=== PATIENT | female | born 1945 | race Caucasian/White ===

== ENCOUNTER → 2023-08-02 10:59 | Outpatient (REF) | payer OTHER, SELFPAY | LOC: RAD 10:59 | PROVIDERS: ATTENDING PHYSICIAN Physician Assistant Medical; FAMILY PHYSICIAN Family Medicine | DX: M47.812 Spondylosis without myelopathy or radiculopathy, cervical region (principal); M47.814 Spondylosis without myelopathy or radiculopathy, thoracic region | CPT/HCPCS: 72050; 72072; 72100 ==

== ENCOUNTER 2024-03-08 21:51 | Inpatient (IN) | payer OTHER, SELFPAY ==
[2024-03-08] VITALS (8 sets, daily range): BP systolic 103–138; BP diastolic 69–91; BMI 25.4; BMI 24.7
[2024-03-08 17:15] LABS: % Basophils 0.2 % (0-2); % Eosinophils 0.1 % (0-6); % Immature Granulocytes 0.8 % (0-0.5); % Lymphocytes 7.6 % (20.5-51.1); % Monocytes 7.3 % (1.7-9.3); Absolute Immature Granulocytes 0.1 10^3/uL (0-0.05); Absolute Lymphocytes 1.4 10^3/uL (1.2-3.4); Absolute Monocytes 1.3 10^3/uL (0.1-0.6); Absolute Neutrophils 15.3 10^3/uL (1.4-6.5); Hematocrit 45.5 % (37.0-47.0); Hemoglobin 15.4 g/dL (12.0-16.0); Mean Corp Hgb Conc. 33.8 g/dL (33.0-37.0); Mean Corpuscular Hgb 29.1 pg (27.0-31.0); Mean Platelet Volume 10.7 fL (7.4-10.4); Nucleated Red Blood Cells % 0 %; Platelet Count 332 10^3/uL (130-400); Red Blood Cell Count 5.29 10^6/uL (4.20-5.40); White Blood Cell Count 18.2 10^3/uL (4.8-10.8)
--- NOTE | 2024-03-08 17:15 | ED.GENMED ---
History of Present Illness
General
Chief Complaint: Failure to Thrive
Source: patient, family and ambulance crew
Time Seen by Provider: 03/08/24 16:48
History of Present Illness
History of Present Illness:
78yoF with a history of COPD on 3L NC, coronary artery disease, diastolic CHF, hypertension, hyperlipidemia, atrial fibrillation, sick sinus syndrome s/p pacemaker, aortic stenosis s/p TAVR, ulcerative colitis, and hypothyroidism presenting via EMS
for evaluation of altered mental status. Patient reports feeling confused but is not sure when this started. I called and spoke with daughter via phone who provides majority of the history. Daughter states that patient started to feel unwell
about 8-9 days ago. She was having cold symptoms and a cough which patient attributed to allergies. Daughter noticed that she seemed confused yesterday and 'seemed lost.' She typically is A&O and lives independently. Patient refused to come to the
hospital yesterday. Daughter checked on her today and she seemed worse prompting EMS call. Patient is unkempt on arrival and covered in feces.
Past History
Past History
ED Past Medical History: CAD, CHF, COPD, HTN, Hypercholesterolemia, Hypothyroidism and Psychiatric
ED Past Surgical History: Cholecystectomy, Gynecological (DIANA/BSO) and Orthopedic (total right knee replacement)
Social History
Tobacco: Non-smoker
Personal:
Living: with family (lives with who is able to help her)
Phy Exam
General Physical Exam
General Presentation: no apparent distress
General age: appears stated age
General Skin: warm and dry
General Habitus: elderly and poor hygiene
General Mental: alert
Cardiovascular Exam
Cardiovascular Exam: regular rate/rhythm
Pulmonary Exam
Pulmonary Exam: lungs clear, no respiratory distress, no crackles and other (Frequent cough)
Gastrointestinal Exam
Gastrointestinal Exam: non tender, soft and non distended
Neurological Exam
Neurological Exam: alert and other (Patient oriented to person and place. Not oriented to time. Somewhat slow to answer questions. )
Skin Exam
Skin Exam: normal color and warm/dry
Psychiatric Exam
Psychiatric Exam: normal mood/affect
Course
Orders/Labs/Results
Orders:
Orders
03/08/24 16:59
Cardiac Monitoring- Treatment ONCE
03/08/24 17:00
Electrocardiogram (*1) Urgent
Reason for Study: Other
Other Reason for Exam: sepsis
EKG- Treatment ONCE
CR Chest - 2 Views Urgent
Comment:
Reason For Exam: Fever
03/08/24 17:03
COVID-19 Antigen Urgent
Source: Nasal Swab
Complete Blood Count/With Diff Urgent
Comprehensive Metabolic Panel Urgent
Lactate Level [Lactic Acid] Urgent
Magnesium Urgent
Comment: ADD ON
PTT Urgent
Procalcitonin Urgent
PCT Algorithmm Indication: Sepsis
Prothrombin Time Urgent
Total CK [Creatine Phosphokinase] Urgent
Blood Culture Urgent
[facility] Source: Blood/Venous
Specimen Description:
Influenza A+B Rapid Molecular Urgent
[facility]AL Source: Nasal Swab
Specimen Description:
03/08/24 17:04
CT Head W/o Iv Contrast Urgent
Comment:
Reason For Exam: AMS
03/08/24 17:07
Blood Culture Routine
DHAVAL Source: Blood/Venous
Specimen Description:
03/08/24 17:10
Acetaminophen [Tylenol] 650 mg PO NOW STA
03/08/24 17:13
0.9% Sodium Chloride 500 ml [Nss] 500 ml IV BOLUS
03/08/24 17:18
Troponin I Urgent
Urinalysis Reflex To Culture Urgent
Date Specimen was Collected: 03/08/24
Time Specimen was Collected: 17:17
Urine Microscopic Reflex Cult Urgent
Urine Culture Urgent
DHAVAL Source: U
Specimen Description:
Date Specimen was Collected: 03/08/24
Time Specimen was Collected: 17:17
03/08/24 17:29
Straight cath- Treatment ONCE
03/08/24 17:38
Interrogate Pacemaker- Treatment ONCE
03/08/24 17:39
Add On- LAB Urgent
Tests Added?: magnesium
Potassium Chloride [KCl] 40 meq PO NOW STA
03/08/24 18:23
Magnesium Sulfate 1 G/D5w [Magnesium Sulfate] 1 gm in 100 ml IV NOW
03/08/24 18:30
CefTRIAXone [Rocephin] 2,000 mg IV NOW STA
03/08/24 18:33
Sterile Water [Sterile Water For Injection] 20 ml .ROUTE .STK-MED
03/08/24 22:00
Flush (0.9% Sodium Chloride) [Flush (Nss)] See Dose Instructions IV PER PROTOCOL
Abnormal Lab Results
03/08/24 03/08/24
17:03 17:18
WBC 18.2 H 10^3/uL
(4.8-10.8)
MPV 10.7 H fL
(7.4-10.4)
Abs Immat Gran (auto) 0.1 H 10^3/uL
(0-0.05)
Absolute Neuts (auto) 15.3 H 10^3/uL
(1.4-6.5)
Absolute Monos (auto) 1.3 H 10^3/uL
(0.1-0.6)
Immature Gran % 0.8 H %
(0-0.5)
Neutrophils % 84.0 H %
(42.2-75.2)
Lymphocytes % 7.6 L %
(20.5-51.1)
APTT 37.1 H Sec
(23.4-35.0)
Potassium 3.2 L mmol/L
(3.5-5.1)
Glucose 126 H mg/dl
(70-99)
Urine Ketones 3+ A
(Negative)
Urine Bilirubin 1+ A
(Negative)
Urine Bacteria (Reflex) Many A
(Negative)
Urine Albumin (Reflex) 1+ A
(Neg - Trace)
03/08/24 17:03
03/08/24 17:03
Vital Signs
Initial and Last Documented VS:
Initial Vital Signs
Temp Pulse Resp BP Pulse Ox
101.3 F H 60 17 133/70 93
03/08/24 16:47 03/08/24 16:47 03/08/24 16:47 03/08/24 16:47 03/08/24 16:47
Last Documented Vital Signs
Temp Pulse Resp BP Pulse Ox
98.0 F 81 28 125/83 92
03/08/24 18:32 03/08/24 20:30 03/08/24 20:30 03/08/24 20:00 03/08/24 20:30
MDM/Problems Addressed
Differential Diagnosis Includes:
78yoF here with malaise x 8-9 days with confusion since yesterday and generalized weakness. Patient is covered in feces on arrival. She is febrile to 101.3. Remainder of vitals are normal and BP stable. She is non-toxic appearing. She is oriented to
person and place but not time. Differential diagnosis includes but is not limited to: Viral illness, bronchitis, pneumonia, UTI, dehydration
Initial ED plan: Check septic workup including blood cultures, lactate, COVID/flu swab, UA, chest x-ray, and CT abdomen. Tylenol and fluid bolus.
*EKG
Interpreted by ED Provider?: Yes
EKG Intrepretation Date: 03/08/24
Heart Rate: 60
Rate: normal
Rhythm: ventricular paced
Ischemia: no ischemia
*Critical Care Note
Total Time (30-74mins, 75-104mins- exclusive of procedures): Not Applicable
Update Note
Update Note:
Labs reveal a leukocytosis with a white count of 18.2. Lactate normal. COVID/flu negative. Chest x-ray without infiltrates. CT head is negative for acute intracranial abnormalities but does show evidence of sinusitis. During ED stay, I was
notified by nursing staff about a possible episode of nonsustained VT. Pacemaker interrogation performed and I discussed results with [employer] rep. Patient has had 2 episodes of nonsustained VT since her last interrogation. The last episode of
this was today at 1549 lasting 5 beats. Discussed this with Dr. Quiroga, rn coronary care unit, who recommends optimizing electrolytes and monitoring on telemetry. Potassium and magnesium replacement ordered. Patient given IV Rocephin and was admitted
for further management.
ED Attending Note
-
Portions of this chart may have been created with voice recognition software.� Occasional wrong word or��sound alike� substitutions may have occurred due to the inherent limitations of voice recognition software.
Discharge Plan
Departure
Patient Disposition: Admit
Date of Disposition: 03/08/24
Time of Disposition: 19:46
Presentation/result/management discussed w/ accepting MD/DO: Hospitalist
Discharge Problem:
SIRS (systemic inflammatory response syndrome), Altered mental status, Non-sustained ventricular tachycardia
Prescriptions:
No Action
tizanidine 4 MG tablet
4 mg PO TIDPRN PRN (Reason: spasms)
sumatriptan succinate 50 MG tablet
50 mg PO DAILYPRN PRN (Reason: migraine)
citalopram 20 MG tablet
20 mg PO DAILY
allopurinol 300 MG tablet
300 mg PO DAILY
pregabalin [Lyrica] 100 MG capsule
75 mg PO TID
omeprazole 20 MG tablet,delayed release (DR/EC)
20 mg PO DAILY
torsemide 20 MG tablet
40 mg PO DAILY
rosuvastatin 10 MG tablet
20 mg PO DAILY
Incruse Ellipta 62.5 MCG blister with device
62.5 mcg IH R DAILYPRN PRN (Reason: sob)
potassium chloride [Klor-Con M20] 20 MEQ tablet,ER particles/crystals
40 meq PO DAILY
tizanidine 4 MG tablet
8 mg PO HS
cyclosporine [Restasis] 10 DROPS dropperette
1 drp LEFT EYE DAILY
Theragen Tablet
1 tab PO DAILY
acetaminophen [Tylenol Extra Strength] 500 mg Tablet
1,000 mg PO Q8HPRN PRN (Reason: mild pain)
levothyroxine [Synthroid] 100 mcg Tablet
100 mcg PO MOTUWETHFRSA
calcium carbonate [Calcium 500] 500 mg calcium (1,250 mg) Tablet
2,000 mg PO DAILY
diltiazem HCl 240 mg Capsule,Extended Release 24 Hr
240 mg PO DAILY
Referrals:
UNKNOWN - PT DOES,NOT KNOW [Family Provider] -
Interventions
Interventions:
*Risk Screen - Suicide Last Done: 03/08/24 16:47
*General Assessment Last Done: 03/08/24 16:47
*Neglect/Abuse Screening Last Done: 03/08/24 16:47
ED- Fall Risk Assessment Last Done: 03/08/24 19:06
*ED COVID-19 Vaccine History Last Done: 03/08/24 17:27
Discharge Date and Time
Print Language: SLOVAK
[2024-03-08] MEDS: TYLENOL 650 MG PO (17:16)
[2024-03-08] MEDS: NSS 500 IV (17:16)
[2024-03-08 17:25] LABS: INR 1.09; PT 13.9 Sec (11.4-14.6)
[2024-03-08 17:26] LABS: APTT 37.1 Sec (23.4-35.0); Lactic Acid 1.3 mmol/L (0.7-2.0)
[2024-03-08 17:28] LABS: COVID-19 Antigen Negative (Negative)
[2024-03-08 17:29] LABS: ALT (SGPT) 27 U/L (0-35); AST (SGOT) 34 U/L (14-36); Albumin 4.5 g/dl (3.5-5.0); Alkaline Phosphatase 114 U/L (38-126); Blood Urea Nitrogen 17 mg/dl (7-17); Calcium 10.2 mg/dl (8.4-10.2); Carbon Dioxide 24 mmol/L (22-30); Chloride 98 mmol/L (98-107); Creatine Phosphokinase 45 U/L (30-135); Estimated Creatinine Clearance 59 ml/min; Glucose 126 mg/dl (70-99); Potassium 3.2 mmol/L (3.5-5.1); Sodium 142 mmol/L (135-145); Total Bilirubin 1.2 mg/dl (0.2-1.3); eGFR > 60.00
[2024-03-08 17:30] LABS: Urine Albumin 1+ (Neg - Trace); Urine Bilirubin 1+ (Negative); Urine Character Clear (Clear); Urine Color Yellow; Urine Glucose Negative (Negative); Urine Ketone 3+ (Negative); Urine Leukocyte Negative (Negative); Urine Nitrite Negative (Negative); Urine Occult Blood Negative (Negative); Urine Specific Gravity 1.025 (<1.030); Urine Urobilinogen 1+ (Neg - 1+)
[2024-03-08 17:43] LABS: Urine Mucus Many
[2024-03-08 17:44] LABS: Urine Hyaline Cast 0-2 /LPF (0-2)
[2024-03-08 17:45] LABS: Urine Bacteria Many (Negative); Urine Red Blood Cell 0-2 /HPF (0-2)
--- NOTE | 2024-03-08 17:54 | PHANOTE ---
med rec note- patient coming from home, not sure if she living with. used ecw but patient appointment are not current, and most pharmacy were just filled. most ecw medication weren't filled recently, unable to find potassium, Restasis, Incruse.
patient come with med list from 2022. left message for family.
[2024-03-08 17:57] LABS: Troponin I 0.021 ng/ml
[2024-03-08 18:06] LABS: Magnesium 1.8 mg/dl (1.6-2.3)
[2024-03-08] MEDS: KCL 40 MEQ PO (18:06)
[2024-03-08 18:19] LABS: Procalcitonin < 0.05 ng/ml (0.0-0.25)
[2024-03-08] MEDS: MAGNESIUM SULFATE 100 IV (18:27)
[2024-03-08] MEDS: ROCEPHIN 2000 MG IV (18:34)
--- NOTE | 2024-03-08 20:16 | EDRN ---
updated patients family re:admission-- Erika Hernandez [phone] daughter in law-- would like an update in the am --patient was independent and doing well on her own till approx 9 days ago when she started with cold/cough--patient lives by herself
with family on the same property and they check on her frequently
--- NOTE | 2024-03-08 21:12 | HPS.HSE ---
Family Physician
-
Family Physician: NOT KNOW UNKNOWN - PT DOES
Chief Complaint
-
Fever, confusion
History of Present Illness
78 yo woman with a history of:
COPD on 3L NC,
coronary artery disease,
diastolic CHF,
hypertension,
hyperlipidemia,
atrial fibrillation,
sick sinus syndrome s/p pacemaker,
aortic stenosis s/p TAVR,
ulcerative colitis,
hypothyroidism
comes to the hospital via EMS for evaluation of altered mental status. Patient is not sure when this started. ER doc spoke with daughter via phone who provided majority of the history. Daughter stated that patient started to feel unwell 8-9 days
ago. She reports cold symptoms and a cough. Daughter noticed that her mom seemed confused yesterday and 'lost.' She typically is A&O and lives independently. Daughter checked on her today and she was unkempt, and on arrival she was covered in
feces. At the time of my interview, she was not in distress, and was able to answer simple questions.
Medical History
Past Medical History
Past Medical History: Reports Other
Additional Past Medical History:
Chronic obstructive pulmonary disease, unspecified COPD type
Hypothyroidism, unspecified
Mixed hyperlipidemia
Hyperparathyroidism, secondary renal
Rheumatoid arthritis involving multiple sites,
Ulcerative colitis without complications, unspecified location
Hypertensive heart
chronic kidney disease with heart failure
Paroxysmal atrial fibrillation
Major depressive disorder, recurrent, mild
Pacemaker
Chronic kidney disease, stage 3a
Chronic respiratory failure with hypoxia
Peripheral vascular disease, unspecified
Hypercholesterolemia
Hypertensive heart disease with heart failure
Chronic systolic (congestive) heart failure
Atherosclerosis of [place] coronary artery of [place] heart with angina pectoris
Impaired fasting glucose
chronic pain
Exudative age-related macular degeneration, bilateral, with active choroidal neovascularization
Past Surgical History: Reports Other
Additional Past Surgical History:
see above
Social History
Unable to obtain full social history at this time due to: Dementia
Tobacco: Non-smoker
Alcohol: None
Drug: None
Personal: Single
Living: Alone
Employment: Not Employed
Family History
Family History: Not pertinent
Allergies / Home Medications
Allergies reflects when Allergies were last updated in [facility].
Home Medications with original date entered in [facility]
Allergy/Medication List:
Allergies
Allergy/AdvReac Type Severity Reaction Status Date / Time
codeine Allergy migraine Verified 03/08/24 17:01
duloxetine HCl Allergy confusion Verified 03/08/24 17:01
[From Cymbalta]
metoclopramide Allergy DYSTONIA Verified 03/08/24 17:01
PER MD
tramadol Allergy Hives Verified 03/08/24 17:01
tramadol HCl [From Ultram] Allergy Hives Verified 03/08/24 17:01
Home Medications
allopurinol 300 mg tablet 300 mg PO DAILY gout 09/29/14
citalopram 20 mg tablet 20 mg PO DAILY Mental Health/Anxiety 09/29/14
omeprazole 20 mg tablet,delayed release 20 mg PO DAILY Gastrointestinal issue 09/29/14
pregabalin 100 mg capsule (Lyrica) 75 mg PO TID nerve pain 09/29/14
sumatriptan succinate 50 mg tablet 50 mg PO DAILYPRN PRN migraine 09/29/14
tizanidine 4 mg tablet 4 mg PO TIDPRN PRN spasms 09/29/14
torsemide 20 mg tablet 40 mg PO DAILY water pill 11/04/16
rosuvastatin 10 mg tablet 20 mg PO DAILY High cholesterol 01/22/17
potassium chloride 20 mEq tablet,extended release(part/cryst) (Klor-Con M) 40 meq PO DAILY Supplement 10/18/21
umeclidinium 62.5 mcg/actuation blister powder for inhalation (Incruse Ellipta) 62.5 mcg IH R DAILYPRN PRN sob 10/18/21
cyclosporine 0.05 % eye drops in a dropperette (Restasis) 1 drp LEFT EYE DAILY Eye condition 11/28/21
tizanidine 4 mg tablet 8 mg PO HS Muscle spasms 11/28/21
acetaminophen 500 mg tablet (Tylenol Extra Strength) 1,000 mg PO Q8HPRN PRN mild pain 03/08/24
calcium carbonate 2,000 mg PO DAILY 03/08/24
diltiazem HCl 240 mg capsule,24 hr,extended release 240 mg PO DAILY 03/08/24
levothyroxine 100 mcg tablet (Synthroid) 100 mcg PO MOTUWETHFRSA 03/08/24
therapeutic multivitamin 1 tab PO DAILY 03/08/24
Review of Systems
-
Unable to obtain full review of systems at this time due to: Dementia
History Source: Patient
A 12 point ROS was completed and negative except as noted: Yes
Physical Exam
Vital Signs
Vital Signs
Temp Pulse Resp BP Pulse Ox
98.0 F 81 28 125/83 92
03/08/24 18:32 03/08/24 20:30 03/08/24 20:30 03/08/24 20:00 03/08/24 20:30
Physical Exam
General: Well Developed, Well Nourished, No Apparent Distress and Comfortable
HEENT: Moist mucous membranes, Nose Appears Normal and Ears Appear Normal
Respiratory: Rhonchi (upper resp zone)
Cardiac: S1/S2 and Regular Rhythm
GI: Soft, Non Tender and Non Distended
Musculoskeletal: No Clubbing, No Cyanosis and No Edema
Skin: Warm and Dry
Neuro: Awake and Alert
Psych: Calm
Laboratory Results
-
03/08/24 17:03
03/08/24 17:03
Laboratory Results
PT 13.9 Sec (11.4-14.6) 03/08/24 17:03
INR 1.09 03/08/24 17:03
APTT 37.1 Sec (23.4-35.0) H 03/08/24 17:03
Lactic Acid 1.3 mmol/L (0.7-2.0) 03/08/24 17:03
Total Bilirubin 1.2 mg/dl (0.2-1.3) 03/08/24 17:03
AST 34 U/L (14-36) 03/08/24 17:03
ALT 27 U/L (0-35) 03/08/24 17:03
Alkaline Phosphatase 114 U/L (38-126) 03/08/24 17:03
Troponin I 0.021 ng/ml 03/08/24 17:18
Data Reviewed
-
Lab Data: Labs Reviewed by me
Impression/Plan
-
IMPRESSION:
78 woman with confusion, found to have sinusitis and likely bronchitis. Significant findings:
WBC 18.2
K 3.2
UA ketones and bacteria
Head CT shows sinusitis
5 beat episode of non-sustained v-tach in ER
PLAN:
1. Infection, likely sinusitis and bronchitis
ER gave rocephin
Switch to oral augmentin when appropriate to switch to po
2. Low K, likely decreased PO
Oral repletion
Recheck in am
Check magnesium level
3. Non-sustained v-tach, pacer working
Monitor on telemetry
replete electrolytes
Code: full
VCD for DVTp
[2024-03-08] MEDS: ZANAFLEX 8 MG PO (23:34)
[2024-03-08] MEDS: LYRICA 75 MG PO (23:35)
[2024-03-09] VITALS (7 sets, daily range): BP systolic 107–148; BP diastolic 58–81; PULSE 98; O2SAT 94
[2024-03-09 00:35] LABS: Troponin I 0.022 ng/ml
[2024-03-09 07:17] LABS: Hematocrit 36.4 % (37.0-47.0); Hemoglobin 12.3 g/dL (12.0-16.0); Mean Corp Hgb Conc. 33.8 g/dL (33.0-37.0); Mean Corpuscular Hgb 29.4 pg (27.0-31.0); Mean Corpuscular Volume 87.1 fL (81.0-99.0); Mean Platelet Volume 11.7 fL (7.4-10.4); Platelet Count 241 10^3/uL (130-400); Red Blood Cell Count 4.18 10^6/uL (4.20-5.40); White Blood Cell Count 11.9 10^3/uL (4.8-10.8)
[2024-03-09 07:34] LABS: Blood Urea Nitrogen 13 mg/dl (7-17); Estimated Creatinine Clearance 51 ml/min; Glucose 105 mg/dl (70-99)
[2024-03-09 07:35] LABS: Calcium 8.9 mg/dl (8.4-10.2); Carbon Dioxide 30 mmol/L (22-30); Chloride 99 mmol/L (98-107); Magnesium 1.9 mg/dl (1.6-2.3); Potassium 3.1 mmol/L (3.5-5.1); Sodium 140 mmol/L (135-145); eGFR > 60.00
[2024-03-09 07:40] LABS: Troponin I 0.019 ng/ml
[2024-03-09] MEDS: LYRICA PO (08:45)
[2024-03-09] MEDS: RESTASIS 0.05% OPHTHALMIC EMULSION 1 DROPS LEFT EYE (08:48)
[2024-03-09] MEDS: ZYLOPRIM 300 MG PO (08:49)
[2024-03-09] MEDS: DEMADEX 40 MG PO (08:49)
[2024-03-09] MEDS: CRESTOR 20 MG PO (08:49)
[2024-03-09] MEDS: CARDIZEM CD 240 MG PO (08:49)
[2024-03-09] MEDS: KCL 20 MEQ PO (08:49)
[2024-03-09] MEDS: PROTONIX 40 MG PO (08:49)
[2024-03-09] MEDS: THERAGRAN 1 TABLET PO (08:49)
[2024-03-09] MEDS: CELEXA 20 MG PO (08:50)
[2024-03-09] MEDS: OSCAL CAL 500 2000 MG PO (08:51)
[2024-03-09 09:41] LABS: TSH 4.25 uIU/ml (0.47-4.68)
--- NOTE | 2024-03-09 11:07 | W.PN.HOSP.TC ---
Today's Communication/Plan
-
Replete potassium
Standing potassium with Demadex
Hold tizanidine and Lyrica
Monitor mentation
Continue antibiotics
Assessment / Plan
Assessment / Plan
#Toxic metabolic encephalopathy likely multifactorial polypharmacy vs. infection (suspected bacterial sinusitis) vs. dehydration
CT head Mild diffuse cerebral and cerebellar volume loss. Mild white matter leukoaraiosis.
Hold tizanidine and lyrica
Blood culture and ucx in lab
Cont rocephin for now
Monitor po intake
avoid narcs
Improvement in leukocytosis.
#Hypokalemia
replete/monitor
#Leg pain
Check xray
#Non-sustained v-tach, pacer working
#Paroxysmal atrial fibrillation
Monitor on telemetry
Cont cardizem
CKD3a
trend cr for now
Cont torsemide
PAD
HLD-Cont statin
Hypothyroidism-cont synthroid
Gout�continue allopurinol
Code: full
DVT Prophylaxis Lovenox
d/w with daughter over the phone in details
Anticipated Discharge: > 48 hours
Subjective/Interval History
-
Date of Service: March 09, 2024
states feeling better after eating breakfast
remain confused
Objective Data
-
Labs:
Laboratory Results
03/09/24
05:17
WBC 11.9 H
Hgb 12.3 D
Hct 36.4 L
Plt Count 241 D
Sodium 140
Potassium 3.1 L
Chloride 99
Carbon Dioxide 30
BUN 13
Creatinine 0.7
Glucose 105 H
Calcium 8.9
Vital Signs:
Vital Signs
Temp Pulse Resp BP Pulse Ox
98.3 F 80 16 120/58 97
03/09/24 07:00 03/09/24 07:20 03/09/24 07:20 03/09/24 07:00 03/09/24 08:00
I&O
03/08/24 03/09/24 03/10/24
06:59 06:59 06:59
Intake Total 480 / 480
Output Total 0 / 0
Balance 480 / 480
Physical Exam
-
General: Well Developed and No Apparent Distress
HEENT: Normocephalic, Atraumatic and Moist Mucous Membranes
Respiratory: Clear to Auscultation
Cardiac: Regular Rhythm and S1/S2; Negative Murmur, Rub or Gallop
GI: Soft, Nontender, Nondistended and Normal Bowel Sounds; Negative Organomegaly
Rectal: Deferred by Provider
Musculoskeletal: No Clubbing, No Cyanosis, No Edema and Other (TTP R ankle )
Skin: Negative Rash
Neuro: Awake and Nonfocal/Grossly Intact
Psych: Calm
Data Reviewed
-
Total Time Spent with Patient (in minutes): 62
[2024-03-09 12:42] LABS: Troponin I 0.019 ng/ml
--- NOTE | 2024-03-09 13:39 | CM ---
shift manager reviewed patient's chart and met with patient and patient states she lives in a one story home with 4 steps to enter, patient's son and daughter in law live next door to patient, patient is independent with adl's and uses a walker with
ambulation, patient is currently requiring 3 liters of oxygen at home, she thinks her equipment company is [employer].
Pharmacy: [facility]
PCP: Dr. Oliveira.
[2024-03-09] MEDS: TYLENOL 1000 MG PO ×2 (15:14→23:51)
[2024-03-09] MEDS: STERILE WATER FOR INJECTION 10 ML IV (17:01)
[2024-03-09] MEDS: ROCEPHIN 1000 MG IV (17:01)
[2024-03-09] MEDS: LOVENOX 40 MG SC (17:01)
[2024-03-09] MEDS: DESENEX/MITRAZOL/ZEASORB 1 APPLIC TOPICAL (19:46)
[2024-03-10] VITALS (8 sets, daily range): BP systolic 89–144; BP diastolic 61–83; PULSE 60–111; O2SAT 98
[2024-03-10] MEDS: SYNTHROID 100 MCG PO (05:31)
[2024-03-10 07:38] LABS: % Basophils 0.5 % (0-2); % Eosinophils 1.5 % (0-6); % Immature Granulocytes 1.5 % (0-0.5); % Lymphocytes 21.9 % (20.5-51.1); % Monocytes 10.1 % (1.7-9.3); % Neutrophils 64.5 % (42.2-75.2); Absolute Basophils 0.1 10^3/uL (0-0.2); Absolute Eosinophils 0.2 10^3/uL (0-0.7); Absolute Immature Granulocytes 0.2 10^3/uL (0-0.05); Absolute Lymphocytes 2.5 10^3/uL (1.2-3.4); Absolute Monocytes 1.2 10^3/uL (0.1-0.6); Absolute Neutrophils 7.4 10^3/uL (1.4-6.5); Hematocrit 42.2 % (37.0-47.0); Hemoglobin 13.7 g/dL (12.0-16.0); Mean Corp Hgb Conc. 32.5 g/dL (33.0-37.0); Mean Corpuscular Hgb 28.8 pg (27.0-31.0); Mean Corpuscular Volume 88.7 fL (81.0-99.0); Mean Platelet Volume 12.2 fL (7.4-10.4); Nucleated Red Blood Cells % 0 %; Platelet Count 198 10^3/uL (130-400); Red Blood Cell Count 4.76 10^6/uL (4.20-5.40); Red Cell Dist. Width 13.9 % (11.5-14.5); White Blood Cell Count 11.5 10^3/uL (4.8-10.8)
[2024-03-10 08:05] LABS: Blood Urea Nitrogen 16 mg/dl (7-17); Calcium 9.6 mg/dl (8.4-10.2); Carbon Dioxide 33 mmol/L (22-30); Chloride 97 mmol/L (98-107); Estimated Creatinine Clearance 44 ml/min; Glucose 101 mg/dl (70-99); Potassium 3.2 mmol/L (3.5-5.1); Sodium 140 mmol/L (135-145); eGFR > 60.00
--- NOTE | 2024-03-10 08:31 | WOUNDNOTE ---
ABDOMINAL FOLD (L OUTER).
--- NOTE | 2024-03-10 08:33 | WOUNDNOTE ---
[facility] RN note: Patient admitted with sinusitis, low potassium. Patient lives alone. Family lives next door.
See H&P for complete history.
PMH: from H+P
'COPD on 3L NC,
coronary artery disease,
diastolic CHF,
hypertension,
hyperlipidemia,
atrial fibrillation,
sick sinus syndrome s/p pacemaker,
aortic stenosis s/p TAVR,
ulcerative colitis,
hypothyroidism'
Wound Location and type/assessment: Patient admitted with: small linear dark purple ecchymotic area L sacral/buttocks stage 2 vs DTI, stage 1 sacral pressure injury, dry abrasion R sacral/buttocks. Linear dermal opening L outer abdominal fold r/t
moisture. Yeast redness abdominal/groin folds, breast folds. Miconazole powder on order.
Appetite: good.
Pressure redistribution devices in place: [employer] Accumax. Patient turns with assist of 1. t/c bedtech Evin and requested air bed. Discussed with PCT Halle.
Plan: Silicone border foam changed on sacral/buttocks. Protective foam applied to heels. Patient turned to R semi side lying position. Instructed patient pressure injury prevention measures, uses of air chair cushion and to take air chair cushion
when discharged.
Will confirm orders with hospitalist and update nurse.
Care plan to be updated and will follow as needed.
Note to case management requested for discharge: Patient interested in VN if discharged to home.
Recommend follow up at wound care center upon discharge if needed.
[2024-03-10] MEDS: DEMADEX 40 MG PO (10:07)
[2024-03-10] MEDS: CRESTOR 20 MG PO (10:08)
[2024-03-10] MEDS: KCL 40 MEQ PO (10:08)
[2024-03-10] MEDS: CELEXA 20 MG PO (10:09)
[2024-03-10] MEDS: CARDIZEM CD 240 MG PO (10:09)
[2024-03-10] MEDS: THERAGRAN 1 TABLET PO (10:09)
[2024-03-10] MEDS: OSCAL CAL 500 2000 MG PO (10:10)
[2024-03-10] MEDS: PROTONIX 40 MG PO (10:10)
[2024-03-10] MEDS: ZYLOPRIM 300 MG PO (10:14)
[2024-03-10] MEDS: DESENEX/MITRAZOL/ZEASORB 1 APPLIC TOPICAL ×2 (10:15→19:22)
[2024-03-10] MEDS: RESTASIS 0.05% OPHTHALMIC EMULSION 1 DROPS LEFT EYE (10:15)
--- NOTE | 2024-03-10 15:18 | VNURNOTE ---
Home Health Liaison met with patient at bedside to discuss [facility] nurse/therapy, visits, schedule and homebound status. Patient is agreeable and understands that visits at home will be 2-3 x per week to assess and teach medical management. [facility]
brochure provided with contact information. Patient is aware that [facility] will contact them for start of care in 1-2 days after discharge from .
[facility] referral completed in [facility].
--- NOTE | 2024-03-10 15:55 | CM ---
Chart reviewed and renal case manager spoke with patient, physical therapy are recommending skilled placement however patient wants to return to home with [facility], son and daughter in law live next door.
Plan; Home with [facility], patient has home oxygen in home.
--- NOTE | 2024-03-10 17:00 | W.PN.HOSP.TC ---
Today's Communication/Plan
-
recheck labs
will need outpt follow up with ENT
Assessment / Plan
Assessment / Plan
#Toxic metabolic encephalopathy likely infection (suspected bacterial sinusitis), markedly improved, pt currently fully alert and answering questions appropriately
CT head: ACUTE RIGHT MAXILLARY and LEFT SPHENOID SINUSITIS. Mild diffuse cerebral and cerebellar volume loss. Mild white matter leukoaraiosis.
Hold tizanidine and lyrica
Blood culture: NGTD and ucx neg
Cont rocephin for now
Monitor po intake
avoid narcs
Improvement in leukocytosis.
WBC 18.2-->11.9-->11.5
#Hypokalemia
replete/monitor, on 40 Meq KCl daily
3.2-->3.1-->3.2
consider adjustment of diuretics as per input of cardio
#Leg pain
Check xray
Hx of Aortic Stenosis
s/p TAVR 12/08/[address] Florez, will consult cardio
#Non-sustained v-tach, pacer working
#Paroxysmal atrial fibrillation
Monitor on telemetry
Cont cardizem
EKG 03/08: Ventricular-paced rhythm
ABNORMAL ECG
WHEN COMPARED WITH ECG OF 09-DEC-2021 05:37,
VENT. RATE HAS DECREASED BY 12 BPM
underlying rhythm is now atrial fibrillation
CKD3a
trend cr for now
Cont torsemide
PAD
HLD-Cont statin
Hypothyroidism-cont synthroid
Gout�continue allopurinol
Code: full
DVT Prophylaxis Lovenox
Dr. Barth d/w with [id number], over the phone in details, discussed with teagan 03/10. Son goes to [facility], will need outpt follow up post dc
Anticipated Discharge: 24 - 48 hours
Subjective/Interval History
-
Date of Service: March 10, 2024
Pt believes sinuses feel less congested
Objective Data
-
Labs:
Laboratory Results
03/10/24
06:07
WBC 11.5 H
Hgb 13.7
Hct 42.2
Plt Count 198
Sodium 140
Potassium 3.2 L
Chloride 97 L
Carbon Dioxide 33 H
BUN 16
Creatinine 0.8
Glucose 101 H
Calcium 9.6
Vital Signs:
Vital Signs
Temp Pulse Resp BP Pulse Ox
98.4 F 101 20 112/62 96
03/10/24 16:00 03/10/24 16:00 03/10/24 16:00 03/10/24 16:00 03/10/24 16:00
I&O
03/09/24 03/10/24 03/11/24
06:59 06:59 06:59
Intake Total 480 / 480 1200 / 1200
Output Total 0 / 0
Balance 480 / 480 1200 / 1200
Review of Systems
-
History Source: Patient and Coordinated Provider
Constitutional: Denies Fever (last fever was 101.3 on 03/08 at 16:47)
EENT: Reports Other (sinus congestion)
Cardiac: Reports No Symptoms; Denies Chest Pain
Abdomen/GI: Reports No Symptoms
Genitourinary: Reports No Symptoms
Musculoskeletal: Reports Joint Pain (chronic)
Neuro: Denies Dizzy
Physical Exam
-
General: Well Developed and No Apparent Distress
HEENT: Normocephalic, Atraumatic, Moist Mucous Membranes and Other (percussion over sinuses do not cause pain)
Respiratory: Clear to Auscultation
Cardiac: Regular Rhythm and S1/S2; Negative Murmur, Rub or Gallop
GI: Soft, Nontender, Nondistended and Normal Bowel Sounds; Negative Organomegaly
Rectal: Deferred by Provider
Musculoskeletal: No Clubbing, No Cyanosis, No Edema and Other (TTP R ankle )
Skin: Negative Rash
Neuro: Awake and Nonfocal/Grossly Intact
Psych: Calm
[2024-03-10] MEDS: LOVENOX 40 MG SC (18:08)
[2024-03-10] MEDS: ROCEPHIN 1000 MG IV (18:11)
[2024-03-10] MEDS: STERILE WATER FOR INJECTION 10 ML IV (18:11)
[2024-03-10] MEDS: FLUSH (NSS) 1 FLUSH IV (18:13)
[2024-03-10] MEDS: TYLENOL 1000 MG PO (18:42)
[2024-03-11] VITALS (8 sets, daily range): BP systolic 120–165; BP diastolic 67–85; PULSE 99; O2SAT 95
[2024-03-11] MEDS: SYNTHROID 100 MCG PO (06:23)
--- NOTE | 2024-03-11 07:57 | CON.CAR ---
Addendum entered and electronically signed by Elmer Velazco MD 03/11/24 14:06:
Patient seen and examined in collaboration with LIGHTOUT EXAMINER; agree with below.
-78-year-old female with medical/cardiac history as outlined below; Cardiology consulted for CHF and hypokalemia.
-Patient also has elevated white blood cell count; being treated by ID for acute bacterial sinusitis (amoxicillin has been recommended for 5 days).
-Transthoracic echocardiogram today revealed an LVEF of 55-60%, but no regional wall motion abnormalities in the mid inferoseptal, apical septal, and mid to distal inferior regions highly suggestive of a myocardial infarct.
-The patient has no active chest pain.
-Will arrange stress test tomorrow for ischemic evaluation.
-Primary Hospitalist notified of the results and plan of care; also spoke with the patient's [id number] on the telephone.
Original Note:
Consultation
Consultation Request
Date/Time Consultation Requested: 03/10/2024 17:45
Date/Time Consultation Performed: 03/11/2024 07:50
Requesting Provider: Dr. Johnston
Performing Provider: ASHUTOSH Farias for Dr. Velazco
Medical History
-
Chief Complaint: Change in mental status
History of Present Illness:
Gia Hernandez is an 78 year old female (known to Dr. Ramirez, her primary organizational development specialist), with oxygen dependent COPD, coronary artery disease (nonobstructive), HFpEF, hypertension, dyslipidemia, atrial fibrillation (type unknown, not on oral
anticoagulation), SSS s/p dual-chamber Medtronic PPM, aortic stenosis s/p TAVR, ulcerative colitis, hypothyroidism, and RA who presented to the emergency department change in mental status. She was feeling unwell for nearly 1 week prior to arrival.
She was found to have acute sinusitis. She was also found to have hypokalemia. Cardiology was consulted for prior TAVR in the setting of infection along with hypokalemia on home diuretic. The patient is not having any chest pain or shortness of
breath.
Past Medical History
Past Medical History: Arrhythmias (Paroxysmal atrial fibrillation, NSVT), CAD (Non-obstructive), COPD, HTN, Hypercholesterolemia, Hypothyroidism, Renal Failure (CKD3a) and Other (PPM, MARY, UC, RA)
Past Surgical History: Gynecological and Orthopedic
Social History
Tobacco: Former Smoker
Alcohol: None
Drug: None
Living: Alone (Children next-door)
Employment: Retired
Family History
Family History: Reviewed & Not Pertinent
Allergies / Home Medications
Allergy/AdvReac Type Severity Reaction Status Date / Time
codeine Allergy migraine Verified 03/08/24 17:01
duloxetine HCl Allergy confusion Verified 03/08/24 17:01
[From Cymbalta]
metoclopramide Allergy DYSTONIA Verified 03/08/24 17:01
PER MD
tramadol Allergy Hives Verified 03/08/24 17:01
tramadol HCl [From Ultram] Allergy Hives Verified 03/08/24 17:01
�Medication �Instructions �Recorded �Confirmed �Type
allopurinol 300 mg tablet 300 mg PO DAILY gout 09/29/14 03/08/24 History
citalopram 20 mg tablet 20 mg PO DAILY Mental 09/29/14 03/08/24 History
Health/Anxiety
omeprazole 20 mg tablet,delayed 20 mg PO DAILY Gastrointestinal 09/29/14 03/08/24 History
release issue
pregabalin 100 mg capsule (Lyrica) 75 mg PO TID nerve pain 09/29/14 03/08/24 History
sumatriptan succinate 50 mg tablet 50 mg PO DAILYPRN PRN migraine 09/29/14 03/08/24 History
tizanidine 4 mg tablet 4 mg PO TIDPRN PRN spasms 09/29/14 03/08/24 History
torsemide 20 mg tablet 40 mg PO DAILY water pill 11/04/16 03/08/24 History
rosuvastatin 10 mg tablet 20 mg PO DAILY High cholesterol 01/22/17 03/08/24 History
potassium chloride 20 mEq 40 meq PO DAILY Supplement 10/18/21 03/08/24 History
tablet,extended
release(part/cryst) (Klor-Con M)
umeclidinium 62.5 mcg/actuation 62.5 mcg IH R DAILYPRN PRN sob 10/18/21 03/08/24 History
blister powder for inhalation
(Incruse Ellipta)
cyclosporine 0.05 % eye drops in a 1 drp LEFT EYE DAILY Eye condition 11/28/21 03/08/24 History
dropperette (Restasis)
tizanidine 4 mg tablet 8 mg PO HS Muscle spasms 11/28/21 03/08/24 History
acetaminophen 500 mg tablet 1,000 mg PO Q8HPRN PRN mild pain 03/08/24 03/08/24 History
(Tylenol Extra Strength)
calcium carbonate 2,000 mg PO DAILY Supplement 03/08/24 03/08/24 History
diltiazem HCl 240 mg capsule,24 240 mg PO DAILY Blood Pressure 03/08/24 03/08/24 History
hr,extended release
levothyroxine 100 mcg tablet 100 mcg PO MOTUWETHFRSA Thyroid 03/08/24 03/08/24 History
(Synthroid)
therapeutic multivitamin 1 tab PO DAILY Supplement 03/08/24 03/08/24 History
Review of Systems
-
History Source: Patient
All other systems: Negative unless noted
Constitutional: Fatigue
EENT: No Symptoms
Respiratory: No Symptoms
Cardiac: No Symptoms
Abdomen/GI: Nausea
: No Symptoms
Musculoskeletal: No Symptoms
Skin: No Symptoms
Neurological: No Symptoms
Endocrine: No Symptoms
Hematologic/Lymphatic: No Symptoms
Physical Exam
Vital Signs
Temp Pulse Resp BP Pulse Ox
97.4 F 84 16 143/85 96
03/11/24 03:37 03/11/24 03:37 03/11/24 03:37 03/11/24 03:37 03/11/24 03:37
Lab Results
Troponin I 0.019 ng/ml 03/09/24 12:12
Physical Exam
General: Well Developed, Well Nourished, No Apparent Distress and Comfortable
HEENT: Normocephalic, Anicteric and Moist Mucous Membranes
Respiratory: Clear and Non Labored Respirations
Cardiac: S1/S2 and Irregular Rhythm
Breast: Deferred by me
GI: Soft, Non Tender, Non Distended and Normal Bowel Sounds
Rectal: Deferred by Provider
Genito-urinary: No Costovertebral Tender
Musculoskeletal: No Clubbing, No Cyanosis and No Edema
Skin: Warm and Dry
Neuro: AO x 3
Hematologic/Lymphatic: No Lymphadenopathy
Psych: Calm
Impression / Plan
-
HFpEF, chronic
-She is not in acute/decompensated heart failure
-She is being given potassium supplementation for hypokalemia
-Continue home diuretic of torsemide 40 mg daily
-Stop potassium supplementation and start spironolactone 25 mg daily
-She will need a BMP in 1 in 3 weeks time to be reviewed by her primary organizational development specialist
Atrial fibrillation, type unknown
-Rate controlled
-Oral Anticoagulation: None (prior hemorrhage in her eye), declined Watchman in the past
-[id number]: score 4 ( HTN, vascular disease, age 75 or more, female gender)
Severe aortic stenosis S/P TAVR (23 mm Morenita S3, 11/2021)
-Update echocardiogram, peak/mean gradients 41/26 on TTE in 2021
Paroxysmal atrial tachycardia, continue CCB
SSS S/P Medtronic dual chamber PPM
CAD, non-obstructive, stable without CP
Data Reviewed
-
EKG: Report Reviewed by me (V paced with underlying atrial fibrillation )
Labs: Labs Reviewed by me
Old Records: Reviewed
[2024-03-11 08:08] LABS: % Basophils 0.5 % (0-2); % Immature Granulocytes 1.3 % (0-0.5); % Monocytes 8.2 % (1.7-9.3); Absolute Basophils 0.1 10^3/uL (0-0.2); Absolute Eosinophils 0.1 10^3/uL (0-0.7); Absolute Immature Granulocytes 0.2 10^3/uL (0-0.05); Absolute Neutrophils 8.4 10^3/uL (1.4-6.5); Hematocrit 42.5 % (37.0-47.0); Hemoglobin 13.9 g/dL (12.0-16.0); Mean Corp Hgb Conc. 32.7 g/dL (33.0-37.0); Mean Corpuscular Hgb 28.9 pg (27.0-31.0); Mean Corpuscular Volume 88.4 fL (81.0-99.0); Nucleated Red Blood Cells % 0 %; Platelet Count 242 10^3/uL (130-400); Red Blood Cell Count 4.81 10^6/uL (4.20-5.40); Red Cell Dist. Width 13.9 % (11.5-14.5); White Blood Cell Count 11.6 10^3/uL (4.8-10.8)
[2024-03-11 08:29] LABS: Blood Urea Nitrogen 17 mg/dl (7-17); Calcium 9.4 mg/dl (8.4-10.2); Carbon Dioxide 33 mmol/L (22-30); Chloride 96 mmol/L (98-107); Estimated Creatinine Clearance 51 ml/min; Glucose 120 mg/dl (70-99); Magnesium 1.3 mg/dl (1.6-2.3); Potassium 3.8 mmol/L (3.5-5.1); Sodium 143 mmol/L (135-145); eGFR > 60.00
[2024-03-11] MEDS: DEMADEX 40 MG PO (08:41)
[2024-03-11] MEDS: CARDIZEM CD 240 MG PO (08:41)
[2024-03-11] MEDS: PROTONIX 40 MG PO (08:41)
[2024-03-11] MEDS: CELEXA 20 MG PO (11:58)
[2024-03-11] MEDS: THERAGRAN 1 TABLET PO (11:59)
[2024-03-11] MEDS: OSCAL CAL 500 2000 MG PO (11:59)
[2024-03-11] MEDS: CRESTOR 20 MG PO (12:01)
[2024-03-11] MEDS: ALDACTONE 25 MG PO (12:03)
[2024-03-11] MEDS: KCL PO (12:05)
[2024-03-11] MEDS: ZYLOPRIM 300 MG PO (12:07)
[2024-03-11] MEDS: RESTASIS 0.05% OPHTHALMIC EMULSION 1 DROPS LEFT EYE (12:07)
[2024-03-11] MEDS: DESENEX/MITRAZOL/ZEASORB 1 APPLIC TOPICAL ×2 (12:09→22:07)
--- NOTE | 2024-03-11 12:23 | CON.ID ---
Consultation
-
Date/Time Consultation Requested: 03/11/24 11:49
Date/Time Consultation Performed: 03/11/24 12:24
Requesting Provider: Dr Johnston
Performing Provider: Dr Villa
Reason for Consultation: Dr Johnston
Chief Complaint / Past History
Chief Complaint
fever, confusion
History of Present Illness
Ms Hernandez is an 78 year old female with history of COPD on 3L NC, UC/RA, chronic pain who presented here 03/08 for confusion for 8-9 days per daughter who provided history. At the time on onset also with 'cold and cough.' Daughter went to visit her
and found her unkept - covered in feces
Since arrival here tmax is 101.3 (rectally in the ER) and no further fevers, BP stable, wbc on arrival 18.2 now 11.6, hgb 15 now 13.9, plt 242, L shift was present on arrival and has resolved, cr 0.6 which is her baseline, lactic acid 1.3, t bili
1.2, ast 34, alt 27, alk phos 114, ua many wbcs no pyuria, covid ag neg, bilateral knees xray'd replacement and djd noted, ct head: sinusitis, CXR: no infiltrates, urine culture finalized negative, 03/08 blood cultures no growth, 03/08 influenza pcr
negative. Tizanidine and lyrics were held. She was started on ceftriaxone. Course has been complicated by NSVT
Past History
Additional Past Medical History:
Chronic obstructive pulmonary disease, unspecified COPD type
Hypothyroidism, unspecified
Mixed hyperlipidemia
Hyperparathyroidism, secondary renal
Rheumatoid arthritis involving multiple sites,
Ulcerative colitis without complications, unspecified location
Hypertensive heart
chronic kidney disease with heart failure
Paroxysmal atrial fibrillation
Major depressive disorder, recurrent, mild
Pacemaker
Chronic kidney disease, stage 3a
Chronic respiratory failure with hypoxia
Peripheral vascular disease, unspecified
Hypercholesterolemia
Hypertensive heart disease with heart failure
Chronic systolic (congestive) heart failure
Atherosclerosis of [place] coronary artery of [place] heart with angina pectoris
Impaired fasting glucose
chronic pain
Additional Past Surgical History:
pacemaker
tavr
TKR
gynecologic
Allergy History:
codeine Allergy (Verified 03/08/24 17:01)
migraine
duloxetine HCl [From Cymbalta] Allergy (Verified 03/08/24 17:01)
confusion
metoclopramide Allergy (Verified 03/08/24 17:01)
DYSTONIA PER MD
tramadol Allergy (Verified 03/08/24 17:01)
Hives
tramadol HCl [From Ultram] Allergy (Verified 03/08/24 17:01)
Hives
Medications Reviewed: Yes
Social History
Tobacco: Non-Smoker
Alcohol: None
Drug: None
Family History
Family History: Not Pertinent
Review of Systems
Review of Systems
General: Fever
All systems: All other systems were reviewed and were negative
Vital Signs
Temp Pulse Resp BP Pulse Ox
98.1 F 101 16 138/69 96
03/11/24 11:00 03/11/24 11:00 03/11/24 11:00 03/11/24 11:00 03/11/24 11:00
Physical Exam
Physical Exam
Constitutional: No Acute Distress
Cardiovascular: Regular Rate and S1/S2; Negative Murmur or Rub
Pulmonary: Clear and Symmetric; Negative Wheezes, Rales or Rhonchi
Gastrointestinal: Soft, Non Tender, Non Distended and Normal Bowel Sounds
Skin: Warm and Dry; Negative Rash or Jaundice
Lab / Diagnostic Study Results
03/11/24 07:19
03/11/24 07:19
Abs Immat Gran (auto) 0.2 10^3/uL (0-0.05) H 03/11/24 07:19
Absolute Neuts (auto) 8.4 10^3/uL (1.4-6.5) H 03/11/24 07:19
Absolute Lymphs (auto) 2.0 10^3/uL (1.2-3.4) 03/11/24 07:19
Absolute Monos (auto) 1.0 10^3/uL (0.1-0.6) H 03/11/24 07:19
Absolute Basos (auto) 0.1 10^3/uL (0-0.2) 03/11/24 07:19
Immature Gran % 1.3 % (0-0.5) H 03/11/24 07:19
Neutrophils % 72.0 % (42.2-75.2) 03/11/24 07:19
Lymphocytes % 17.0 % (20.5-51.1) L 03/11/24 07:19
Monocytes % 8.2 % (1.7-9.3) 03/11/24 07:19
Eosinophils % 1.0 % (0-6) 03/11/24 07:19
Basophils % 0.5 % (0-2) 03/11/24 07:19
PT 13.9 Sec (11.4-14.6) 03/08/24 17:03
INR 1.09 03/08/24 17:03
Lactic Acid 1.3 mmol/L (0.7-2.0) 03/08/24 17:03
Procalcitonin < 0.05 ng/ml (0.0-0.25) 03/08/24 17:03
Microbiology Results
Micro:
03/08/24 17:07 Blood Culture - Preliminary
Blood/Venous No Growth in 48 hours- Final report to follow
03/08/24 17:03 Blood Culture - Preliminary
Blood/Venous No Growth in 48 hours- Final report to follow
03/08/24 17:18 Urine Culture - Final
Urine NO GROWTH
03/08/24 17:03 Influenza Types A & B (ALAN) - Final
Nasal Swab Negative for Influenza A & B, NAAT
Negative results must be combined with clinical observations
and patient history.
Nucleic Acid Amplification test (NAAT)performed on the
[employer] platform.
Assessment / Plan
Sinusitis - possibly bacterial
TME
- given duration of symptoms, TME plan a finite course of oral antibiotics
- switch to amoxicillin 500 mg PO TID to complete 5 day total course 03/08-03/13
- avoid antihistamines and guaifenesin; nasal saline irrigation an option if congestion bothersome
- follow up with PCP
Care Review
Plan reviewed with: Physician (Dr Lee - leukocytosis)
--- NOTE | 2024-03-11 14:02 | PN.CDI ---
CDI
- -
CDI:
Physician Documentation Request
Admit Date: 03/08/24 21:51
Dear Doctor Rosa,
Please review the following and provide your response in the progress notes.
Clinical Indicators:
Pt admitted with toxic metabolic encephalopathy and sinusitis.
03/10 [facility] RN: 'Patient admitted with: small linear dark purple ecchymotic area L sacral/buttocks stage 2 vs DTI, stage 1 sacral pressure injury...'
Physician documentation of the type and location of wounds is required for compliant documentation. Based on the above clinical findings and your assessment, please provide the following in your progress note:
1. Location of the ulcer/wound, including laterality.
2. Type (etiology) of ulcer/wound:
Pressure injury POA
non-pressure injury
Other
Use of terms such as suspected, likely, concern for, or probable (associated with a specific diagnosis that is being evaluated, monitored, or treated as if it exists) are acceptable and can be coded in the inpatient setting, when documented at the
time of discharge.
Thank you,
Lani Irwin RN, BSN
CDI Specialist
Available via [facility] Text
Please use your independent medical judgment in providing your response.
*Source: National Pressure Ulcer Advisory Panel (NPUAP)
--- NOTE | 2024-03-11 14:37 | PN.CDI ---
CDI
- -
CDI:
Physician Documentation Request
Admit Date: 03/08/24 21:51
Dear Doctor Rosa,
Please review the following and provide your response in the progress notes.
Clinical Indicators:
Pt admitted with toxic metabolic encephalopathy, suspected bacterial sinusitis vs. dehydration
03/08 ER:' SIRS (systemic inflammatory response syndrome)'
03/11 ID: ' L shift was present on arrival and has resolved...She was started on ceftriaxone...Sinusitis - possibly bacterial
TME...- switch to amoxicillin 500 mg PO TID to complete 5 day total course 03/08-03/13..'
Selected Entries
03/08/24
16:47 03/08/24
21:15 03/08/24
22:30
Temp 101.3 F H
Pulse 99 101
03/09/24
11:00
Temp
Pulse 110
Laboratory Tests
03/08/24 03/09/24 03/10/24
17:03 05:17 06:07
WBC 18.2 H 11.9 H 11.5 H
Please clarify which most accurately describes the patient:
Sepsis
Systemic manifestations of infection, with 2 or more SIRS criteria which include:
Fever > 100.4 degrees F or hypothermia < 96.8 degrees F
Leukocytosis - WBC > 12,000 or leukopenia, WBC < 4,000 or > 10% bands
Tachycardia - > 90 beats per minute
Tachypnea - RR > 20 breaths per minute or PaCO2 < 32 mmHg
Source: Merck Manual 2012
Indicate the known or suspected organism
Indicate the known or suspected underlying infection, such as UTI, pneumonia or cellulitis
Indicate if a suspected bacterial infection of unknown source
SIRS due to a non-infectious source
Indicate the known or suspected etiology
Localized Infection Only, Without Systemic Illness
- indicate the site/source, such as UTI, pneumonia etc.
Other
Unable to determine
Use of terms such as suspected, likely, concern for, or probable (associated with a specific diagnosis that is being evaluated, monitored, or treated as if it exists) are acceptable and can be coded in the inpatient setting, when documented at the
time of discharge.
Thank you,
Lani Irwin RN, BSN
CDI Specialist
Available via [place] Text
Please use your independent medical judgment in providing your response.
--- NOTE | 2024-03-11 14:47 | W.PN.HOSP.TC ---
Today's Communication/Plan
-
EST to be done on 03/12
changed to oral abx
KCL stopped and Aldactone started
ASA changed to 81 mg daily from 324 mg
Assessment / Plan
Assessment / Plan
#Toxic metabolic encephalopathy likely infection (suspected bacterial sinusitis), markedly improved, pt currently fully alert and answering questions appropriately
CT head: ACUTE RIGHT MAXILLARY and LEFT SPHENOID SINUSITIS. Mild diffuse cerebral and cerebellar volume loss. Mild white matter leukoaraiosis.
Hold tizanidine and lyrica
Blood culture: NGTD and ucx neg
Cont rocephin for now
Monitor po intake
avoid narcs
Improvement in leukocytosis.
WBC 18.2-->11.9-->11.5-->11.6
due to persistent leukocytosis ID consult placed, agreed with transition to oral abx
#Hypokalemia
replete/monitor, on 40 Meq KCl daily
3.2-->3.1-->3.2-->3.8
discussed change of diuretic to Lasix + Spironolactone and stopping KCl
#Leg pain:Severe medial and lateral compartment osteoarthritis of the knee. Significantly progressed.
Chest xray: 1. No radiographic evidence for pneumonia.
2. Mild chronic elevation of the posterior left hemidiaphragm.
3. Previous TAVR.
4. Left-sided cardiac pacemaker in place
Hx of Aortic Stenosis
s/p TAVR 12/08/21
Echo: LV ejection fraction is 55-60%. Mid anteroseptal, apical septal, and mid to
distal inferior akinesis/dyskinesis. Wall motion is also consistent with
conduction abnormality/paced rhythm.
Normal right ventricular size and function. Pacer wire seen in right ventricle.
23 mm Morenita 3 TAVR with peak/mean gradients of 23/12 mmHg. Trace aortic
regurgitation.
Compared to previous echo on 12/09/2021, new regional wall motion abnormalities
are present unspecified.
#Non-sustained v-tach, pacer working
#Paroxysmal atrial fibrillation
Monitor on telemetry
Cont cardizem
EKG 03/08: Ventricular-paced rhythm
ABNORMAL ECG
WHEN COMPARED WITH ECG OF 09-DEC-2021 05:37,
VENT. RATE HAS DECREASED BY 12 BPM
underlying rhythm is now atrial fibrillation
Consult placed to cardio, discussed with Dr. Velazco, concern for wall motion abnormality noted on Echo, will plan EST tomorrow. Requested he review with son as well, appreciate input
03/10 [facility] RN: 'Patient admitted with: small linear dark purple ecchymotic area L sacral/buttocks stage 2 vs DTI, stage 1 sacral pressure injury...'
CKD3a
trend cr for now
Cont torsemide
PAD
HLD-Cont statin
Hypothyroidism-cont synthroid
Gout�continue allopurinol
Code: full
DVT Prophylaxis Lovenox
Dr. Barth d/w with [id number], over the phone in details, I discussed with teagan 03/10. Son goes to [facility], will need outpt follow up post dc
Anticipated Discharge: > 48 hours
Subjective/Interval History
-
Date of Service: March 11, 2024
Generally feeling better
Objective Data
-
Labs:
Laboratory Results
03/11/24
07:19
WBC 11.6 H
Hgb 13.9
Hct 42.5
Plt Count 242 D
Sodium 143
Potassium 3.8
Chloride 96 L
Carbon Dioxide 33 H
BUN 17
Creatinine 0.7
Glucose 120 H
Calcium 9.4
Vital Signs:
Vital Signs
Temp Pulse Resp BP Pulse Ox
98.1 F 101 16 138/69 96
03/11/24 11:00 03/11/24 11:00 03/11/24 11:00 03/11/24 11:00 03/11/24 11:00
I&O
03/10/24 03/11/24 03/12/24
06:59 06:59 06:59
Intake Total 1200 / 1200 1020 / 1020
Balance 1200 / 1200 1020 / 1020
Review of Systems
-
History Source: Patient and Coordinated Provider
Constitutional: Denies Fever (last fever was 101.3 on 03/08 at 16:47)
EENT: Reports Other (sinus congestion)
Cardiac: Reports No Symptoms; Denies Chest Pain
Abdomen/GI: Reports No Symptoms
Genitourinary: Reports No Symptoms
Musculoskeletal: Reports Joint Pain (chronic)
Neuro: Denies Dizzy
Physical Exam
-
General: Well Developed and No Apparent Distress
HEENT: Normocephalic, Atraumatic, Moist Mucous Membranes and Other (percussion over sinuses do not cause pain)
Respiratory: Clear to Auscultation
Cardiac: Regular Rhythm and S1/S2; Negative Murmur, Rub or Gallop
GI: Soft, Nontender, Nondistended and Normal Bowel Sounds; Negative Organomegaly
Rectal: Deferred by Provider
Musculoskeletal: No Clubbing, No Cyanosis, No Edema and Other (TTP R ankle )
Skin: Negative Rash
Neuro: Awake and Nonfocal/Grossly Intact
Psych: Calm
[2024-03-11] MEDS: LOW STRENGTH ASPIRIN 324 MG PO (14:49)
[2024-03-11] MEDS: STERILE WATER FOR INJECTION IV (17:32)
[2024-03-11] MEDS: AMOXIL 500 MG PO (17:34)
[2024-03-11] MEDS: MAGNESIUM OXIDE 500 MG PO ×2 (17:34→20:08)
[2024-03-11] MEDS: LOVENOX 40 MG SC (17:35)
[2024-03-11] MEDS: TYLENOL 1000 MG PO (18:53)
[2024-03-12] VITALS (7 sets, daily range): BP systolic 110–157; BP diastolic 63–93; PULSE 89–92; O2SAT 94–96
[2024-03-12] MEDS: AMOXIL 500 MG PO ×3 (03:00→18:44)
--- NOTE | 2024-03-12 03:17 | DOWNTIME ---
There was a [employer] Client [employer] Software [employer] Downtime on 03/12/2024 from 0100 to 03/12/2024 at 0300. Downtime documentation of patient's care, including medication administrations, has been reconciled in the electronic record per guidelines. Refer to the
patient's paper chart under the miscellaneous tab to see printed paper medication records and downtime forms.
[2024-03-12] MEDS: SYNTHROID 100 MCG PO (06:36)
--- NOTE | 2024-03-12 08:51 | W.PN.CD ---
Today's Communication / Plan
-
-Continue home diuretic regimen of torsemide 40 mg daily.
-Started on spironolactone 25 mg daily yesterday.
-She will need a BMP in 1-3 weeks time to be reviewed by her primary Primary Grade Teacher (Dr. Ramirez).
-Echocardiogram yesterday revealed normal LVEF of 55-60% and normal TAVR function, but regional wall motion abnormalities which are new compared to previous echocardiogram 2 years ago.
-Patient will undergo a Lexiscan stress test today for ischemic evaluation; if no ischemia, can follow-up with primary Primary Grade Teacher as an outpatient.
Impression / Plan
-
HFpEF, chronic
-Stable/compensated.
-Continue home diuretic regimen of torsemide 40 mg daily.
-Started on spironolactone 25 mg daily yesterday.
-She will need a BMP in 1-3 weeks time to be reviewed by her primary Primary Grade Teacher (Dr. Ramirez).
Atrial fibrillation, type unknown
-Remanins rate controlled.
-Oral Anticoagulation: None (prior hemorrhage in her eye), declined Watchman in the past.
-[id number]: score 4 ( HTN, vascular disease, age 75 or more, female gender).
Severe aortic stenosis S/P TAVR (23 mm Morenita S3, 11/2021)
-Echocardiogram yesterday revealed normal LVEF of 55-60% and normal TAVR function, but regional wall motion abnormalities which are new compared to previous echocardiogram 2 years ago.
-Patient will undergo a Lexiscan stress test today for ischemic evaluation; if no ischemia, can follow-up with primary Primary Grade Teacher as an outpatient.
CAD:
-Previously non-obstructive, denies chest pain.
-New regional wall motion abnormalities noted on echocardiogram; will undergo stress testing as above.
Paroxysmal atrial tachycardia:
-Continue CCB.
SSS S/P Medtronic dual chamber PPM:
-Stable.
Transthoracic Echocardiogram (03/11/2024):
CONCLUSIONS
LV ejection fraction is 55-60%. Mid anteroseptal, apical septal, and mid to
distal inferior akinesis/dyskinesis. Wall motion is also consistent with
conduction abnormality/paced rhythm.
Normal right ventricular size and function. Pacer wire seen in right ventricle.
23 mm Morenita 3 TAVR with peak/mean gradients of 23/12 mmHg. Trace aortic
regurgitation.
Compared to previous echo on 12/09/2021, new regional wall motion abnormalities
are present as specified.
Physical Exam
Vital Signs/Labs
Vital Signs
Temp Pulse Resp BP Pulse Ox
98.1 F 86 16 157/78 98
03/12/24 03:06 03/12/24 03:06 03/12/24 03:06 03/12/24 03:06 03/12/24 03:06
PT 13.9 Sec (11.4-14.6) 03/08/24 17:03
INR 1.09 03/08/24 17:03
APTT 37.1 Sec (23.4-35.0) H 03/08/24 17:03
Magnesium 1.3 mg/dl (1.6-2.3) L 03/11/24 07:19
TSH 4.25 uIU/ml (0.47-4.68) 03/09/24 05:18
LAB Results
03/09/24
12:12
Troponin I 0.019
Physical Exam
Constitutional: No acute distress and Comfortable
EENT: Anicteric
Cardiovascular: Rhythm & rate is regular, Pedal edema is absent, Systolic murmur absent and S1S2 is normal (Soft 2/6 systolic murmur)
Respiratory: Respiratory effort normal and Lungs clear to auscul.
GI: Soft
Neuro/Psych: AO x 3
Other: Skin (Warm, dry, intact)
Data Reviewed
-
Date of Service: March 12, 2024
EKG: Tracing Personally Visualized and interpreted (Telemetry: Sinus rhythm with sequential V pacing)
Echo: Tracing Personally Visualized and interpreted (LVEF 55-60%, mid anteroseptal, apical septal, and mid to distal inferior akinesis/dyskinesis.)
Labs: Labs Reviewed by me
[2024-03-12] MEDS: LEXISCAN 0.4 MG IV (09:18)
[2024-03-12] MEDS: FLUSH (NSS) 1 FLUSH IV (09:19)
--- NOTE | 2024-03-12 10:35 | W.PN.ID1 ---
Date of Service
Date of Service: March 12, 2024
Today's Communication
- c/w amoxicillin 500 mg PO TID to complete 5 day total course 03/08-03/13
Assessment / Plan
Sinusitis - possibly bacterial
TME
- c/w amoxicillin 500 mg PO TID to complete 5 day total course 03/08-03/13
- avoid antihistamines and guaifenesin; nasal saline irrigation an option if congestion bothersome
- follow up with PCP
Chief Complaint
-: Leukocytosis and Other (sinusitis)
Subjective / Review of Systems
afebrile
no events overnight
tolerating amoxicillin
Vital Signs / Physical Exam
Vital Signs
Vital Signs
Temp Pulse Resp BP Pulse Ox
98.1 F 86 16 157/78 98
03/12/24 03:06 03/12/24 03:06 03/12/24 03:06 03/12/24 03:06 03/12/24 03:06
Physical Exam
Constitutional: No Acute Distress
Head: Other (sinus tenderness - mild)
Cardiovascular: Regular Rate and S1/S2; Negative Murmur or Rub
Pulmonary: Clear and Symmetric; Negative Wheezes or Rales
Gastrointestinal: Soft, Non Tender, Non Distended and Normal Bowel Sounds
Skin: Warm and Dry; Negative Rash or Jaundice
Objective Data
Lab Data
PT 13.9 Sec (11.4-14.6) 03/08/24 17:03
INR 1.09 03/08/24 17:03
APTT 37.1 Sec (23.4-35.0) H 03/08/24 17:03
Estimated Creat Clear 51 ml/min 03/11/24 07:19
Lactic Acid 1.3 mmol/L (0.7-2.0) 03/08/24 17:03
Total Bilirubin 1.2 mg/dl (0.2-1.3) 03/08/24 17:03
AST 34 U/L (14-36) 03/08/24 17:03
ALT 27 U/L (0-35) 03/08/24 17:03
Alkaline Phosphatase 114 U/L (38-126) 03/08/24 17:03
AM labs cbc and bmp pending but not needed from my perspective
Micro Results:
03/08/24 17:07 Blood Culture - Preliminary
Blood/Venous No Growth in 72 hours- Final report to follow
03/08/24 17:03 Blood Culture - Preliminary
Blood/Venous No Growth in 72 hours- Final report to follow
03/08/24 17:18 Urine Culture - Final
Urine NO GROWTH
03/08/24 17:03 Influenza Types A & B (ALAN) - Final
Nasal Swab Negative for Influenza A & B, NAAT
Negative results must be combined with clinical observations
and patient history.
Nucleic Acid Amplification test (NAAT)performed on the
[employer] platform.
--- NOTE | 2024-03-12 11:05 | PTCARENOTE ---
Received patient post Lexiscan. Patient AA)x3, no c/o pain or SOB. Call king in reach. IVT in to draw AM labs
[2024-03-12 11:45] LABS: % Basophils 0.7 % (0-2); % Eosinophils 0.8 % (0-6); % Immature Granulocytes 1.2 % (0-0.5); % Monocytes 8.5 % (1.7-9.3); % Neutrophils 72.8 % (42.2-75.2); Absolute Basophils 0.1 10^3/uL (0-0.2); Absolute Eosinophils 0.1 10^3/uL (0-0.7); Absolute Immature Granulocytes 0.1 10^3/uL (0-0.05); Absolute Lymphocytes 1.7 10^3/uL (1.2-3.4); Absolute Monocytes 0.9 10^3/uL (0.1-0.6); Absolute Neutrophils 7.6 10^3/uL (1.4-6.5); Hematocrit 44.4 % (37.0-47.0); Hemoglobin 14.6 g/dL (12.0-16.0); Mean Corp Hgb Conc. 32.9 g/dL (33.0-37.0); Mean Corpuscular Hgb 29.9 pg (27.0-31.0); Nucleated Red Blood Cells % 0 %; Platelet Count 261 10^3/uL (130-400); Red Blood Cell Count 4.88 10^6/uL (4.20-5.40); Red Cell Dist. Width 13.7 % (11.5-14.5); White Blood Cell Count 10.4 10^3/uL (4.8-10.8)
[2024-03-12 12:52] LABS: Blood Urea Nitrogen 16 mg/dl (7-17); Carbon Dioxide 36 mmol/L (22-30); Chloride 91 mmol/L (98-107); Estimated Creatinine Clearance 44 ml/min; Glucose 131 mg/dl (70-99); Magnesium 1.5 mg/dl (1.6-2.3); Potassium 3.8 mmol/L (3.5-5.1); Sodium 140 mmol/L (135-145); eGFR > 60.00
--- NOTE | 2024-03-12 13:36 | W.PN.UPDATE ---
Update Note
Progress Note Update
Nuclear stress test shows no evidence of ischemia or infarction. Full report to follow.
[2024-03-12] MEDS: CRESTOR 20 MG PO (13:43)
[2024-03-12] MEDS: OSCAL CAL 500 2000 MG PO (13:43)
[2024-03-12] MEDS: CELEXA 20 MG PO (13:44)
[2024-03-12] MEDS: RESTASIS 0.05% OPHTHALMIC EMULSION 1 DROPS LEFT EYE (13:44)
[2024-03-12] MEDS: ALDACTONE 25 MG PO (13:44)
[2024-03-12] MEDS: ZYLOPRIM 300 MG PO (13:44)
[2024-03-12] MEDS: CARDIZEM CD 240 MG PO (13:44)
[2024-03-12] MEDS: DEMADEX 40 MG PO (13:44)
[2024-03-12] MEDS: THERAGRAN 1 TABLET PO (13:44)
[2024-03-12] MEDS: MAGNESIUM OXIDE 500 MG PO ×2 (13:44→20:46)
[2024-03-12] MEDS: ASPIR LOW (ENTERIC COATED) 81 MG PO (13:44)
[2024-03-12] MEDS: PROTONIX 40 MG PO (13:45)
[2024-03-12] MEDS: DESENEX/MITRAZOL/ZEASORB 1 APPLIC TOPICAL ×2 (13:45→20:46)
[2024-03-12] MEDS: TYLENOL 1000 MG PO ×2 (13:47→21:37)
--- NOTE | 2024-03-12 14:05 | PN.CDI ---
CDI
- -
CDI:
Physician Documentation Request
Admit Date: 03/08/24 21:51
Dear Doctor Rosa,
Please review the following and provide your response in the progress notes.
Clinical Indicators:
Pt admitted with toxic metabolic encephalopathy likely infection- suspected bacterial sinusitis
Clarify which of the following accurately represents the acuity of the sinusitis. Possible options might include:
Acute sinusitis
Chronic sinusitis
Other
Use of terms such as suspected, likely, concern for, or probable (associated with a specific diagnosis that is being evaluated, monitored, or treated as if it exists) are acceptable and can be coded in the inpatient setting, when documented at the
time of discharge.
Thank you,
Lani Irwin RN, BSN
CDI Specialist
Available via [employer]
Please use your independent medical judgment in providing your response.
--- NOTE | 2024-03-12 16:01 | CM ---
Patient is still declined skilled placement wants home with [facility].
Plan; Home with [facility].
--- NOTE | 2024-03-12 17:19 | W.PN.HOSP.TC ---
Today's Communication/Plan
-
recheck labs in AM
Assessment / Plan
Assessment / Plan
#Toxic metabolic encephalopathy likely infection (suspected bacterial sinusitis), markedly improved, pt currently fully alert and answering questions appropriately
due to Acute sinusitis
CT head: ACUTE RIGHT MAXILLARY and LEFT SPHENOID SINUSITIS. Mild diffuse cerebral and cerebellar volume loss. Mild white matter leukoaraiosis.
Hold tizanidine and lyrica
Blood culture: NGTD and ucx neg
Cont rocephin for now
Monitor po intake
avoid narcs
Improvement in leukocytosis.
WBC 18.2-->11.9-->11.5-->11.6-->10.4
due to persistent leukocytosis ID consult placed, agreed with transition to oral abx. WBC finally normalized
#Hypokalemia
replete/monitor, pt was on 40 Meq KCl daily, this has been stopped and Aldactone has been added
3.2-->3.1-->3.2-->3.8-->3.8
discussed change of diuretic to Lasix + Spironolactone and stopping KCl
#Leg pain:Severe medial and lateral compartment osteoarthritis of the knee. Significantly progressed.
Chest xray: 1. No radiographic evidence for pneumonia.
2. Mild chronic elevation of the posterior left hemidiaphragm.
3. Previous TAVR.
4. Left-sided cardiac pacemaker in place
Hx of Aortic Stenosis
s/p TAVR 12/08/21
Echo: LV ejection fraction is 55-60%. Mid anteroseptal, apical septal, and mid to
distal inferior akinesis/dyskinesis. Wall motion is also consistent with
conduction abnormality/paced rhythm.
Normal right ventricular size and function. Pacer wire seen in right ventricle.
23 mm Morenita 3 TAVR with peak/mean gradients of 23/12 mmHg. Trace aortic
regurgitation.
Compared to previous echo on 12/09/2021, new regional wall motion abnormalities
are present unspecified.
#Non-sustained v-tach, pacer working
#Paroxysmal atrial fibrillation
Monitor on telemetry
Cont cardizem
EKG 03/08: Ventricular-paced rhythm
ABNORMAL ECG
WHEN COMPARED WITH ECG OF 09-DEC-2021 05:37,
VENT. RATE HAS DECREASED BY 12 BPM
underlying rhythm is now atrial fibrillation
Consult placed to cardio, discussed with Dr. Velaczo, concern for wall motion abnormality noted on Echo, will plan EST tomorrow. Requested he review with son as well, appreciate input
03/10 [facility] RN: 'Patient admitted with: small linear dark purple ecchymotic area L sacral/buttocks stage 2 vs DTI, stage 1 sacral pressure injury...'
CKD3a
trend cr for now
Cont torsemide
Hypomagnesemia better
1.3-->1.5 on oral Mag, will plan to dc on supplement
PAD
HLD-Cont statin
Hypothyroidism-cont synthroid
Gout�continue allopurinol
Code: full
DVT Prophylaxis Lovenox
discussed with teagan 03/10. [facility] goes to [facility], will need outpt follow up post dc
Also updated her today, 03/12 as to cardio evaluation
recheck labs in AM and if acceptable probable dc
Anticipated Discharge: Within 24 hours
Subjective/Interval History
-
Date of Service: March 12, 2024
Objective Data
-
Labs:
Laboratory Results
03/12/24
11:11
WBC 10.4
Hgb 14.6
Hct 44.4
Plt Count 261
Sodium 140
Potassium 3.8
Chloride 91 L
Carbon Dioxide 36 H
BUN 16
Creatinine 0.8
Glucose 131 H
Calcium 9.0
Vital Signs:
Vital Signs
Temp Pulse Resp BP Pulse Ox
98.4 F 93 16 114/63 96
03/12/24 15:00 03/12/24 15:00 03/12/24 15:00 03/12/24 15:00 03/12/24 15:00
I&O
03/11/24 03/12/24 03/13/24
06:59 06:59 06:59
Intake Total 1020 / 1020 1380 / 1380
Balance 1020 / 1020 1380 / 1380
[2024-03-12] MEDS: LOVENOX 40 MG SC (18:43)
[2024-03-13] MEDS: AMOXIL 500 MG PO ×2 (02:54→09:42)
[2024-03-13 03:14] VITALS: BP 142/78
[2024-03-13] MEDS: SYNTHROID 100 MCG PO (05:58)
[2024-03-13] MEDS: TYLENOL 1000 MG PO (05:58)
[2024-03-13] MEDS: SENOKOT-S 1 TABLET PO (06:00)
[2024-03-13] MEDS: PROTONIX 40 MG PO (06:00)
[2024-03-13] MEDS: TUMS CHEWABLE TABLET 200 MG PO (06:00)
[2024-03-13 07:00] VITALS: BP 137/77
[2024-03-13 08:51] LABS: Blood Urea Nitrogen 20 mg/dl (7-17); Calcium 8.9 mg/dl (8.4-10.2); Carbon Dioxide 38 mmol/L (22-30); Chloride 88 mmol/L (98-107); Estimated Creatinine Clearance 51 ml/min; Glucose 138 mg/dl (70-99); Magnesium 1.6 mg/dl (1.6-2.3); Potassium 3.7 mmol/L (3.5-5.1); Sodium 138 mmol/L (135-145); eGFR > 60.00
[2024-03-13 09:39] LABS: % Basophils 0.5 % (0-2); % Eosinophils 0.8 % (0-6); % Immature Granulocytes 0.6 % (0-0.5); % Monocytes 8.5 % (1.7-9.3); % Neutrophils 73.6 % (42.2-75.2); Absolute Basophils 0.1 10^3/uL (0-0.2); Absolute Eosinophils 0.1 10^3/uL (0-0.7); Absolute Immature Granulocytes 0.1 10^3/uL (0-0.05); Absolute Lymphocytes 1.7 10^3/uL (1.2-3.4); Absolute Monocytes 0.9 10^3/uL (0.1-0.6); Absolute Neutrophils 7.6 10^3/uL (1.4-6.5); Hematocrit 41.6 % (37.0-47.0); Hemoglobin 14.3 g/dL (12.0-16.0); Mean Corp Hgb Conc. 34.4 g/dL (33.0-37.0); Mean Corpuscular Hgb 30.9 pg (27.0-31.0); Mean Corpuscular Volume 89.8 fL (81.0-99.0); Mean Platelet Volume 12.2 fL (7.4-10.4); Nucleated Red Blood Cells % 0 %; Platelet Count 182 10^3/uL (130-400); Red Blood Cell Count 4.63 10^6/uL (4.20-5.40); Red Cell Dist. Width 13.4 % (11.5-14.5); White Blood Cell Count 10.4 10^3/uL (4.8-10.8)
[2024-03-13] MEDS: CRESTOR 20 MG PO (09:42)
[2024-03-13] MEDS: OSCAL CAL 500 2000 MG PO (09:42)
[2024-03-13] MEDS: RESTASIS 0.05% OPHTHALMIC EMULSION 1 DROPS LEFT EYE (09:42)
[2024-03-13] MEDS: ALDACTONE 25 MG PO (09:43)
[2024-03-13] MEDS: CARDIZEM CD 240 MG PO (09:43)
[2024-03-13] MEDS: DEMADEX 40 MG PO (09:43)
[2024-03-13] MEDS: THERAGRAN 1 TABLET PO (09:43)
[2024-03-13] MEDS: ASPIR LOW (ENTERIC COATED) 81 MG PO (09:43)
[2024-03-13] MEDS: ZYLOPRIM 300 MG PO (09:44)
[2024-03-13] MEDS: CELEXA 20 MG PO (09:45)
[2024-03-13] MEDS: DESENEX/MITRAZOL/ZEASORB 1 APPLIC TOPICAL ×2 (09:51→20:22)
[2024-03-13] MEDS: MAGNESIUM OXIDE 500 MG PO ×2 (10:08→20:23)
[2024-03-13 11:00] VITALS: BP 123/70
--- NOTE | 2024-03-13 13:06 | W.PN.HOSP.TC ---
Today's Communication/Plan
-
stop Amox
Assessment / Plan
Assessment / Plan
#Toxic metabolic encephalopathy likely infection (suspected bacterial sinusitis), markedly improved, pt currently fully alert and answering questions appropriately
due to Acute sinusitis
CT head: ACUTE RIGHT MAXILLARY and LEFT SPHENOID SINUSITIS. Mild diffuse cerebral and cerebellar volume loss. Mild white matter leukoaraiosis.
Hold tizanidine and lyrica
Blood culture: NGTD and ucx neg
Was placed on Amoxicillin, but today with nausea and stomach not feeling right, symptoms started after started on Amox. Pt does not feel she is ready to go home. Will stop the Amox, resume Rocephin and if stomach issues resolve will plan dc
tomorrow
Monitor po intake
avoid narcs
Improvement in leukocytosis.
WBC 18.2-->11.9-->11.5-->11.6-->10.4-->10.4
due to persistent leukocytosis ID consult placed, agreed with transition to oral abx. WBC finally normalized
#Hypokalemia
replete/monitor, pt was on 40 Meq KCl daily, this has been stopped and Aldactone has been added
3.2-->3.1-->3.2-->3.8-->3.8-->3.7
discussed change of diuretic to Lasix + Spironolactone and stopping KCl
#Leg pain:Severe medial and lateral compartment osteoarthritis of the knee. Significantly progressed.
Chest xray: 1. No radiographic evidence for pneumonia.
2. Mild chronic elevation of the posterior left hemidiaphragm.
3. Previous TAVR.
4. Left-sided cardiac pacemaker in place
03/13 CXR: [facility]
Hx of Aortic Stenosis
s/p TAVR 12/08/21
Echo: LV ejection fraction is 55-60%. Mid anteroseptal, apical septal, and mid to
distal inferior akinesis/dyskinesis. Wall motion is also consistent with
conduction abnormality/paced rhythm.
Normal right ventricular size and function. Pacer wire seen in right ventricle.
23 mm Morenita 3 TAVR with peak/mean gradients of 23/12 mmHg. Trace aortic
regurgitation.
Compared to previous echo on 12/09/2021, new regional wall motion abnormalities
are present unspecified.
#Non-sustained v-tach, pacer working
#Paroxysmal atrial fibrillation
Monitor on telemetry
Cont cardizem
EKG 03/08: Ventricular-paced rhythm
ABNORMAL ECG
WHEN COMPARED WITH ECG OF 09-DEC-2021 05:37,
VENT. RATE HAS DECREASED BY 12 BPM
underlying rhythm is now atrial fibrillation
Consult placed to cardio, discussed with Dr. Velazco, concern for wall motion abnormality noted on Echo, underwent EST which was nl, cleared by cardio to be dc
03/10 [facility] RN: 'Patient admitted with: small linear dark purple ecchymotic area L sacral/buttocks stage 2 vs DTI, stage 1 sacral pressure injury...'
CKD3a
trend cr for now
Cont torsemide
Hypomagnesemia better
1.3-->1.5-->1.6 on oral Mag, will plan to dc on supplement
PAD
HLD-Cont statin
Hypothyroidism-cont synthroid
Gout�continue allopurinol
Code: full
DVT Prophylaxis Lovenox
discussed with teagan 03/10. [facility] goes to [facility], will need outpt follow up post dc
Also updated her 03/12 as to cardio evaluation
generally doing well, but with stomach issue and pt concerned about dc, will hold off on dc, stop Amox, resume Rocephin and if stomach issue resolves will plan on dc tomorrow
Anticipated Discharge: Within 24 hours
Subjective/Interval History
-
Date of Service: March 13, 2024
Stomach feels very unsettled/nausea. Possibly related to starting on Amoxicillin
Objective Data
-
Labs:
Laboratory Results
03/13/24
07:12
WBC 10.4
Hgb 14.3
Hct 41.6
Plt Count 182 D
Sodium 138
Potassium 3.7
Chloride 88 L
Carbon Dioxide 38 H
BUN 20 H
Creatinine 0.7
Glucose 138 H
Calcium 8.9
Vital Signs:
Vital Signs
Temp Pulse Resp BP Pulse Ox
98 F 88 20 123/70 94
03/13/24 11:00 03/13/24 11:00 03/13/24 11:00 03/13/24 11:00 03/13/24 11:00
I&O
03/12/24 03/13/24 03/14/24
06:59 06:59 06:59
Intake Total 1380 / 1380 1320 / 1320
Balance 1380 / 1380 1320 / 1320
Review of Systems
-
History Source: Patient and Coordinated Provider
Constitutional: Denies Fever (last fever was 101.3 on 03/08 at 16:47)
EENT: Reports Other (sinus congestion)
Cardiac: Reports No Symptoms; Denies Chest Pain
Abdomen/GI: Reports No Symptoms
Genitourinary: Reports No Symptoms
Musculoskeletal: Reports Joint Pain (chronic)
Neuro: Denies Dizzy
Physical Exam
-
General: Well Developed and No Apparent Distress
HEENT: Normocephalic, Atraumatic, Moist Mucous Membranes and Other (percussion over sinuses do not cause pain)
Respiratory: Clear to Auscultation
Cardiac: Regular Rhythm and S1/S2; Negative Murmur, Rub or Gallop
GI: Soft, Nontender, Nondistended and Normal Bowel Sounds; Negative Organomegaly
Rectal: Deferred by Provider
Musculoskeletal: No Clubbing, No Cyanosis, No Edema and Other (TTP R ankle )
Skin: Negative Rash
Neuro: Awake and Nonfocal/Grossly Intact
Psych: Calm
[2024-03-13] MEDS: STERILE WATER FOR INJECTION 10 ML IV (14:30)
[2024-03-13] MEDS: ROCEPHIN 1000 MG IV (14:31)
[2024-03-13 15:00] VITALS: BP 117/69
--- NOTE | 2024-03-13 16:48 | W.PN.ID1 ---
Date of Service
Date of Service: March 13, 2024
Today's Communication
- final day of amoxicillin
- follow up with PCP
ID service will no longer actively follow this patient please recall for further questions
Assessment / Plan
Sinusitis - possibly bacterial
TME
- final day of amoxicillin
- follow up with PCP
ID service will no longer actively follow this patient please recall for further questions
Chief Complaint
-: Leukocytosis and Other (sinusitis)
Subjective / Review of Systems
afebrile
no further sinus tenderness
Vital Signs / Physical Exam
Vital Signs
Vital Signs
Temp Pulse Resp BP Pulse Ox
98.2 F 82 24 117/69 96
03/13/24 15:00 03/13/24 15:00 03/13/24 15:00 03/13/24 15:00 03/13/24 15:00
Physical Exam
Constitutional: No Acute Distress
Head: Other (no sinus tenderness)
Cardiovascular: Regular Rate and S1/S2; Negative Murmur or Rub
Pulmonary: Clear and Symmetric; Negative Wheezes or Rales
Gastrointestinal: Soft, Non Tender, Non Distended and Normal Bowel Sounds
Skin: Warm and Dry; Negative Rash or Jaundice
Objective Data
Lab Data
Lab Results
03/13/24 07:12
03/13/24 07:12
PT 13.9 Sec (11.4-14.6) 03/08/24 17:03
INR 1.09 03/08/24 17:03
APTT 37.1 Sec (23.4-35.0) H 03/08/24 17:03
Estimated Creat Clear 51 ml/min 03/13/24 07:12
Lactic Acid 1.3 mmol/L (0.7-2.0) 03/08/24 17:03
Total Bilirubin 1.2 mg/dl (0.2-1.3) 03/08/24 17:03
AST 34 U/L (14-36) 03/08/24 17:03
ALT 27 U/L (0-35) 03/08/24 17:03
Alkaline Phosphatase 114 U/L (38-126) 03/08/24 17:03
Most recent labs reviewed.
Micro Results:
03/08/24 17:07 Blood Culture - Preliminary
Blood/Venous No Growth in 4 days- Final report to follow
03/08/24 17:03 Blood Culture - Preliminary
Blood/Venous No Growth in 4 days- Final report to follow
03/08/24 17:18 Urine Culture - Final
Urine NO GROWTH
03/08/24 17:03 Influenza Types A & B (ALAN) - Final
Nasal Swab Negative for Influenza A & B, NAAT
Negative results must be combined with clinical observations
and patient history.
Nucleic Acid Amplification test (NAAT)performed on the
[employer] platform.
[2024-03-13] MEDS: LOVENOX 40 MG SC (18:11)
[2024-03-13 19:31] VITALS: BP 125/76
[2024-03-13 23:18] VITALS: BP 135/70
[2024-03-14 04:16] VITALS: BP 153/76
[2024-03-14] MEDS: SYNTHROID 100 MCG PO (06:29)
[2024-03-14] MEDS: TYLENOL 1000 MG PO (06:32)
[2024-03-14 07:45] VITALS: BP 149/64
[2024-03-14] MEDS: RESTASIS 0.05% OPHTHALMIC EMULSION 1 DROPS LEFT EYE (10:06)
[2024-03-14] MEDS: CRESTOR 20 MG PO (10:07)
[2024-03-14] MEDS: MAGNESIUM OXIDE 500 MG PO ×2 (10:07→19:36)
[2024-03-14] MEDS: PROTONIX 40 MG PO (10:07)
[2024-03-14] MEDS: OSCAL CAL 500 2000 MG PO (10:07)
[2024-03-14] MEDS: CARDIZEM CD 240 MG PO (10:07)
[2024-03-14] MEDS: ASPIR LOW (ENTERIC COATED) 81 MG PO (10:07)
[2024-03-14] MEDS: DEMADEX 40 MG PO (10:08)
[2024-03-14] MEDS: ALDACTONE 25 MG PO (10:08)
[2024-03-14] MEDS: CELEXA 20 MG PO (10:08)
[2024-03-14] MEDS: THERAGRAN 1 TABLET PO (10:09)
[2024-03-14] MEDS: ZYLOPRIM 300 MG PO (10:09)
[2024-03-14] MEDS: DESENEX/MITRAZOL/ZEASORB 1 APPLIC TOPICAL ×2 (10:33→19:36)
[2024-03-14 12:37] VITALS: PULSE 75; O2SAT 96
--- NOTE | 2024-03-14 14:15 | CM ---
Plan home with [facility].
Plan; Home with [facility] when stable, patient has home oxygen in home.
[2024-03-14 14:48] VITALS: BP 137/79
[2024-03-14] MEDS: ROCEPHIN 1000 MG IV (15:48)
[2024-03-14] MEDS: STERILE WATER FOR INJECTION 10 ML IV (15:49)
[2024-03-14] MEDS: LOVENOX 40 MG SC (16:00)
--- NOTE | 2024-03-14 18:32 | W.PN.HOSP.TC ---
Today's Communication/Plan
-
recheck labs
Assessment / Plan
Assessment / Plan
#Toxic metabolic encephalopathy likely infection (suspected bacterial sinusitis), markedly improved, pt currently fully alert and answering questions appropriately
due to Acute sinusitis
CT head: ACUTE RIGHT MAXILLARY and LEFT SPHENOID SINUSITIS. Mild diffuse cerebral and cerebellar volume loss. Mild white matter leukoaraiosis.
Hold tizanidine and lyrica
Blood culture: NGTD and ucx neg
Was placed on Amoxicillin, but then developed nausea and stomach not feeling right, symptoms started after started on Amox. stopped the Amox, resumed Rocephin, better today
Monitor po intake
avoid narcs
Improvement in leukocytosis.
WBC 18.2-->11.9-->11.5-->11.6-->10.4-->10.4
03/13 CXR - [facility]
remains weak, possible aspirating into trachea. Pt not sure ready to go home. Discussed going to SNF as recommended by PT. She does not want to go. Call placed and discussed with demetriusichani. Request she come in tomorrow and will eval if pt
ready to go home
#Hypokalemia
replete/monitor, pt was on 40 Meq KCl daily, this has been stopped and Aldactone has been added
3.2-->3.1-->3.2-->3.8-->3.8-->3.7
discussed change of diuretic to Lasix + Spironolactone and stopping KCl
#Leg pain:Severe medial and lateral compartment osteoarthritis of the knee. Significantly progressed.
Chest xray: 1. No radiographic evidence for pneumonia.
2. Mild chronic elevation of the posterior left hemidiaphragm.
3. Previous TAVR.
4. Left-sided cardiac pacemaker in place
03/13 CXR: [facility]
Hx of Aortic Stenosis
s/p TAVR 12/08/21
Echo: LV ejection fraction is 55-60%. Mid anteroseptal, apical septal, and mid to
distal inferior akinesis/dyskinesis. Wall motion is also consistent with
conduction abnormality/paced rhythm.
Normal right ventricular size and function. Pacer wire seen in right ventricle.
23 mm Morenita 3 TAVR with peak/mean gradients of 23/12 mmHg. Trace aortic
regurgitation.
Compared to previous echo on 12/09/2021, new regional wall motion abnormalities
are present unspecified.
#Non-sustained v-tach, pacer working
#Paroxysmal atrial fibrillation
Monitor on telemetry
Cont cardizem
EKG 03/08: Ventricular-paced rhythm
ABNORMAL ECG
WHEN COMPARED WITH ECG OF 09-DEC-2021 05:37,
VENT. RATE HAS DECREASED BY 12 BPM
underlying rhythm is now atrial fibrillation
Consult placed to cardio, discussed with Dr. Velazco, concern for wall motion abnormality noted on Echo, underwent EST which was nl, cleared by cardio to be dc
03/10 [facility] RN: 'Patient admitted with: small linear dark purple ecchymotic area L sacral/buttocks stage 2 vs DTI, stage 1 sacral pressure injury...'
CKD3a
trend cr for now
Cont torsemide
Hypomagnesemia better
1.3-->1.5-->1.6 on oral Mag, will plan to dc on supplement
PAD
HLD-Cont statin
Hypothyroidism-cont synthroid
Gout�continue allopurinol
Code: full
DVT Prophylaxis Lovenox
discussed with teagan 03/14. Son goes to [facility], will need outpt follow up post dc
Also updated her 03/12 as to cardio evaluation
Pt remains weak, would benefit from SNF, but she is resistant
Anticipated Discharge: 24 - 48 hours
Subjective/Interval History
-
Date of Service: March 14, 2024
Had chest pain earlier today, now resolved. Abdominal cramping yesterday, now resolved
Objective Data
-
Vital Signs:
Vital Signs
Temp Pulse Resp BP Pulse Ox
98.7 F 81 17 137/79 93
03/14/24 14:48 03/14/24 14:48 03/14/24 14:48 03/14/24 14:48 03/14/24 14:48
I&O
03/13/24 03/14/24 03/15/24
06:59 06:59 06:59
Intake Total 1320 / 1320 240 / 240 360 / 360
Balance 1320 / 1320 240 / 240 360 / 360
Review of Systems
-
History Source: Patient and Coordinated Provider
Constitutional: Denies Fever (last fever was 101.3 on 03/08 at 16:47)
EENT: Reports Other (sinus congestion)
Cardiac: Reports No Symptoms; Denies Chest Pain
Abdomen/GI: Reports No Symptoms
Genitourinary: Reports No Symptoms
Musculoskeletal: Reports Joint Pain (chronic)
Neuro: Denies Dizzy
Physical Exam
-
General: Well Developed and No Apparent Distress
HEENT: Normocephalic, Atraumatic, Moist Mucous Membranes and Other (percussion over sinuses do not cause pain)
Respiratory: Rhonchi (scattered upper airway rhonchi)
Cardiac: Regular Rhythm and S1/S2; Negative Murmur, Rub or Gallop
GI: Soft, Nontender, Nondistended and Normal Bowel Sounds; Negative Organomegaly
Rectal: Deferred by Provider
Musculoskeletal: No Clubbing, No Cyanosis, No Edema and Other (TTP R ankle )
Skin: Negative Rash
Neuro: Awake and Nonfocal/Grossly Intact
Psych: Calm
[2024-03-14 19:50] VITALS: BP 115/66
[2024-03-14 23:25] VITALS: BP 135/75
[2024-03-15 03:45] VITALS: BP 155/72
[2024-03-15 05:05] LABS: % Basophils 0.8 % (0-2); % Eosinophils 0.7 % (0-6); % Immature Granulocytes 0.5 % (0-0.5); % Lymphocytes 18.4 % (20.5-51.1); % Monocytes 11.2 % (1.7-9.3); % Neutrophils 68.4 % (42.2-75.2); Absolute Basophils 0.1 10^3/uL (0-0.2); Absolute Eosinophils 0.1 10^3/uL (0-0.7); Absolute Immature Granulocytes 0.1 10^3/uL (0-0.05); Absolute Lymphocytes 1.8 10^3/uL (1.2-3.4); Absolute Monocytes 1.1 10^3/uL (0.1-0.6); Absolute Neutrophils 6.7 10^3/uL (1.4-6.5); Hematocrit 43.7 % (37.0-47.0); Hemoglobin 14.4 g/dL (12.0-16.0); Mean Corpuscular Hgb 29.8 pg (27.0-31.0); Mean Corpuscular Volume 90.5 fL (81.0-99.0); Mean Platelet Volume 12.3 fL (7.4-10.4); Nucleated Red Blood Cells % 0 %; Platelet Count 265 10^3/uL (130-400); Red Blood Cell Count 4.83 10^6/uL (4.20-5.40); Red Cell Dist. Width 13.2 % (11.5-14.5); White Blood Cell Count 9.8 10^3/uL (4.8-10.8)
[2024-03-15] MEDS: SYNTHROID 100 MCG PO (05:18)
[2024-03-15 05:20] LABS: Blood Urea Nitrogen 16 mg/dl (7-17); Calcium 9.4 mg/dl (8.4-10.2); Chloride 85 mmol/L (98-107); Estimated Creatinine Clearance 44 ml/min; Glucose 126 mg/dl (70-99); Potassium 3.8 mmol/L (3.5-5.1); Sodium 139 mmol/L (135-145); eGFR > 60.00
[2024-03-15 05:40] LABS: Carbon Dioxide 40 mmol/L (22-30)
[2024-03-15 07:08] VITALS: BP 132/80
[2024-03-15] MEDS: OSCAL CAL 500 2000 MG PO (08:38)
[2024-03-15] MEDS: CRESTOR 20 MG PO (08:38)
[2024-03-15] MEDS: CARDIZEM CD 240 MG PO (08:38)
[2024-03-15] MEDS: RESTASIS 0.05% OPHTHALMIC EMULSION 1 DROPS LEFT EYE (08:38)
[2024-03-15] MEDS: ALDACTONE 25 MG PO (08:38)
[2024-03-15] MEDS: ASPIR LOW (ENTERIC COATED) 81 MG PO (08:39)
[2024-03-15] MEDS: PROTONIX 40 MG PO (08:39)
[2024-03-15] MEDS: MAGNESIUM OXIDE 500 MG PO (08:39)
[2024-03-15] MEDS: THERAGRAN 1 TABLET PO (08:39)
[2024-03-15] MEDS: CELEXA 20 MG PO (08:39)
[2024-03-15] MEDS: DEMADEX 40 MG PO (08:39)
[2024-03-15] MEDS: ZYLOPRIM 300 MG PO (08:39)
[2024-03-15] MEDS: DESENEX/MITRAZOL/ZEASORB 1 APPLIC TOPICAL (08:48)
--- NOTE | 2024-03-15 10:50 | CM ---
CM reviewed with Hospitalist, plan for discharge today. Patient seen with daughter, discussed discharge, home with [facility]. CM reviewed IMM signed, placed in chart. Patient has home O2. CM will continue to follow for all discharge planning needs.
Plan; home with [facility], daughter to transport.
[2024-03-15 11:20] VITALS: BP 116/75
--- NOTE | 2024-03-15 12:58 | W.PN.HOSP.TC ---
Today's Communication/Plan
-
dc to home
Assessment / Plan
Assessment / Plan
#Toxic metabolic encephalopathy likely infection (suspected bacterial sinusitis), markedly improved, pt currently fully alert and answering questions appropriately
due to Acute sinusitis
CT head: ACUTE RIGHT MAXILLARY and LEFT SPHENOID SINUSITIS. Mild diffuse cerebral and cerebellar volume loss. Mild white matter leukoaraiosis.
Hold tizanidine and lyrica
Blood culture: NGTD and ucx neg
Was placed on Amoxicillin, but then developed nausea and stomach not feeling right, symptoms started after started on Amox. stopped the Amox, resumed Rocephin, better today
Monitor po intake
avoid narcs
Improvement in leukocytosis.
WBC 18.2-->11.9-->11.5-->11.6-->10.4-->10.4
03/13 CXR - [facility]
remains weak, possible aspirating into trachea. Pt not sure ready to go home. Discussed going to SNF as recommended by PT. She does not want to go. Call placed and discussed with demetriusichani. Request she come in tomorrow and will eval if pt
ready to go home
#Hypokalemia
replete/monitor, pt was on 40 Meq KCl daily, this has been stopped and Aldactone has been added
3.2-->3.1-->3.2-->3.8-->3.8-->3.7
discussed change of diuretic to Lasix + Spironolactone and stopping KCl
#Leg pain:Severe medial and lateral compartment osteoarthritis of the knee. Significantly progressed.
Chest xray: 1. No radiographic evidence for pneumonia.
2. Mild chronic elevation of the posterior left hemidiaphragm.
3. Previous TAVR.
4. Left-sided cardiac pacemaker in place
03/13 CXR: [facility]
Hx of Aortic Stenosis
s/p TAVR 12/08/21
Echo: LV ejection fraction is 55-60%. Mid anteroseptal, apical septal, and mid to
distal inferior akinesis/dyskinesis. Wall motion is also consistent with
conduction abnormality/paced rhythm.
Normal right ventricular size and function. Pacer wire seen in right ventricle.
23 mm Morenita 3 TAVR with peak/mean gradients of 23/12 mmHg. Trace aortic
regurgitation.
Compared to previous echo on 12/09/2021, new regional wall motion abnormalities
are present unspecified.
#Non-sustained v-tach, pacer working
#Paroxysmal atrial fibrillation
Monitor on telemetry
Cont cardizem
EKG 03/08: Ventricular-paced rhythm
ABNORMAL ECG
WHEN COMPARED WITH ECG OF 09-DEC-2021 05:37,
VENT. RATE HAS DECREASED BY 12 BPM
underlying rhythm is now atrial fibrillation
Consult placed to cardio, discussed with Dr. Velazco, concern for wall motion abnormality noted on Echo, underwent EST which was nl, cleared by cardio to be dc
03/10 [facility] RN: 'Patient admitted with: small linear dark purple ecchymotic area L sacral/buttocks stage 2 vs DTI, stage 1 sacral pressure injury...'
CKD3a
trend cr for now
Cont torsemide
Hypomagnesemia better
1.3-->1.5-->1.6 on oral Mag, will plan to dc on supplement
PAD
HLD-Cont statin
Hypothyroidism-cont synthroid
Gout�continue allopurinol
Code: full
DVT Prophylaxis Lovenox
discussed with teagan 03/14. [facility] goes [facility], will need outpt follow up post dc
Also updated her 03/12 as to cardio evaluation
Pt remains weak, would benefit from SNF, but she is resistant. Looking progressively better
will dc to home, discussed with Erika candelaria
will dc now
More than 30 minutes spent in discharge including
Final examination of the patient
Summarizing hospital stay
Instructions for continuing care to all relevant caregivers
Preparation of discharge records, prescriptions, and referral forms
Total time spent (in minutes): 45
Anticipated Discharge: Today
Subjective/Interval History
-
Date of Service: March 15, 2024
Awake, alert, conversant
Objective Data
-
Labs:
Laboratory Results
03/15/24
04:21
WBC 9.8
Hgb 14.4
Hct 43.7
Plt Count 265 D
Sodium 139
Potassium 3.8
Chloride 85 L
Carbon Dioxide 40 H
BUN 16
Creatinine 0.8
Glucose 126 H
Calcium 9.4
Vital Signs:
Vital Signs
Temp Pulse Resp BP Pulse Ox
98.0 F 91 18 116/75 94
03/15/24 11:20 03/15/24 11:20 03/15/24 11:20 03/15/24 11:20 03/15/24 11:20
I&O
03/14/24 03/15/24 03/16/24
06:59 06:59 06:59
Intake Total 240 / 240 480 / 480
Balance 240 / 240 480 / 480
Review of Systems
-
History Source: Patient and Coordinated Provider
Constitutional: Denies Fever (last fever was 101.3 on 03/08 at 16:47)
EENT: Reports Other (sinus congestion, better)
Cardiac: Reports No Symptoms; Denies Chest Pain
Abdomen/GI: Reports No Symptoms
Genitourinary: Reports No Symptoms
Musculoskeletal: Reports Joint Pain (chronic)
Neuro: Denies Dizzy
Physical Exam
-
General: Well Developed and No Apparent Distress
HEENT: Normocephalic, Atraumatic, Moist Mucous Membranes and Other (percussion over sinuses do not cause pain)
Respiratory: Clear to Auscultation and Rhonchi (scattered upper airway rhonchi resolved)
Cardiac: Regular Rhythm and S1/S2; Negative Murmur, Rub or Gallop
GI: Soft, Nontender, Nondistended and Normal Bowel Sounds; Negative Organomegaly
Rectal: Deferred by Provider
Musculoskeletal: No Clubbing, No Cyanosis, No Edema and Other (TTP R ankle )
Skin: Negative Rash
Neuro: Awake and Nonfocal/Grossly Intact
Psych: Calm
--- NOTE | 2024-03-15 16:32 | W.DS.TRANS ---
DC Summary - General Maintenance Technician
-
Discharge Instructions:
Discharge Diagnosis/Procedures Sepsis, Sinusitis
Diet Regular
Activity With assistance,With Walker
Driving Restrictions No driving
Bathing Restrictions None
Blood Work CBC, BMP in 1-2 weeks
Other Services VN
Instructions:
Stand-Alone Forms:
Changes to Home Medications: Yes
Discharge Medications:
DC Medications w/original date entered in [employer]
allopurinol 300 mg tablet 300 mg PO DAILY gout 09/29/14
citalopram 20 mg tablet 20 mg PO DAILY Mental Health/Anxiety 09/29/14
omeprazole 20 mg tablet,delayed release 20 mg PO DAILY Gastrointestinal issue 09/29/14
pregabalin 100 mg capsule (Lyrica) 75 mg PO TID nerve pain 09/29/14
sumatriptan succinate 50 mg tablet 50 mg PO DAILYPRN PRN migraine 09/29/14
tizanidine 4 mg tablet 4 mg PO TIDPRN PRN spasms 09/29/14
torsemide 20 mg tablet 40 mg PO DAILY water pill 11/04/16
rosuvastatin 10 mg tablet 20 mg PO DAILY High cholesterol 01/22/17
umeclidinium 62.5 mcg/actuation blister powder for inhalation (Incruse Ellipta) 62.5 mcg IH R DAILYPRN PRN sob 10/18/21
cyclosporine 0.05 % eye drops in a dropperette (Restasis) 1 drp LEFT EYE DAILY Eye condition 11/28/21
tizanidine 4 mg tablet 8 mg PO HS Muscle spasms 11/28/21
acetaminophen 500 mg tablet (Tylenol Extra Strength) 1,000 mg PO Q8HPRN PRN mild pain 03/08/24
calcium carbonate 2,000 mg PO DAILY Supplement 03/08/24
diltiazem HCl 240 mg capsule,24 hr,extended release 240 mg PO DAILY Blood Pressure 03/08/24
levothyroxine 100 mcg tablet (Synthroid) 100 mcg PO MOTUWETHFRSA Thyroid 03/08/24
therapeutic multivitamin 1 tab PO DAILY Supplement 03/08/24
aspirin 81 mg tablet,delayed release 81 mg PO DAILY #0 tabs 03/15/24
magnesium oxide 500 mg PO DAILY #30 tabs 03/15/24
spironolactone 25 mg tablet 25 mg PO DAILY #30 tabs 03/15/24
Home Medication Changes
Aldactone added
KCL stopped
Magnesium supplement added
Pending Results: No
== END 2024-03-15 14:13 | disposition home health service (06) | DRG 871 ==
LOC: 4 WEST ACU 21:51
PROVIDERS: Hospitalist; Physician Assistant; ADMITTING PHYSICIAN Internal Medicine; ATTENDING PHYSICIAN Internal Medicine; EMERGENCY PHYSICIAN Emergency Medicine; OTHER PHYSICIAN Internal Medicine; OTHER PHYSICIAN Student in an Organized Health Care Education/Training Program
DX: A41.9 Sepsis, unspecified organism (principal); G92.8 Other toxic encephalopathy; I13.0 Hypertensive heart and chronic kidney disease with heart failure and stage 1 through stage 4 chronic kidney disease, or unspecified chronic kidney disease; F33.0 Major depressive disorder, recurrent, mild; J01.90 Acute sinusitis, unspecified; R62.7 Adult failure to thrive; Z87.891 Personal history of nicotine dependence; E87.6 Hypokalemia; I48.0 Paroxysmal atrial fibrillation; N18.31 Chronic kidney disease, stage 3a; E83.42 Hypomagnesemia; E78.2 Mixed hyperlipidemia; E03.9 Hypothyroidism, unspecified; I73.9 Peripheral vascular disease, unspecified; J32.0 Chronic maxillary sinusitis; J32.3 Chronic sphenoidal sinusitis
CPT/HCPCS: 51701; 70450; 71046; 73590; 78452; 80048; 80053; 81003; 81015; 82550; 83605; 83735; 84145; 84443; 84484; 85025; 85027; 85610; 85730; 87040; 87086; 87502; 87811; 93005; 93017; 93288; 93306; 96365; 96375; 97116; 97162; 97166; 97530; 97535; 99285; A9500; J2785

== ENCOUNTER 2024-03-17 20:35 | Inpatient (IN) | payer OTHER, SELFPAY ==
[2024-03-17] VITALS (7 sets, daily range): BP systolic 110–130; BP diastolic 57–74; BMI 25.0; BMI 23.4
[2024-03-17 18:38] LABS: % Basophils 0.5 % (0-2); % Eosinophils 0.5 % (0-6); % Immature Granulocytes 0.6 % (0-0.5); % Lymphocytes 20.7 % (20.5-51.1); % Neutrophils 66.7 % (42.2-75.2); Absolute Basophils 0.1 10^3/uL (0-0.2); Absolute Eosinophils 0.1 10^3/uL (0-0.7); Absolute Immature Granulocytes 0.1 10^3/uL (0-0.05); Absolute Lymphocytes 2.6 10^3/uL (1.2-3.4); Absolute Monocytes 1.4 10^3/uL (0.1-0.6); Absolute Neutrophils 8.3 10^3/uL (1.4-6.5); Hematocrit 40.3 % (37.0-47.0); Hemoglobin 13.3 g/dL (12.0-16.0); Mean Platelet Volume 12.2 fL (7.4-10.4); Nucleated Red Blood Cells % 0 %; Platelet Count 308 10^3/uL (130-400); Red Blood Cell Count 4.58 10^6/uL (4.20-5.40); Red Cell Dist. Width 13.4 % (11.5-14.5); White Blood Cell Count 12.4 10^3/uL (4.8-10.8)
[2024-03-17 18:52] LABS: ALT (SGPT) 27 U/L (0-35); AST (SGOT) 34 U/L (14-36); Albumin 4.3 g/dl (3.5-5.0); Alkaline Phosphatase 103 U/L (38-126); Blood Urea Nitrogen 44 mg/dl (7-17); Calcium 9.7 mg/dl (8.4-10.2); Chloride 83 mmol/L (98-107); Estimated Creatinine Clearance 18 ml/min; Glucose 110 mg/dl (70-99); Potassium 3.8 mmol/L (3.5-5.1); Sodium 134 mmol/L (135-145); Total Bilirubin 0.8 mg/dl (0.2-1.3); Total Protein 6.9 g/dl (6.3-8.2); eGFR 24.79
[2024-03-17 19:02] LABS: Carbon Dioxide 39 mmol/L (22-30)
[2024-03-17 19:04] LABS: Troponin I 0.016 ng/ml
--- NOTE | 2024-03-17 19:28 | ED.GENMED ---
History of Present Illness
General
Chief Complaint: Weakness
Source: patient and records
Time Seen by Provider: 03/17/24 18:35
History of Present Illness
History of Present Illness:
78-year-old female with past medical history of COPD, aortic valve replacement, interstitial nephritis presenting to the emergency department for evaluation after she was recently discharged from the hospital yesterday due to sepsis secondary to
sinusitis, recommended to go to rehab but patient refused stating she just wanted to go home, now stating feels generally weak, unable to walk and shaky. Patient states that she knows that she should have gone to rehab but was attempting to go home
and family was present to try and help take care of her. Patient states she has no new symptoms since discharge but still notes that while she was here she had developed a little cough which is still present. Unaware of any fevers at home.
Otherwise no other concerns. Patient does note that she ate and drank today noting her [id number]-gte made her some oatmeal and a sandwich earlier today.
Past History
Past History
ED Past Medical History: CAD, CHF, COPD, HTN, Hypercholesterolemia, Hypothyroidism and Psychiatric
ED Past Surgical History: Cholecystectomy, Gynecological (DIANA/BSO) and Orthopedic (total right knee replacement)
Social History
Tobacco: Non-smoker
Alcohol: None
Drug: None
Personal:
Living: with family (lives with who is able to help her)
Review of Systems
Review of Systems
All Other Systems: ROS reviewed and negative except as documented in HPI and ROS
Phy Exam
Physical Exam
Physical Exam:
GENERAL: Alert , in no apparent distress, appears older than stated age
HEAD: NCAT
EYE: conjunctiva clear
NECK: Supple
ENT: o/p clr, mmm.
CARDIAC: Regular rate and rhythm
LUNGS: Scattered rhonchi but in no acute respiratory distress, no tachypnea or tachycardia, speaking full sentences
NEUROLOGICAL: Alert and oriented
SKIN: Warm and dry, skin intact.
MUSCULOSKELETAL: well perfused.
PSYCH: Normal and appropriate interaction.
Scores
Heart Failure Risk
Heart Failure Risk Score: Not Applicable
Heart Score for Chest Pain Patients
STEMI patient?: Not applicable
Withdrawal Assessment of Alcohol
Withdrawal Assessment Completed?: Not applicable
Course
Orders/Labs/Results
Orders:
Orders
03/17/24 18:19
Electrocardiogram (*1) Urgent
Reason for Study: Fatigue / Weakness
EKG- Treatment ONCE
03/17/24 18:30
CMP [Comprehensive Metabolic Panel] Urgent
Complete Blood Count/With Diff Urgent
Troponin I Urgent
03/17/24 18:35
Urinalysis Reflex To Culture Urgent
Date Specimen was Collected: 03/17/24
Time Specimen was Collected: 19:29
03/17/24 18:48
COVID-19 Antigen Urgent
Source: Nasal Swab
03/17/24 18:49
CR Chest - 2 Views Urgent
Comment:
Reason For Exam: weak, low grade fever, recent admit
03/17/24 18:53
0.9% Sodium Chloride 1000 ml [Nss] 1,000 ml IV BOLUS
Abnormal Lab Results
03/17/24
18:30
WBC 12.4 H 10^3/uL
(4.8-10.8)
MPV 12.2 H fL
(7.4-10.4)
Abs Immat Gran (auto) 0.1 H 10^3/uL
(0-0.05)
Absolute Neuts (auto) 8.3 H 10^3/uL
(1.4-6.5)
Absolute Monos (auto) 1.4 H 10^3/uL
(0.1-0.6)
Immature Gran % 0.6 H %
(0-0.5)
Monocytes % 11.0 H %
(1.7-9.3)
Sodium 134 L mmol/L
(135-145)
Chloride 83 L mmol/L
(98-107)
Carbon Dioxide 39 H mmol/L
(22-30)
BUN 44 H mg/dl
(7-17)
Creatinine 2.0 H mg/dL
(0.6-1.0)
Glucose 110 H mg/dl
(70-99)
03/17/24 18:30
03/17/24 18:30
Vital Signs
Initial and Last Documented VS:
Initial Vital Signs
Temp Pulse Resp BP Pulse Ox
99.5 F 76 16 110/69 98
03/17/24 18:12 03/17/24 18:12 03/17/24 18:12 03/17/24 18:12 03/17/24 18:12
Last Documented Vital Signs
Temp Pulse Resp BP Pulse Ox
99.5 F 76 16 110/69 98
03/17/24 18:12 03/17/24 18:12 03/17/24 18:12 03/17/24 18:12 03/17/24 18:12
MDM/Problems Addressed
Differential Diagnosis Includes:
Deconditioning secondary to prolonged hospitalization, dehydration, electrolyte derangement, COVID, pneumonia, urinary tract infection
MDM/Problems Addressed:
78-year-old female presenting back to the emergency department after she was discharged just yesterday after prolonged hospitalization due to sepsis secondary to sinusitis. Patient refused rehab, now noting that she probably should have gone to
rehab. Labs initiated on arrival. I added on chest x-ray, urinalysis and COVID swab. Labs did reveal acute kidney injury. Patient had previously normal renal function prior to her discharge, now creatinine of 2.0. IV fluids ordered. Anticipate
need for readmission and ultimately placement at rehab once medically cleared
Chronic conditions affecting care: COPD and Kidney disease
*Radiology
Radiology exam reviewed: preliminary read by ED provider (no consolidations)
*Pulse Oximetry
Patient hypoxic: no
*EKG
Heart Rate: 67
Rhythm: av sequential
*Electric Deicer Assembler Interpretation
Rate: normal
Rhythm: av sequential
*Critical Care Note
Total Time (30-74mins, 75-104mins- exclusive of procedures): Not Applicable
Data Reviewed
Review of Other/Old Records Reveals: Labs, Records and Discharge Summary
Source: patient and records
Patient Management
Discussion with other providers: Hospitalist
Escalation/DeEscalation of care consider admission/obs:
Hospitalist team is aware and accepts for continued evaluation and treatment
ED Attending Note
-
Portions of this chart may have been created with voice recognition software.� Occasional wrong word or��sound alike� substitutions may have occurred due to the inherent limitations of voice recognition software.
Discharge Plan
Departure
Patient Disposition: Admit
Date of Disposition: 03/17/24
Time of Disposition: 19:28
Presentation/result/management discussed w/ accepting MD/DO: Hospitalist
Discharge Problem:
Acute kidney injury, Generalized weakness
Prescriptions:
No Action
tizanidine 4 MG tablet
4 mg PO TIDPRN PRN (Reason: spasms)
sumatriptan succinate 50 MG tablet
50 mg PO DAILYPRN PRN (Reason: migraine)
citalopram 20 MG tablet
20 mg PO DAILY
allopurinol 300 MG tablet
300 mg PO DAILY
pregabalin [Lyrica] 100 MG capsule
75 mg PO TID
omeprazole 20 MG tablet,delayed release (DR/EC)
20 mg PO DAILY
torsemide 20 MG tablet
40 mg PO DAILY
rosuvastatin 10 MG tablet
20 mg PO DAILY
Incruse Ellipta 62.5 MCG blister with device
62.5 mcg IH R DAILYPRN PRN (Reason: sob)
tizanidine 4 MG tablet
8 mg PO HS
cyclosporine [Restasis] 10 DROPS dropperette
1 drp LEFT EYE DAILY
therapeutic multivitamin Tablet
1 tab PO DAILY
acetaminophen [Tylenol Extra Strength] 500 mg Tablet
1,000 mg PO Q8HPRN PRN (Reason: mild pain)
levothyroxine [Synthroid] 100 mcg Tablet
100 mcg PO MOTUWETHFRSA
calcium carbonate 500 mg calcium (1,250 mg) Tablet
2,000 mg PO DAILY
diltiazem HCl 240 mg Capsule,Extended Release 24 Hr
240 mg PO DAILY
aspirin 81 mg Tablet,Delayed Release (Dr/Ec)
81 mg PO DAILY Qty: 0 0RF
spironolactone 25 mg Tablet
25 mg PO DAILY Qty: 30 0RF
magnesium oxide 500 mg magnesium Tablet
500 mg PO DAILY Qty: 30 0RF
Interventions
Interventions:
*Risk Screen - Suicide Last Done: 03/17/24 18:12
*General Assessment Last Done: 03/17/24 18:15
*Neglect/Abuse Screening Last Done: 03/17/24 18:12
*ED COVID-19 Vaccine History Last Done: 03/17/24 18:15
ED- Cardiac Assessment Last Done: 03/17/24 18:15
ED- Neurological Assessment Last Done: 03/17/24 18:15
ED- Pulmonary Assessment Last Done: 03/17/24 18:15
Discharge Date and Time
Print Language: POLISH
[2024-03-17] MEDS: NSS 1000 IV ×2 (19:30→22:11)
--- NOTE | 2024-03-17 19:46 | EDRN ---
Report received, patient went to x-ray once back, hooked up and fluids hung, purwick in place, patient states does not do well on feet and doesn't want a bed lee, call king in reach, put on tv for her and she is aware waiting on admission
--- NOTE | 2024-03-17 19:58 | HPS.HSE ---
Family Physician
-
Family Physician:
Chief Complaint
-
weakness, chills
History of Present Illness
78-year-old female past medical history of sepsis secondary to acute sinusitis, CAD, HFpEF, aortic stenosis status post TAVR, nonsustained ventricular tachycardia, chronic atrial fibrillation, hypertension, CKD 3A, peripheral arterial disease,
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
radiculopathy, peripheral neuropathy, anxiety/depression, macular degeneration, rheumatoid arthritis, amatory dysfunction uses walker, right bundle branch block, sick sinus syndrome status post pacemaker presenting for weakness and body shaking.
She states that she felt jumpy but denies any chills.. She was discharged from the hospital yesterday after being admitted for sepsis secondary sinusitis. She was recommend to go to rehab but she refused and wanted to go home. After going home
she feels generally weak and unable to walk and shaky.
She denies any symptoms since discharge however while she was here she developed a slight cough which she still has. She denies any sinus symptoms at this time. She denies any fever. She did eat and drink today. Denies any urinary symptoms or
nausea vomiting or diarrhea.
Denies smoking or alcohol use.
Medical History
Past Medical History
Past Medical History: Reports Other (sepsis secondary to acute sinusitis, CAD, HFpEF, aortic stenosis status post TAVR, nonsustained ventricular tachycardia, chronic atrial fibrillation, hypertension, CKD 3A, peripheral arterial disease,
hypothyroidism, gout, hyperlipidemia, COPD on 3 L at baseline, obstructive sleep apnea, history of )
Past Surgical History: Reports Other ( Cholecystectomy, Gynecological (DIANA/BSO) and Orthopedic (total right knee replacement))
Social History
Tobacco: Non-smoker
Alcohol: None
Drug: None
Family History
Family History: Not pertinent
Allergies / Home Medications
Allergies reflects when Allergies were last updated in [employer].
Home Medications with original date entered in [employer]
Allergy/Medication List:
Allergies
Allergy/AdvReac Type Severity Reaction Status Date / Time
codeine Allergy migraine Verified 03/17/24 18:14
duloxetine HCl Allergy confusion Verified 03/17/24 18:14
[From Cymbalta]
metoclopramide Allergy DYSTONIA Verified 03/17/24 18:14
PER MD
tramadol Allergy Hives Verified 03/17/24 18:14
tramadol HCl [From Ultram] Allergy Hives Verified 03/17/24 18:14
Home Medications
allopurinol 300 mg tablet 300 mg PO DAILY gout 09/29/14
citalopram 20 mg tablet 20 mg PO DAILY Mental Health/Anxiety 09/29/14
omeprazole 20 mg tablet,delayed release 20 mg PO DAILY Gastrointestinal issue 09/29/14
pregabalin 100 mg capsule (Lyrica) 75 mg PO TID nerve pain 09/29/14
sumatriptan succinate 50 mg tablet 50 mg PO DAILYPRN PRN migraine 09/29/14
tizanidine 4 mg tablet 4 mg PO TIDPRN PRN spasms 09/29/14
torsemide 20 mg tablet 40 mg PO DAILY water pill 11/04/16
rosuvastatin 10 mg tablet 20 mg PO DAILY High cholesterol 01/22/17
umeclidinium 62.5 mcg/actuation blister powder for inhalation (Incruse Ellipta) 62.5 mcg IH R DAILYPRN PRN sob 10/18/21
cyclosporine 0.05 % eye drops in a dropperette (Restasis) 1 drp LEFT EYE DAILY Eye condition 11/28/21
tizanidine 4 mg tablet 8 mg PO HS Muscle spasms 11/28/21
acetaminophen 500 mg tablet (Tylenol Extra Strength) 1,000 mg PO Q8HPRN PRN mild pain 03/08/24
calcium carbonate 2,000 mg PO DAILY Supplement 03/08/24
diltiazem HCl 240 mg capsule,24 hr,extended release 240 mg PO DAILY Blood Pressure 03/08/24
levothyroxine 100 mcg tablet (Synthroid) 100 mcg PO MOTUWETHFRSA Thyroid 03/08/24
therapeutic multivitamin 1 tab PO DAILY Supplement 03/08/24
aspirin 81 mg tablet,delayed release 81 mg PO DAILY #0 tabs 03/15/24
magnesium oxide 500 mg PO DAILY #30 tabs 03/15/24
spironolactone 25 mg tablet 25 mg PO DAILY #30 tabs 03/15/24
Review of Systems
-
History Source: Patient
A 12 point ROS was completed and negative except as noted: Yes
Constitutional: Reports No Symptoms
EENT: Reports No Symptoms
Respiratory: Reports No Symptoms
Cardiac: Reports No Symptoms
Abdomen/GI: Reports No Symptoms
: Reports No Symptoms
Musculoskeletal: Reports No Symptoms
Skin: Reports No Symptoms
Neurological: Reports No Symptoms
Endocrine: Reports No Symptoms
Hematologic/Lymphatic: Reports No Symptoms
Psych: Reports No Symptoms
Physical Exam
Vital Signs
Vital Signs
Temp Pulse Resp BP Pulse Ox
99.5 F 64 21 125/73 100
03/17/24 18:12 03/17/24 19:45 03/17/24 19:45 03/17/24 19:00 03/17/24 19:17
Physical Exam
General: Well Developed, Well Nourished and No Apparent Distress
HEENT: NormoCephalic, Moist mucous membranes and Atraumatic
Respiratory: Clear
Cardiac: S1/S2 and Regular Rhythm; No Murmur or Rub
GI: Soft, Non Tender, Non Distended and Normal Bowel Sounds; No Organomegaly
Rectal: Deferred by Provider
Musculoskeletal: No Clubbing, No Cyanosis and No Edema
Skin: No Rash
Neuro: Nonfocal/grossly intact
Laboratory Results
-
03/17/24 18:30
03/17/24 18:30
Laboratory Results
Total Bilirubin 0.8 mg/dl (0.2-1.3) 03/17/24 18:30
AST 34 U/L (14-36) 03/17/24 18:30
ALT 27 U/L (0-35) 03/17/24 18:30
Alkaline Phosphatase 103 U/L (38-126) 03/17/24 18:30
Troponin I 0.016 ng/ml 03/17/24 18:30
Data Reviewed
-
Lab Data: Labs Reviewed by me
Old Records: Reviewed
Impression/Plan
-
IMPRESSION:
PLAN:
# LUPILLO on CKD 3A likely prerenal
-Creatinine of 2 from 0.8 yesterday
-IV fluids
-Hold spironolactone, torsemide
# Leukocytosis unclear etiology
-no fever
-Cough could be viral or related to postnasal drip
-Chest x-ray shows no evidence of pneumonia
-COVID pending
-Urinalysis pending
Recent sepsis secondary to acute sinusitis
CAD
-Continue aspirin
Chronic HFpEF
-Hold spironolactone
-Hold torsemide
Right bundle branch block
Sick sinus syndrome status post pacemaker
Aortic stenosis status post TAVR
Nonsustained ventricular tachycardia
Chronic atrial fibrillation
-Continue diltiazem
Essential hypertension
PAD
Hypothyroidism
-Continue levothyroxine
Gout
-Continue allopurinol
Hyperlipidemia
-Continue statin
COPD on 3 L of oxygen baseline
-Continue Incruse Ellipta
Obstructive sleep apnea
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
Ulcerative colitis
Osteoporosis
History of DVT/PE after knee surgery in 2006
Cervical radiculopathy
-Continue tizanidine as needed
Peripheral neuropathy
-Continue pregabalin
Anxiety/depression
-Continue citalopram
Macular degeneration
Rheumatoid arthritis
Chronic ambulatory dysfunction uses walker
GERD
-Continue omeprazole
Migraine history
Full code
DVT prophylaxis�heparin
Regular diet
[2024-03-17 20:03] LABS: COVID-19 Antigen Negative (Negative)
[2024-03-17] MEDS: HEPARIN 5000 UNITS SC (22:11)
--- NOTE | 2024-03-18 04:40 | PTCARENOTE ---
Pt admitted from ED, AAOx3. + pain to B/L lower extremities. Pt afebrile, VSS. R AC PIV C/D/I, infusing without issues. Lungs clear, diminished. Pt on 3L O2 via NC. No N/V or stools. Pure wick in place. Dressing changed on buttocks, on q2
turns at this time. Awaiting further plan.
[2024-03-18 05:14] LABS: Urine Albumin Trace (Neg - Trace); Urine Bilirubin Negative (Negative); Urine Color Yellow; Urine Glucose Negative (Negative); Urine Ketone Negative (Negative); Urine Leukocyte 2+ (Negative); Urine Nitrite Negative (Negative); Urine Occult Blood Negative (Negative); Urine Urobilinogen Negative (Neg - 1+)
[2024-03-18 05:18] LABS: Urine Character Slightly Cloudy (Clear)
[2024-03-18 06:14] LABS: Urine Squamous Cell >30 /LPF (Few); Urine Urothelial Cell >30 /LPF (FEW)
[2024-03-18 06:16] LABS: Urine Bacteria Moderate (Negative); Urine White Cell >100 /HPF (0-5); Urine Yeast Few (Negative)
[2024-03-18 06:17] LABS: Urine Amorphous Seen; Urine Red Blood Cell 0-2 /HPF (0-2)
[2024-03-18] MEDS: SYNTHROID 100 MCG PO (07:07)
[2024-03-18] MEDS: HEPARIN 5000 UNITS SC ×2 (07:25→20:47)
[2024-03-18] MEDS: PROTONIX 40 MG PO (07:26)
[2024-03-18] MEDS: LYRICA 75 MG PO ×3 (07:26→20:48)
[2024-03-18] MEDS: CELEXA 20 MG PO (07:26)
[2024-03-18] MEDS: ZYLOPRIM 300 MG PO (07:26)
[2024-03-18] MEDS: CRESTOR 20 MG PO (07:26)
[2024-03-18] MEDS: ASPIR LOW (ENTERIC COATED) 81 MG PO (07:26)
[2024-03-18] MEDS: CARDIZEM CD 240 MG PO (07:26)
[2024-03-18] MEDS: DESENEX/MITRAZOL/ZEASORB 1 APPLIC TOPICAL ×2 (07:27→20:49)
[2024-03-18 07:30] VITALS: BP 134/59
[2024-03-18 07:48] LABS: % Basophils 0.5 % (0-2); % Eosinophils 0.8 % (0-6); % Immature Granulocytes 0.6 % (0-0.5); % Lymphocytes 17.4 % (20.5-51.1); % Monocytes 10.6 % (1.7-9.3); % Neutrophils 70.1 % (42.2-75.2); Absolute Basophils 0.1 10^3/uL (0-0.2); Absolute Eosinophils 0.1 10^3/uL (0-0.7); Absolute Immature Granulocytes 0.1 10^3/uL (0-0.05); Absolute Lymphocytes 1.8 10^3/uL (1.2-3.4); Absolute Monocytes 1.1 10^3/uL (0.1-0.6); Absolute Neutrophils 7.3 10^3/uL (1.4-6.5); Hematocrit 39.1 % (37.0-47.0); Mean Corp Hgb Conc. 33.2 g/dL (33.0-37.0); Mean Corpuscular Hgb 29.9 pg (27.0-31.0); Mean Corpuscular Volume 89.9 fL (81.0-99.0); Nucleated Red Blood Cells % 0 %; Platelet Count 229 10^3/uL (130-400); Red Blood Cell Count 4.35 10^6/uL (4.20-5.40); Red Cell Dist. Width 13.2 % (11.5-14.5); White Blood Cell Count 10.3 10^3/uL (4.8-10.8)
--- NOTE | 2024-03-18 08:05 | VNURNOTE ---
Chart reviewed. Patient is current with [facility] nursing. Will continue to follow hospital course and DC plans.
[2024-03-18 08:12] LABS: ALT (SGPT) 24 U/L (0-35); AST (SGOT) 36 U/L (14-36); Albumin 3.9 g/dl (3.5-5.0); Alkaline Phosphatase 89 U/L (38-126); Blood Urea Nitrogen 26 mg/dl (7-17); Carbon Dioxide 35 mmol/L (22-30); Chloride 93 mmol/L (98-107); Estimated Creatinine Clearance 36 ml/min; Glucose 99 mg/dl (70-99); Potassium 3.9 mmol/L (3.5-5.1); Sodium 137 mmol/L (135-145); Total Protein 6.3 g/dl (6.3-8.2); eGFR 56.95
[2024-03-18 10:00] LABS: Procalcitonin < 0.05 ng/ml (0.0-0.25)
[2024-03-18 10:53] LABS: Urine Albumin Negative (Neg - Trace); Urine Bilirubin Negative (Negative); Urine Character Clear (Clear); Urine Color Yellow; Urine Glucose Negative (Negative); Urine Ketone Negative (Negative); Urine Leukocyte Negative (Negative); Urine Nitrite Negative (Negative); Urine Occult Blood Negative (Negative); Urine Urobilinogen Negative (Neg - 1+)
[2024-03-18] MEDS: NSS 1000 IV (11:21)
[2024-03-18] MEDS: ZANAFLEX 4 MG PO ×2 (13:25→20:52)
--- NOTE | 2024-03-18 14:00 | W.PN.HOSP.TC ---
Today's Communication/Plan
-
pt/ot
ivf
dc planning
Assessment / Plan
Assessment / Plan
Physical Exam
General: Well Developed, Well Nourished and No Apparent Distress
HEENT: NormoCephalic, Moist mucous membranes and Atraumatic
Respiratory: Clear
Cardiac: S1/S2 and Regular Rhythm; No Murmur or Rub
GI: Soft, Non Tender, Non Distended and Normal Bowel Sounds; No Organomegaly
Rectal: Deferred by Provider
Musculoskeletal: No Clubbing, No Cyanosis and No Edema
Skin: No Rash
Neuro: Nonfocal/grossly intact
PLAN:
# LUPILLO on CKD 3A likely prerenal, resolved
-Creatinine of 2 from 0.8 yesterday
-IV fluids
-Hold spironolactone, torsemide
# Leukocytosis unclear etiology
-most likely reactive
-afebrile
-monitor wbc, fever curve
-ua neg
#Hyponatremia
-resolved
Recent sepsis secondary to acute sinusitis
CAD
-Continue aspirin
Chronic HFpEF
-Hold spironolactone
-Hold torsemide
Right bundle branch block
Sick sinus syndrome status post pacemaker
Aortic stenosis status post TAVR
Nonsustained ventricular tachycardia
Chronic atrial fibrillation
-Continue diltiazem
Essential hypertension
PAD
Hypothyroidism
-Continue levothyroxine
Gout
-Continue allopurinol
Hyperlipidemia
-Continue statin
COPD on 3 L of oxygen baseline
-Continue Incruse Ellipta
Obstructive sleep apnea
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
Ulcerative colitis
Osteoporosis
History of DVT/PE after knee surgery in 2006
Cervical radiculopathy
-Continue tizanidine as needed
Peripheral neuropathy
-Continue pregabalin
Anxiety/depression
-Continue citalopram
Macular degeneration
Rheumatoid arthritis
Chronic ambulatory dysfunction uses walker
GERD
-Continue omeprazole
Migraine history
Full code
DVT prophylaxis�heparin
Regular diet
Anticipated Discharge: Within 24 hours
Subjective/Interval History
-
Date of Service: March 18, 2024
no acute events
Objective Data
-
Labs:
Laboratory Results
03/18/24
07:32
WBC 10.3
Hgb 13.0
Hct 39.1
Plt Count 229 D
Sodium 137
Potassium 3.9
Chloride 93 L
Carbon Dioxide 35 H
BUN 26 H
Creatinine 1.0
Glucose 99
Calcium 9.0
Total Bilirubin 1.0
AST 36
ALT 24
Alkaline Phosphatase 89
Vital Signs:
Vital Signs
Temp Pulse Resp BP Pulse Ox
98.3 F 64 17 134/59 99
03/18/24 07:30 03/18/24 07:30 03/18/24 07:30 03/18/24 07:30 03/18/24 09:52
I&O
03/17/24 03/18/24 03/19/24
06:59 06:59 06:59
Output Total 200 / 200
Balance -200 / -200
Review of Systems
-
History Source: Patient
All other systems: Not reviewed unless documented
Data Reviewed
-
Diagnostic Radiology: Image personally visualized and interpreted and Report Reviewed by me
Labs: Labs Reviewed by me
[2024-03-18 15:21] VITALS: BP 94/52
--- NOTE | 2024-03-18 16:25 | CM ---
Alert awake oriented patient who lives with her son Sameer and Erika dgruby in law next door. They live in 1 story mobile home with 4 steps to enter. She is independent in all activates of daily living.She is blind in one eye.She has oxygen [employer]
with [facility].
[facility] in past . [facility] hx
Pharmacy [facility]
PCP Dr Riley Oliveira
PLAN Will need PT OT for dc plan
[2024-03-18 16:43] VITALS: BP 97/57; PULSE 61; O2SAT 96
[2024-03-18 23:25] VITALS: BP 90/54
[2024-03-18] MEDS: TYLENOL 650 MG PO (23:30)
[2024-03-19] MEDS: NSS 1000 IV ×2 (01:12→14:09)
[2024-03-19] MEDS: ZANAFLEX 4 MG PO ×2 (04:38→09:52)
[2024-03-19] MEDS: SYNTHROID 100 MCG PO (04:40)
[2024-03-19 06:00] VITALS: BMI 24.0
[2024-03-19 07:00] VITALS: BP 102/63
[2024-03-19 07:10] LABS: Hematocrit 34.5 % (37.0-47.0); Mean Corp Hgb Conc. 31.9 g/dL (33.0-37.0); Mean Corpuscular Hgb 28.9 pg (27.0-31.0); Mean Corpuscular Volume 90.8 fL (81.0-99.0); Platelet Count 202 10^3/uL (130-400); Red Cell Dist. Width 13.5 % (11.5-14.5); White Blood Cell Count 6.8 10^3/uL (4.8-10.8)
[2024-03-19 07:35] LABS: Blood Urea Nitrogen 13 mg/dl (7-17); Calcium 8.3 mg/dl (8.4-10.2); Carbon Dioxide 36 mmol/L (22-30); Chloride 97 mmol/L (98-107); Estimated Creatinine Clearance 52 ml/min; Glucose 98 mg/dl (70-99); Sodium 140 mmol/L (135-145); eGFR > 60.00
[2024-03-19] MEDS: PROTONIX 40 MG PO (09:29)
[2024-03-19] MEDS: CARDIZEM CD 240 MG PO (09:30)
[2024-03-19] MEDS: ASPIR LOW (ENTERIC COATED) 81 MG PO (09:30)
[2024-03-19] MEDS: CELEXA 20 MG PO (09:30)
[2024-03-19] MEDS: CRESTOR 20 MG PO (09:30)
[2024-03-19] MEDS: ZYLOPRIM 300 MG PO (09:30)
[2024-03-19] MEDS: HEPARIN 5000 UNITS SC ×2 (09:30→21:59)
[2024-03-19] MEDS: LYRICA 75 MG PO ×3 (09:31→21:59)
[2024-03-19] MEDS: DESENEX/MITRAZOL/ZEASORB 1 APPLIC TOPICAL (09:32)
--- NOTE | 2024-03-19 10:48 | PN.CDI ---
CDI
- -
CDI:
Physician Documentation Request
Admit Date: 03/17/24 20:35
Dear Doctor Brandi ,
Please review the following and provide your response in the progress notes.
Clinical Indicators:
Pt admitted with LUPILLO on CKD 3a/ HX of COPD
Documented in H&P and progress note 03/18, ' COPD on 3 L at baseline...-Continue Incruse Ellipta...'
Nursing History, ' COPD Home oxygen 3 L O2...'
Please provide a diagnosis for the above use of oxygen use :
Chronic Hypoxic Respiratory Failure
Hypoxia
Other
Use of terms such as suspected, likely, concern for, or probable (associated with a specific diagnosis that is being evaluated, monitored, or treated as if it exists) are acceptable and can be coded in the inpatient setting, when documented at the
time of discharge.
Thank you,
Kristie Sands RN
CDI Specialist
[employer]
Please use your independent medical judgment in providing your response.
[2024-03-19] MEDS: TYLENOL 650 MG PO (14:09)
--- NOTE | 2024-03-19 14:38 | W.PN.HOSP.TC ---
Today's Communication/Plan
-
dc ready - cm aware
Assessment / Plan
Assessment / Plan
Physical Exam
General: Well Developed, Well Nourished and No Apparent Distress
HEENT: NormoCephalic, Moist mucous membranes and Atraumatic
Respiratory: Clear
Cardiac: S1/S2 and Regular Rhythm; No Murmur or Rub
GI: Soft, Non Tender, Non Distended and Normal Bowel Sounds; No Organomegaly
Rectal: Deferred by Provider
Musculoskeletal: No Clubbing, No Cyanosis and No Edema
Skin: No Rash
Neuro: Nonfocal/grossly intact
PLAN:
# LUPILLO on CKD 3A likely prerenal, resolved
-Creatinine of 2 from 0.8 yesterday
-IV fluids - can dc now
-Hold spironolactone, torsemide
# Leukocytosis unclear etiology
-most likely reactive
-afebrile
-monitor wbc, fever curve
-ua neg
#Hyponatremia
-resolved
Recent sepsis secondary to acute sinusitis
CAD
-Continue aspirin
Chronic HFpEF
-Hold spironolactone
-Hold torsemide
Right bundle branch block
Sick sinus syndrome status post pacemaker
Aortic stenosis status post TAVR
Nonsustained ventricular tachycardia
Chronic atrial fibrillation
-Continue diltiazem
Essential hypertension
PAD
Hypothyroidism
-Continue levothyroxine
Gout
-Continue allopurinol
Hyperlipidemia
-Continue statin
COPD on 3 L of oxygen baseline
-Continue Incruse Ellipta
Obstructive sleep apnea
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
Ulcerative colitis
Osteoporosis
History of DVT/PE after knee surgery in 2006
Cervical radiculopathy
-Continue tizanidine as needed
Peripheral neuropathy
-Continue pregabalin
Anxiety/depression
-Continue citalopram
Macular degeneration
Rheumatoid arthritis
Chronic ambulatory dysfunction uses walker
GERD
-Continue omeprazole
Migraine history
Full code
DVT prophylaxis�heparin
Regular diet
Anticipated Discharge: Within 24 hours
Subjective/Interval History
-
Date of Service: March 19, 2024
No acute events
Objective Data
-
Labs:
Laboratory Results
03/19/24
06:50
WBC 6.8
Hgb 11.0 L
Hct 34.5 L
Plt Count 202
Sodium 140
Potassium 4.0
Chloride 97 L
Carbon Dioxide 36 H
BUN 13
Creatinine 0.7
Glucose 98
Calcium 8.3 L
Vital Signs:
Vital Signs
Temp Pulse Resp BP Pulse Ox
97.4 F 66 17 102/63 99
03/19/24 07:00 03/19/24 07:00 03/19/24 07:00 03/19/24 07:00 03/19/24 07:00
I&O
03/18/24 03/19/24 03/20/24
06:59 06:59 06:59
Intake Total 660 / 660
Output Total 200 / 200 1400 / 1400
Balance -200 / -200 -740 / -740
Review of Systems
-
History Source: Patient
All other systems: Not reviewed unless documented
Physical Exam
-
General: Well Developed and No Apparent Distress
HEENT: Normocephalic, Atraumatic, Moist Mucous Membranes and Other
Respiratory: Clear to Auscultation
Cardiac: Regular Rhythm and S1/S2; Negative Murmur, Rub or Gallop
GI: Soft, Nontender, Nondistended and Normal Bowel Sounds; Negative Organomegaly
Rectal: Deferred by Provider
Musculoskeletal: No Clubbing, No Cyanosis, No Edema and Other (TTP R ankle )
Skin: Negative Rash
Neuro: Awake and Nonfocal/Grossly Intact
Psych: Calm
Data Reviewed
-
Diagnostic Radiology: Image personally visualized and interpreted and Report Reviewed by me
Labs: Labs Reviewed by me
[2024-03-19 16:00] VITALS: BP 84/52
[2024-03-19 16:13] VITALS: BP 92/60
--- NOTE | 2024-03-19 16:23 | CM ---
PT OT eval indicated SNF needs.
Spoke with pt in room.
Pt has home oxygen.
Pt requested [facility] . Referral placed n care port.
PLAn To Snf after accepted and auth obtained
[2024-03-19 23:10] VITALS: BP 124/53
[2024-03-19] MEDS: DESENEX/MITRAZOL/ZEASORB TOPICAL (23:10)
[2024-03-20 05:49] LABS: Hematocrit 36.4 % (37.0-47.0); Hemoglobin 11.7 g/dL (12.0-16.0); Mean Corp Hgb Conc. 32.1 g/dL (33.0-37.0); Mean Corpuscular Hgb 29.1 pg (27.0-31.0); Mean Corpuscular Volume 90.5 fL (81.0-99.0); Mean Platelet Volume 11.6 fL (7.4-10.4); Platelet Count 218 10^3/uL (130-400); Red Blood Cell Count 4.02 10^6/uL (4.20-5.40); Red Cell Dist. Width 13.3 % (11.5-14.5)
[2024-03-20] MEDS: SYNTHROID 100 MCG PO (05:55)
[2024-03-20 06:00] VITALS: BMI 23.2
[2024-03-20 06:14] LABS: ALT (SGPT) 33 U/L (0-35); AST (SGOT) 38 U/L (14-36); Albumin 3.5 g/dl (3.5-5.0); Alkaline Phosphatase 83 U/L (38-126); Blood Urea Nitrogen 8 mg/dl (7-17); Calcium 8.4 mg/dl (8.4-10.2); Carbon Dioxide 32 mmol/L (22-30); Chloride 102 mmol/L (98-107); Estimated Creatinine Clearance 61 ml/min; Glucose 102 mg/dl (70-99); Potassium 4.2 mmol/L (3.5-5.1); Sodium 142 mmol/L (135-145); Total Bilirubin 0.6 mg/dl (0.2-1.3); eGFR > 60.00
[2024-03-20 07:00] VITALS: BP 140/66
[2024-03-20] MEDS: DESENEX/MITRAZOL/ZEASORB 1 APPLIC TOPICAL ×2 (08:19→20:36)
[2024-03-20] MEDS: LYRICA 75 MG PO ×3 (08:19→21:51)
[2024-03-20] MEDS: ASPIR LOW (ENTERIC COATED) 81 MG PO (08:20)
[2024-03-20] MEDS: CRESTOR 20 MG PO (08:20)
[2024-03-20] MEDS: ZYLOPRIM 300 MG PO (08:20)
[2024-03-20] MEDS: HEPARIN 5000 UNITS SC ×2 (08:20→20:24)
[2024-03-20] MEDS: PROTONIX 40 MG PO (08:20)
[2024-03-20] MEDS: CELEXA 20 MG PO (08:20)
[2024-03-20] MEDS: CARDIZEM CD 240 MG PO (08:20)
[2024-03-20 10:30] VITALS: BP 132/65; PULSE 69; O2SAT 99
--- NOTE | 2024-03-20 14:17 | W.PN.HOSP.TC ---
Addendum entered and electronically signed by Yuan Paz MD 03/20/24 18:16:
Chronic Hypoxic Respiratory Failure
Original Note:
Today's Communication/Plan
-
DC ready, CM aware
Assessment / Plan
Assessment / Plan
Physical Exam
General: Well Developed, Well Nourished and No Apparent Distress
HEENT: NormoCephalic, Moist mucous membranes and Atraumatic
Respiratory: Clear
Cardiac: S1/S2 and Regular Rhythm; No Murmur or Rub
GI: Soft, Non Tender, Non Distended and Normal Bowel Sounds; No Organomegaly
Rectal: Deferred by Provider
Musculoskeletal: No Clubbing, No Cyanosis and No Edema
Skin: No Rash
Neuro: Nonfocal/grossly intact
PLAN:
# LUPILLO on CKD 3A likely prerenal, resolved
-Creatinine of 2 from 0.8 yesterday
-IV fluids - can dc now
-Hold spironolactone, torsemide
# Leukocytosis unclear etiology
-most likely reactive
-afebrile
-monitor wbc, fever curve
-ua neg
#Hyponatremia
-resolved
Recent sepsis secondary to acute sinusitis
CAD
-Continue aspirin
Chronic HFpEF
-Hold spironolactone
-Hold torsemide
Right bundle branch block
Sick sinus syndrome status post pacemaker
Aortic stenosis status post TAVR
Nonsustained ventricular tachycardia
Chronic atrial fibrillation
-Continue diltiazem
Essential hypertension
PAD
Hypothyroidism
-Continue levothyroxine
Gout
-Continue allopurinol
Hyperlipidemia
-Continue statin
COPD on 3 L of oxygen baseline
-Continue Incruse Ellipta
Obstructive sleep apnea
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
Ulcerative colitis
Osteoporosis
History of DVT/PE after knee surgery in 2006
Cervical radiculopathy
-Continue tizanidine as needed
Peripheral neuropathy
-Continue pregabalin
Anxiety/depression
-Continue citalopram
Macular degeneration
Rheumatoid arthritis
Chronic ambulatory dysfunction uses walker
GERD
-Continue omeprazole
Migraine history
Full code
DVT prophylaxis�heparin
Regular diet
Anticipated Discharge: Within 24 hours
Subjective/Interval History
-
Date of Service: March 20, 2024
No acute events overnight
Objective Data
-
Labs:
Laboratory Results
03/20/24
05:33
WBC 8.0
Hgb 11.7 L
Hct 36.4 L
Plt Count 218
Sodium 142
Potassium 4.2
Chloride 102
Carbon Dioxide 32 H
BUN 8
Creatinine 0.6
Glucose 102 H
Calcium 8.4
Total Bilirubin 0.6
AST 38 H
ALT 33
Alkaline Phosphatase 83
Vital Signs:
Vital Signs
Temp Pulse Resp BP Pulse Ox
98.5 F 70 17 140/66 99
03/20/24 07:00 03/20/24 07:00 03/20/24 07:00 03/20/24 07:00 03/20/24 07:00
I&O
03/19/24 03/20/24 03/21/24
06:59 06:59 06:59
Intake Total 660 / 660 1720 / 1720
Output Total 1400 / 1400
Balance -740 / -740 1720 / 1720
Review of Systems
-
History Source: Patient
All other systems: Not reviewed unless documented
Physical Exam
-
General: Well Developed and No Apparent Distress
HEENT: Normocephalic, Atraumatic, Moist Mucous Membranes and Other
Respiratory: Clear to Auscultation
Cardiac: Regular Rhythm and S1/S2; Negative Murmur, Rub or Gallop
GI: Soft, Nontender, Nondistended and Normal Bowel Sounds; Negative Organomegaly
Rectal: Deferred by Provider
Musculoskeletal: No Clubbing, No Cyanosis, No Edema and Other (TTP R ankle )
Skin: Negative Rash
Neuro: Awake and Nonfocal/Grossly Intact
Psych: Calm
Data Reviewed
-
Diagnostic Radiology: Image personally visualized and interpreted and Report Reviewed by me
Labs: Labs Reviewed by me
[2024-03-20 15:00] VITALS: BP 112/66
--- NOTE | 2024-03-20 16:59 | CM ---
PT OT gasper indicated SNF needs.
Pt has home oxygen.
Cierra from [facility] said she had a bed tomorrow.
Pt will need auth .
Kelly Cole from [facility] to assist with auth for [facility] tomorrow.
Family to transport with pts [facility]
PLAn To [facility] after auth
[2024-03-20] MEDS: ZANAFLEX 4 MG PO ×2 (17:52→21:52)
[2024-03-20] MEDS: TYLENOL 650 MG PO ×2 (17:52→21:52)
[2024-03-20 23:10] VITALS: BP 105/42
[2024-03-21 06:00] VITALS: BMI 23.0
[2024-03-21] MEDS: SYNTHROID 100 MCG PO (06:14)
[2024-03-21 08:07] VITALS: BP 146/77
[2024-03-21] MEDS: CRESTOR 20 MG PO (08:31)
[2024-03-21] MEDS: PROTONIX 40 MG PO (08:31)
[2024-03-21] MEDS: CELEXA 20 MG PO (08:32)
[2024-03-21] MEDS: CARDIZEM CD 240 MG PO (08:32)
[2024-03-21] MEDS: ASPIR LOW (ENTERIC COATED) 81 MG PO (08:32)
[2024-03-21] MEDS: DESENEX/MITRAZOL/ZEASORB 1 APPLIC TOPICAL (08:32)
[2024-03-21] MEDS: ZYLOPRIM 300 MG PO (08:32)
[2024-03-21] MEDS: HEPARIN 5000 UNITS SC (08:32)
[2024-03-21] MEDS: LYRICA 75 MG PO (08:37)
[2024-03-21] MEDS: TYLENOL 650 MG PO (08:47)
[2024-03-21] MEDS: ZANAFLEX 4 MG PO (08:47)
--- NOTE | 2024-03-21 12:25 | CM ---
Addendum entered by Mari Crawley 03/21/24 15:01:
Ambulance vegetable picker scheduled for 1630
Addendum entered by Mari Crawley 03/21/24 13:02:
Authorization for Ambulance transport approved
Auth # [id number]
Original Note:
Insurance Authorization approved for 5 days Skilled Level I; 03/21 - 03/25
Authorization # [id number]
Next review on 03/25; phone #
Plan: Discharge to [facility] today after 1530 ; transport to be determined; waiting to hear from family member
--- NOTE | 2024-03-21 12:32 | W.PN.HOSP.TC ---
Addendum entered and electronically signed by Yuan Paz MD 03/22/24 15:43:
[id number]
Original Note:
Today's Communication/Plan
-
resume spironolactone at half dose 12.5mg daily
resume torsemide
bmp in 5 days
F/u PCP, Cards outpatient
Assessment / Plan
Assessment / Plan
Physical Exam
General: Well Developed, Well Nourished and No Apparent Distress
HEENT: NormoCephalic, Moist mucous membranes and Atraumatic
Respiratory: Clear
Cardiac: S1/S2 and Regular Rhythm; No Murmur or Rub
GI: Soft, Non Tender, Non Distended and Normal Bowel Sounds; No Organomegaly
Rectal: Deferred by Provider
Musculoskeletal: No Clubbing, No Cyanosis and No Edema
Skin: No Rash
Neuro: Nonfocal/grossly intact
PLAN:
# LUPILLO on CKD 3A likely prerenal, resolved
-Creatinine of 2 from 0.8 yesterday
-IV fluids - can dc now
-can resume torsemide
-resume spironolactone half dose�12.5 mg daily
� BMP in 5 days
# Leukocytosis unclear etiology
-most likely reactive
-afebrile
-monitor wbc, fever curve
-ua neg
#Hyponatremia
-resolved
Recent sepsis secondary to acute sinusitis
CAD
-Continue aspirin
Chronic HFpEF
-Resume half dose spironolactone and 2.5 mg daily
-Resume torsemide
Right bundle branch block
Sick sinus syndrome status post pacemaker
Aortic stenosis status post TAVR
Nonsustained ventricular tachycardia
Chronic atrial fibrillation
-Continue diltiazem
Essential hypertension
PAD
Hypothyroidism
-Continue levothyroxine
Gout
-Continue allopurinol
Hyperlipidemia
-Continue statin
COPD on 3 L of oxygen baseline
-Continue Incruse Ellipta
Obstructive sleep apnea
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
Ulcerative colitis
Osteoporosis
History of DVT/PE after knee surgery in 2006
Cervical radiculopathy
-Continue tizanidine as needed
Peripheral neuropathy
-Continue pregabalin
Anxiety/depression
-Continue citalopram
Macular degeneration
Rheumatoid arthritis
Chronic ambulatory dysfunction uses walker
GERD
-Continue omeprazole
Migraine history
Full code
DVT prophylaxis�heparin
Regular diet
More than 30 minutes spent in discharge including
Final examination of the patient
Summarizing hospital stay
Instructions for continuing care to all relevant caregivers
Preparation of discharge records, prescriptions, and referral forms
Total time spent (35 in minutes):
Anticipated Discharge: Today
Subjective/Interval History
-
Date of Service: March 21, 2024
no acute events
Objective Data
-
Vital Signs:
Vital Signs
Temp Pulse Resp BP Pulse Ox
98.4 F 69 16 146/77 100
03/21/24 08:07 03/21/24 08:07 03/21/24 08:07 03/21/24 08:07 03/21/24 08:07
I&O
03/20/24 03/21/24 03/22/24
06:59 06:59 06:59
Intake Total 1719 / 0 2079
Balance 172 / [id number]
Review of Systems
-
History Source: Patient
All other systems: Not reviewed unless documented
Physical Exam
-
General: Well Developed and No Apparent Distress
HEENT: Normocephalic, Atraumatic, Moist Mucous Membranes and Other
Respiratory: Clear to Auscultation
Cardiac: Regular Rhythm and S1/S2; Negative Murmur, Rub or Gallop
GI: Soft, Nontender, Nondistended and Normal Bowel Sounds; Negative Organomegaly
Rectal: Deferred by Provider
Musculoskeletal: No Clubbing, No Cyanosis, No Edema and Other (TTP R ankle )
Skin: Negative Rash
Neuro: Awake and Nonfocal/Grossly Intact
Psych: Calm
Data Reviewed
-
Diagnostic Radiology: Image personally visualized and interpreted and Report Reviewed by me
Labs: Labs Reviewed by me
--- NOTE | 2024-03-21 12:50 | W.DS.TRANS ---
DC Summary - [facility]
-
Discharge Instructions:
Discharge Diagnosis/Procedures # LUPILLO on CKD 3A likely prerenal, resolved
# Leukocytosis unclear etiology
#Hyponatremia
#Inability to ambulate
Diet Low Cholesterol,Low Fat,2 Gram Sodium,Restrict
fluids to 48 oz
Activity As tolerated
Blood Work cbc, bmp in 5 days
Instructions:
Stand-Alone Forms:
Changes to Home Medications: Yes
Discharge Medications:
DC Medications w/original date entered in [facility]
allopurinol 300 mg tablet 300 mg PO DAILY gout 09/29/14
citalopram 20 mg tablet 20 mg PO DAILY Mental Health/Anxiety 09/29/14
omeprazole 20 mg tablet,delayed release 20 mg PO DAILY Gastrointestinal issue 09/29/14
pregabalin 100 mg capsule (Lyrica) 75 mg PO TID nerve pain 09/29/14
tizanidine 4 mg tablet 4 mg PO TID PRN Muscle Spasms 09/29/14
torsemide 20 mg tablet 40 mg PO DAILY water pill 11/04/16
rosuvastatin 10 mg tablet 20 mg PO DAILY High cholesterol 01/22/17
umeclidinium 62.5 mcg/actuation blister powder for inhalation (Incruse Ellipta) 62.5 mcg IH R DAILYPRN PRN sob 10/18/21
cyclosporine 0.05 % eye drops in a dropperette (Restasis) 1 drp LEFT EYE DAILY Eye condition 11/28/21
tizanidine 4 mg tablet 8 mg PO HS Muscle spasms 11/28/21
acetaminophen 500 mg tablet (Tylenol Extra Strength) 1,000 mg PO Q8HPRN PRN mild pain 03/08/24
calcium carbonate 2,000 mg PO DAILY Supplement 03/08/24
diltiazem HCl 240 mg capsule,24 hr,extended release 240 mg PO DAILY Blood Pressure 03/08/24
levothyroxine 100 mcg tablet (Synthroid) 100 mcg PO MOTUWETHFRSA Thyroid 03/08/24
therapeutic multivitamin 1 tab PO DAILY Supplement 03/08/24
aspirin 81 mg tablet,delayed release 81 mg PO DAILY #0 tabs 03/15/24
magnesium oxide 400 mg PO DAILY Supplement 03/17/24
vit C 250 mg-vit E 200 unit-zinc ox 12.5 jd-baicjw-mjdlly-zeax capsule 1 cap PO BID Supplement 03/17/24
albuterol sulfate 90 mcg/actuation aerosol inhaler 2 puff inhalation Q4HPRN PRN SOB 03/18/24
spironolactone 25 mg tablet 12.5 mg (1/2 x 25 mg) PO DAILY Fluid Retention/Swelling #0 tabs 03/21/24
Home Medication Changes
spironolactone 25 mg tablet 12.5 mg (1/2 x 25 mg) PO DAILY Fluid Retention/Swelling #0 tabs 03/21/24
Pending Results: No
[2024-03-21 15:14] VITALS: BP 129/61
== END 2024-03-21 16:36 | DRG 683 ==
LOC: 3 WEST ACU 20:35
PROVIDERS: Physician Assistant Medical; Registered Nurse; ADMITTING PHYSICIAN Hospitalist; ATTENDING PHYSICIAN Internal Medicine; EMERGENCY PHYSICIAN Emergency Medicine; FAMILY PHYSICIAN Family Medicine
DX: N17.9 Acute kidney failure, unspecified (principal); E87.1 Hypo-osmolality and hyponatremia; I13.0 Hypertensive heart and chronic kidney disease with heart failure and stage 1 through stage 4 chronic kidney disease, or unspecified chronic kidney disease; I50.32 Chronic diastolic (congestive) heart failure; I48.20 Chronic atrial fibrillation, unspecified; K51.90 Ulcerative colitis, unspecified, without complications; J96.11 Chronic respiratory failure with hypoxia; N18.31 Chronic kidney disease, stage 3a; I25.10 Atherosclerotic heart disease of native coronary artery without angina pectoris; E03.9 Hypothyroidism, unspecified; E78.00 Pure hypercholesterolemia, unspecified; Z11.52 Encounter for screening for COVID-19
CPT/HCPCS: 71046; 80048; 80053; 81003; 81015; 84145; 84484; 85025; 85027; 87086; 87811; 93005; 96360; 97163; 97166; 97530; 97535; 99285

== ENCOUNTER → 2024-03-26 10:50 | Outpatient (REF) | payer BC, OTHER, SELFPAY ==
[2024-03-26 12:22] LABS: % Basophils 0.6 % (0-2); % Immature Granulocytes 0.6 % (0-0.5); % Monocytes 9.7 % (1.7-9.3); % Neutrophils 52.1 % (42.2-75.2); Absolute Eosinophils 0.1 10^3/uL (0-0.7); Absolute Lymphocytes 2.5 10^3/uL (1.2-3.4); Absolute Monocytes 0.7 10^3/uL (0.1-0.6); Absolute Neutrophils 3.7 10^3/uL (1.4-6.5); Hematocrit 33.5 % (37.0-47.0); Mean Corp Hgb Conc. 32.8 g/dL (33.0-37.0); Mean Corpuscular Hgb 29.4 pg (27.0-31.0); Mean Corpuscular Volume 89.6 fL (81.0-99.0); Mean Platelet Volume 12.4 fL (7.4-10.4); Nucleated Red Blood Cells % 0 %; Platelet Count 143 10^3/uL (130-400); Red Blood Cell Count 3.74 10^6/uL (4.20-5.40); Red Cell Dist. Width 14.6 % (11.5-14.5)
[2024-03-26 12:37] LABS: Blood Urea Nitrogen 24 mg/dl (7-17); Calcium 8.8 mg/dl (8.4-10.2); Carbon Dioxide 35 mmol/L (22-30); Chloride 95 mmol/L (98-107); Glucose 91 mg/dl (70-99); Sodium 142 mmol/L (135-145); eGFR > 60.00
== END ==
LOC: OLABP 10:50
PROVIDERS: ATTENDING PHYSICIAN Family Medicine
DX: A41.9 Sepsis, unspecified organism (principal); N17.9 Acute kidney failure, unspecified; Z86.73 Personal history of transient ischemic attack (TIA), and cerebral infarction without residual deficits; E87.1 Hypo-osmolality and hyponatremia; I25.10 Atherosclerotic heart disease of native coronary artery without angina pectoris; I50.9 Heart failure, unspecified; I45.10 Unspecified right bundle-branch block; Z95.0 Presence of cardiac pacemaker; I47.20 Ventricular tachycardia, unspecified; I48.91 Unspecified atrial fibrillation; J44.9 Chronic obstructive pulmonary disease, unspecified; I73.9 Peripheral vascular disease, unspecified
CPT/HCPCS: 36415; 80048; 85025

== ENCOUNTER 2024-04-07 20:25 | Inpatient (IN) | payer OTHER, SELFPAY ==
[2024-04-07] VITALS (9 sets, daily range): BP systolic 59–113; BP diastolic 34–66; BMI 26.3
[2024-04-07] MEDS: TYLENOL 1000 MG PO (17:09)
[2024-04-07 17:41] LABS: Hematocrit 35.8 % (37.0-47.0); Hemoglobin 12.1 g/dL (12.0-16.0); Mean Corp Hgb Conc. 33.8 g/dL (33.0-37.0); Mean Corpuscular Volume 88.6 fL (81.0-99.0); Mean Platelet Volume 11.4 fL (7.4-10.4); Platelet Count 255 10^3/uL (130-400); Red Blood Cell Count 4.04 10^6/uL (4.20-5.40); Red Cell Dist. Width 15.6 % (11.5-14.5); White Blood Cell Count 18.8 10^3/uL (4.8-10.8)
[2024-04-07 17:42] LABS: ALT (SGPT) 18 U/L (0-35); AST (SGOT) 28 U/L (14-36); Albumin 4.4 g/dl (3.5-5.0); Alkaline Phosphatase 86 U/L (38-126); Blood Urea Nitrogen 23 mg/dl (7-17); Calcium 9.9 mg/dl (8.4-10.2); Carbon Dioxide 34 mmol/L (22-30); Chloride 92 mmol/L (98-107); Estimated Creatinine Clearance 57 ml/min; Glucose 147 mg/dl (70-99); Potassium 3.5 mmol/L (3.5-5.1); Sodium 138 mmol/L (135-145); Total Bilirubin 1.6 mg/dl (0.2-1.3); Total Protein 7.1 g/dl (6.3-8.2); eGFR > 60.00
[2024-04-07 17:59] LABS: COVID-19 Antigen Negative (Negative)
[2024-04-07 18:01] LABS: % Basophils 0.2 % (0-2); % Eosinophils 0.5 % (0-6); % Immature Granulocytes 0.4 % (0-0.5); % Lymphocytes 6.1 % (20.5-51.1); % Monocytes 6.6 % (1.7-9.3); % Neutrophils 86.2 % (42.2-75.2); Absolute Eosinophils 0.1 10^3/uL (0-0.7); Absolute Immature Granulocytes 0.1 10^3/uL (0-0.05); Absolute Lymphocytes 1.1 10^3/uL (1.2-3.4); Absolute Monocytes 1.2 10^3/uL (0.1-0.6); Nucleated Red Blood Cells % 0 %
[2024-04-07 18:08] LABS: Lactic Acid 1.1 mmol/L (0.7-2.0)
[2024-04-07] MEDS: NSS 500 IV (18:22)
--- NOTE | 2024-04-07 18:49 | ED.GENMED ---
History of Present Illness
General
Chief Complaint: Weakness
Time Seen by Provider: 04/07/24 17:14
History of Present Illness
History of Present Illness:
78-year-old female with history of COPD, CAD, hypertension, hyperlipidemia, CKD presenting from home for weakness and and lethargy, with flulike symptoms. Patient arrives with [id number] who reports that today patient generally was feeling
unwell, had difficulty getting out of bed. Patient is also been coughing, nonproductive. She was recently discharged from [facility] 3 days ago after hospitalization from 03/17 den for LUPILLO. No known sick contacts. Patient reports a generally
feeling unwell. Denies chest pain. Notes some mild shortness of breath. Reports subjective fevers. Denies abdominal pain or GI symptoms. [id number] reports that she has not been eating or drinking today. Denies additional acute medical
complaints
Past History
Past History
ED Past Medical History: CAD, CHF, COPD, HTN, Hypercholesterolemia, Hypothyroidism and Psychiatric
ED Past Surgical History: Cholecystectomy, Gynecological (DIANA/BSO) and Orthopedic (total right knee replacement)
Social History
Tobacco: Non-smoker
Alcohol: None
Drug: None
Personal:
Living: with family (lives with who is able to help her)
Phy Exam
Physical Exam
Physical Exam:
General: no clinical signs of dehydration, nontoxic and in no acute distress
HEENT: protecting airway
Neck: appears supple
CV: Normal heart rate, regular rhythm
Resp: No accessory muscle use, no increased work of breathing, rhonchorous breath sounds bilaterally
Abd: Soft and non-distended, no tenderness to palpation
Extremities: No deformities, no swelling
Neuro: alert, no focal neurologic deficit
: deferred
Rectal: deferred
Psych: Normal affect
Skin: Intact
Course
Orders/Labs/Results
Orders:
Orders
04/07/24 17:01
Electrocardiogram (*1) Urgent
Reason for Study: Fatigue / Weakness
04/07/24 17:02
EKG- Treatment ONCE
04/07/24 17:05
COVID-19 Antigen Urgent
Source: Nasal Swab
Influenza A+B Rapid Molecular Urgent
DHAVAL Source: Nasal Swab
Specimen Description:
04/07/24 17:07
Acetaminophen [Tylenol] 1,000 mg .ROUTE .STK-MED ONE
04/07/24 17:08
Acetaminophen [Tylenol] 1,000 mg PO NOW STA
04/07/24 17:17
Complete Blood Count/With Diff Urgent
Comprehensive Metabolic Panel Urgent
04/07/24 17:37
0.9% Sodium Chloride 500 ml [Nss] 500 ml IV BOLUS
CR Chest - 2 Views Urgent
Comment:
Reason For Exam: cough, fever
04/07/24 17:51
Lactic Acid Q4H
Comment: CANCEL 2nd LACTIC ACID IF 1st LACTIC ACID IS LESS THAN 2
Abnormal Lab Results
04/07/24
17:17
WBC 18.8 H 10^3/uL
(4.8-10.8)
RBC 4.04 L 10^6/uL
(4.20-5.40)
Hct 35.8 L %
(37.0-47.0)
RDW 15.6 H %
(11.5-14.5)
MPV 11.4 H fL
(7.4-10.4)
Abs Immat Gran (auto) 0.1 H 10^3/uL
(0-0.05)
Absolute Neuts (auto) 16.0 H 10^3/uL
(1.4-6.5)
Absolute Lymphs (auto) 1.1 L 10^3/uL
(1.2-3.4)
Absolute Monos (auto) 1.2 H 10^3/uL
(0.1-0.6)
Neutrophils % 86.2 H %
(42.2-75.2)
Lymphocytes % 6.1 L %
(20.5-51.1)
Chloride 92 L mmol/L
(98-107)
Carbon Dioxide 34 H mmol/L
(22-30)
BUN 23 H mg/dl
(7-17)
Glucose 147 H mg/dl
(70-99)
Total Bilirubin 1.6 H mg/dl
(0.2-1.3)
04/07/24 17:17
04/07/24 17:17
Vital Signs
Initial and Last Documented VS:
Initial Vital Signs
Temp Pulse Resp BP Pulse Ox
102.8 F H 93 18 103/66 95
04/07/24 16:55 04/07/24 16:55 04/07/24 16:55 04/07/24 16:55 04/07/24 16:55
Last Documented Vital Signs
Temp Pulse Resp BP Pulse Ox
102.8 F H 93 18 103/66 95
04/07/24 16:55 04/07/24 16:55 04/07/24 16:55 04/07/24 16:55 04/07/24 16:55
MDM/Problems Addressed
MDM/Problems Addressed:
78-year-old female with history of COPD, CAD, hypertension, hyperlipidemia, CKD presenting from home for weakness and and lethargy, with flulike symptoms. Vital signs significant for fever.
On exam patient is in no acute distress, however does appear lethargic/fatigued. She however is awake and responsive to questioning. Rhonchorous breath sounds bilaterally with active wet cough. In the setting of fever, recent hospitalization and
rehabilitation stay with fever and cough, concern for hospital-acquired pneumonia. COVID versus influenza is also consideration. Plan for laboratory analysis, chest x-ray imaging, COVID and flu swab. Will start patient on gentle fluids given
known history of CHF.
18:30 - Patient with leukocytosis. Lactic acid added, meeting SIRS. Lactic acid within normal limits. Blood pressure remained stable. No indication for full 30 cc/kg fluid bolus.
Chest x-ray concerning for pneumonia. Will start broad-spectrum antibiotics. Plan for admission given patient's weakness and infectious findings.
*EKG
Interpreted by ED Provider?: Yes
EKG Intrepretation Date: 04/07/24
EKG Intrepretation Time: 18:53
Interpretation: normal
Heart Rate: 89
Rate: normal
Rhythm: sinus and ventricular paced
[place]: normal axis
Ischemia: no ischemia
*Critical Care Note
Total Time (30-74mins, 75-104mins- exclusive of procedures): Not Applicable
ED Attending Note
-
Portions of this chart may have been created with voice recognition software.� Occasional wrong word or��sound alike� substitutions may have occurred due to the inherent limitations of voice recognition software.
Discharge Plan
Departure
Prescriptions:
No Action
tizanidine 4 MG tablet
4 mg PO TID PRN (Reason: Muscle Spasms)
citalopram 20 MG tablet
20 mg PO DAILY
allopurinol 300 MG tablet
300 mg PO DAILY
pregabalin [Lyrica] 100 MG capsule
75 mg PO TID
omeprazole 20 MG tablet,delayed release (DR/EC)
20 mg PO DAILY
torsemide 20 MG tablet
40 mg PO DAILY
rosuvastatin 10 MG tablet
20 mg PO DAILY
Incruse Ellipta 62.5 MCG blister with device
62.5 mcg IH R DAILYPRN PRN (Reason: sob)
tizanidine 4 MG tablet
8 mg PO HS
cyclosporine [Restasis] 10 DROPS dropperette
1 drp LEFT EYE DAILY
therapeutic multivitamin Tablet
1 tab PO DAILY
acetaminophen [Tylenol Extra Strength] 500 mg Tablet
1,000 mg PO Q8HPRN PRN (Reason: mild pain)
levothyroxine [Synthroid] 100 mcg Tablet
100 mcg PO MOTUWETHFRSA
calcium carbonate 500 mg calcium (1,250 mg) Tablet
2,000 mg PO DAILY
diltiazem HCl 240 mg Capsule,Extended Release 24 Hr
240 mg PO DAILY
aspirin 81 mg Tablet,Delayed Release (Dr/Ec)
81 mg PO DAILY Qty: 0 0RF
vit C-E-zinc cr-yqif-biy-zeax 250 mg-200 unit -12.5 mg-1 mg Capsule
1 cap PO BID
magnesium oxide 500 mg magnesium tablet
400 mg PO DAILY
albuterol sulfate 90 mcg/actuation HFA aerosol inhaler
2 puff INHALATION Q4HPRN PRN (Reason: SOB)
spironolactone 25 mg tablet
12.5 mg PO DAILY Qty: 0 0RF
Referrals:
Riley Oliveira MD [Family Provider] -
Interventions
Interventions:
*Risk Screen - Suicide Last Done: 04/07/24 17:00
*General Assessment Last Done: 04/07/24 17:00
*Neglect/Abuse Screening Last Done: 04/07/24 17:00
*ED COVID-19 Vaccine History Last Done: 04/07/24 17:00
Discharge Date and Time
Print Language: IRAQI
[2024-04-07] MEDS: MAXIPIME 2000 MG IV (19:22)
--- NOTE | 2024-04-07 19:26 | HPS.HSE ---
Family Physician
-
Family Physician: Riley Oliveira
Chief Complaint
-
sob
History of Present Illness
78-year-old female with history of COPD, CAD, hypertension, hyperlipidemia, CKD presenting from home for weakness. family noticed patient with chills, shaking this morning. patient was recently here and was admitted to rehab. patient was back home
on Sunday. this morning she woke up very weak, unable to walk. patient has chronic cough. she had a fever of 99.4 at home. she is complaining of headache. stated sob, denied chest pain,.denied abdominal pain,n,v,d. denied dysuria or hematuria.
patient used 3l baseline, at present requiring 4l. gave vanco and cefepime in ER for hospital acquired pneumonia. admitting for further management.
Medical History
Past Medical History
Past Medical History: Reports Other
Additional Past Medical History:
COPD
Hyperlipidemia
Hyperparathyroidism
Ulcerative colitis
Rheumatoid arthritis
Hypertension
Paroxysmal A-fib
Coronary artery disease
Hypothyroidism
Systolic heart failure
CKD
Hyperlipidemia
Depression
Past Surgical History: Reports Other
Additional Past Surgical History:
Left wrist fusion
Hysterectomy
Right rotator cuffs repair
Pacemaker
Left foot surgery
Tubal ligation
cholecystectomy
Social History
Tobacco: Former Smoker
Alcohol: None
Drug: None
Personal: Single
Living: Alone
Family History
Family History: Not pertinent
Allergies / Home Medications
Allergies reflects when Allergies were last updated in [facility].
Home Medications with original date entered in [facility]
Allergy/Medication List:
Allergies
Allergy/AdvReac Type Severity Reaction Status Date / Time
codeine Allergy migraine Verified 03/17/24 18:14
duloxetine HCl Allergy confusion Verified 03/17/24 18:14
[From Cymbalta]
egg Allergy Unknown Verified 03/17/24 20:27
metoclopramide Allergy DYSTONIA Verified 03/17/24 18:14
PER MD
tramadol Allergy Hives Verified 03/17/24 18:14
tramadol HCl [From Ultram] Allergy Hives Verified 03/17/24 18:14
Home Medications
allopurinol 300 mg tablet 300 mg PO DAILY gout 09/29/14
citalopram 20 mg tablet 20 mg PO DAILY Mental Health/Anxiety 09/29/14
omeprazole 20 mg tablet,delayed release 20 mg PO DAILY Gastrointestinal issue 09/29/14
tizanidine 4 mg tablet 4 mg PO TID PRN Muscle Spasms 09/29/14
torsemide 20 mg tablet 40 mg PO DAILY water pill 11/04/16
rosuvastatin 10 mg tablet 20 mg PO DAILY High cholesterol 01/22/17
umeclidinium 62.5 mcg/actuation blister powder for inhalation (Incruse Ellipta) 62.5 mcg inhalation R DAILYPRN PRN sob 10/18/21
cyclosporine 0.05 % eye drops in a dropperette (Restasis) 1 drp LEFT EYE DAILY Eye condition 11/28/21
tizanidine 4 mg tablet 8 mg PO HS Muscle spasms 11/28/21
acetaminophen 500 mg tablet (Tylenol Extra Strength) 1,000 mg PO Q8HPRN PRN mild pain 03/08/24
calcium carbonate 2,000 mg PO DAILY Supplement 03/08/24
diltiazem HCl 240 mg capsule,24 hr,extended release 240 mg PO DAILY Blood Pressure 03/08/24
levothyroxine 100 mcg tablet (Synthroid) 100 mcg PO MOTUWETHFRSA Thyroid 03/08/24
therapeutic multivitamin 1 tab PO DAILY Supplement 03/08/24
aspirin 81 mg tablet,delayed release 81 mg PO DAILY #0 tabs 03/15/24
albuterol sulfate 90 mcg/actuation aerosol inhaler 2 puff inhalation R Q4HPRN PRN SOB 03/18/24
spironolactone 25 mg tablet 12.5 mg (1/2 x 25 mg) PO DAILY Fluid Retention/Swelling #0 tabs 03/21/24
loperamide 2 mg tablet 2 mg PO Q4HPRN PRN diarrhea 04/07/24
magnesium oxide 400 mg PO BID 04/07/24
pregabalin 75 mg capsule 75 mg PO TID 04/07/24
Review of Systems
-
Constitutional: Reports Fever and Fatigue
EENT: Reports No Symptoms
Respiratory: Reports Trouble Breathing
Cardiac: Reports No Symptoms
Abdomen/GI: Reports No Symptoms
: Reports No Symptoms
Musculoskeletal: Reports No Symptoms
Skin: Reports No Symptoms
Neurological: Reports Headache and Weakness
Endocrine: Reports No Symptoms
Hematologic/Lymphatic: Reports No Symptoms
Psych: Reports No Symptoms
Physical Exam
Vital Signs
Vital Signs
Temp Pulse Resp BP Pulse Ox
102.8 F H 93 18 103/66 95
04/07/24 16:55 04/07/24 16:55 04/07/24 16:55 04/07/24 16:55 04/07/24 16:55
Physical Exam
General: Well Developed, Well Nourished and No Apparent Distress
HEENT: NormoCephalic, Moist mucous membranes and Atraumatic
Respiratory: Rhonchi
Cardiac: S1/S2 and Regular Rhythm; No Murmur or Rub
GI: Soft, Non Tender, Non Distended and Normal Bowel Sounds; No Organomegaly
Rectal: Deferred by Provider
Musculoskeletal: No Clubbing, No Cyanosis and No Edema
Skin: No Rash
Neuro: AO x 3 and Nonfocal/grossly intact
Psych: Calm
Laboratory Results
-
04/07/24 17:17
04/07/24 17:17
Laboratory Results
Lactic Acid Cancelled 04/07/24 22:00
Total Bilirubin 1.6 mg/dl (0.2-1.3) H 04/07/24 17:17
AST 28 U/L (14-36) 04/07/24 17:17
ALT 18 U/L (0-35) 04/07/24 17:17
Alkaline Phosphatase 86 U/L (38-126) 04/07/24 17:17
Data Reviewed
-
Lab Data: Labs Reviewed by me
Impression/Plan
-
#Cough/short of breath/weakness/lethargy likely from hospital-acquired pneumonia
#acute on chronic hypoxic respiratory failure
# SIRS
-Negative for COVID and flu
-patient uses 3l baseline, now requiring 4l
-WBCs 18.8, febrile 102.8
-Continue cefepime and Vanco
-blood cultures sent from ER
-Tylenol as needed for fever
-continue to monitor WBCs
#CAD
-Continue aspirin
#Chronic HFpEF
-Resume half dose spironolactone and 2.5 mg daily
-Resume torsemide
-spironolactone continued
#Right bundle branch block
#Sick sinus syndrome status post pacemaker
#Aortic stenosis status post TAVR
#Chronic atrial fibrillation
-Continue diltiazem
-EKG with paced rhythm
#Hypothyroidism
-Continue levothyroxine
#Gout
-Continue allopurinol
#Hyperlipidemia
-Continue statin
#COPD on 3 L of oxygen baseline
-Continue Incruse Ellipta
#Obstructive sleep apnea
-cpap
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
#Ulcerative colitis
#Osteoporosis
#History of DVT/PE after knee surgery in 2006
#Cervical radiculopathy
-Continue tizanidine as needed
#Peripheral neuropathy
-Continue pregabalin
#Anxiety/depression
-Continue citalopram
#Macular degeneration
#Rheumatoid arthritis
#Chronic ambulatory dysfunction uses walker
#GERD
-Continue omeprazole
Migraine history
Full code
DVT prophylaxis�heparin
Regular diet
[2024-04-07] MEDS: VANCOCIN 300 ML IV (19:51)
[2024-04-07] MEDS: VANCOCIN 300 MG IV (19:51)
[2024-04-07] MEDS: MOTRIN 400 MG PO (20:12)
[2024-04-07 21:10] LABS: Troponin I < 0.012 ng/ml
--- NOTE | 2024-04-07 21:37 | PHA.VAN.IN ---
Assessment
- Assessment
Renal Function: Appears similar to baseline
Concomitant Antimicrobials: CEFEPIME
- Previous Dosing Experience
Previous Regimen: 1GM IV Q18H
Date of Regimen: 05/06/08
Provided Trough of: UNKNOWN
Provided AUC of: UNKNOWN
Patient's SCR is: Decreased compared to previous dosing experience (05/06/08 SCR = 1.0)
Patient's weight is: Decreased compared to previous dosing experience (05/06/08 WT = 91.8 KG)
AUC Dosing Plan
- Empiric Dosing
Initial / Loading Dose: 1500MG
Maintenance Regimen: 1250MG IV Q24H
Estimated AUC (mcg*h/mL): 550
Estimated Peak (mcg*h/mL): 38.5
Estimated Trough (mcg/ml): 12
Estimated Half Life (H): 13.4
Pharmacokinetics Vancomycin I
- -
Patient Age: 78
Patient Sex: Female
Vancomycin Day #: 1
Indication: Pulmonary/Respiratory
Requesting Provider: AMBERLY
Height / Weight:
Height 5 ft 2 in
Actual Weight 65.2 kg
- Vital Signs / Lab Results
Temp Pulse Resp BP Pulse Ox
101.1 F H 71 24 109/57 95
04/07/24 19:47 04/07/24 21:30 04/07/24 21:30 04/07/24 20:05 04/07/24 21:30
Lab Results - Hematology
04/07/24
17:17
WBC 18.8 H
Lab Results - Chemistry
04/07/24
17:17
BUN 23 H
Creatinine 0.7
Estimated Creat Clear 57
Albumin 4.4
04/07/24 04/07/24
17:51 22:00
Lactic Acid 1.1 Cancelled
Microbiology Results
04/07/24 17:05 Influenza Types A & B (ALAN) - Final
Nasal Swab Negative for Influenza A & B, NAAT
Negative results must be combined with clinical observations
and patient history.
Nucleic Acid Amplification test (NAAT)performed on the
[employer] platform.
[2024-04-07] MEDS: HEPARIN 5000 UNITS SC (21:48)
[2024-04-07] MEDS: MAG-TAB SR 84 MG PO (22:14)
[2024-04-07] MEDS: LYRICA 75 MG PO (22:23)
[2024-04-07] MEDS: ZANAFLEX 8 MG PO (22:23)
[2024-04-07] MEDS: NSS 1000 IV (23:26)
[2024-04-07] MEDS: NSS 250 IV (23:48)
[2024-04-08] VITALS (63 sets, daily range): BP systolic 75–142; BP diastolic 40–106; PULSE 71; O2SAT 97; BMI 26.6
--- NOTE | 2024-04-08 00:10 | W.PN.UPDATE ---
Update Note
Progress Note Update
Patient seen in conjunction with BURRING WHEEL OPERATOR. I agree with the findings on history and physical as well as the assessment and plan unless otherwise
Briefly this is an 78-year-old female with past medical history of congestive heart failure, COPD, hyperlipidemia, CKD who presents to the emergency department with cough shortness of breath weakness and lethargy. Patient was seen in the hospital
for LUPILLO in February and admitted to rehab. She was discharged from rehab just 3 days ago. Then she started having symptoms of cough and shortness of breath. She had a high fever and was brought to the emergency department.
In the emergency department the patient was febrile to 101, blood pressure was initially 113/50 with a pulse of 79 and oxygen saturation was 90% on 2 L. Chest x-ray shows a small left lower lobe pneumonia. COVID and flu were negative. She had
leukocytosis to 18,000 with a normal hemoglobin and platelet count. Chemistries including BUN/creatinine were normal. Potassium was 3.5. Bicarb was elevated at 34 which is at her baseline. She was given broad-spectrum antibiotics and given 500
cc of normal saline for service. Initial lactic acid was negative.
Approximately 3 hours after initial evaluation and treatment in the ED the patient became hypotensive to 50s systolic. She was still awake. She now meets the criteria for sepsis with shock.
Assessment and plan:
Pneumonia with sepsis
- admit to imu
- given 30ml/kg resuscitation for now
- holding diltiazem and spironolactone
- blood cultures, urine cultures
- continue vanc/cefepime for now
- started on levophed peripherally to keep SBP > 90
- ID consultation
VTACH -patient had a greater than 20 beat run of V. tach. History of pacemaker placement. Appeared to have been paced at a breathing on telemetry.
-Check troponin, troponin negative trend troponin
-Echo
-cardiology consult
- give 20 meq K and 1 gm mag
CHF - no evidence of exacerbation
- holding diuretics and antihypertensives for now given hypotension
- echo in am
Rest of plan as per BURRING WHEEL OPERATOR note
DVT PPX - hep sq
Code status - full code
[2024-04-08 00:11] LABS: Urine Albumin Trace (Neg - Trace); Urine Bilirubin Negative (Negative); Urine Character Clear (Clear); Urine Color Yellow; Urine Glucose Negative (Negative); Urine Ketone Negative (Negative); Urine Leukocyte Trace (Negative); Urine Nitrite Negative (Negative); Urine Occult Blood Negative (Negative); Urine Urobilinogen Negative (Neg - 1+)
[2024-04-08] MEDS: LEVOPHED 250 IV ×2 (00:52→14:21)
[2024-04-08 00:58] LABS: Urine Amorphous Seen
[2024-04-08 00:59] LABS: Urine Bacteria Moderate (Negative)
[2024-04-08 01:00] LABS: Urine Red Blood Cell 0-2 /HPF (0-2)
[2024-04-08] MEDS: MAGNESIUM SULFATE 102 GRAMS IV (01:08)
[2024-04-08] MEDS: KCL 160 MEQ IV (02:00)
--- NOTE | 2024-04-08 02:08 | PTCARENOTE ---
pt admitted from the ED- pt is AAOx3- able to make needs known. on 4L NC 98%, 3L is patients baseline. pt brought up from the ED with BP 78/48 P-60, pt a-v paced on the monitor. pt denies dizziness just states she is very tired. notified covering
TESTING AND REGULATING CHIEF immediately about low BP- orders entered and IV levo started, titrated for MAP >65. pt with chronic cough, not producing any sputum. inc with attends on- dk applied and set up. new IV placed for STAT IV orders for K and Mag. pt oriented to
new rooom, call king within reach, care ongoing.
[2024-04-08] MEDS: SYNTHROID 100 MCG PO (05:44)
[2024-04-08] MEDS: VANCOCIN 275 MG IV (05:44)
[2024-04-08 06:00] LABS: Hematocrit 31.4 % (37.0-47.0); Hemoglobin 10.5 g/dL (12.0-16.0); Mean Corp Hgb Conc. 33.4 g/dL (33.0-37.0); Mean Corpuscular Hgb 29.7 pg (27.0-31.0); Mean Platelet Volume 11.6 fL (7.4-10.4); Platelet Count 213 10^3/uL (130-400); Red Blood Cell Count 3.53 10^6/uL (4.20-5.40); Red Cell Dist. Width 15.7 % (11.5-14.5); White Blood Cell Count 15.8 10^3/uL (4.8-10.8)
[2024-04-08 06:25] LABS: Blood Urea Nitrogen 21 mg/dl (7-17); Calcium 8.7 mg/dl (8.4-10.2); Carbon Dioxide 31 mmol/L (22-30); Chloride 99 mmol/L (98-107); Estimated Creatinine Clearance 57 ml/min; Glucose 141 mg/dl (70-99); Magnesium 2.4 mg/dl (1.6-2.3); Potassium 4.1 mmol/L (3.5-5.1); Sodium 141 mmol/L (135-145); eGFR > 60.00
--- NOTE | 2024-04-08 08:17 | CON.CAR ---
Addendum entered and electronically signed by Srinivas Bull MD 04/08/24 13:46:
I saw and examined the patient.
The TECHNICIAN AUTOMATED EQUIPMENT's note was reviewed and I agree with the note.
Comment: 78-year-old female (known to Dr. Ramirez, her primary sap bw bi developer), with hypertension, dyslipidemia, paroxysmal atrial fibrillation (not on oral anticoagulation due to eye hemorrhage), nonobstructive coronary artery disease, severe aortic
stenosis s/p TAVR (12/08/2021), SSS s/p Medtronic pacemaker, MARY (not on BiPAP due to recall), and COPD with chronic hypoxemia requiring 3 L nasal cannula who presented to the emergency department with a chief complaint of chills.
She has PNA and septic shock requiring levophed. Device interrogation did not show any significant ectopy including VT.
- supportive care per primary
- monitor volume status given hx of CHF
We will sign off please call with questions/concerns.
Original Note:
Consultation
Consultation Request
Date/Time Consultation Requested: 04/07/2024 22:30
Date/Time Consultation Performed: 04/08/2024 08:15
Requesting Provider: ASHUTOSH Escalona
Performing Provider: ASHUTOSH Farias for Dr. Bull
Reason for Consultation: v -tachs/hxt of atrial fib
Medical History
-
Chief Complaint: Chills
History of Present Illness:
Gia Hernandez is an 78-year-old female (known to Dr. Ramirez, her primary sap bw bi developer), with hypertension, dyslipidemia, paroxysmal atrial fibrillation (not on oral anticoagulation due to eye hemorrhage), nonobstructive coronary artery disease, severe
aortic stenosis s/p TAVR (12/08/2021), SSS s/p Medtronic pacemaker, MARY (not on BiPAP due to recall), and COPD with chronic hypoxemia requiring 3 L nasal cannula who presented to the emergency department with a chief complaint of chills. She was
febrile in the emergency department. She is requiring 4 L which is slightly above her baseline. She had a recent admission and was discharged to [facility] for rehabilitation. She had been home less than 48-hour before she returned back to the
emergency room. She was diagnosed with sepsis in the setting of pneumonia.
Past Medical History
Past Medical History: Arrhythmias (Paroxysmal atrial fibrillation, SSS s/p PPM), CAD (Nonobstructive), CHF (HFpEF), COPD, HTN, Hypercholesterolemia, Valvular Disease (Severe aortic stenosis s/p TAVR) and Other (MARY)
Social History
Tobacco: Former Smoker
Alcohol: None
Drug: None
Personal:
Living: With Family
Employment: Retired
Family History
Family History: Reviewed & Not Pertinent
Allergies / Home Medications
Allergy/AdvReac Type Severity Reaction Status Date / Time
codeine Allergy migraine Verified 03/17/24 18:14
duloxetine HCl Allergy confusion Verified 03/17/24 18:14
[From Cymbalta]
egg Allergy Unknown Verified 03/17/24 20:27
metoclopramide Allergy DYSTONIA Verified 03/17/24 18:14
PER MD
tramadol Allergy Hives Verified 03/17/24 18:14
tramadol HCl [From Ultram] Allergy Hives Verified 03/17/24 18:14
�Medication �Instructions �Recorded �Confirmed �Type
allopurinol 300 mg tablet 300 mg PO DAILY gout 09/29/14 04/07/24 History
citalopram 20 mg tablet 20 mg PO DAILY Mental 09/29/14 04/07/24 History
Health/Anxiety
omeprazole 20 mg tablet,delayed 20 mg PO DAILY Gastrointestinal 09/29/14 04/07/24 History
release issue
tizanidine 4 mg tablet 4 mg PO TID PRN Muscle Spasms 09/29/14 04/07/24 History
torsemide 20 mg tablet 40 mg PO DAILY water pill 11/04/16 04/07/24 History
rosuvastatin 10 mg tablet 20 mg PO DAILY High cholesterol 01/22/17 04/07/24 History
umeclidinium 62.5 mcg/actuation 62.5 mcg inhalation R DAILYPRN PRN 10/18/21 04/07/24 History
blister powder for inhalation sob
(Incruse Ellipta)
cyclosporine 0.05 % eye drops in a 1 drp LEFT EYE DAILY Eye condition 11/28/21 04/07/24 History
dropperette (Restasis)
tizanidine 4 mg tablet 8 mg PO HS Muscle spasms 11/28/21 04/07/24 History
acetaminophen 500 mg tablet 1,000 mg PO Q8HPRN PRN mild pain 03/08/24 04/07/24 History
(Tylenol Extra Strength)
calcium carbonate 2,000 mg PO DAILY Supplement 03/08/24 04/07/24 History
diltiazem HCl 240 mg capsule,24 240 mg PO DAILY Blood Pressure 03/08/24 04/07/24 History
hr,extended release
levothyroxine 100 mcg tablet 100 mcg PO MOTUWETHFRSA Thyroid 03/08/24 04/07/24 History
(Synthroid)
therapeutic multivitamin 1 tab PO DAILY Supplement 03/08/24 04/07/24 History
aspirin 81 mg tablet,delayed 81 mg PO DAILY #0 tabs 03/15/24 04/07/24 Rx
release
albuterol sulfate 90 mcg/actuation 2 puff inhalation R Q4HPRN PRN SOB 03/18/24 04/07/24 History
aerosol inhaler
spironolactone 25 mg tablet 12.5 mg (1/2 x 25 mg) PO DAILY 03/21/24 04/07/24 Rx
Fluid Retention/Swelling #0 tabs
loperamide 2 mg tablet 2 mg PO Q4HPRN PRN diarrhea 04/07/24 04/07/24 History
magnesium oxide 400 mg PO BID 04/07/24 04/07/24 History
pregabalin 75 mg capsule 75 mg PO TID 04/07/24 04/07/24 History
Review of Systems
-
History Source: Patient
All other systems: Negative unless noted
Constitutional: Fatigue and Chills
EENT: No Symptoms
Respiratory: Cough and Trouble Breathing
Cardiac: No Symptoms
Abdomen/GI: No Symptoms
: No Symptoms
Musculoskeletal: No Symptoms
Skin: No Symptoms
Neurological: Weakness
Endocrine: No Symptoms
Hematologic/Lymphatic: No Symptoms
Physical Exam
Vital Signs
Temp Pulse Resp BP Pulse Ox
98.2 F 60 19 123/48 98
04/08/24 07:57 04/08/24 07:00 04/08/24 07:00 04/08/24 07:00 04/08/24 07:00
Lab Results
04/08/24 05:49
04/08/24 05:49
Troponin I < 0.012 ng/ml 04/07/24 20:35
Physical Exam
General: Well Developed, Well Nourished, No Apparent Distress and Comfortable
HEENT: Normocephalic, Anicteric and Moist Mucous Membranes
Respiratory: Clear and Non Labored Respirations
Cardiac: S1/S2 and Murmur (II/)
Breast: Deferred by me
GI: Soft, Non Tender, Non Distended and Normal Bowel Sounds
Rectal: Deferred by Provider
Genito-urinary: No Costovertebral Tender
Musculoskeletal: No Cyanosis and No Edema
Skin: Warm and Dry
Neuro: AO x 3
Hematologic/Lymphatic: No Lymphadenopathy
Psych: Calm
Impression / Plan
-
Sepsis, in the setting of pneumonia
-Given fluid resuscitation
-On Levophed
Ectopy on telemetry
-Primary service concern for VT, appears to be artifact, this was confirmed with device check, no AF/VT/VF/NSVT
HFpEF, chronic
-She does not appear to be in acute decompensated heart failure
-Closely watch respiratory status, I/O, and weight as she is status post fluid resuscitation
Paroxysmal atrial fibrillation
-In sinus
-Oral Anticoagulation: None due to prior eye hemorrhage, she declined watchman by her primary sap bw bi developer
-[id number]: score at least 5 (Heart failure, HTN, age 75 or more, female gender)
Severe s/p TAVR 12/08/2021, peak/mean gradients 23/12 mmHg
SSS s/p PPM, device interrogation as above
COPD, on 3 L nasal cannula at baseline, follows with Dr. Steel
Data Reviewed
-
EKG: Report Reviewed by me (Atrial sensed ventricular paced rhythm, rate 89)
Radiology: Report Reviewed by me (CXR: Left lower lobe pneumonia)
--- NOTE | 2024-04-08 08:20 | VNURNOTE ---
Chart reviewed. Patient is current with [facility] nursing, PT. Will continue to follow hospital course and DC plans.
[2024-04-08] MEDS: RESTASIS 0.05% OPHTHALMIC EMULSION 1 DROPS LEFT EYE (08:39)
[2024-04-08] MEDS: CRESTOR 20 MG PO (08:39)
[2024-04-08] MEDS: MAG-TAB SR PO (08:40)
[2024-04-08] MEDS: CELEXA 20 MG PO (08:40)
[2024-04-08] MEDS: ZYLOPRIM 300 MG PO (08:41)
[2024-04-08] MEDS: HEPARIN 5000 UNITS SC ×2 (08:41→19:18)
[2024-04-08] MEDS: PROTONIX 40 MG PO (08:41)
[2024-04-08] MEDS: LYRICA 75 MG PO ×3 (08:41→20:47)
[2024-04-08] MEDS: ASPIR LOW (ENTERIC COATED) 81 MG PO (08:41)
[2024-04-08] MEDS: MAXIPIME 2000 MG IV (08:42)
[2024-04-08] MEDS: STERILE WATER FOR INJECTION 10 ML IV (08:42)
[2024-04-08] MEDS: DEMADEX PO (08:42)
[2024-04-08] MEDS: TYLENOL 650 MG PO ×2 (08:43→19:19)
[2024-04-08] MEDS: DUONEB 3 ML INH (09:35)
--- NOTE | 2024-04-08 09:51 | W.PN.HOSP.TC ---
Today's Communication/Plan
-
Continue antibiotics
Wean down vasopressors
Cardiology consult
Assessment / Plan
Assessment / Plan
Gen-AAOx3, NAD
HEENT-NC, AT, anicteric, clear oral mm
Neck-supple
CV-reg, no M, +S1/S2
Lungs-bilateral rhonchi, rales at the left base
Abd-soft, NT, ND
Ext-no edema
Musculoskeletal-no cyanosis, clubbing
Skin-warm and dry
Neuro-grossly non-focal
Psych-calm, cooperative
Acute on chronic hypoxic respiratory failure -due to pneumonia with underlying COPD. Baseline uses 3 L nasal cannula oxygen, required 4 L on admission.
Septic shock due to pneumonia -left lower lobe infiltrate noted on x-ray. Currently on Levophed IV, wean down as able. Hemodynamically improved.
Presumed healthcare associated pneumonia. Blood cultures pending. Legionella antigen negative. COVID, influenza negative. Continue broad-spectrum antibiotics.
Nonsustained V. tach -potassium low end of normal on admission, normal today. Magnesium normal. Cardiology consulted.
CAD -stable. Had nuclear stress test February 2024 that was negative for ischemia.
chronic heart failure preserved EF
Sick sinus syndrome -s/p PPM.
Aortic stenosis -status post TAVR.
Atrial fibrillation, unknown type -not on chronic anticoagulation due to history of hemorrhage. Declined watchman in the past.
Hypothyroidism -on levothyroxine.
Gout
MARY
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
Ulcerative colitis
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
Rheumatoid arthritis
Chronic ambulatory dysfunction
Full code
Anticipated Discharge: > 48 hours
Subjective/Interval History
-
Date of Service: April 08, 2024
Patient seen and examined. No complaints.
Objective Data
-
Labs:
Laboratory Results
04/08/24
05:49
WBC 15.8 H
Hgb 10.5 L
Hct 31.4 L
Plt Count 213
Sodium 141
Potassium 4.1
Chloride 99
Carbon Dioxide 31 H
BUN 21 H
Creatinine 0.7
Glucose 141 H
Calcium 8.7
Vital Signs:
Vital Signs
Temp Pulse Resp BP Pulse Ox
98.2 F 84 20 104/45 96
04/08/24 07:57 04/08/24 09:39 04/08/24 09:39 04/08/24 09:30 04/08/24 09:39
I&O
04/07/24 04/08/24 04/09/24
06:59 06:59 06:59
Intake Total 262 / 262
Balance 262 / 262
Review of Systems
-
History Source: Patient
All other systems: Reviewed and negative
--- NOTE | 2024-04-08 10:36 | CON.ID ---
Addendum entered and electronically signed by Senait Villa MD 04/08/24 16:17:
Also discussed at length with patient she reports no recent steroids (I try to avoid them if I can) and no immunosuppressive medications such as injections not listed on her home medication list.
AW
Addendum entered and electronically signed by Senait Villa MD 04/08/24 16:13:
I personally performed a history and physical exam of the patient and discussed management with the resident. I reviewed the resident's note and agree with the documented findings and plan of care HPI/CC with the following additions/corrections:
Ms Hernandez is an 78 year old female with COPD on 3L NC at baseline, heart failure, CKD, UC and RA presenting from home for fevers, rigors, headache, shortness of breath and weakness. At baseline she is ambulatory but on the day of admission she was
unable to get out of bed. No chest pain, abdominal pain, nausea, vomiting, diarrhea or dysuria. Patient reports confusion on arrival, majority of history was obtained from daughter.
In the ER she was febrile to 102.8, initially markedly hypotensive remains on pressors, HR 60s, wbc initially 18 now 15.8, hgb 10.5, plt 213, L shift noted on arrival, cr 0.7, lactic acid 1.1, t bili 1.6, ast 28, alt 18, alk phos 86, UA 6-10
wbc/hpf, urine culture and blood cultures x2 in progress. 'Im thinking much more clearly today.'
Histories, ROS as written by resident
Vital Signs
Vital Signs
Temp Pulse Resp BP Pulse Ox
102.8 F H 93 18 103/66 95
04/07/24 16:55 04/07/24 16:55 04/07/24 16:55 04/07/24 16:55 04/07/24 16:55
Physical Exam
General: No Apparent Distress
Respiratory: Rhonchi, no increased work of breathing
Cardiac: S1/S2 and Regular Rhythm; No Murmur or Rub
GI: Soft, Non Tender, Non Distended and Normal Bowel Sounds
Musculoskeletal: No Edema
Skin: No Rash
Psych: Calm
Labs: reviewed most notably:
WBC 18.8 - with L shift and lymphocytopenia
Cr 0.7
lactic acid 1.1
LFTs wnl
COVID and influenza: negative
03/28/24 CXR LLL pneumonia and small pleural effusion
resp culture ordered but not yet obtained
A&P
Community Acquired Pneumonia
Shock
- health care associated pneumonia (within 3 month of contact with a health care facility) now a defunct term, hospital acquired pneumonia refers to pneumonia that develops after 48 hours of inpatient admission; patient was in outpatient setting
when pneumonia developed. The different diagnoses have different epidemiologic patterns and different antibiotic recommendations
- start doxycycline and ceftriaxone; stop vancomycin/cefepime
- obtain sputum culture if able
- covid and influenza negative
- follow clinically
AW
Original Note:
Consultation
-
Date/Time Consultation Requested: 04/08/2024, 00:17 a.m.
Date/Time Consultation Performed: , 10:44 AM
Requesting Provider: hiren Harrington MD
Performing Provider: Mariajose Sapp MD for Senait Villa MD
Reason for Consultation: Septic shock secondary to community-acquired pneumonia
Chief Complaint / Past History
Chief Complaint
Weakness and lethargy, subjective fevers, chills, shortness of breath x 1 day.
History of Present Illness
78 Yo F with recent hospitalization for LUPILLO from 03/17 through 03/21, and was in SNF till 04/05 and was discharged home from [facility] to the hospital with symptoms of shortness of breath, weakness and lethargy. Per family patient has
subjective fevers 1 day after the discharge from SNF, had visible chills weakness and lethargy for 1 day. However patient could not recall anything except for walking in the hallway when her daughter asked if she is doing okay in the next minute
she found herself in the hospital.
Upon arrival to the emergency room, patient was found to be febrile at 102.8, hypoxic satting at 90% on 2 L low flow nasal cannula, with rest of the vital signs being stable. 3 hours into the hospital admission patient developed hypotension and
tachypnea, and is diagnosed with septic shock. Her flu and COVID were negative, WBC [id number] with left shift, hb- 12.1, platelet count at 255. Her lactic acid levels were at 1.1, elevated carbon dioxide levels at 34, elevated total
bilirubin at 1.6, no transaminitis, troponin levels within normal limits, urine analysis with few WBCs, leukocyte esterase, moderate bacteriuria noted. Blood cultures x 2 (drawn at the same time), are pending, flu and COVID are negative, urine
cultures are pending, negative Legionella antigen, chest x-ray showed evidence for Left lower lobe pneumonia and mild cardiomegaly.
Patient is started on cefepime and vancomycin empirically. Today is day 2.
Of note patient has rheumatoid arthritis and ulcerative colitis for which she is not on any immunosuppressant medications.
Past History
Past Medical History: Other (COPD Hyperparathyroidism Ulcerative colitis Rheumatoid arthritis Hypertension Paroxysmal A-fib Coronary artery disease Hypothyroidism Systolic heart failure CKD Hyperlipidemia Depression)
Past Surgical History: Other (Left wrist fusion Hysterectomy Right rotator cuffs repair Pacemaker Left foot surgery Tubal ligation cholecystectomy)
Allergy History:
codeine Allergy (Verified 03/17/24 18:14)
migraine
duloxetine HCl [From Cymbalta] Allergy (Verified 03/17/24 18:14)
confusion
metoclopramide Allergy (Verified 03/17/24 18:14)
DYSTONIA PER MD
tramadol Allergy (Verified 03/17/24 18:14)
Hives
tramadol HCl [From Ultram] Allergy (Verified 03/17/24 18:14)
Hives
Medications Reviewed: Yes
Social History
Tobacco: Former Smoker
Alcohol: None
Drug: None
Personal: Single
Living: Alone
Employment: Retired
Family History
Family History: Not Pertinent
Review of Systems
Review of Systems
General: Negative Fever, Chills or Change in Appetite
HEENT: Negative Headache or Pharyngitis
Cardiovascular: Chest Pain (Pressure-like sensation that worsens with inspiration.) and Dyspnea
Respiratory: Cough and Sputum Production (Minimal-mucoid); Negative Hemoptysis
Gasteroenterology: Negative Nausea or Vomiting
Genital / Urological: Other (Stress incontinence no change from baseline.); Negative Dysuria, Hematuria or Flank Pain
Endocrine: Fatigue; Negative Weakness
Musculoskeletal: Arthralgias (Left ankle.); Negative Myalgias
Skin / Hair / Nails: Negative Rash
Neurological: Negative Headache
Vital Signs
Temp Pulse Resp BP Pulse Ox
98.2 F 84 20 104/45 96
04/08/24 07:57 04/08/24 09:39 04/08/24 09:39 04/08/24 09:30 04/08/24 09:39
Physical Exam
Physical Exam
Constitutional: Comfortable (On 4 L low flow nasal cannula)
Cardiovascular: Regular Rate, S1/S2 and Murmur; Negative Rub, Peripheral Edema or Gallop
Pulmonary: Clear (Right upper lung lobe.) and Coarse (Crackles in right middle lobe, lower lobe, across all lobes of the left lung.); Negative Wheezes, Rales or Rhonchi
Gastrointestinal: Soft, Non Tender, Non Distended and Normal Bowel Sounds
Genito-Urinary: Negative Patel
Musculoskeletal: Other (Ankle inspection-no rash or erythema, palpation tenderness on the posterior ankle mortise, no local rise of temperature or edema, range of motion - painful but not limited (passive))
Skin: Warm
Neurological: Awake and Alert
Psychological: Calm
Lab / Diagnostic Study Results
04/08/24 05:49
04/08/24 05:49
Abs Immat Gran (auto) 0.1 10^3/uL (0-0.05) H 04/07/24 17:17
Absolute Neuts (auto) 16.0 10^3/uL (1.4-6.5) H 04/07/24 17:17
Absolute Lymphs (auto) 1.1 10^3/uL (1.2-3.4) L 04/07/24 17:17
Absolute Monos (auto) 1.2 10^3/uL (0.1-0.6) H 04/07/24 17:17
Absolute Basos (auto) 0.0 10^3/uL (0-0.2) 04/07/24 17:17
Immature Gran % 0.4 % (0-0.5) 04/07/24 17:17
Neutrophils % 86.2 % (42.2-75.2) H 04/07/24 17:17
Lymphocytes % 6.1 % (20.5-51.1) L 04/07/24 17:17
Monocytes % 6.6 % (1.7-9.3) 04/07/24 17:17
Eosinophils % 0.5 % (0-6) 04/07/24 17:17
Basophils % 0.2 % (0-2) 04/07/24 17:17
Lactic Acid Cancelled 04/07/24 22:00
Urine WBC 6-10 /HPF (0-5) A 04/07/24 23:59
Ur Squamous Epith Cells 3-5 /LPF (Few) 04/07/24 23:59
Microbiology Results
Micro:
04/07/24 23:50 Legionella Urinary Antigen - Final
Urine Negative for Legionella pneumophila Serogroup 1 antigen.
A negative result does not rule out the possiblity of
Legionella infection due to other serogroups or species of
Legionella. Clinical correlation is recommended.
04/07/24 23:59 Urine Culture - Pending
Urine
04/07/24 19:21 Blood Culture - Pending
Blood/Venous
04/07/24 19:21 Blood Culture - Pending
Blood/Venous
04/07/24 17:05 Influenza Types A & B (ALAN) - Final
Nasal Swab Negative for Influenza A & B, NAAT
Negative results must be combined with clinical observations
and patient history.
Nucleic Acid Amplification test (NAAT)performed on the
[employer] platform.
Assessment / Plan
Assessment-
78-year-old female with past medical history of rheumatoid arthritis, LUPILLO on CKD, ulcerative colitis, HFrEF on pacemaker (permanent) presented to the hospital for subjective fevers, chills, lethargy, cough and shortness of breath as per family.
Diagnosed with septic shock secondary to community-acquired pneumonia.
Subjective-still reports having shortness of breath, cough, pleuritic chest pain.
Objective-leukocytosis improving-18K to 15.8 K. Hypermagnesemia,
Afebrile, tachypneic, occasional hypotension.
Urine analysis-10 WBCs, moderate bacteria, positive leukocyte esterase.
Chest [id number] for lower lobe pneumonia.
QT intervals-greater than 500, a sensed V paced on EKG.
Plan-
Septic shock secondary to community-acquired pneumonia-
Resolving leukocytosis, lactic acid-1.1, not elevated, vital signs improving.
Stop cefepime.
MRSA PCR pending, sputum cultures pending.
Will discontinue vancomycin if MRSA PCR is negative.
Start patient on ceftriaxone and doxycycline.
Blood cultures x 2 pending
Urine cultures pending
History of Deborah albicans UTI in the past.
--- NOTE | 2024-04-08 16:10 | PHA.VAN.FU ---
Vancomycin Assessment / Plan
- Assessment
Renal Function: Stable
WBC's are: Trending Down
Concomitant Antimicrobials: ceftriaxone, doxycycline
- Dosing Plan
Continue: Vanc 1250mg Q24H
- Monitoring Plan
No level(s) ordered at this time: consider levels in next few days
- Follow Up
Pharmacy will continue to follow.
Vancomycin Follow UP
- -
Patient Age: 78
Patient Sex: Female
Vancomycin Day #: 2
Indication: Pulmonary/Respiratory
Requesting Provider: Polina Salvador / Dr. Villa
Pertinent Antimicrobial Allergies:
no pertinent antibiotic allergies
Height / Weight:
Height 5 ft 2 in
Actual Weight 65.952 kg
- Vital Signs / Lab Results
Temp Pulse Resp BP Pulse Ox
99.2 F 75 13 120/61 98
04/08/24 15:31 04/08/24 11:30 04/08/24 11:30 04/08/24 11:30 04/08/24 11:46
Lab Results - Hematology
04/07/24 04/08/24
17:17 05:49
WBC 18.8 H 15.8 H
Lab Results - Chemistry
04/07/24 04/08/24
17:17 05:49
BUN 23 H 21 H
Creatinine 0.7 0.7
Estimated Creat Clear 57 57
Albumin 4.4
04/07/24 04/07/24
17:51 22:00
Lactic Acid 1.1 Cancelled
Lab Results - Urine
04/07/24 04/07/24
23:58 23:59
Urine Nitrite Negative
Urine Nitrite (Reflex) Cancelled
Ur Leukocyte Esterase Trace A
Leukocyte Esterase Rfl Cancelled
Urine WBC 6-10 A
Ur Squamous Epith Cells 3-5
Urine Bacteria Moderate A
Microbiology Results
04/07/24 23:50 Legionella Urinary Antigen - Final
Urine Negative for Legionella pneumophila Serogroup 1 antigen.
A negative result does not rule out the possiblity of
Legionella infection due to other serogroups or species of
Legionella. Clinical correlation is recommended.
04/07/24 17:05 Influenza Types A & B (ALAN) - Final
Nasal Swab Negative for Influenza A & B, NAAT
Negative results must be combined with clinical observations
and patient history.
Nucleic Acid Amplification test (NAAT)performed on the
[employer] platform.
[2024-04-08] MEDS: MAG-TAB SR 84 MG PO (19:18)
[2024-04-08] MEDS: VIBRAMYCIN 100 MG PO (19:18)
[2024-04-08] MEDS: STERILE WATER FOR INJECTION 20 ML IV (19:19)
[2024-04-08] MEDS: ROCEPHIN 2000 MG IV (19:19)
[2024-04-08] MEDS: STERILE WATER FOR INJECTION IV (19:45)
[2024-04-08] MEDS: ZANAFLEX 8 MG PO (20:47)
[2024-04-08] MEDS: ZYRTEC 5 MG PO (21:00)
--- NOTE | 2024-04-08 22:29 | PTCARENOTE ---
assumed care of patient, pt is AAOx3- able to make needs known. pt had a fever right at shift change, PO tylenol given and fever broke to 99.1. pt on 4L NC 99%. attempted to wean levo gtt off- pt's BP then dropped to 70s. levo drip titrated back up
to 2mcg/min to maintain MAP >65. notified IV team about pressure being up for greater than 24 hours. new IV placed and IV team aware about need for central line placement. pt had a large BM on bedpan tonight, foam on sacrum intact. pt states she is
feeling better, just has some sinus pressure, asking for Zyrtec for allergies. notified covering [employer]- orders enter and med given. care ongoing.
[2024-04-09] VITALS (32 sets, daily range): BP systolic 70–136; BP diastolic 38–78; O2SAT 96; BMI 26.9
--- NOTE | 2024-04-09 03:58 | DOWNTIME ---
There was a [employer] Client Residential Caregiver Downtime on 04/09/2024 from 0100 to 04/09/2024 at 0355. Downtime documentation of patient's care, including medication administrations, has been reconciled in the electronic record per guidelines. Refer to the
patient's paper chart under the miscellaneous tab to see printed paper medication records and downtime forms.
[2024-04-09] MEDS: SYNTHROID 100 MCG PO (04:37)
[2024-04-09 05:00] LABS: Hematocrit 29.7 % (37.0-47.0); Hemoglobin 9.7 g/dL (12.0-16.0); Mean Corp Hgb Conc. 32.7 g/dL (33.0-37.0); Mean Corpuscular Hgb 30.5 pg (27.0-31.0); Mean Corpuscular Volume 93.4 fL (81.0-99.0); Mean Platelet Volume 11.5 fL (7.4-10.4); Platelet Count 183 10^3/uL (130-400); Red Blood Cell Count 3.18 10^6/uL (4.20-5.40); Red Cell Dist. Width 15.6 % (11.5-14.5); White Blood Cell Count 9.1 10^3/uL (4.8-10.8)
[2024-04-09] MEDS: VANCOCIN 275 MG IV (05:44)
--- NOTE | 2024-04-09 08:00 | PTCARENOTE ---
Pt AAOx3, Levo off BP wnl. Pt ordering breakfast . Pleasant no complaints at this time. Now fro med surg awaiting bed assignment
--- NOTE | 2024-04-09 08:34 | W.PN.HOSP.TC ---
Addendum entered and electronically signed by John Harrell DO 04/09/24 12:47:
Stage 2 coccyx pressure injury POA
Original Note:
Today's Communication/Plan
-
Orthostatics
Transfer out of IMU
Assessment / Plan
Assessment / Plan
Gen-AAOx3, NAD
HEENT-NC, AT, anicteric, clear oral mm
Neck-supple
CV-reg, no M, +S1/S2
Lungs-bilateral rhonchi, rales at the left base
Abd-soft, NT, ND
Ext-no edema
Musculoskeletal-no cyanosis, clubbing
Skin-warm and dry
Neuro-grossly non-focal
Psych-calm, cooperative
Acute on chronic hypoxic respiratory failure -due to pneumonia with underlying COPD. Baseline uses 3 L nasal cannula oxygen, required 4 L on admission.
Septic shock due to community-acquired pneumonia -sepsis resolved. Shock resolved. Off vasopressors. Leukocytosis resolved. Continue antibiotics. Blood cultures negative. ID input noted.
Nonsustained V. tach -potassium low end of normal on admission, normal today. Magnesium normal. Cardiology consulted.
CAD -stable. Had nuclear stress test February 2024 that was negative for ischemia.
Chronic heart failure preserved EF
Sick sinus syndrome -s/p PPM.
Aortic stenosis -status post TAVR.
Atrial fibrillation, unknown type -not on chronic anticoagulation due to history of hemorrhage. Declined watchman in the past.
Hypothyroidism -on levothyroxine.
Gout
MARY
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
Ulcerative colitis
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
Rheumatoid arthritis
Chronic ambulatory dysfunction
Full code
Dispo -SNF when medically stable, possibly in 24 hours. Case management aware.
Anticipated Discharge: Within 24 hours
Subjective/Interval History
-
Date of Service: April 09, 2024
Patient seen and examined. No new complaints.
Objective Data
-
Labs:
Laboratory Results
04/09/24
04:35
WBC 9.1
Hgb 9.7 L
Hct 29.7 L
Plt Count 183
Vital Signs:
Vital Signs
Temp Pulse Resp BP Pulse Ox
98.8 F 60 20 103/52 99
04/09/24 07:28 04/09/24 06:00 04/09/24 06:00 04/09/24 06:00 04/09/24 06:00
I&O
04/08/24 04/09/24 04/10/24
06:59 06:59 06:59
Intake Total 262 / 262
Output Total 1100 / 1100
Balance 262 / 262 -1100 / -1100
Review of Systems
-
History Source: Patient
All other systems: Reviewed and negative
--- NOTE | 2024-04-09 09:15 | W.PN.UPDATE ---
Update Note
Progress Note Update
I saw and evaluated the patient. I reviewed the resident�s seperately documented note and agree with findings and plan as documented in the resident�s note with the following additions/corrections:
SOAP
S:
Tmax 101.0 overnight, fever curve improved
norepi titrated off
'I feel better'
O:
febrile overnight, bp stable 123/65 hr 75, rr 21
Physical Exam
General: No Apparent Distress, up in chair
Respiratory: increased wheezing (my last exam was immediately after a nebulizer)
Cardiac: S1/S2 and Regular Rhythm; No Murmur or Rub
GI: Soft, Non Tender, Non Distended and Normal Bowel Sounds
Musculoskeletal: No Edema
Skin: No Rash
Psych: Calm
Labs:
WBC: now 9.1
hgb 9.7
plt 183
Cr 0.7
unable to produce a sputum thus far
blood cultures x2 from 04/07 no growth to date
MRSA screen negative
A&P
Community Acquired Pneumonia
Shock
- health care associated pneumonia (within 3 month of contact with a health care facility) now a defunct term, hospital acquired pneumonia refers to pneumonia that develops after 48 hours of inpatient admission; patient was in outpatient setting
when pneumonia developed. The different diagnoses have different epidemiologic patterns and different antibiotic recommendations
- c/w doxycycline and switched ceftriaxone to cefdinir to complete 10 day course 04/07-04/16
- obtain sputum culture if able - hasnt produced one thus far
- follow up with PCP
AW
[2024-04-09] MEDS: RESTASIS 0.05% OPHTHALMIC EMULSION 1 DROPS LEFT EYE (09:51)
[2024-04-09] MEDS: MAG-TAB SR 84 MG PO ×2 (09:51→19:40)
[2024-04-09] MEDS: PROTONIX 40 MG PO (09:52)
[2024-04-09] MEDS: DEMADEX 40 MG PO (09:52)
[2024-04-09] MEDS: VIBRAMYCIN 100 MG PO ×2 (09:52→19:40)
[2024-04-09] MEDS: CRESTOR 20 MG PO (09:52)
[2024-04-09] MEDS: LYRICA 75 MG PO ×3 (09:52→21:29)
[2024-04-09] MEDS: CELEXA 20 MG PO (09:53)
[2024-04-09] MEDS: ASPIR LOW (ENTERIC COATED) 81 MG PO (09:53)
[2024-04-09] MEDS: ZYLOPRIM 300 MG PO (09:53)
[2024-04-09] MEDS: STERILE WATER FOR INJECTION IV ×2 (09:54→19:35)
[2024-04-09] MEDS: HEPARIN SC (09:55)
--- NOTE | 2024-04-09 11:20 | PN.CDI ---
CDI
- -
CDI:
Physician Documentation Request
Admit Date: 04/07/24 20:25
Dear Doctor Sharri,
Please review the following and provide your response in the progress notes.
Clinical Indicators:
Pt admitted with septic shock and pneumonia.
04/07 RN's skin assessment noted stage 2 coccyx pressure injury POA.
Physician documentation of the type and location of wounds is required for compliant documentation. Based on the above clinical findings and your assessment, please provide the following in your progress note:
Stage 2 coccyx pressure injury POA
Non-pressure injury coccyx area POA
Other
Use of terms such as suspected, likely, concern for, or probable (associated with a specific diagnosis that is being evaluated, monitored, or treated as if it exists) are acceptable and can be coded in the inpatient setting, when documented at the
time of discharge.
Thank you,
Lani Irwin RN, BSN
CDI Specialist
Available via [place] Text
Please use your independent medical judgment in providing your response.
*Source: National Pressure Ulcer Advisory Panel (NPUAP)
--- NOTE | 2024-04-09 13:35 | W.PN.ID1 ---
Addendum entered and electronically signed by Senait Villa MD 04/10/24 16:40:
I saw and evaluated the patient. I reviewed the resident�s note and agree with findings and plan as documented in the resident�s note. Please see my separtely documented note for additions/corrections
Original Note:
Date of Service
Date of Service: April 09, 2024
Today's Communication
continue cefdinir and doxycycline.
Assessment / Plan
Assessment-
78-year-old female with past medical history of rheumatoid arthritis, LUPILLO on CKD, ulcerative colitis, HFrEF on pacemaker (permanent) presented to the hospital for subjective fevers, chills, lethargy, cough and shortness of breath as per family.
Diagnosed with septic shock secondary to community-acquired pneumonia.
Subjective-still reports having shortness of breath, cough, pleuritic chest pain.
Objective-leukocytosis improving-18K to 15.8 K. Hypermagnesemia,
Afebrile, tachypneic, occasional hypotension.
Urine analysis-10 WBCs, moderate bacteria, positive leukocyte esterase.
Chest [id number] for lower lobe pneumonia.
QT intervals-greater than 500, a sensed V paced on EKG.
Plan-
Septic shock secondary to community-acquired pneumonia-
Resolving leukocytosis, lactic acid-1.1, not elevated, vital signs improving.
Stop cefepime.
MRSA PCR negative, discontinued vancomycin.
Will discontinue vancomycin if MRSA PCR is negative.
continue doxycycline and ceftriaxone.
Blood cultures x 2 - no growth for 24 hrs
Urine cultures - no growth for 24 hours.
History of Deborah albicans UTI in the past.
Chief Complaint
-: Fever and Other (cough and chills)
Subjective / Review of Systems
Patient is doing better today. Reports that her cough is significantly improved, shortness of breath is improving.
Review of Systems: No Fever, No Chills, No Headache, No Pharyngitis, No Stiff Neck, No Cough, No Sputum Production, No Chest Pain, No Palpitations, No Abdominal Pain, No Nausea, No Diarrhea, No Dysuria and No Joint Pain
Vital Signs / Physical Exam
Vital Signs
Vital Signs
Temp Pulse Resp BP Pulse Ox
98.9 F 70 21 117/48 96
04/09/24 13:33 04/09/24 13:00 04/09/24 13:00 04/09/24 13:00 04/09/24 13:00
Physical Exam
Constitutional: Comfortable
Cardiovascular: Regular Rate, S1/S2 and Murmur; Negative Rub or Gallop
Pulmonary: Other (Bilateral inspiratory crackles present. Improving.)
Gastrointestinal: Soft, Non Tender, Non Distended and Normal Bowel Sounds
Extremities: Negative Edema
Skin: Warm
Neurological: Awake and Alert
Objective Data
Lab Data
Lab Results
04/09/24 04:35
04/08/24 05:49
Estimated Creat Clear 57 ml/min 04/08/24 05:49
Lactic Acid Cancelled 04/07/24 22:00
Total Bilirubin 1.6 mg/dl (0.2-1.3) H 04/07/24 17:17
AST 28 U/L (14-36) 04/07/24 17:17
ALT 18 U/L (0-35) 04/07/24 17:17
Alkaline Phosphatase 86 U/L (38-126) 04/07/24 17:17
Most recent labs reviewed.
Micro Results:
04/07/24 23:59 Urine Culture - Final
Urine NO GROWTH
04/07/24 19:21 Blood Culture - Preliminary
Blood/Venous No Growth in 24 hours- Final report to follow
04/07/24 19:21 Blood Culture - Preliminary
Blood/Venous No Growth in 24 hours- Final report to follow
04/08/24 16:39 Nasal Screen MRSA (PCR) - Final
Nose MRSA not detected - performed by PCR methodology.
04/07/24 23:50 Legionella Urinary Antigen - Final
Urine Negative for Legionella pneumophila Serogroup 1 antigen.
A negative result does not rule out the possiblity of
Legionella infection due to other serogroups or species of
Legionella. Clinical correlation is recommended.
04/07/24 17:05 Influenza Types A & B (ALAN) - Final
Nasal Swab Negative for Influenza A & B, NAAT
Negative results must be combined with clinical observations
and patient history.
Nucleic Acid Amplification test (NAAT)performed on the
[employer] platform.
--- NOTE | 2024-04-09 14:39 | CM ---
CM met with pt beside
She resides in a 1 syory mobile home with 4 BRAD, son and DIL reside next door
Pt is independent with ambulation with use of a WW
She receives daily assistance for personal care tasks by family
Pt is on 3L O2 baseline, concentrator through [facility] and she has a [employer] as well
Pt has hx with [facility] and was recently discharged from [facility]
PCP- Riley Oliveira
Rx- [facility]
SNF recommended by therapy
Referral sent to [facility] per her request
Pt is [employer] and will need auth
Discharge Disposition- SNF pending [employer] auth
--- NOTE | 2024-04-09 17:19 | VATNOTE ---
During routine assessment, redness and swelling was noted on the volar aspect of the pt's RUE above one of the patient's IV site. Pt reported discomfort at the site. IV discontinued and area of redness marked with a skin marker. Heat applied.
[2024-04-09] MEDS: LOVENOX 40 MG SC (18:10)
[2024-04-09] MEDS: TYLENOL 650 MG PO (18:29)
[2024-04-09] MEDS: OMNICEF 300 MG PO (19:40)
[2024-04-09] MEDS: ZYRTEC 5 MG PO (21:29)
[2024-04-09] MEDS: ZANAFLEX 8 MG PO (21:30)
--- NOTE | 2024-04-09 21:30 | PTCARENOTE ---
at approx 2100, received pt from IMU via wheelchair, VSS. pt aaox3, pleasant. chronically on 3L nasal cannula, SaO2 96%, humidification placed. Assisted to BSC x1, voided moderate amount of urine. oriented to room, call king within reach.
[2024-04-09] MEDS: ProAmatine 5 MG PO (23:48)
--- NOTE | 2024-04-09 23:54 | PTCARENOTE ---
at 2330, PCT alerted this RN of low blood pressure. Manual done 70/38. pt remains oriented, conversant, stating she is tired.
ASHUTOSH Naidu notified, received electronic orders to place pt on telemetry monitoring - placed on telemetry box number 5, pt is 100% AV paced HR 60. Also received stat x1 order for 5mg midodrine, refer to MAR for administration. automatic BP at time of
administration is 75/47, HR 60. pt stating that 'it's hard to say how I feel right now, I'm just tired.' Plan of care ongoing
[2024-04-10] VITALS (14 sets, daily range): BP systolic 79–147; BP diastolic 38–107; PULSE 62–94; O2SAT 95; BMI 25.9
--- NOTE | 2024-04-10 01:17 | PTCARENOTE ---
ASHUTOSH Naidu on floor to assess pt. Pt remains drowsy, awakens when spoken to. Pt oriented, most recent BP 80/53, HR 60 100% AV Paced
Plan of care ongoing
[2024-04-10] MEDS: ProAmatine 5 MG PO (01:36)
--- NOTE | 2024-04-10 01:37 | PTCARENOTE ---
Pt remains hypotensive, 80s/40s, HR in 60s.
ASHUTOSH Naidu updated, received another x1 dose of 5mg Midodrine - refer to MAR for admin.
Monitoring continues
--- NOTE | 2024-04-10 02:09 | W.PN.UPDATE ---
Update Note
Progress Note Update
Patient hypotensive with fatigue. BP 70s/40s HR 60s. Patient IMU transfer today off of Levophed today (04/09). Of note pt's Mag level elevated at 2.4 on 04/08 - currently on Magnesium tab. Rx Magnesium on hold, labs in AM. Rx Midodrine 5mg PO x2. BP
currently 107/48 HR 61. Nursing to continue to monitor.
--- NOTE | 2024-04-10 05:16 | PTCARENOTE ---
Pt's VSS, most recent BP 125/54, HR 61. Pt stating she's 'not as tired and feels better.' ASHUTOSH Naidu updated
Remains 100% AV paced on telemetry. Call king within reach.
[2024-04-10] MEDS: SYNTHROID 100 MCG PO (06:20)
[2024-04-10 07:09] LABS: Hematocrit 34.5 % (37.0-47.0); Hemoglobin 11.1 g/dL (12.0-16.0); Mean Corp Hgb Conc. 32.2 g/dL (33.0-37.0); Mean Corpuscular Hgb 29.7 pg (27.0-31.0); Mean Corpuscular Volume 92.2 fL (81.0-99.0); Mean Platelet Volume 11.4 fL (7.4-10.4); Platelet Count 236 10^3/uL (130-400); Red Blood Cell Count 3.74 10^6/uL (4.20-5.40); Red Cell Dist. Width 15.5 % (11.5-14.5); White Blood Cell Count 6.2 10^3/uL (4.8-10.8)
[2024-04-10 07:50] LABS: Blood Urea Nitrogen 17 mg/dl (7-17); Calcium 8.9 mg/dl (8.4-10.2); Carbon Dioxide 35 mmol/L (22-30); Chloride 95 mmol/L (98-107); Estimated Creatinine Clearance 39 ml/min; Glucose 85 mg/dl (70-99); Magnesium 1.8 mg/dl (1.6-2.3); Potassium 3.9 mmol/L (3.5-5.1); Sodium 141 mmol/L (135-145); eGFR > 60.00
[2024-04-10] MEDS: CELEXA 20 MG PO (07:58)
[2024-04-10] MEDS: PROTONIX 40 MG PO (07:58)
[2024-04-10] MEDS: CRESTOR 20 MG PO (07:59)
[2024-04-10] MEDS: VIBRAMYCIN 100 MG PO ×2 (07:59→22:33)
[2024-04-10] MEDS: RESTASIS 0.05% OPHTHALMIC EMULSION 1 DROPS LEFT EYE (07:59)
[2024-04-10] MEDS: ASPIR LOW (ENTERIC COATED) 81 MG PO (07:59)
[2024-04-10] MEDS: LYRICA 75 MG PO ×3 (07:59→22:33)
[2024-04-10] MEDS: OMNICEF 300 MG PO ×2 (07:59→22:33)
[2024-04-10] MEDS: ZYLOPRIM 300 MG PO (07:59)
[2024-04-10] MEDS: STERILE WATER FOR INJECTION IV (08:04)
[2024-04-10] MEDS: TYLENOL 650 MG PO (09:27)
[2024-04-10] MEDS: DEMADEX PO (10:35)
--- NOTE | 2024-04-10 10:35 | W.PN.HOSP.TC ---
Today's Communication/Plan
-
Orthostatic vitals
Discharge planning
Assessment / Plan
Assessment / Plan
Gen-AAOx3, NAD
HEENT-NC, AT, anicteric, clear oral mm
Neck-supple
CV-reg, no M, +S1/S2
Lungs-bilateral rhonchi, rales at the left base
Abd-soft, NT, ND
Ext-no edema
Musculoskeletal-no cyanosis, clubbing
Skin-warm and dry
Neuro-grossly non-focal
Psych-calm, cooperative
Acute on chronic hypoxic respiratory failure -due to pneumonia with underlying COPD. Baseline uses 3 L nasal cannula oxygen, required 4 L on admission. Down to 3 L now.
Septic shock due to community-acquired pneumonia -sepsis resolved. Shock resolved. Off vasopressors. Leukocytosis resolved. Continue antibiotics. Blood cultures negative. ID input noted.
Hypotension last night noted, improved with midodrine. Home medications including diltiazem and spironolactone have been on hold. Hold torsemide today. Check orthostatic vitals. Discussed with nursing.
?Nonsustained V. tach - V. tach ruled out based upon device interrogation. Cardiology input noted.
CAD -stable. Had nuclear stress test February 2024 that was negative for ischemia.
Chronic heart failure preserved EF
Sick sinus syndrome -s/p PPM.
Aortic stenosis -status post TAVR.
Atrial fibrillation, unknown type -not on chronic anticoagulation due to history of hemorrhage. Declined watchman in the past.
Hypothyroidism -on levothyroxine.
Gout
MARY
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
Ulcerative colitis
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
Rheumatoid arthritis
Chronic ambulatory dysfunction
Full code
Dispo -stable for discharge to SNF. Informed case management.
Anticipated Discharge: Today
Subjective/Interval History
-
Date of Service: April 10, 2024
Patient seen and examined. Denies shortness of breath, no complaints.
Objective Data
-
Labs:
Laboratory Results
04/10/24
06:42
WBC 6.2
Hgb 11.1 L
Hct 34.5 L
Plt Count 236 D
Sodium 141
Potassium 3.9
Chloride 95 L
Carbon Dioxide 35 H
BUN 17
Creatinine 0.9
Glucose 85
Calcium 8.9
Vital Signs:
Vital Signs
Temp Pulse Resp BP Pulse Ox
98.5 F 62 17 137/54 96
04/10/24 07:34 04/10/24 07:34 04/10/24 07:34 04/10/24 07:34 04/10/24 07:34
I&O
04/09/24 04/10/24 04/11/24
06:59 06:59 06:59
Intake Total 240 / 240
Output Total 1100 / 1100 3125 / 3125
Balance -1100 / -1100 -2885 / -2885
Review of Systems
-
History Source: Patient
All other systems: Reviewed and negative
--- NOTE | 2024-04-10 10:47 | W.PN.ID1 ---
Addendum entered and electronically signed by Senait Villa MD 04/10/24 13:27:
I saw and evaluated the patient. I reviewed the resident�s note and agree with findings and plan as documented in the resident�s note.
hypotensive overnight required midodrine - now stopped
no complaints
A&P
Community Acquired Pneumonia
Shock - resolved
- c/w doxycycline and switched ceftriaxone to cefdinir to complete 10 day course 04/07-04/16
- obtain sputum culture if able - hasnt produced one thus far
- given persistent hypotension requiring midodrine overnight would observe clinically another day
AW
Original Note:
Date of Service
Date of Service: April 10, 2024
Today's Communication
Continue doxycycline and ceftriaxone. -Day 3.
Assessment / Plan
Assessment-
78-year-old female with past medical history of rheumatoid arthritis, LUPILLO on CKD, ulcerative colitis, HFrEF on pacemaker (permanent) presented to the hospital for subjective fevers, chills, lethargy, cough and shortness of breath as per family.
Diagnosed with septic shock secondary to community-acquired pneumonia.
Subjective-still reports having shortness of breath, cough, pleuritic chest pain.
Objective-leukocytosis improving-18K to 15.8 K. Hypermagnesemia,
Afebrile, tachypneic, occasional hypotension.
Urine analysis-10 WBCs, moderate bacteria, positive leukocyte esterase.
Chest [id number]-mby-psmlkaxr for lower lobe pneumonia.
QT intervals-greater than 500, a sensed V paced on EKG.
Plan-
Septic shock secondary to community-acquired pneumonia-
Resolving leukocytosis, lactic acid-1.1, not elevated, vital signs improving.
Stop cefepime.
MRSA PCR negative, discontinued vancomycin.
continue doxycycline and ceftriaxone. -Day 3 today.
Blood cultures x 2 - no growth for 46 hours
Urine cultures - no growth for 46 hours.
History of Deborah albicans UTI in the past.
Chief Complaint
-: Fever and Other (cough and chills)
Subjective / Review of Systems
Patient had an episode of hypotension overnight and required 2 doses of midodrine. Her hypotension persisted overnight, and hence torsemide was on hold. Patient's oxygen requirement decreased overnight and she is back to her baseline home oxygen
levels at 3 L low flow nasal cannula.
Review of Systems: No Fever, No Chills, No Headache, No Pharyngitis, Cough (Improved.), No Sputum Production, No Chest Pain, No Palpitations, No Abdominal Pain, No Nausea, No Diarrhea and No Dysuria
Vital Signs / Physical Exam
Vital Signs
Vital Signs
Temp Pulse Resp BP Pulse Ox
98.5 F 62 17 137/54 96
04/10/24 07:34 04/10/24 07:34 04/10/24 07:34 04/10/24 07:34 04/10/24 07:34
Physical Exam
Constitutional: Comfortable (On 3 L nasal cannula flow.)
Cardiovascular: Regular Rate and S1/S2; Negative Murmur, Rub or Gallop
Pulmonary: Other (Mild inspiratory crackles in bilateral lower lobes, significantly improved from admission.); Negative Wheezes, Rales or Rhonchi
Gastrointestinal: Soft, Non Tender, Non Distended and Normal Bowel Sounds
Extremities: Negative Edema
Skin: Warm
Neurological: Awake and Alert
Objective Data
Lab Data
Lab Results
04/10/24 06:42
04/10/24 06:42
Estimated Creat Clear 39 ml/min 04/10/24 06:42
Lactic Acid Cancelled 04/07/24 22:00
Total Bilirubin 1.6 mg/dl (0.2-1.3) H 04/07/24 17:17
AST 28 U/L (14-36) 04/07/24 17:17
ALT 18 U/L (0-35) 04/07/24 17:17
Alkaline Phosphatase 86 U/L (38-126) 04/07/24 17:17
Most recent labs reviewed.
Micro Results:
04/07/24 19:21 Blood Culture - Preliminary
Blood/Venous No Growth in 48 hours- Final report to follow
04/07/24 19:21 Blood Culture - Preliminary
Blood/Venous No Growth in 48 hours- Final report to follow
04/07/24 23:59 Urine Culture - Final
Urine NO GROWTH
04/08/24 16:39 Nasal Screen MRSA (PCR) - Final
Nose MRSA not detected - performed by PCR methodology.
04/07/24 23:50 Legionella Urinary Antigen - Final
Urine Negative for Legionella pneumophila Serogroup 1 antigen.
A negative result does not rule out the possiblity of
Legionella infection due to other serogroups or species of
Legionella. Clinical correlation is recommended.
04/07/24 17:05 Influenza Types A & B (ALAN) - Final
Nasal Swab Negative for Influenza A & B, NAAT
Negative results must be combined with clinical observations
and patient history.
Nucleic Acid Amplification test (NAAT)performed on the
[employer] platform.
--- NOTE | 2024-04-10 12:21 | CM ---
Addendum entered by URIEL Hill 04/10/24 12:50:
Patient updated and stated that she will call family. She confirmed that either her niece of daughter in law will transport her to [facility]. Will update attending.
Addendum entered by URIEL Hill 04/10/24 12:44:
Received return call from Aimee from [employer] who stated that patient was approved for 5 days skilled level of care approved 04/11-04/15 Auth# [id number]
Placed a call to [facility] in admissions at [facility] who took information from [employer] and stated that she will have bed for patient on 04/11, first day of auth.
Patient will be going to 4th floor. Report [phone] and fax [phone].
Will update attending and family
Original Note:
Reviewed chart, received message from attending that patient is medically cleared for discharge. Placed a call to [facility] in admissions at [facility] who stated that she has a bed for patient.
NPIs for hopeful Authoriztion: [facility]-[id number] Dr. Parviz De Los Santos [phone]
Placed a call to [employer] and spoke with reviewer, Aimee, who took clinical information and stated that she will call back with hopeful determination.
Plan: Case management will continue to follow and assist with discharge planning. Transfer to [facility] upon obtaining hopeful auth from [employer]. Will update attending/family once determination is received.
[2024-04-10] MEDS: LOVENOX 40 MG SC (17:30)
[2024-04-10] MEDS: ZYRTEC 5 MG PO (22:33)
[2024-04-10] MEDS: ZANAFLEX 8 MG PO (22:33)
[2024-04-11 03:24] VITALS: BP 127/60
[2024-04-11] MEDS: SYNTHROID 100 MCG PO (05:34)
[2024-04-11 05:55] VITALS: BMI 26.1
[2024-04-11 06:56] LABS: Hematocrit 31.1 % (37.0-47.0); Mean Corp Hgb Conc. 32.2 g/dL (33.0-37.0); Mean Corpuscular Hgb 29.4 pg (27.0-31.0); Mean Corpuscular Volume 91.5 fL (81.0-99.0); Mean Platelet Volume 11.1 fL (7.4-10.4); Platelet Count 231 10^3/uL (130-400); Red Cell Dist. Width 15.4 % (11.5-14.5); White Blood Cell Count 4.6 10^3/uL (4.8-10.8)
[2024-04-11 07:22] VITALS: BP 141/69
--- NOTE | 2024-04-11 08:28 | W.PN.ID1 ---
Addendum entered and electronically signed by Senait Villa MD 04/11/24 16:45:
I saw and evaluated the patient. I reviewed the resident�s separably documented note and agree with findings and plan as documented in the resident�s note.
Note developed leukopenia
today would be day 3 of cefdinir
switched cefdinir to augmentin, continue doxycycline to finish the planned course - 10 days total 04/07-04/16
stable for dc from ID perspective
Original Note:
Date of Service
Date of Service: April 11, 2024
Today's Communication
Stable for discharge on doxycycline and Augmentin
Assessment / Plan
Assessment-
78-year-old female with past medical history of rheumatoid arthritis, LUPILLO on CKD, ulcerative colitis, HFrEF on pacemaker (permanent) presented to the hospital for subjective fevers, chills, lethargy, cough and shortness of breath as per family.
Diagnosed with septic shock secondary to community-acquired pneumonia.
Subjective-still reports having shortness of breath, cough, pleuritic chest pain.
Objective- leukopenia noted with WBC count -4.6, no differential count today.
Hypermagnesemia-repeat levels on 04/10-resolved.
Afebrile, tachypnea resolved. Single episode of soft blood pressure without hypotension yesterday.
Urine analysis-10 WBCs, moderate bacteria, positive leukocyte esterase.
Chest [id number] for lower lobe pneumonia.
QT intervals-greater than 500, a sensed V paced on EKG.
Plan-
Septic shock secondary to community-acquired pneumonia-
Resolving leukocytosis, lactic acid-1.1, not elevated, vital signs improving.
Stop cefepime.
MRSA PCR negative, discontinued vancomycin.
continue doxycycline and cefdinir. -Day 4 today.
Switched from cefdinir to augmentin as patient started to develop leukopenia.
Blood cultures x 2 - no growth for 46 hours
Urine cultures - no growth for 46 hours.
History of Deborah albicans UTI in the past.
Chief Complaint
-: Fever and Other (cough and chills)
Subjective / Review of Systems
Single episode of soft blood pressure overnight, no hypotension, no midodrine requirement overnight.
Review of Systems: No Fever, No Chills, No Headache, No Pharyngitis, No Stiff Neck, Cough, No Sputum Production, No Chest Pain, No Palpitations, No Abdominal Pain, No Nausea, No Diarrhea and No Joint Pain
Vital Signs / Physical Exam
Vital Signs
Vital Signs
Temp Pulse Resp BP Pulse Ox
97.8 F 63 17 141/69 96
04/11/24 07:22 04/11/24 07:22 04/11/24 07:22 04/11/24 07:22 04/11/24 07:22
Physical Exam
Constitutional: Comfortable (on 3l nasal cannula flow.)
Cardiovascular: Regular Rate and S1/S2; Negative Murmur, Rub or Gallop
Pulmonary: Other (b/l crackles in lower lobes present. ); Negative Wheezes or Rhonchi
Gastrointestinal: Soft, Non Tender, Non Distended and Normal Bowel Sounds
Neurological: Awake and Alert
Psychological: Calm
Objective Data
Lab Data
Lab Results
04/11/24 06:48
04/10/24 06:42
Estimated Creat Clear 39 ml/min 04/10/24 06:42
Lactic Acid Cancelled 04/07/24 22:00
Total Bilirubin 1.6 mg/dl (0.2-1.3) H 04/07/24 17:17
AST 28 U/L (14-36) 04/07/24 17:17
ALT 18 U/L (0-35) 04/07/24 17:17
Alkaline Phosphatase 86 U/L (38-126) 04/07/24 17:17
Most recent labs reviewed.
Micro Results:
04/07/24 19:21 Blood Culture - Preliminary
Blood/Venous No Growth in 72 hours- Final report to follow
04/07/24 19:21 Blood Culture - Preliminary
Blood/Venous No Growth in 72 hours- Final report to follow
04/07/24 23:59 Urine Culture - Final
Urine NO GROWTH
04/08/24 16:39 Nasal Screen MRSA (PCR) - Final
Nose MRSA not detected - performed by PCR methodology.
04/07/24 23:50 Legionella Urinary Antigen - Final
Urine Negative for Legionella pneumophila Serogroup 1 antigen.
A negative result does not rule out the possiblity of
Legionella infection due to other serogroups or species of
Legionella. Clinical correlation is recommended.
04/07/24 17:05 Influenza Types A & B (ALAN) - Final
Nasal Swab Negative for Influenza A & B, NAAT
Negative results must be combined with clinical observations
and patient history.
Nucleic Acid Amplification test (NAAT)performed on the
[employer] platform.
[2024-04-11] MEDS: VIBRAMYCIN 100 MG PO (08:30)
[2024-04-11] MEDS: PROTONIX 40 MG PO (08:31)
[2024-04-11] MEDS: OMNICEF 300 MG PO (08:31)
[2024-04-11] MEDS: LYRICA 75 MG PO (08:31)
[2024-04-11] MEDS: RESTASIS 0.05% OPHTHALMIC EMULSION 1 DROPS LEFT EYE (08:31)
[2024-04-11] MEDS: CELEXA 20 MG PO (08:31)
[2024-04-11] MEDS: CRESTOR 20 MG PO (08:31)
[2024-04-11] MEDS: ZYLOPRIM 300 MG PO (08:31)
[2024-04-11] MEDS: ASPIR LOW (ENTERIC COATED) 81 MG PO (08:31)
--- NOTE | 2024-04-11 10:19 | W.PN.UPDATE ---
Update Note
Progress Note Update
I saw and evaluated the patient. I reviewed the resident�s separably documented note and agree with findings and plan as documented in the resident�s note.
Note developed leukopenia
today would be day 3 of cefdinir
switched cefdinir to augmentin, continue doxycycline to finish the planned course - 10 days total 04/07-04/16
stable for dc from ID perspective
[2024-04-11 11:00] VITALS: BP 121/60
--- NOTE | 2024-04-11 11:04 | CM ---
Spoke with attending who stated that patient is medically stable for discharge. Left voice mail with Cierra in admissions at [facility] to update that patient will transfer today.
Plan: Case management will continue to follow and assist with discharge planning. [facility]
[2024-04-11] MEDS: TYLENOL 650 MG PO (11:09)
--- NOTE | 2024-04-11 11:23 | W.PN.HOSP.TC ---
Today's Communication/Plan
-
Discharge
Assessment / Plan
Assessment / Plan
Gen-AAOx3, NAD
HEENT-NC, AT, anicteric, clear oral mm
Neck-supple
CV-reg, no M, +S1/S2
Lungs-bilateral rhonchi, rales at the left base
Abd-soft, NT, ND
Ext-no edema
Musculoskeletal-no cyanosis, clubbing
Skin-warm and dry
Neuro-grossly non-focal
Psych-calm, cooperative
Acute on chronic hypoxic respiratory failure -due to pneumonia with underlying COPD. Baseline uses 3 L nasal cannula oxygen, required 4 L on admission. Down to 3 L now.
Septic shock due to community-acquired pneumonia -sepsis resolved. Shock resolved. Off vasopressors. Leukocytosis resolved. Continue antibiotics. Blood cultures negative. ID input noted.
Hypotension resolved.
Repeat chest x-ray shows no significant changes compared to prior.
Discharge on Augmentin and doxycycline per ID.
?Nonsustained V. tach - V. tach ruled out based upon device interrogation. Cardiology input noted.
CAD -stable. Had nuclear stress test February 2024 that was negative for ischemia.
Chronic heart failure preserved EF
Sick sinus syndrome -s/p PPM.
Aortic stenosis -status post TAVR.
Atrial fibrillation, unknown type -not on chronic anticoagulation due to history of hemorrhage. Declined watchman in the past.
Hypothyroidism -on levothyroxine.
Gout
MARY
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
Ulcerative colitis
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
Rheumatoid arthritis
Chronic ambulatory dysfunction
Full code
Dispo -stable for discharge to SNF. Informed case management.
32-minute spent in discharge process.
Anticipated Discharge: Today
Subjective/Interval History
-
Date of Service: April 11, 2024
Patient seen and examined. No new complaints.
Objective Data
-
Labs:
Laboratory Results
04/11/24
06:48
WBC 4.6 L
Hgb 10.0 L
Hct 31.1 L
Plt Count 231
Vital Signs:
Vital Signs
Temp Pulse Resp BP Pulse Ox
97.9 F 88 18 121/60 95
04/11/24 11:00 04/11/24 11:00 04/11/24 11:00 04/11/24 11:00 04/11/24 11:00
I&O
04/10/24 04/11/24 04/12/24
06:59 06:59 06:59
Intake Total 240 / 240 780 / 780
Output Total 3125 / 3125
Balance -2885 / -2885 780 / 780
Review of Systems
-
History Source: Patient
All other systems: Reviewed and negative
--- NOTE | 2024-04-11 11:24 | W.DS.TRANS ---
DC Summary - Retail Store Assistant
-
Discharge Instructions:
Discharge Diagnosis/Procedures Septic shock, pneumonia
Diet 2 Gram Sodium,Low Cholesterol,Low Fat
Activity With assistance,As tolerated
Driving Restrictions No driving
Bathing Restrictions None
Instructions:
Stand-Alone Forms:
Changes to Home Medications: No
Discharge Medications:
DC Medications w/original date entered in [facility]
allopurinol 300 mg tablet 300 mg PO DAILY gout 09/29/14
citalopram 20 mg tablet 20 mg PO DAILY Mental Health/Anxiety 09/29/14
omeprazole 20 mg tablet,delayed release 20 mg PO DAILY Gastrointestinal issue 09/29/14
tizanidine 4 mg tablet 4 mg PO TID PRN Muscle Spasms 09/29/14
torsemide 20 mg tablet 40 mg PO DAILY Fluid Retention/Swelling 11/04/16
rosuvastatin 10 mg tablet 20 mg PO DAILY High cholesterol 01/22/17
umeclidinium 62.5 mcg/actuation blister powder for inhalation (Incruse Ellipta) 62.5 mcg inhalation R DAILYPRN PRN sob 10/18/21
cyclosporine 0.05 % eye drops in a dropperette (Restasis) 1 drp LEFT EYE DAILY Eye condition 11/28/21
tizanidine 4 mg tablet 8 mg PO HS Muscle spasms 11/28/21
acetaminophen 500 mg tablet (Tylenol Extra Strength) 1,000 mg PO Q8HPRN PRN mild pain 03/08/24
calcium carbonate 2,000 mg PO DAILY Supplement 03/08/24
diltiazem HCl 240 mg capsule,24 hr,extended release 240 mg PO DAILY Blood Pressure 03/08/24
levothyroxine 100 mcg tablet (Synthroid) 100 mcg PO MOTUWETHFRSA Thyroid 03/08/24
therapeutic multivitamin 1 tab PO DAILY Supplement 03/08/24
aspirin 81 mg tablet,delayed release 81 mg PO DAILY #0 tabs 03/15/24
albuterol sulfate 90 mcg/actuation aerosol inhaler 2 puff inhalation R Q4HPRN PRN SOB 03/18/24
spironolactone 25 mg tablet 12.5 mg (1/2 x 25 mg) PO DAILY Fluid Retention/Swelling #0 tabs 03/21/24
loperamide 2 mg tablet 2 mg PO Q4HPRN PRN diarrhea 04/07/24
magnesium oxide 400 mg PO BID Electrolyte Repletion 04/07/24
pregabalin 75 mg capsule 75 mg PO TID Pain 04/07/24
doxycycline hyclate 100 mg capsule 100 mg PO Q12 #0 caps 04/10/24
amoxicillin 875 mg-potassium clavulanate 125 mg tablet 1 tab PO BID #11 tabs 04/11/24
Home Medication Changes
Pending Results: No
[2024-04-11 11:45] VITALS: BP 121/60
== END 2024-04-11 15:25 | DRG 871 ==
LOC: 3 WEST ACU 20:25
PROVIDERS: Nurse Practitioner Gerontology; Registered Nurse; ADMITTING PHYSICIAN Internal Medicine; ATTENDING PHYSICIAN Hospitalist; EMERGENCY PHYSICIAN Student in an Organized Health Care Education/Training Program; FAMILY PHYSICIAN Family Medicine; OTHER PHYSICIAN Internal Medicine Cardiovascular Disease; OTHER PHYSICIAN Student in an Organized Health Care Education/Training Program
DX: A41.89 Other specified sepsis (principal); J18.9 Pneumonia, unspecified organism; J96.21 Acute and chronic respiratory failure with hypoxia; R65.21 Severe sepsis with septic shock; J44.0 Chronic obstructive pulmonary disease with (acute) lower respiratory infection; I48.20 Chronic atrial fibrillation, unspecified; K51.90 Ulcerative colitis, unspecified, without complications; I13.0 Hypertensive heart and chronic kidney disease with heart failure and stage 1 through stage 4 chronic kidney disease, or unspecified chronic kidney disease; I50.32 Chronic diastolic (congestive) heart failure; Z11.52 Encounter for screening for COVID-19; Z87.891 Personal history of nicotine dependence; I25.10 Atherosclerotic heart disease of native coronary artery without angina pectoris; I45.10 Unspecified right bundle-branch block; Z95.0 Presence of cardiac pacemaker; I49.5 Sick sinus syndrome; Z95.2 Presence of prosthetic heart valve; E03.9 Hypothyroidism, unspecified; M10.9 Gout, unspecified; G47.33 Obstructive sleep apnea (adult) (pediatric); M81.0 Age-related osteoporosis without current pathological fracture; M54.12 Radiculopathy, cervical region; G62.9 Polyneuropathy, unspecified; F32.A Depression, unspecified; F41.9 Anxiety disorder, unspecified; M06.9 Rheumatoid arthritis, unspecified; H35.30 Unspecified macular degeneration; K21.9 Gastro-esophageal reflux disease without esophagitis; I35.0 Nonrheumatic aortic (valve) stenosis; N18.9 Chronic kidney disease, unspecified; Z79.82 Long term (current) use of aspirin; L89.152 Pressure ulcer of sacral region, stage 2; I48.0 Paroxysmal atrial fibrillation
CPT/HCPCS: 71046; 80048; 80053; 81003; 81015; 83605; 83735; 84484; 85025; 85027; 87040; 87086; 87449; 87502; 87641; 87811; 93005; 94640; 96361; 96374; 97110; 97163; 97167; 97530; 99285

== ENCOUNTER → 2024-05-01 15:41 | Outpatient (REF) | payer OTHER, SELFPAY | LOC: RAD 15:41 | PROVIDERS: ATTENDING PHYSICIAN Physician Assistant | DX: J96.21 Acute and chronic respiratory failure with hypoxia (principal) | CPT/HCPCS: 71046 ==

== ENCOUNTER → 2024-06-06 12:40 | Outpatient (REF) | payer OTHER, SELFPAY | LOC: RAD 12:40 | PROVIDERS: ATTENDING PHYSICIAN Physician Assistant | DX: J44.1 Chronic obstructive pulmonary disease with (acute) exacerbation (principal) | CPT/HCPCS: 71046 ==

== ENCOUNTER → 2024-07-21 16:18 | Outpatient (REF) | payer OTHER, SELFPAY | LOC: DHSLP 16:18 | PROVIDERS: ATTENDING PHYSICIAN Internal Medicine Critical Care Medicine; FAMILY PHYSICIAN Physician Assistant | DX: G47.33 Obstructive sleep apnea (adult) (pediatric) (principal); R09.02 Hypoxemia | CPT/HCPCS: 95806 ==

== ENCOUNTER → 2024-09-12 13:21 | Outpatient (REF) | payer OTHER, SELFPAY | LOC: HWRAD 13:21 | PROVIDERS: ATTENDING PHYSICIAN Nurse Practitioner Family; FAMILY PHYSICIAN Family Medicine | DX: R91.1 Solitary pulmonary nodule (principal) | CPT/HCPCS: 71250 ==

== ENCOUNTER 2024-10-08 06:34 | Day surgery (SDC) | payer OTHER, SELFPAY ==
[2024-09-29 09:02] LABS: INR 0.88; PT 12.3 Sec (11.4-14.6)
[2024-09-29 09:03] LABS: APTT 32.8 Sec (23.4-35.0)
[2024-09-29 09:16] LABS: Hematocrit 40.7 % (37.0-47.0); Mean Corp Hgb Conc. 31.9 g/dL (33.0-37.0); Mean Corpuscular Hgb 30.2 pg (27.0-31.0); Mean Corpuscular Volume 94.4 fL (81.0-99.0); Red Blood Cell Count 4.31 10^6/uL (4.20-5.40); Red Cell Dist. Width 14.6 % (11.5-14.5)
[2024-09-29 09:23] LABS: Blood Urea Nitrogen 33 mg/dl (7-17); Calcium 9.8 mg/dl (8.4-10.2); Carbon Dioxide 37 mmol/L (22-30); Chloride 93 mmol/L (98-107); Glucose 107 mg/dl (70-99); Potassium 3.7 mmol/L (3.5-5.1); Sodium 143 mmol/L (135-145); eGFR 41.31
[2024-09-29 13:43] VITALS: BMI 28.3
--- NOTE | 2024-10-06 11:12 | PTCARENOTE ---
Tracie @ Dr. Mendez office notified of patients 09/29 labs- Platelet clumping not resulted- GFR 41.31; Creat 1.3
[2024-10-08] VITALS (31 sets, daily range): BP systolic 72–138; BP diastolic 48–101; BMI 28.3; BMI 27.2
--- NOTE | 2024-10-08 14:50 | HPS.HSE ---
Family Physician
-
Family Physician: Riley Oliveira
Chief Complaint
-
Shortness of Breath
History of Present Illness
Patient is an 79 y/o female past medical history of chronic hypoxia, COPD, CAD, CHF and prior TAVR who underwent a bronchoscopy for a left lower lobe nodule biopsy. Post-procedure chest x-ray revealed a questionable left apical pneumothorax.
Reviewed with pulmonary who requests continue hyperoxygenation overnight with non-rebreather mask, and follow-up chest x-ray in AM.
Medical History
Past Medical History
Past Medical History: Reports Other
Additional Past Medical History:
Chronic Hypoxic Respiratory Failure
COPD
Non-Obstructive Coronary Artery Disease
Chronic HFpEF
Severe Aortic Stenosis s/p TAVR
Paroxysmal Atrial Fibrillation
Essential Hypertension
Hyperlipidemia
Hyperparathyroidism
Hypothyroidism
Ulcerative Colitis
Rheumatoid Arthritis
Cervical Radiculopathy
Depression
Gout
Past Surgical History: Reports Other
Additional Past Surgical History:
TAVR
Right Rotator Cuff Repair
Left Wrist Fusion
Left Foot Surgery
Cholecystectomy
Hysterectomy
Social History
Tobacco: Former Smoker
Alcohol: None
Drug: None
Personal: Single
Living: Alone
Family History
Family History: Not pertinent
Allergies / Home Medications
Allergies reflects when Allergies were last updated in [facility].
Home Medications with original date entered in [facility]
Allergy/Medication List:
Allergies
Allergy/AdvReac Type Severity Reaction Status Date / Time
codeine Allergy migraine Verified 10/08/24 10:57
duloxetine HCl Allergy confusion Verified 10/08/24 10:57
[From Cymbalta]
metoclopramide Allergy DYSTONIA Verified 10/08/24 10:57
PER MD
tramadol HCl [From Ultram] Allergy Hives Verified 10/08/24 10:57
Home Medications
allopurinol 300 mg tablet 300 mg PO NOON gout 09/29/14
citalopram 20 mg tablet 20 mg PO NOON Mental Health/Anxiety 09/29/14
omeprazole 20 mg tablet,delayed release 20 mg PO DAILY Gastrointestinal issue 09/29/14
tizanidine 4 mg tablet 4 mg PO TID 09/29/14
torsemide 20 mg tablet 20 mg PO BID Fluid Retention/Swelling 11/04/16
cyclosporine 0.05 % eye drops in a dropperette (Restasis) 1 drp LEFT EYE DAILY PRN dryness 11/28/21
tizanidine 4 mg tablet 8 mg PO HS Muscle spasms 11/28/21
aspirin 81 mg tablet,delayed release 81 mg PO DAILY #0 tabs 03/15/24
albuterol sulfate 90 mcg/actuation aerosol inhaler 2 puff inhalation R Q4HPRN PRN SOB 03/18/24
pregabalin 75 mg capsule 75 mg PO TID Pain 04/07/24
calcitriol 0.25 mcg capsule 0.25 mcg PO DAILY 10/06/24
calcium 500 mg (as carbonate)-vitamin D3 5 mcg (200 unit) tablet (Calcium 500 + D) 1 tab PO BID 10/06/24
diclofenac sodium 1 % topical gel (Voltaren Arthritis Pain) 2 g topical QID PRN pain 10/06/24
diltiazem HCl 180 mg capsule,extended release 24 hr (Cardizem CD) 180 mg PO NOON 10/06/24
levothyroxine 112 mcg tablet (Synthroid) 112 mcg PO NOON 10/06/24
multivitamin 1 tab PO NOON 10/06/24
potassium chloride 20 mEq tablet,extended release 40 meq PO DAILY 10/06/24
rosuvastatin 20 mg tablet 20 mg PO NOON 10/06/24
spironolactone 25 mg tablet 12.5 mg PO NOON Fluid Retention/Swelling 10/06/24
umeclidinium 62.5 mcg-vilanterol 25 mcg/actuation powdr for inhalation (Anoro Ellipta) 1 inh inhalation DAILY 10/06/24
Review of Systems
-
A 12 point ROS was completed and negative except as noted: Yes
Constitutional: Denies Fever
Respiratory: Denies Cough or Trouble Breathing
Cardiac: Denies Chest Pain or Palpitations
Physical Exam
Vital Signs
Vital Signs
Temp Pulse Resp BP Pulse Ox
97.5 F 64 26 131/63 100
10/08/24 13:00 10/08/24 14:30 10/08/24 14:30 10/08/24 14:30 10/08/24 14:30
Physical Exam
General: Comfortable and Conversant
HEENT: Anicteric and Moist mucous membranes
Respiratory: Non Labored Respirations and Other (Coarse breath sounds throughout)
Cardiac: S1/S2, Regular Rhythm and Murmur
GI: Soft and Non Tender
Musculoskeletal: No Clubbing, No Cyanosis and No Edema
Skin: Warm and Dry
Neuro: Awake, Alert, Oriented and Nonfocal/grossly intact
Psych: Calm
Laboratory Results
-
09/29/24 07:44
09/29/24 07:44
Laboratory Results
PT 12.3 Sec (11.4-14.6) 09/29/24 07:44
INR 0.88 09/29/24 07:44
APTT 32.8 Sec (23.4-35.0) 09/29/24 07:44
Data Reviewed
-
Diagnostic Radiology: Report Reviewed by me
Lab Data: Labs Reviewed by me
Impression/Plan
-
Left Apical Pneumothorax Post-Bronchoscopy
-Appreciate Pulmonary
-Most recent chest x-ray without convincing evidence for persistent pneumothorax
-Plan to continue hyperoxygenation with 100% non-rebreather overnight
-Recheck CXR in AM
Chronic Hypoxic Respiratory Failure
-Patient maintained on oxygen 3L via NC at baseline
COPD, no acute exacerbation
-Continue Anoro Ellipta
Non-Obstructive Coronary Artery Disease
-Continue aspirin
Chronic HFpEF
-Continue spironolactone adn torsemide
-Monitor Daily Weights
Paroxysmal Atrial Fibrillation
-Continue diltiazem
-Patient is not anticoagulation secondary to prior eye hemorrhage
Essential Hypertension
-Continue Cardizem
Hyperlipidemia
-Continue rosuvastatin
Hypothyroidism
-Continue levothyroxine
Depression
-Continue citalopram
Cervical Radiculopathy
-Continue tizanidine and pregabalin
Hx Severe Aortic Stenosis s/p TAVR
Hx Ulcerative Colitis
Hx Rheumatoid Arthritis
DVT proph: SCDs
Code Status: Full Code
--- NOTE | 2024-10-08 15:07 | W.PN.UPDATE ---
Update Note
Progress Note Update
This note serves as an addendum to the H&P by payroll and benefits coordinator GRETEL Kim WADE
HPI
79F Former smoker HX PPM implant, home O2 3 L depedent COPD, CAD, leonel HFrEF hypertension, hyperlipidemia, CKD
seen at ER for worsening hypoxia s/p bronchoscopy complicated with questionable Lt apical PTX
PHX; see above
VSS
10/08/24
10:52 10/08/24
14:30
Pulse 66 65
Resp Rate 20 12
SaO2 95 100
Oxygen Mode of Delivery Non-rebreather
mask
Nasal Cannula flow liters per minute 3
Pre procedure Labs
09/29/24
07:44
Hgb 13.0
Plt Count
PE
Gen: on NRM - comfortable
HEENT:anicteric
Neck: supple
Lungs: CTA
Cor: RRR S1 s2
Abdomen: soft
VP SOFTWARE SUPPORT: NFND
MS: no edema
Psych:nl mood and affect
Pending f/u portable CXR report
CR Chest Portable - 1 View
Questioned tiny left apical pneumothorax status post bronchoscopy.
Consider short-term follow-up radiographs for reevaluation.
Mild hazy opacity in the left lung
EKG
AV dual-paced rhythm
ABNORMAL ECG
WHEN COMPARED WITH ECG OF 07-APR-2024 17:22,
VENT. RATE HAS DECREASED BY 20 BPM
Confirmed by ERIN MARTÍNEZ MD ([id number]) on 09/29/2024 8:10:00 AM
Last hospitalist admission: 04/07/2024 - 04/11/2024
DISCHARGE DIAGNOSES:
1. Acute on chronic hypoxic respiratory failure.
2. Septic shock due to community-acquired pneumonia.
3. Coronary artery disease.
4. Chronic heart failure, preserved EF.
5. Aortic stenosis.
ASSESSMENT & PLAN
left apical pneumothorax status post bronchoscopy.
Acute Hypoxic RF demanding NRB - Pox 100%
HX MARY
Stable VSS
- serial CXR
- Trend POx
- avoid Narcs due to bad MARY
- Observe without Chest tube for now per Pul
- observe overnight with a CxR in am
- No BiPAP overnight and 100% NRB per Pul
- Pul follow up in AM
HX CAD -stable.
- Had nuclear stress test February 2024 that was negative for ischemia.
Hyperlipidemia
- on statin
Chronic HFpEF
-Resume half dose spironolactone and 2.5 mg daily
-Resume torsemide
-spironolactone continued
HX Chronic AF
- on Diltiazem
- EKG with paced rhythm
HX Atrial fibrillation, unknown type -not on chronic anticoagulation due to history of hemorrhage.
- Declined watchman in the past.
HX Aortic stenosis -status post TAVR.
Right bundle branch block
Sick sinus syndrome status post pacemaker
HX questionable NSVT however ruled out VT t based upon device interrogation at that time
Hypothyroidism
- on levothyroxine.
Gout
- on allopurinol
MARY HX
- CPAP HS
Cervical radiculopathy HX
- c/w SCHOOL MANAGER tizanidine tid
Peripheral neuropathy HX
- on pregabalin
HX hemorrhagic CVA with residual right eye vision loss
HX Chronic ambulatory dysfunction
HX DVT/PE after knee surgery in 2006
Anxiety/depression HX
- on SCHOOL MANAGER citalopram
Pre existing condition - stable
Macular degeneration
HX Rheumatoid arthritis
Chronic ambulatory dysfunction uses walker
Migraine history
HX Ulcerative colitis
HX VTE -2006.
HX Rheumatoid arthritis
- cont all OP Meds
DVT Px: LMWH
Full code
IP TLM
--- NOTE | 2024-10-08 17:09 | PTCARENOTE ---
Pt from PACU on 15 lNRB, AAAOx3 pleasant no complaints
[2024-10-08] MEDS: DEMADEX 20 MG PO (17:19)
[2024-10-08] MEDS: ZANAFLEX 4 MG PO (17:19)
--- NOTE | 2024-10-08 17:45 | PTCARENOTE ---
Pt remains on 15 l NRB [address] in place
--- NOTE | 2024-10-08 18:31 | PTCARENOTE ---
PT Bp 75/58 map 60 hr [address] Yu tt manual bp 76/48Dr Htay notified also as he is admitting DR
[2024-10-08] MEDS: NSS 500 IV ×2 (19:02→21:22)
--- NOTE | 2024-10-08 19:06 | PTCARENOTE ---
Pt ack on 15 L NRB, anjelica running as ordered. PCXR in progress
[2024-10-08] MEDS: TYLENOL 1000 MG PO (19:58)
[2024-10-08] MEDS: ROXICODONE 2.5 MG PO (20:08)
[2024-10-08] MEDS: ZANAFLEX PO (21:03)
[2024-10-08] MEDS: LYRICA 75 MG PO (21:03)
[2024-10-08] MEDS: ProAmatine 5 MG PO (21:23)
[2024-10-09] VITALS (22 sets, daily range): BP systolic 98–150; BP diastolic 53–128; PULSE 67; O2SAT 98; BMI 27.7; BMI 28.1
--- NOTE | 2024-10-09 03:08 | PTCARENOTE ---
patient remaining on non rebreather 15L per pulm note, TT LEGAL OFFICE ADMINISTRATOR to confirm non rebeather to stay on for night. call king in reach. care on going.
[2024-10-09 04:28] LABS: Mean Corp Hgb Conc. 33.3 g/dL (33.0-37.0); Mean Corpuscular Hgb 30.2 pg (27.0-31.0); Mean Corpuscular Volume 90.7 fL (81.0-99.0); Mean Platelet Volume 11.8 fL (7.4-10.4); Platelet Count 149 10^3/uL (130-400); Red Blood Cell Count 3.64 10^6/uL (4.20-5.40); Red Cell Dist. Width 14.1 % (11.5-14.5); White Blood Cell Count 4.2 10^3/uL (4.8-10.8)
[2024-10-09 04:54] LABS: Blood Urea Nitrogen 24 mg/dl (7-17); Calcium 8.4 mg/dl (8.4-10.2); Carbon Dioxide 34 mmol/L (22-30); Chloride 99 mmol/L (98-107); Estimated Creatinine Clearance 51 ml/min; Glucose 136 mg/dl (70-99); Potassium 3.3 mmol/L (3.5-5.1); Sodium 141 mmol/L (135-145); eGFR > 60.00
[2024-10-09 07:52] LABS: Magnesium 1.7 mg/dl (1.6-2.3)
[2024-10-09] MEDS: STRIVERDI RESPIMAT 2 PUFF INH (08:02)
--- NOTE | 2024-10-09 08:02 | PTCARENOTE ---
Pt sleeping on rounds with 15 l O2 [address] place pt on 3l O2. Poss dc today
[2024-10-09] MEDS: SPIRIVA RESPIMAT 2.5 MCG 2 PUFF INH (08:03)
[2024-10-09] MEDS: KCL 40 MEQ PO (08:19)
[2024-10-09] MEDS: ASPIR LOW (ENTERIC COATED) 81 MG PO (08:20)
[2024-10-09] MEDS: PROTONIX 40 MG PO (08:20)
[2024-10-09] MEDS: ROCALTROL 0.25 MCG PO (08:20)
[2024-10-09] MEDS: LYRICA 75 MG PO ×3 (08:20→21:02)
[2024-10-09] MEDS: KCL PO (08:21)
--- NOTE | 2024-10-09 08:46 | W.PN.HOSP.TC ---
Addendum entered and electronically signed by Juanjose Yu MD 10/09/24 13:43:
#Bibasilar atelectasis
incentive spirometry
Original Note:
Today's Communication/Plan
-
PT, trops, EKG, chest XR
if back to baseline - D/C
Assessment / Plan
Assessment / Plan
79yo F with PMHx of COPD with chronic hypoxic failure on 3L home O2, hypothyroidism, CAD, HFpEF, SSS s/p PPM, s/p bioprosthetic valve, afib not on AC 2/2 Hx of bleeding and previously declined watchman, gout, MARY, hemorrhagic stroke with R eye
blindness, UC, RA, chronic ambulatory dysfunction using walker, LLL lung nodule had bronchoscopy with BAL and LLL nodule biopsy with possible tiny post-procedural pneumothorax that rapidly resolved on subsequent chest XR, observed overnight for
complications
A/P:
#LLL lung nodule
#L apical pneumothorax 2/2 bronchoscopy and biopsy
#Chronic COPD
#Chronic hypoxic failure on 3L home O2
Pneumothorax resolved on 100% O2, patient weaned off to 3L
residual chest discomfort on inhalation post-procedural, check trop and EKG with Hx of CAD
Serial chest XR
COntinue previously recommended outpatient follow up with established specialists to follow after bronchoscopy
cont bronchodilators
#Hypotension 2/2 dehydration and anesthesia
was NPO pre-procedure and with Torsemide - had post-procedural hypotension
resolved with IVF and holding diuretics
#Chronic ambulatory dysfunction
PT before discharge
#Hypokalemia
#Hypomagnesemia
2/2 diuretics
replete
#Chronic mild recurrent leukopenia
#Chronic mild anemia
hematology consult deferred to PCP
#Anxiety d/o
#Neuropathy
#SSS s/p PPM
#Hypothyroidism
#HFpEF
# s/p bioprosthetic valve
#Afib not on AC
#Hx of ICH
#Gout
#MARY
cont home meds
DVT ppx SCDs
Full code
I have spent at least 58min reviewing chart, test results and providing direct patient care
Anticipated Discharge: Within 24 hours
Subjective/Interval History
-
Date of Service: October 09, 2024
Objective Data
-
Labs:
Laboratory Results
10/09/24
04:17
WBC 4.2 L
Hgb 11.0 L
Hct 33.0 L
Plt Count 149
Sodium 141
Potassium 3.3 L
Chloride 99
Carbon Dioxide 34 H
BUN 24 H
Creatinine 0.8
Glucose 136 H
Calcium 8.4
Vital Signs:
Vital Signs
Temp Pulse Resp BP Pulse Ox
98.2 F 70 18 130/64 96
10/09/24 04:10 10/09/24 08:07 10/09/24 08:07 10/09/24 07:00 10/09/24 08:07
I&O
10/08/24 10/09/24 10/10/24
06:59 06:59 06:59
Output Total 1750 / 1750
Balance -1750 / -1750
Review of Systems
-
History Source: Patient
All other systems: Reviewed and negative
Cardiac: Reports Chest Pain
Physical Exam
-
General: No Apparent Distress
HEENT: Normocephalic
Respiratory: Wheezes (minimal, occasional)
GI: Soft, Nontender and Nondistended
Musculoskeletal: No Clubbing, No Cyanosis and No Edema
Neuro: Awake, Alert, Oriented and AO x 3
Psych: Calm
[2024-10-09] MEDS: SYNTHROID 112 MCG PO ×2 (08:47)
--- NOTE | 2024-10-09 09:04 | PTCARENOTE ---
Pt to xray on stretcher , pt had a very hard time pivoting from bed to stretcher. Heavy assist of 2
[2024-10-09] MEDS: MAGNESIUM SULFATE 50 IV (09:43)
[2024-10-09] MEDS: CARDIZEM CD 180 MG PO (11:20)
[2024-10-09 11:21] LABS: Troponin I 0.015 ng/ml
[2024-10-09] MEDS: ALDACTONE 12.5 MG PO (11:21)
[2024-10-09] MEDS: ZYLOPRIM 300 MG PO (11:23)
[2024-10-09] MEDS: CRESTOR 20 MG PO (11:23)
[2024-10-09] MEDS: CELEXA 20 MG PO (11:23)
--- NOTE | 2024-10-09 14:06 | CM ---
Addendum entered by Charlene Deng RN 10/09/24 16:46:
Notified by [facility], that they will not have an available bed for this patient.
Spoke with patient; she agrees to other SNF referrals in the [place] area with good ratings- reviewed facilities with her.
Additional SNF referrals placed.
Plan follow up SNF referrals.
Addendum entered by Charlene Deng RN 10/09/24 14:19:
Relevant Hx: stroke, R eye blindness, Anxiety d/o.
Original Note:
Patient with Dx LLL lung nodule, L apical pneumothorax 2/2 bronchoscopy and biopsy. O2 3L. PT recommends skilled rehab. OT Eval pending.
Met with patient who resides alone in a 1 story mobile home with 4 BRAD.
Son and DIL reside next door.
She requires assistance with ADLs such as showering and DIL helps her.
Pt is independent with ambulation with use of a RW.
She feels that she has been weak and shakey with her mobility the last few days.
DME - O2 concentrator & [employer] POC, RW, SPC, w/c, raised toilet, shower seat.
Prior [facility].
Prior [facility] [place] [facility].
PCP - Riley Oliveira
Pharmacy - [facility]
Patient states she feels like she cannot return home at present and would like to go to [facility] for [facility].
Referral placed for [facility].
Plan follow up with [facility] for acceptance.
--- NOTE | 2024-10-09 14:09 | W.PN.UPDATE ---
Update Note
Progress Note Update
recommended rehab - CM working on bed
TRop WNL, EKG without changes, no concern for postprocedural cardiac syndrome
[2024-10-09] MEDS: TYLENOL 650 MG PO ×2 (15:58→21:27)
[2024-10-09] MEDS: DEMADEX 20 MG PO (16:01)
--- NOTE | 2024-10-09 17:56 | PTCARENOTE ---
Report to 4th floor nurse
[2024-10-09] MEDS: ZANAFLEX 8 MG PO (21:02)
--- NOTE | 2024-10-09 21:03 | PTCARENOTE ---
patient assessment unchanged from prior. Patient transferred via stretcher without issue. all belongings and chart transferred with patient.
--- NOTE | 2024-10-09 21:10 | PTCARENOTE ---
Pt received from IMU RN via stretcher at 2100. Pt pleasant, AAOX3, VSS, and pulled over into bed from stretcher. Pt on 4L O2. Pt receptive to room and call king. Pt bed in lowest position and call king within reach. Pt educated on importance of call
king usage, pt relays understanding and cooperation. Will continue with current plan of care.
[2024-10-10] VITALS (8 sets, daily range): BP systolic 99–135; BP diastolic 50–65; PULSE 61; O2SAT 98
[2024-10-10] MEDS: SYNTHROID 112 MCG PO (05:33)
[2024-10-10] MEDS: SPIRIVA RESPIMAT 2.5 MCG 2 PUFF INH (08:05)
[2024-10-10 08:06] LABS: % Basophils 0.6 % (0-2); % Eosinophils 0.9 % (0-6); % Immature Granulocytes 0.3 % (0-0.5); % Lymphocytes 34.3 % (20.5-51.1); % Neutrophils 53.9 % (42.2-75.2); Absolute Eosinophils 0.1 10^3/uL (0-0.7); Absolute Lymphocytes 2.4 10^3/uL (1.2-3.4); Absolute Monocytes 0.7 10^3/uL (0.1-0.6); Absolute Neutrophils 3.8 10^3/uL (1.4-6.5); Hematocrit 36.2 % (37.0-47.0); Hemoglobin 11.8 g/dL (12.0-16.0); Mean Corp Hgb Conc. 32.6 g/dL (33.0-37.0); Mean Corpuscular Hgb 30.5 pg (27.0-31.0); Mean Corpuscular Volume 93.5 fL (81.0-99.0); Mean Platelet Volume 11.7 fL (7.4-10.4); Nucleated Red Blood Cells % 0 %; Platelet Count 147 10^3/uL (130-400); Red Blood Cell Count 3.87 10^6/uL (4.20-5.40); Red Cell Dist. Width 14.5 % (11.5-14.5)
[2024-10-10] MEDS: STRIVERDI RESPIMAT 2 PUFF INH (08:06)
[2024-10-10 08:39] LABS: ALT (SGPT) 21 U/L (0-35); AST (SGOT) 28 U/L (14-36); Albumin 3.8 g/dl (3.5-5.0); Alkaline Phosphatase 90 U/L (38-126); Blood Urea Nitrogen 21 mg/dl (7-17); Calcium 8.8 mg/dl (8.4-10.2); Carbon Dioxide 37 mmol/L (22-30); Chloride 98 mmol/L (98-107); Estimated Creatinine Clearance 45 ml/min; Glucose 87 mg/dl (70-99); Potassium 3.7 mmol/L (3.5-5.1); Sodium 142 mmol/L (135-145); Total Bilirubin 0.9 mg/dl (0.2-1.3); Total Protein 6.2 g/dl (6.3-8.2); eGFR > 60.00
[2024-10-10] MEDS: ROCALTROL 0.25 MCG PO (10:06)
[2024-10-10] MEDS: KCL 40 MEQ PO (10:07)
[2024-10-10] MEDS: LYRICA 75 MG PO ×3 (10:07→22:32)
[2024-10-10] MEDS: DEMADEX 20 MG PO ×2 (10:07→17:38)
[2024-10-10] MEDS: ASPIR LOW (ENTERIC COATED) 81 MG PO (10:07)
[2024-10-10] MEDS: TYLENOL 650 MG PO ×3 (10:07→22:32)
[2024-10-10] MEDS: PROTONIX 40 MG PO (10:08)
--- NOTE | 2024-10-10 13:00 | W.PN.HOSP.TC ---
Today's Communication/Plan
-
ready for d/c - CM for bed
Assessment / Plan
Assessment / Plan
79yo F with PMHx of COPD with chronic hypoxic failure on 3L home O2, hypothyroidism, CAD, HFpEF, SSS s/p PPM, s/p bioprosthetic valve, afib not on AC 2/2 Hx of bleeding and previously declined watchman, gout, MARY, hemorrhagic stroke with R eye
blindness, UC, RA, chronic ambulatory dysfunction using walker, LLL lung nodule had bronchoscopy with BAL and LLL nodule biopsy with possible tiny post-procedural pneumothorax that rapidly resolved on subsequent chest XR, observed overnight for
complications. Medically stable for d/c to rehab - CM aware
A/P:
#LLL lung nodule
#L apical pneumothorax 2/2 bronchoscopy and biopsy
#Chronic COPD
#Chronic hypoxic failure on 3L home O2
Pneumothorax resolved on 100% O2, patient weaned off to 3L
residual chest discomfort on inhalation post-procedural, check trop and EKG with Hx of CAD
Serial chest XR
COntinue previously recommended outpatient follow up with established specialists to follow after bronchoscopy
cont bronchodilators
#Hypotension 2/2 dehydration and anesthesia
was NPO pre-procedure and with Torsemide - had post-procedural hypotension
resolved with IVF and holding diuretics
#Chronic ambulatory dysfunction
PT before discharge
#Hypokalemia
#Hypomagnesemia
2/2 diuretics
replete
#mild recurrent leukopenia
#mild anemia
resolved
#Alk.phos elevation
resolved
most likely bone origin
outpatient DEXA
#Anxiety d/o
#Neuropathy
#SSS s/p PPM
#Hypothyroidism
#HFpEF
# s/p bioprosthetic valve
#Afib not on AC
#Hx of ICH
#Gout
#MARY
cont home meds
DVT ppx SCDs
Full code
I have spent at least 58min reviewing chart, test results and providing direct patient care
Anticipated Discharge: 24 - 48 hours
Subjective/Interval History
-
Date of Service: October 10, 2024
Objective Data
-
Labs:
Laboratory Results
10/10/24
07:35
WBC 7.0
Hgb 11.8 L
Hct 36.2 L
Plt Count 147
Sodium 142
Potassium 3.7
Chloride 98
Carbon Dioxide 37 H
BUN 21 H
Creatinine 0.9
Glucose 87
Calcium 8.8
Total Bilirubin 0.9
AST 28
ALT 21
Alkaline Phosphatase 90
Vital Signs:
Vital Signs
Temp Pulse Resp BP Pulse Ox
98.6 F 65 18 101/50 95
10/10/24 11:23 10/10/24 11:23 10/10/24 11:23 10/10/24 11:23 10/10/24 11:23
I&O
10/09/24 10/10/24 10/11/24
06:59 06:59 06:59
Intake Total 50 / 50
Output Total 1750 / 1750 700 / 700
Balance -1750 / -1750 -650 / -650
Review of Systems
-
History Source: Patient
All other systems: Reviewed and negative
Physical Exam
-
General: No Apparent Distress
HEENT: Normocephalic
Neuro: Awake, Alert, Oriented and AO x 3
Psych: Calm
[2024-10-10] MEDS: CELEXA 20 MG PO (13:05)
[2024-10-10] MEDS: CARDIZEM CD PO (13:05)
[2024-10-10] MEDS: ZYLOPRIM 300 MG PO (13:05)
[2024-10-10] MEDS: CRESTOR 20 MG PO (13:05)
[2024-10-10] MEDS: ALDACTONE PO (13:05)
--- NOTE | 2024-10-10 13:42 | CM ---
Addendum entered by Flores Jamison 10/10/24 16:17:
Message left to request updated notes from PT/OT.
Addendum entered by Flores Jamison 10/10/24 16:16:
Patient has a bed at [facility] on Sunday10/11/24 needs Auth.
Original Note:
manager graphic reviewed patient's chart and spoke with admissions at [facility], per patient and family she is agreeable to [facility], waiting to see if they have a bed for patient.
[facility]

Dr Disla

Plan; Waiting on a bed at [facility] for patient.
[2024-10-10] MEDS: ZANAFLEX PO (22:32)
[2024-10-11 03:04] VITALS: BP 126/62
[2024-10-11] MEDS: SYNTHROID 112 MCG PO (05:33)
[2024-10-11] MEDS: TYLENOL 650 MG PO ×2 (05:33→11:30)
[2024-10-11 05:44] VITALS: BMI 27.3
[2024-10-11 07:00] VITALS: BP 126/73
[2024-10-11] MEDS: STRIVERDI RESPIMAT 2 PUFF INH (07:30)
[2024-10-11] MEDS: SPIRIVA RESPIMAT 2.5 MCG 2 PUFF INH (07:30)
[2024-10-11] MEDS: KCL 40 MEQ PO (08:27)
[2024-10-11] MEDS: DEMADEX 20 MG PO ×2 (08:27→16:37)
[2024-10-11] MEDS: PROTONIX 40 MG PO (08:28)
[2024-10-11] MEDS: ROCALTROL 0.25 MCG PO (08:28)
[2024-10-11] MEDS: ASPIR LOW (ENTERIC COATED) 81 MG PO (08:28)
[2024-10-11] MEDS: LYRICA 75 MG PO ×2 (08:28→16:37)
[2024-10-11 08:42] VITALS: BP 123/67; PULSE 60; O2SAT 98
[2024-10-11 08:47] VITALS: BP 123/67; PULSE 61; O2SAT 97
--- NOTE | 2024-10-11 11:10 | W.PN.HOSP.TC ---
Today's Communication/Plan
-
as per CM accepted to [facility] but bed available on 10/13/24
Assessment / Plan
Assessment / Plan
79yo F with PMHx of COPD with chronic hypoxic failure on 3L home O2, hypothyroidism, CAD, HFpEF, SSS s/p PPM, s/p bioprosthetic valve, afib not on AC 2/2 Hx of bleeding and previously declined watchman, gout, MARY, hemorrhagic stroke with R eye
blindness, UC, RA, chronic ambulatory dysfunction using walker, LLL lung nodule had bronchoscopy with BAL and LLL nodule biopsy with possible tiny post-procedural pneumothorax that rapidly resolved on subsequent chest XR, observed overnight for
complications. Medically stable for d/c to rehab - as per CM accepted to [facility] but bed available on 10/13/24
A/P:
#LLL lung nodule
#L apical pneumothorax 2/2 bronchoscopy and biopsy
#Chronic COPD
#Chronic hypoxic failure on 3L home O2
Pneumothorax resolved on 100% O2, patient weaned off to 3L
residual chest discomfort on inhalation post-procedural, check trop and EKG with Hx of CAD
Serial chest XR
COntinue previously recommended outpatient follow up with established specialists to follow after bronchoscopy
cont bronchodilators
#Hypotension 2/2 dehydration and anesthesia
was NPO pre-procedure and with Torsemide - had post-procedural hypotension
resolved with IVF and holding diuretics
#Chronic ambulatory dysfunction
PT before discharge
#Hypokalemia
#Hypomagnesemia
2/2 diuretics
replete
#mild recurrent leukopenia
#mild anemia
resolved
#Alk.phos elevation
resolved
most likely bone origin
outpatient DEXA
#Anxiety d/o
#Neuropathy
#SSS s/p PPM
#Hypothyroidism
#HFpEF
# s/p bioprosthetic valve
#Afib not on AC
#Hx of ICH
#Gout
#MARY
cont home meds
DVT ppx SCDs
Full code
I have spent at least 38min reviewing chart, test results and providing direct patient care
Anticipated Discharge: 24 - 48 hours
Subjective/Interval History
-
Date of Service: October 11, 2024
Objective Data
-
Vital Signs:
Vital Signs
Temp Pulse Resp BP Pulse Ox
97.7 F 66 16 126/73 94
10/11/24 07:00 10/11/24 07:33 10/11/24 07:33 10/11/24 07:00 10/11/24 08:00
I&O
10/10/24 10/11/24 10/12/24
06:59 06:59 06:59
Intake Total 50 / 50 960 / 960
Output Total 700 / 700
Balance -650 / -650 960 / 960
Review of Systems
-
History Source: Patient
All other systems: Reviewed and negative
Physical Exam
-
General: No Apparent Distress
Neuro: Awake, Alert, Oriented and AO x 3
Psych: Calm
[2024-10-11] MEDS: CRESTOR 20 MG PO (11:22)
[2024-10-11] MEDS: ZYLOPRIM 300 MG PO (11:22)
[2024-10-11] MEDS: CARDIZEM CD 180 MG PO (11:22)
[2024-10-11] MEDS: CELEXA 20 MG PO (11:23)
[2024-10-11] MEDS: ALDACTONE PO (11:24)
[2024-10-11 11:40] VITALS: BP 118/67
--- NOTE | 2024-10-11 12:05 | W.DCSUMMARY ---
Discharge Summary
Discharge Data
Date of Admission: 10/08/24
Date of Discharge: 10/11/24
-
Pending Results: No
Hospital Course
79yo F with PMHx of COPD with chronic hypoxic failure on 3L home O2, hypothyroidism, CAD, HFpEF, SSS s/p PPM, s/p bioprosthetic valve, afib not on AC 2/2 Hx of bleeding and previously declined watchman, gout, MARY, hemorrhagic stroke with R eye
blindness, UC, RA, chronic ambulatory dysfunction using walker, LLL lung nodule had bronchoscopy with BAL and LLL nodule biopsy with possible tiny post-procedural pneumothorax that rapidly resolved on subsequent chest XR, observed overnight for
complications. Medically stable for d/c to rehab - as per CM accepted to [facility] but bed available on 10/13/24
I have spent at least 38min reviewing chart, test results and providing direct patient care
Patient was managed for:
#LLL lung nodule
#L apical pneumothorax 2/2 bronchoscopy and biopsy
#Chronic COPD
#Chronic hypoxic failure on 3L home O2
#Hypotension 2/2 dehydration and anesthesia
#Chronic ambulatory dysfunction
#Hypokalemia
#Hypomagnesemia
#mild recurrent leukopenia
#mild anemia
#Alk.phos elevation
#Anxiety d/o
#Neuropathy
#SSS s/p PPM
#Hypothyroidism
#HFpEF
# s/p bioprosthetic valve
#Afib not on AC
#Hx of ICH
#Gout
#MARY
Discharge Plan
-
Patient Disposition: Acute Rehab Facility
Discharge Diagnosis/Procedures: Ambulatory deficiency
Diet: Low Cholesterol
Activity: As tolerated
Referrals:
Shila Charles MD [Active] - in one to two weeks
Riley Oliveira MD [Family Provider] -
Prescriptions:
Continued
tizanidine 4 MG tablet
4 mg PO TID
citalopram 20 MG tablet
20 mg PO NOON
allopurinol 300 MG tablet
300 mg PO NOON
omeprazole 20 MG tablet,delayed release (DR/EC)
20 mg PO DAILY
torsemide 20 MG tablet
20 mg PO BID
tizanidine 4 MG tablet
8 mg PO HS
cyclosporine [Restasis] 10 DROPS dropperette
1 drp LEFT EYE DAILY PRN (Reason: dryness)
aspirin 81 mg Tablet,Delayed Release (Dr/Ec)
81 mg PO DAILY Qty: 0 0RF
albuterol sulfate 90 mcg/actuation HFA aerosol inhaler
2 puff INHALATION R Q4HPRN PRN (Reason: SOB)
pregabalin 75 mg capsule
75 mg PO TID
multivitamin Tablet
1 tab PO NOON
diltiazem HCl [Cardizem CD] 180 mg Capsule,Extended Release 24hr
180 mg PO NOON
calcitriol 0.25 mcg Capsule
0.25 mcg PO DAILY
levothyroxine [Synthroid] 112 mcg Tablet
112 mcg PO NOON
rosuvastatin 20 mg Tablet
20 mg PO NOON
calcium carbonate-vitamin D3 [Calcium 500 + D] 500 mg-5 mcg (200 unit) Tablet
1 tab PO BID
diclofenac sodium [Voltaren Arthritis Pain] 1 % Gel
2 g TOPICAL QID PRN (Reason: pain)
Anoro Ellipta 62.5-25 mcg/actuation Blister With Device
1 inh INHALATION DAILY
potassium chloride 20 mEq Tablet Extended Release
40 meq PO DAILY
spironolactone 25 mg tablet
12.5 mg PO NOON
Discharge Orders:
Discharge Patient (As Directed); Ordered 10/11/24
Ordered By: Juanjose Yu
Discharge Date and Time
Print Language: ZAMBIAN
--- NOTE | 2024-10-11 12:07 | CM ---
Chart reviewed and patient has been seen by PT/OT, Auth received from [facility] 5 days skilled 10/11 to 10/15, Auth [id number], NRD 10/15 to [phone], Ambulance Auth for Acute care ambulance [id number].
[facility]
Report [phone]

Plan; Patient to transfer to [facility] today.
--- NOTE | 2024-10-11 14:47 | CM ---
ambulance tack picker scheduled @ 1173
[2024-10-11 15:50] VITALS: BP 121/68
== END 2024-10-11 17:40 ==
LOC: SDS 06:34
PROVIDERS: Internal Medicine Critical Care Medicine; Physician Assistant Medical; ATTENDING PHYSICIAN Internal Medicine; FAMILY PHYSICIAN Family Medicine
DX: R91.1 Solitary pulmonary nodule (principal)
CPT/HCPCS: 31625; 31623; 31627; 31624; 31654; 88173; 88305; 36415; 71045; 71046; 76000; 80048; 80053; 83735; 84484; 85025; 85027; 85610; 85730; 88112; 88333; 93005; 94640; 97163; 97167; 97530; 97535; C1887

== ENCOUNTER → 2024-11-05 11:27 | Outpatient (REF) | payer OTHER, SELFPAY | LOC: HWRAD 11:27 | PROVIDERS: ATTENDING PHYSICIAN Physician Assistant | DX: R22.2 Localized swelling, mass and lump, trunk (principal); M25.551 Pain in right hip; Z96.651 Presence of right artificial knee joint; M25.512 Pain in left shoulder | CPT/HCPCS: 73030; 73502; 73564; 76705 ==

== ENCOUNTER 2024-12-21 18:58 | Inpatient (IN) | payer OTHER, SELFPAY ==
[2024-12-21] VITALS (7 sets, daily range): BP systolic 109–128; BP diastolic 59–72; BMI 26.1
--- NOTE | 2024-12-21 15:44 | ED.GENMED ---
History of Present Illness
General
Chief Complaint: Urinary Symptoms
Source: ambulance crew
Exam Limitations: altered mental status
Time Seen by Provider: 12/21/24 15:43
Nursing documentation reviewed up to this point in time: agreed with
History of Present Illness
History of Present Illness:
Patient is an 79-year-old female brought by EMS for evaluation. Patient lives in her own house with a regulatory compliance specialist and children live next to her. EMS reports for the past 1 week patient has had a poor p.o. intake and has been confused. She is also
been incontinent of bowel and bladder which is a change. Pt is on Chronic O2 3 l at home.
Patient presents awake alert she is oriented to name she is not sure why she is here she has no complaints. She is able to tell me that she lives at home and her son and daughter live next to her. She is not able to give any history.
I spoke to family Erika, daughter in law who reports pt has not been acting herself for the past several days. She reports she has not been wanting to even get up to use the bathroom, she normally will make herself something to eat and she hasnt
been doing so. She has been ' just sitting there.' Normally she walks around with a walker.
Past History
Past History
ED Past Medical History: CAD, CHF, COPD, HTN, Hypercholesterolemia, Hypothyroidism and Psychiatric
ED Past Surgical History: Cholecystectomy, Gynecological (DIANA/BSO) and Orthopedic (total right knee replacement)
Social History
Tobacco: Non-smoker
Alcohol: None
Drug: None
Personal:
Living: with family (lives with who is able to help her)
Phy Exam
General Physical Exam
General Presentation: no apparent distress
General age: appears stated age
General Skin: warm and dry
General Habitus: elderly
General Mental: alert
General Hydration: dry mucous membranes
Cardiovascular Exam
Cardiovascular Exam: regular rate/rhythm, no murmur and normal peripheral pulses
Pulmonary Exam
Pulmonary Exam: lungs clear and no respiratory distress
Neurological Exam
Neurological Exam: alert and other (oriented to name/place/year )
Musculoskeletal Exam
Musculoskeletal Exam: full ROM
Skin Exam
Skin Exam: normal color and warm/dry
Psychiatric Exam
Psychiatric Exam: normal mood/affect
Sepsis
Sepsis Screening
Sepsis Assessment: Sepsis Ruled Out
Sepsis Screen
Sepsis Screen: Sepsis Ruled Out
Date: 12/21/24
Time: 19:12
Course
Orders/Labs/Results
Orders:
Orders
12/21/24 15:44
Electrocardiogram (*1) Urgent
Reason for Study: Chest Pain
Cardiac Monitoring- Treatment ONCE
IV Insert/Care/Rem.- Treatment PRN
12/21/24 15:45
EKG- Treatment ONCE
12/21/24 15:53
CT Head W/o Iv Contrast Urgent
Comment:
Reason For Exam: change in MS
Straight cath- Treatment ONCE
12/21/24 16:14
Complete Blood Count/With Diff Urgent
Comprehensive Metabolic Panel Urgent
Lactic Acid Urgent
Urinalysis Reflex To Culture Urgent
Date Specimen was Collected: 12/21/24
Time Specimen was Collected: 15:45
Blood Culture Urgent
DHAVAL Source: Blood/Venous
Specimen Description:
12/21/24 16:26
Chest [CR Chest - 2 Views ] Urgent
Comment:
Reason For Exam: fever
12/21/24 16:34
COVID-19 Antigen Urgent
Source: Nasal Swab
Blood Culture Urgent
DHAVAL Source: Blood/Venous
Specimen Description:
Influenza A+B Rapid Molecular Urgent
DHAVAL Source: Nasal Swab
Specimen Description:
12/21/24 16:45
Acetaminophen 1000MG/100Ml [Ofirmev] 1,000 mg in 100 ml IV ONCE
Acetaminophen IV Indication:: ED Narcotic Naive Pt-ONCE
12/21/24 18:00
0.9% Sodium Chloride 500 ml [Nss] 500 ml IV BOLUS
12/21/24 18:30
Admit/Transfer Patient As Directed
Co-Sign Provider:
Level of Care: Inpatient admission
Assign to:: Medical/Surgical
Physician / Group: blaire
Diagnosis: viral gastroenteritis
Reason for Hospitalization: viral gastroenteritis
Expected length of stay greater than two midnights?: Yes
ELOS- Estimated Length of Stay in days: 2
I certify the patient meets the requirements for IP care: Yes
Code Status As Directed
Resuscitation Status: Full Code
PRN Pain Medication Management As Directed
May give lesser potent ordered pain med per pt: Yes
preference::
Protocol:: Medication orders for pain may be administered in a
manner that supports deferring to patient preference
when the pt is:
- Requesting an ordered lesser potent pain medication.
Least to most potent pain medications are defined
as: acetaminophen < NSAID < tramadol < opioids
(morphine, oxycodone, hydromorphone).
- Requesting a lesser dose of the same medication IF
ORDERED.
- Requesting a less intrusive route of administration
if both routes are prescribed by the provider (PO <
IV).
Abnormal Lab Results
12/21/24
16:14
MPV 11.8 H fL
(7.4-10.4)
Absolute Neuts (auto) 7.1 H 10^3/uL
(1.4-6.5)
Absolute Monos (auto) 0.9 H 10^3/uL
(0.1-0.6)
Lymphocytes % 17.8 L %
(20.5-51.1)
BUN 19 H mg/dl
(7-17)
Glucose 111 H mg/dl
(70-99)
Calcium 10.5 H mg/dl
(8.4-10.2)
Albumin 5.2 H g/dl
(3.5-5.0)
12/21/24 16:14
12/21/24 16:14
Vital Signs
Initial and Last Documented VS:
Initial Vital Signs
Pulse Resp BP Pulse Ox
88 19 119/72 89
12/21/24 15:58 12/21/24 15:58 12/21/24 15:58 12/21/24 15:58
Last Documented Vital Signs
Temp Pulse Resp BP Pulse Ox
98.8 F 78 25 120/59 97
12/21/24 19:02 12/21/24 19:00 12/21/24 19:00 12/21/24 18:00 12/21/24 18:45
Business Broker consulted with Physician
Business Broker consulted with physician?: Yes
Name of Physician Consulted: Anabel
MDM/Problems Addressed
Differential Diagnosis Includes:
not limited to: uti, dehydration, pneumonia COVID influenza
MDM/Problems Addressed:
As documented patient is 79-year-old female who was sent for change of mental status. For the past several days family reports patient has not been herself not eating not wanting to get up to use the bathroom not walking around like normal. She is
normally awake alert she does have caregivers visiting nurses and family lives next-door. This is a change. Patient presents awake alert she is aware that she was sent because she was confused she is able to answer questions confused to certain
questions but is aware that she is in the hospital and is aware of current year. She does follow commands. She has no complaints. She does have a low-grade temperature here in the ER COVID and flu are negative along with negative chest x-ray.
Urinalysis negative. Labs unremarkable.
Case reviewed with ED physician with change in mental status and low-grade temperature likely viral syndrome however would recommend admission as pt is not at baseline.
Chronic conditions affecting care:
O2 dependent COPD A-fib CHF CAD
*Radiology
Radiology exam reviewed: radiology read reviewed
*Pulse Oximetry
SaO2: 95
Oxygen Mode of Delivery: Room air
Patient hypoxic: no
*EKG
Interpreted by ED Provider?: Yes
Heart Rate: 88
Rate: normal
Rhythm: sinus and other (Atrial sensed V paced)
Ischemia: no ischemia
*Critical Care Note
Total Time (30-74mins, 75-104mins- exclusive of procedures): Not Applicable
ED Attending Note
-
Portions of this chart may have been created with voice recognition software.� Occasional wrong word or��sound alike� substitutions may have occurred due to the inherent limitations of voice recognition software.
Discharge Plan
Departure
Patient Disposition: Admit
Date of Disposition: 12/21/24
Time of Disposition: 18:07
Presentation/result/management discussed w/ accepting MD/DO: Hospitalist
Patient with high blood pressure during this ER visit?: No
Condition: Fair
Covid-19: Not Applicable
Discharge Problem:
Fever, Altered mental status
Interventions
Interventions:
*Risk Screen - Suicide Last Done: 12/21/24 16:04
*General Assessment Last Done: 12/21/24 16:04
*Neglect/Abuse Screening Last Done: 12/21/24 16:04
*ED- Fall Risk Assessment Last Done: 12/21/24 16:04
*ED COVID-19 Vaccine History Last Done: 12/21/24 16:04
ED-Female Genitourinary Assessment Last Done: 12/21/24 16:39
--- NOTE | 2024-12-21 16:05 | EDRN ---
POX 87-90% and pt placed on oxyten
--- NOTE | 2024-12-21 16:06 | EDRN ---
POX 88-90% and pt placed on oxygen at 3lpm via [place] and that is what she uses at home.
[2024-12-21 16:24] LABS: Urine Character Clear (Clear)
[2024-12-21 16:26] LABS: Hematocrit 46.0 % (37.0-47.0); Hemoglobin 15.6 g/dL (12.0-16.0); Mean Corp Hgb Conc. 33.9 g/dL (33.0-37.0); Mean Corpuscular Volume 89.8 fL (81.0-99.0); Nucleated Red Blood Cells % 0 %; Platelet Count 208 10^3/uL (130-400); Red Cell Dist. Width 13.5 % (11.5-14.5)
[2024-12-21 16:39] LABS: ALT (SGPT) 25 U/L (0-35); AST (SGOT) 30 U/L (14-36); Albumin 5.2 g/dl (3.5-5.0); Alkaline Phosphatase 109 U/L (38-126); Blood Urea Nitrogen 19 mg/dl (7-17); Calcium 10.5 mg/dl (8.4-10.2); Carbon Dioxide 28 mmol/L (22-30); Chloride 102 mmol/L (98-107); Glucose 111 mg/dl (70-99); Potassium 4.7 mmol/L (3.5-5.1); Sodium 141 mmol/L (135-145); Total Protein 7.9 g/dl (6.3-8.2); eGFR > 60.00
[2024-12-21 17:02] LABS: COVID-19 Antigen Negative (Negative)
[2024-12-21] MEDS: OFIRMEV 100 IV (17:17)
[2024-12-21] MEDS: NSS 500 IV (18:00)
--- NOTE | 2024-12-21 18:27 | EDRN ---
Dr. Cruz in room w/ pt at this time.
--- NOTE | 2024-12-21 18:33 | HPS.HSE ---
Family Physician
-
Family Physician: INTERVIEWE UNKNOWN - PT NOT
Chief Complaint
-
weakness
History of Present Illness
79-year-old female past medical history of COPD, chronic hypoxic respiratory failure on 3 L, hypothyroidism, CAD, HFpEF, sick sinus syndrome status post pacemaker, aortic stenosis status post bioprosthetic valve, atrial fibrillation not on
anticoagulation due to bleeding, gout, obstructive sleep apnea, hemorrhagic stroke with right eye blindness, ulcerative colitis, rheumatoid arthritis, chronic amatory dysfunction, pulmonary nodule, presenting with decreased p.o. intake for the past
week and confusion. She is also incontinent of bowel and bladder which is a change. She states she has some diarrhea today. Denies any urinary symptoms. Denies cough respiratory symptoms or shortness of breath.
[id number] states that she has not been acting herself for past several days. She is not wanting to get up to go to the bathroom, and not eating.
Medical History
Past Medical History
Past Medical History: Reports Other (COPD, chronic hypoxic respiratory failure on 3 L, hypothyroidism, CAD, HFpEF, sick sinus syndrome status post pacemaker, aortic stenosis status post bioprosthetic valve, atrial fibrillation not on anticoagulation
due to bleeding, gout, obstructive sleep apnea, hemorrhagic stroke with right eye blind)
Past Surgical History: Reports Other (Cholecystectomy, Gynecological (DIANA/BSO) and Orthopedic (total right knee replacement))
Social History
Tobacco: Non-smoker
Alcohol: None
Drug: None
Family History
Family History: Not pertinent
Allergies / Home Medications
Allergies reflects when Allergies were last updated in viseto.
Home Medications with original date entered in viseto
Allergy/Medication List:
Allergies
Allergy/AdvReac Type Severity Reaction Status Date / Time
codeine Allergy migraine Verified 10/08/24 10:57
duloxetine HCl (From Allergy confusion Verified 10/08/24 10:57
Cymbalta)
metoclopramide Allergy DYSTONIA Verified 10/08/24 10:57
PER MD
tramadol HCl (From Ultra) Allergy Hives Verified 10/08/24 10:57
Home Medications
allopurinol 300 mg tablet 300 mg PO DAILY gout 09/29/14
citalopram 20 mg tablet 20 mg PO DAILY Mental Health/Anxiety 09/29/14
omeprazole 20 mg tablet,delayed release 20 mg PO DAILY Gastrointestinal issue 09/29/14
tizanidine 4 mg tablet 4 mg PO TID spasms 09/29/14
torsemide 20 mg tablet 40 mg PO DAILY Fluid Retention/Swelling 11/04/16
aspirin 81 mg tablet,delayed release 81 mg PO DAILY #0 tabs 03/15/24
pregabalin 75 mg capsule 75 mg PO TID Pain 04/07/24
diltiazem HCl 180 mg capsule,extended release 24 hr (Cardizem CD) 180 mg PO DAILY Blood Pressure 10/06/24
multivitamin 1 tab PO DAILY Supplement 10/06/24
potassium chloride 20 mEq tablet,extended release 40 meq PO DAILY Electrolyte Repletion 10/06/24
rosuvastatin 20 mg tablet 20 mg PO DAILY High Cholesterol 10/06/24
spironolactone 25 mg tablet 12.5 mg PO DAILY Fluid Retention/Swelling 10/06/24
umeclidinium 62.5 mcg-vilanterol 25 mcg/actuation powdr for inhalation (Anoro Ellipta) 1 inh inhalation R DAILY Lung/Breathing Issues 10/06/24
calcium carbonate 500 mg PO BID 12/21/24
cholecalciferol (vitamin D3) 25 mcg (1,000 unit) tablet (Vitamin D3) 25 mcg PO DAILY 12/21/24
glucosamine-chondroitin 250 mg-200 mg tablet 2 tab PO DAILY 12/21/24
levothyroxine 100 mcg tablet (Synthroid) 100 mcg PO DAILY 12/21/24
vitamins A,C,L-agls-lgfphj 2,148 mcg-113 mg-45 mg-17.4 mg tablet (PreserVision AREDS) 2 tab PO DAILY 12/21/24
Review of Systems
-
History Source: Patient
A 12 point ROS was completed and negative except as noted: Yes
Constitutional: Reports No Symptoms
EENT: Reports No Symptoms
Respiratory: Reports See HPI
Cardiac: Reports See HPI
Abdomen/GI: Reports No Symptoms
: Reports No Symptoms
Musculoskeletal: Reports No Symptoms
Skin: Reports No Symptoms
Neurological: Reports No Symptoms
Endocrine: Reports No Symptoms
Hematologic/Lymphatic: Reports No Symptoms
Psych: Reports No Symptoms
Physical Exam
Vital Signs
Vital Signs
Temp Pulse Resp BP Pulse Ox
100.1 F 86 28 111/70 95
12/21/24 16:00 12/21/24 16:00 12/21/24 16:00 12/21/24 16:00 12/21/24 18:00
Physical Exam
General: Well Developed, Well Nourished and No Apparent Distress
HEENT: NormoCephalic, Moist mucous membranes and Atraumatic
Respiratory: Clear
Cardiac: S1/S2 and Regular Rhythm; No Murmur or Rub
GI: Soft, Non Tender, Non Distended and Normal Bowel Sounds; No Organomegaly
Rectal: Deferred by Provider
Musculoskeletal: No Clubbing, No Cyanosis and No Edema
Skin: No Rash
Neuro: Nonfocal/grossly intact
Laboratory Results
-
12/21/24 16:14
12/21/24 16:14
Laboratory Results
Lactic Acid 1.2 mmol/L (0.7-2.0) 12/21/24 16:14
Total Bilirubin 1.3 mg/dl (0.2-1.3) 12/21/24 16:14
AST 30 U/L (14-36) 12/21/24 16:14
ALT 25 U/L (0-35) 12/21/24 16:14
Alkaline Phosphatase 109 U/L (38-126) 12/21/24 16:14
Data Reviewed
-
Lab Data: Labs Reviewed by me
Old Records: Reviewed
Impression/Plan
-
IMPRESSION:
PLAN:
# Fever, metabolic encephalopathy unclear etiology likely mild viral gastroenteritis
-Diarrhea episode this morning as per patient, patient herself did not mention any incontinence
- Temperature 100.1, not septic
-COVID and flu negative
-Urinalysis negative
- Blood cultures pending
- Chest x-ray shows no acute process
- CT head shows no acute abnormality
- IV fluids
- Hold off antibiotics
- Check stool studies if further diarrhea
COPD
Chronic hypoxemic respiratory failure on 3 L baseline
- Continue Anora Ellipta, albuterol
Hypothyroidism
- Continue levothyroxine
CAD
- Continue aspirin, statin
Chronic HFpEF
- Hold torsemide, spironolactone
Sick sinus syndrome status post pacemaker
Aortic stenosis status post bioprosthetic valve
Atrial fibrillation
- Continue diltiazem
Gout
- Continue allopurinol
Obstructive sleep apnea
History of hemorrhagic stroke with right eye blindness
Ulcerative colitis
Rheumatoid arthritis
- Continue pregabalin
Chronic ambulatory dysfunction
Pulmonary nodule
Full code
DVT prophylaxis�heparin
Regular diet
[2024-12-21] MEDS: HEPARIN 5000 UNITS SC (19:53)
[2024-12-21] MEDS: NSS 1000 IV (19:53)
[2024-12-21] MEDS: OSCAL CAL 500 500 MG PO (19:53)
[2024-12-21] MEDS: ZANAFLEX 4 MG PO (21:21)
[2024-12-21] MEDS: LYRICA 75 MG PO (21:21)
[2024-12-22] MEDS: SYNTHROID 100 MCG PO (05:53)
[2024-12-22 06:00] VITALS: BMI 26.4
[2024-12-22] MEDS: STRIVERDI RESPIMAT 2 PUFF INH (07:15)
[2024-12-22] MEDS: SPIRIVA RESPIMAT 2.5 MCG 2 PUFF INH (07:15)
[2024-12-22 07:22] LABS: Hematocrit 39.1 % (37.0-47.0); Hemoglobin 12.8 g/dL (12.0-16.0); Mean Corp Hgb Conc. 32.7 g/dL (33.0-37.0); Mean Corpuscular Volume 91.6 fL (81.0-99.0); Nucleated Red Blood Cells % 0 %; Platelet Count 180 10^3/uL (130-400); Red Cell Dist. Width 13.5 % (11.5-14.5)
[2024-12-22 07:49] VITALS: BP 123/56
[2024-12-22] MEDS: OCUVITE SOFTGEL 2 CAP PO (08:31)
[2024-12-22] MEDS: ZANAFLEX 4 MG PO ×3 (08:32→21:02)
[2024-12-22] MEDS: CARDIZEM CD 180 MG PO (08:32)
[2024-12-22] MEDS: OSCAL CAL 500 500 MG PO ×2 (08:32→20:53)
[2024-12-22] MEDS: CRESTOR 20 MG PO (08:32)
[2024-12-22] MEDS: PROTONIX 40 MG PO (08:32)
[2024-12-22] MEDS: LYRICA 75 MG PO ×3 (08:32→21:02)
[2024-12-22] MEDS: CELEXA 20 MG PO (08:33)
[2024-12-22] MEDS: ASPIR LOW (ENTERIC COATED) 81 MG PO (08:33)
[2024-12-22] MEDS: DESENEX/MITRAZOL/ZEASORB 1 APPLIC TOPICAL ×2 (08:33→20:52)
[2024-12-22] MEDS: KCL 40 MEQ PO (08:33)
[2024-12-22] MEDS: HEPARIN 5000 UNITS SC ×2 (08:33→20:53)
[2024-12-22] MEDS: ZYLOPRIM 300 MG PO (08:33)
[2024-12-22] MEDS: VITAMIN D3 (cholecalciferol) 25 MCG PO (08:33)
[2024-12-22] MEDS: THERAGRAN 1 TABLET PO (08:33)
--- NOTE | 2024-12-22 12:33 | W.PN.HOSP.TC ---
Today's Communication/Plan
-
Monitor mentation
Continue with IV fluids
Rehab evaluation
Await blood culture data
Assessment / Plan
Assessment / Plan
General: Well Developed, Well Nourished and No Apparent Distress
HEENT: NormoCephalic, Moist mucous membranes and Atraumatic
Respiratory: Clear
Cardiac: S1/S2 and Regular Rhythm; No Murmur or Rub
GI: Soft, Non Tender, Non Distended and Normal Bowel Sounds;
Rectal: Deferred by Provider
Musculoskeletal: No Clubbing, No Cyanosis and No Edema
Skin: No Rash
Neuro: Nonfocal/grossly intact
# metabolic encephalopathy likely 2/2 dehydration versus polypharmacy secondary to tizanidine/pregabalin
#Diarrhea ?viral gastroenteroitis
- No episode of loose stool since admission to the hospital.
- Temperature 100.1, not septic
- COVID and flu negative
- Urinalysis negative
- Blood cultures pending
- Chest x-ray shows no acute process
- CT head shows no acute abnormality
- IV fluids
- Hold off antibiotics
- Check stool studies if further diarrhea
COPD
Chronic hypoxemic respiratory failure on 3 L baseline
- Continue Anora Ellipta, albuterol
Hypothyroidism
- Continue levothyroxine
CAD
- Continue aspirin, statin
Chronic HFpEF
- Hold torsemide, spironolactone
Sick sinus syndrome status post pacemaker
Aortic stenosis status post bioprosthetic valve
Atrial fibrillation
- Continue diltiazem
Gout
- Continue allopurinol
Obstructive sleep apnea
History of hemorrhagic stroke with right eye blindness
Ulcerative colitis
Rheumatoid arthritis
- Continue pregabalin
Chronic ambulatory dysfunction secondary to chronic hip pain
? Neuropathy
Sees pain management as outpatient continue with tizanidine and pregabalin for now. If with episode of confusion may need to decrease frequency
Pulmonary nodule
Full code
DVT prophylaxis�heparin
Updated patient [id number] over the phone in detail
Anticipated Discharge: 24 - 48 hours
Subjective/Interval History
-
Date of Service: December 22, 2024
Currently patient denies any nausea vomiting or diarrhea
Was able to tolerate diet earlier today
Objective Data
-
Labs:
Laboratory Results
12/22/24
06:53
WBC 6.8
Hgb 12.8
Hct 39.1
Plt Count 180
Vital Signs:
Vital Signs
Temp Pulse Resp BP Pulse Ox
97.7 F 61 18 123/56 96
12/22/24 07:49 12/22/24 08:32 12/22/24 07:49 12/22/24 08:32 12/22/24 07:49
I&O
12/21/24 12/22/24 12/23/24
06:59 06:59 06:59
Intake Total 1200 / 1200 300 / 300
Balance 1200 / 1200 300 / 300
Data Reviewed
-
Total Time Spent with Patient (in minutes): 55
[2024-12-22] MEDS: NSS 1000 IV (12:51)
--- NOTE | 2024-12-22 13:31 | PTOTSP ---
Dysphagia Evaluation
Oral/pharyngeal swallowing suspected to be grossly within functional limits based on clinical bedside swallowing evaluation.
Recommend:
1. IDDSI 7 Regular, Thin Liquids
2. Medications as best tolerated
3. General aspiration precautions
4. Oral care 3x daily
5. Will hold cognitive evaluation given cause of confusion is suspected to be due to acute reversible causes (i.e., dehydration vs polypharmacy). Reconsult if confusion persists for full cognitive evaluation.
[2024-12-22 14:12] VITALS: BMI 26.4
--- NOTE | 2024-12-22 14:17 | CM ---
Addendum entered by Flores Jamison 12/22/24 16:09:
Physical therapy are recommending skilled, patient wants to return to home, however patient is agreeable to a referral to [facility] as backup plan, referral sent to [facility].
Original Note:
manager credit risk reviewed patient's chart and met with patient and patient lives alone in a one story home with ramp to enter, per patient her son and daughter in law live next door and check in on patient, assist with shopping, laundry and doctors
appointments. Patient is independent with adl's and uses a walker with ambulation, patient has home oxygen from [employer], Home with stable, no needs.
PCP: Dr. Oliveira
Pharmacy: [facility] in [place]
[2024-12-22 14:41] VITALS: BP 117/54; BP 98/57
[2024-12-22 15:27] VITALS: BP 95/52
[2024-12-22 23:30] VITALS: BP 104/52
[2024-12-23] MEDS: SYNTHROID 100 MCG PO (05:47)
[2024-12-23] MEDS: NSS 1000 IV (05:47)
[2024-12-23 06:00] VITALS: BMI 27.3
[2024-12-23 07:00] VITALS: BP 114/38
[2024-12-23] MEDS: SPIRIVA RESPIMAT 2.5 MCG 2 PUFF INH (07:27)
[2024-12-23] MEDS: STRIVERDI RESPIMAT 2 PUFF INH (07:28)
[2024-12-23 07:52] LABS: Hematocrit 34.0 % (37.0-47.0); Hemoglobin 11.2 g/dL (12.0-16.0); Mean Corp Hgb Conc. 32.9 g/dL (33.0-37.0); Mean Corpuscular Volume 90.9 fL (81.0-99.0); Nucleated Red Blood Cells % 0 %; Platelet Count 154 10^3/uL (130-400); Red Cell Dist. Width 13.4 % (11.5-14.5)
[2024-12-23] MEDS: CRESTOR 20 MG PO (08:11)
[2024-12-23] MEDS: VITAMIN D3 (cholecalciferol) 25 MCG PO (08:11)
[2024-12-23] MEDS: OSCAL CAL 500 500 MG PO ×2 (08:11→20:19)
[2024-12-23] MEDS: ZYLOPRIM 300 MG PO (08:11)
[2024-12-23] MEDS: PROTONIX 40 MG PO (08:11)
[2024-12-23] MEDS: LYRICA 75 MG PO ×3 (08:11→20:22)
[2024-12-23] MEDS: CARDIZEM CD 180 MG PO (08:11)
[2024-12-23] MEDS: ASPIR LOW (ENTERIC COATED) 81 MG PO (08:11)
[2024-12-23] MEDS: ZANAFLEX 4 MG PO ×3 (08:11→20:20)
[2024-12-23] MEDS: OCUVITE SOFTGEL 2 CAP PO (08:11)
[2024-12-23] MEDS: THERAGRAN 1 TABLET PO (08:11)
[2024-12-23] MEDS: CELEXA 20 MG PO (08:11)
[2024-12-23] MEDS: KCL 40 MEQ PO (08:11)
[2024-12-23] MEDS: HEPARIN 5000 UNITS SC ×2 (08:11→20:20)
[2024-12-23 08:30] LABS: Blood Urea Nitrogen 22 mg/dl (7-17); Calcium 8.5 mg/dl (8.4-10.2); Carbon Dioxide 24 mmol/L (22-30); Chloride 110 mmol/L (98-107); Estimated Creatinine Clearance 66 ml/min; Glucose 89 mg/dl (70-99); Potassium 3.8 mmol/L (3.5-5.1); Sodium 140 mmol/L (135-145); eGFR > 60.00
[2024-12-23] MEDS: MOTRIN 400 MG PO (10:08)
[2024-12-23] MEDS: DESENEX/MITRAZOL/ZEASORB 1 APPLIC TOPICAL ×2 (10:09→20:20)
--- NOTE | 2024-12-23 11:42 | W.PN.HOSP.TC ---
Addendum entered and electronically signed by James Barth MD 12/29/24 13:05:
atrial fibrillation unknown chronicity
Stage I left buttocks pressure injury POA
Original Note:
Today's Communication/Plan
-
Await placement
Restart home meds
Assessment / Plan
Assessment / Plan
General: Well Developed, Well Nourished and No Apparent Distress
HEENT: NormoCephalic, Moist mucous membranes and Atraumatic
Respiratory: Clear
Cardiac: S1/S2 and Regular Rhythm; No Murmur or Rub
GI: Soft, Non Tender, Non Distended and Normal Bowel Sounds;
Rectal: Deferred by Provider
Musculoskeletal: No Clubbing, No Cyanosis and No Edema
Skin: No Rash
Neuro: Nonfocal/grossly intact
# metabolic encephalopathy likely 2/2 dehydration versus polypharmacy secondary to tizanidine/pregabalin
#Diarrhea ?viral gastroenteroitis
- No episode of loose stool since admission to the hospital.
- Temperature 100.1, not septic
- COVID and flu negative
- Urinalysis negative
- Blood cultures remains negative
- Chest x-ray shows no acute process
- CT head shows no acute abnormality
- IV fluids can be discontinued later
- Hold off antibiotics
- Check stool studies if further diarrhea
- Status post speech evaluation for memory recommended outpatient neuropsych evaluation concern for cognitive linguistic impairment with deficits in immediate memory, working memory delayed recall and word fluency.
COPD
Chronic hypoxemic respiratory failure on 3 L baseline
- Continue Anora Ellipta, albuterol
Hypothyroidism
- Continue levothyroxine
CAD
- Continue aspirin, statin
Chronic HFpEF
- Restart home diuretic regimen
Sick sinus syndrome status post pacemaker
Aortic stenosis status post bioprosthetic valve
Atrial fibrillation
- Continue diltiazem
Gout
- Continue allopurinol
Obstructive sleep apnea
History of hemorrhagic stroke with right eye blindness
Ulcerative colitis
Rheumatoid arthritis
- Continue pregabalin
Chronic ambulatory dysfunction secondary to chronic hip pain
? Neuropathy
Sees pain management as outpatient continue with tizanidine and pregabalin for now. If with episode of confusion may need to decrease frequency
Pulmonary nodule
Full code
DVT prophylaxis�heparin
Updated patient [id number] over the phone in detail on 12/22/2024
PT-SNF. Case management aware. Medically stable.
Anticipated Discharge: Today
Subjective/Interval History
-
Date of Service: December 23, 2024
Eating breakfast
States of chronic left leg pain
Denies any nausea or vomiting
Objective Data
-
Labs:
Laboratory Results
12/23/24
07:32
WBC 6.0
Hgb 11.2 L
Hct 34.0 L
Plt Count 154
Sodium 140
Potassium 3.8
Chloride 110 H
Carbon Dioxide 24
BUN 22 H
Creatinine 0.6
Glucose 89
Calcium 8.5 D
Vital Signs:
Vital Signs
Temp Pulse Resp BP Pulse Ox
98.2 F 71 18 114/38 96
12/23/24 07:00 12/23/24 07:29 12/23/24 07:29 12/23/24 07:00 12/23/24 07:29
I&O
12/22/24 12/23/24 12/24/24
06:59 06:59 06:59
Intake Total 1200 / 1200 1740 / 1740
Balance 1200 / 1200 1740 / 1740
Data Reviewed
-
Total Time Spent with Patient (in minutes): 55
--- NOTE | 2024-12-23 14:38 | W.DCSUMMARY ---
Discharge Summary
Discharge Data
Date of Admission: 12/21/24
Date of Discharge: 12/23/24
-
Pending Results: No
Hospital Course
79-year-old female past medical history of hypothyroidism, COPD, CAD, chronic HFpEF, sick sinus syndrome status post pacemaker, A-fib, gout, MARY, ulcerative colitis, rheumatoid arthritis, chronic ambulatory dysfunction, chronic hip pain who is
presenting from home with confusion and diarrhea. Patient was admitted to the hospital. COVID influenza was checked to be negative. UA was negative. Blood cultures remain negative. Chest x-ray with no acute process. CT head was performed which
showed no acute abnormality. Patient was started on IV fluid resuscitation. Patient did not have any diarrhea throughout hospitalization. Patient was tolerating diet without any difficulty. Patient without any abdominal pain, nausea or vomiting.
Patient mentation seemed to improve with IV fluid resuscitation. Patient was eval by speech therapy and recommended to continue with current diet. Speech therapy recommended outpatient evaluation. Patient was eval by physical and Occupational
Therapy with plan to discharge to long-term facility.
Discharge Plan
-
Patient Disposition: Long Term/SNF
Discharge Diagnosis/Procedures: metabolic encephalopathy likely 2/2 dehydration versus polypharmacy
Diarrhea likely 2/2 viral gastroenteroitis
Condition: Fair
Diet: 2 Gram Sodium and Restrict fluids to 48 oz
Activity: With assistance and As tolerated
Driving Restrictions: Not until seen by your Dr
Other Services: ST
Referrals:
UNKNOWN - PT NOT,INTERVIEWE [Family Provider, Internal Medicine] - in less than 1 week
Prescriptions:
Continued
tizanidine 4 MG tablet
4 mg PO TID
citalopram 20 MG tablet
20 mg PO DAILY
allopurinol 300 MG tablet
300 mg PO DAILY
omeprazole 20 MG tablet,delayed release (DR/EC)
20 mg PO DAILY
torsemide 20 MG tablet
40 mg PO DAILY
aspirin 81 mg Tablet,Delayed Release (Dr/Ec)
81 mg PO DAILY Qty: 0 0RF
multivitamin Tablet
1 tab PO DAILY
diltiazem HCl [Cardizem CD] 180 mg Capsule,Extended Release 24hr
180 mg PO DAILY
rosuvastatin 20 mg Tablet
20 mg PO DAILY
umeclidinium-vilanterol [Anoro Ellipta] 62.5-25 mcg/actuation Blister With Device
1 inh INHALATION R DAILY
potassium chloride 20 mEq Tablet Extended Release
40 meq PO DAILY
spironolactone 25 mg tablet
12.5 mg PO DAILY
levothyroxine [Synthroid] 100 mcg Tablet
100 mcg PO DAILY
calcium carbonate 500 mg calcium (1,250 mg) Tablet
500 mg PO BID
glucosamine-chondroitin 250-200 mg Tablet
2 tab PO DAILY
cholecalciferol (vitamin D3) [Vitamin D3] 25 mcg (1,000 unit) Tablet
25 mcg PO DAILY
PreserVision AREDS 2,148 mcg-113 mg-45 mg-17.4mg Tablet
2 tab PO DAILY
pregabalin 75 mg capsule
75 mg PO TID 3 Days Qty: 9 0RF
Discharge Orders:
Discharge Patient (As Directed); Ordered 12/23/24
Ordered By: James Barth
Discharge Date and Time
Discharge Date/Time: 12/23/24 20:54
Print Language: ESTONIAN
[2024-12-23 15:02] VITALS: BP 99/39
--- NOTE | 2024-12-23 16:17 | PN.CDI ---
CDI
- -
CDI:
Physician Documentation Request
Admit Date: 12/21/24 18:58
Dear Doctor,
Please review the following and provide your response in the progress notes.
Clinical Indicators:
Pt admitted for metabolic encephalopathy likely 2/2 dehydration versus polypharmacy secondary to tizanidine/pregabalin, ? viral gastroenteritis.
12/21 bonderizer in wound panel notes Stage 1 left buttock pressure injury.
Physician documentation of the type and location of wounds is required for compliant documentation. Based on the above clinical findings and your assessment, please provide the following in your progress note:
1. Location of the ulcer/wound, including laterality.
2. Type (etiology) of ulcer/wound:
Left buttock pressure injury POA
Left buttock non-pressure injury POA
Other
Use of terms such as suspected, likely, concern for, or probable (associated with a specific diagnosis that is being evaluated, monitored, or treated as if it exists) are acceptable and can be coded in the inpatient setting, when documented at the
time of discharge.
Thank you,
Lani Irwin RN, BSN
CDI Specialist
[place] Text
Please use your independent medical judgment in providing your response.
*Source: National Pressure Ulcer Advisory Panel (NPUAP)
--- NOTE | 2024-12-23 16:23 | PN.CDI ---
CDI
- -
CDI:
Physician Documentation Request
Admit Date: 12/21/24 18:58
Dear Doctor,
Please review the following and provide your response in the progress notes.
Clinical Indicators:
Pt admitted for metabolic encephalopathy likely 2/2 dehydration versus polypharmacy secondary to tizanidine/pregabalin, ? viral gastroenteritis.
12/21 H&P: ' PMhx ... atrial fibrillation not on anticoagulation due to bleeding ..- Continue diltiazem.'
If possible, please provide further specificity regarding atrial fibrillation, such as:
Paroxysmal atrial fibrillation - terminates spontaneously or with intervention within 7 days of onset
Persistent atrial fibrillation - episodes of continuous AF that last more than 7 days and do not self-terminate
Other - please specify
Unable to further specify
Use of terms such as suspected, likely, concern for, or probable (associated with a specific diagnosis that is being evaluated, monitored, or treated as if it exists) are acceptable and can be coded in the inpatient setting, when documented at the
time of discharge.
Thank you,
Lani Irwin RN, BSN
CDI Specialist
[place] Text
Please use your independent medical judgment in providing your response.
--- NOTE | 2024-12-23 16:41 | CM ---
Addendum entered by URIEL Hill 12/23/24 17:16:
Patient updated that she was approved to go to [facility]. She stated that she will call family to update.
Original Note:
Spoke with attending who stated that patient is medically cleared for discharge. Placed a call to [facility] in admissions who stated that she can accept patient back today. # for report [phone] and fax [phone].
Placed a call to [facility] and spoke with reviewer, Lori who once clinical was reviewed issued auth# [id number] NRD 12/29, call for review [phone]. This information was provided to [facility] in admissions at [facility] who confirmed that patient can
transfer today.
Transfer sheet and medical necessity completed and provided to [employer] sales unit advisor.
Reviewed IMM with patient. It is signed and on chart.
Plan: Case management will continue to follow and assist with discharge planning. [facility] this afternoon.
[2024-12-23 20:02] VITALS: BP 94/47
== END 2024-12-23 20:54 | DRG 640 ==
LOC: 4 EAST ACU 18:58
PROVIDERS: Nurse Practitioner; ADMITTING PHYSICIAN Hospitalist; ATTENDING PHYSICIAN Hospitalist; EMERGENCY PHYSICIAN Emergency Medicine
DX: E86.0 Dehydration (principal); G93.41 Metabolic encephalopathy; J96.11 Chronic respiratory failure with hypoxia; I50.32 Chronic diastolic (congestive) heart failure; M06.9 Rheumatoid arthritis, unspecified; A08.4 Viral intestinal infection, unspecified; Z11.52 Encounter for screening for COVID-19; J44.9 Chronic obstructive pulmonary disease, unspecified; E03.9 Hypothyroidism, unspecified; I25.10 Atherosclerotic heart disease of native coronary artery without angina pectoris; Z79.82 Long term (current) use of aspirin; Z79.899 Other long term (current) drug therapy; I11.0 Hypertensive heart disease with heart failure; Z95.0 Presence of cardiac pacemaker; I49.5 Sick sinus syndrome; I48.91 Unspecified atrial fibrillation; M10.9 Gout, unspecified; L89.321 Pressure ulcer of left buttock, stage 1
CPT/HCPCS: 70450; 71046; 80048; 80053; 81003; 83605; 85025; 87040; 87502; 87811; 92523; 92610; 93005; 94640; 96361; 96374; 97163; 97530; 99285

== ENCOUNTER → 2024-12-25 09:25 | Outpatient (REF) | payer BC, OTHER, SELFPAY ==
[2024-12-25 11:55] LABS: Hematocrit 34.2 % (37.0-47.0); Hemoglobin 11.0 g/dL (12.0-16.0); Mean Corp Hgb Conc. 32.2 g/dL (33.0-37.0); Mean Corpuscular Volume 92.9 fL (81.0-99.0); Nucleated Red Blood Cells % 0 %; Platelet Count 126 10^3/uL (130-400); Red Cell Dist. Width 13.6 % (11.5-14.5)
[2024-12-25 12:12] LABS: Blood Urea Nitrogen 22 mg/dl (7-17); Calcium 8.8 mg/dl (8.4-10.2); Carbon Dioxide 29 mmol/L (22-30); Chloride 105 mmol/L (98-107); Glucose 75 mg/dl (70-99); Potassium 4.2 mmol/L (3.5-5.1); Sodium 139 mmol/L (135-145); eGFR > 60.00
== END ==
LOC: OLABP 09:25
PROVIDERS: ATTENDING PHYSICIAN Family Medicine
DX: G93.41 Metabolic encephalopathy (principal); R41.83 Borderline intellectual functioning; F03.90 Unspecified dementia, unspecified severity, without behavioral disturbance, psychotic disturbance, mood disturbance, and anxiety; I25.10 Atherosclerotic heart disease of native coronary artery without angina pectoris; M06.9 Rheumatoid arthritis, unspecified; R50.9 Fever, unspecified; Z95.0 Presence of cardiac pacemaker; Z86.73 Personal history of transient ischemic attack (TIA), and cerebral infarction without residual deficits
CPT/HCPCS: 36415; 80048; 85025

== ENCOUNTER 2025-01-12 16:09 | Inpatient (IN) | payer OTHER, SELFPAY ==
[2025-01-12] VITALS (12 sets, daily range): BP systolic 106–148; BP diastolic 54–97; BMI 31.2
--- NOTE | 2025-01-12 10:57 | ED.GENMED ---
History of Present Illness
General
Chief Complaint: Weakness
Source: patient
Exam Limitations: none
Time Seen by Provider: 01/12/25 10:29
Nursing documentation reviewed up to this point in time: agreed with
History of Present Illness
History of Present Illness:
79-year-old female with Richard history of previous stroke, COPD chronically on oxygen, aortic stenosis, A-fib CHF pacemaker in place presenting to the emergency department with concerns of generalized weakness fatigue over the past 2 days. Also
does note some mild shortness of breath. She has a cough over the past few days as well. Denies any specific chest pain fevers nausea vomiting changes in bowel movements.
Past History
Past History
ED Past Medical History: CAD, CHF, COPD, HTN, Hypercholesterolemia, Hypothyroidism and Psychiatric
ED Past Surgical History: Cholecystectomy, Gynecological (DIANA/BSO) and Orthopedic (total right knee replacement)
Social History
Tobacco: Non-smoker
Alcohol: None
Drug: None
Personal:
Living: with family (lives with who is able to help her)
Review of Systems
Review of Systems
Allergies reviewed?: Yes
All Other Systems: ROS reviewed and negative except as documented in HPI and ROS
Phy Exam
Physical Exam
Physical Exam:
GENERAL: Alert , in no apparent distress
EYE: pupils equal and reactive
NECK: Supple, no significant adenopathy.
ENT: o/p clr, mmm.
CARDIAC: Pansystolic murmur regular rate and rhythm .
LUNGS: Diffuse expiratory wheezing
ABDOMEN: Soft, without focal tenderness, no r/g, no cvat
NEUROLOGICAL: Alert and oriented, no focal neuro deficits
SKIN: Warm and dry, skin intact.
MUSCULOSKELETAL: No edema, well perfused.
PSYCH: Normal and appropriate interaction.
Course
Orders/Labs/Results
Orders:
Orders
01/12/25 10:29
EKG [Electrocardiogram (*1)] Urgent
Reason for Study: Fatigue / Weakness
EKG- Treatment ONCE
01/12/25 10:55
Chest [CR Chest - 2 Views ] Urgent
Comment:
Reason For Exam: sob weakness
01/12/25 11:10
CBC/With Diff [Complete Blood Count/With Diff] Urgent
CMP [Comprehensive Metabolic Panel] Urgent
Creatine Phosphokinase Urgent
Magnesium Urgent
TSH Reflex To Free T4 Urgent
01/12/25 11:24
Urinalysis Reflex To Culture Urgent
Date Specimen was Collected: 01/12/25
Time Specimen was Collected: 11:23
01/12/25 12:49
CT Head W/o Iv Contrast Urgent
Comment:
Reason For Exam: weakness, R>L
Dexamethasone Sod Phosphate [Decadron] 10 mg IV NOW STA
Ipratropium/Albuterol Sulfate [Duoneb] 3 ml INH R NOW ONE
01/12/25 13:21
BNP [NT-proBNP] Urgent
Troponin I Urgent
Abnormal Lab Results
01/12/25
11:10
RBC 3.95 L 10^6/uL
(4.20-5.40)
Hgb 11.8 L g/dL
(12.0-16.0)
MCHC 31.6 L g/dL
(33.0-37.0)
MPV 12.2 H fL
(7.4-10.4)
Absolute Neuts (auto) 8.6 H 10^3/uL
(1.4-6.5)
Absolute Monos (auto) 0.9 H 10^3/uL
(0.1-0.6)
Neutrophils % 79.6 H %
(42.2-75.2)
Lymphocytes % 10.7 L %
(20.5-51.1)
Carbon Dioxide 37 H mmol/L
(22-30)
BUN 31 H mg/dl
(7-17)
Glucose 126 H mg/dl
(70-99)
AST 43 H U/L
(14-36)
ALT 46 H U/L
(0-35)
01/12/25 11:10
01/12/25 11:10
Vital Signs
Initial and Last Documented VS:
Initial Vital Signs
BP
106/54
01/12/25 10:34
Last Documented Vital Signs
Temp Pulse Resp BP Pulse Ox
99.2 F 64 20 107/67 96
01/12/25 10:35 01/12/25 14:15 01/12/25 14:15 01/12/25 14:00 01/12/25 15:04
MDM/Problems Addressed
MDM/Problems Addressed:
79-year-old female presenting with concerns of generalized weakness fatigue some shortness of breath over the past week or so worsening over the past few days. Denies any specific chest pain nausea vomiting diarrhea urinary symptoms. On arrival
Eitel signs are normal patient in no obvious distress does have diffuse wheezing. Here labs without specific findings. BNP slightly elevated at 1000 other labs unremarkable. Symptoms may be consistent with COPD exacerbation. She feels too weak
to ambulate. Considering this plan to admit. Additionally EKG was found to be with an underlying rhythm of atrial fibrillation and is otherwise ventricularly paced. This could also be contributing symptoms as well. Blood pressure relatively low
in the low 100s. Patient reassessed claimed that she still feels very weak she has not been able to ambulate over the past few days plan to admit considering patient has COPD exacerbation as well as is currently in atrial fibrillation which she is
not infrequently for further monitoring treatment.
*Pulse Oximetry
SaO2: 98
Nasal Cannula flow liters per minute: 3
Patient hypoxic: no (96)
*Critical Care Note
Total Time (30-74mins, 75-104mins- exclusive of procedures): Not Applicable
ED Attending Note
-
Portions of this chart may have been created with voice recognition software.� Occasional wrong word or��sound alike� substitutions may have occurred due to the inherent limitations of voice recognition software.
Discharge Plan
Departure
Patient Disposition: Admit
Date of Disposition: 01/12/25
Time of Disposition: 15:20
Admit to: Telemetry
Admit to doctor: Htay
Presentation/result/management discussed w/ accepting MD/DO: Hospitalist
Patient with high blood pressure during this ER visit?: No
Condition: Good
Covid-19: Not Applicable
Discharge Problem:
COPD exacerbation, Atrial fibrillation
Prescriptions:
No Action
tizanidine 4 MG tablet
4 mg PO TID
citalopram 20 MG tablet
20 mg PO DAILY
allopurinol 300 MG tablet
300 mg PO DAILY
omeprazole 20 MG tablet,delayed release (DR/EC)
20 mg PO DAILY
torsemide 20 MG tablet
40 mg PO DAILY
aspirin 81 mg Tablet,Delayed Release (Dr/Ec)
81 mg PO DAILY Qty: 0 0RF
multivitamin Tablet
1 tab PO DAILY
diltiazem HCl [Cardizem CD] 180 mg Capsule,Extended Release 24hr
180 mg PO DAILY
rosuvastatin 20 mg Tablet
20 mg PO DAILY
umeclidinium-vilanterol [Anoro Ellipta] 62.5-25 mcg/actuation Blister With Device
1 inh INHALATION R DAILY
potassium chloride 20 mEq Tablet Extended Release
40 meq PO DAILY
spironolactone 25 mg tablet
12.5 mg PO DAILY
levothyroxine [Synthroid] 100 mcg Tablet
100 mcg PO DAILY
calcium carbonate 500 mg calcium (1,250 mg) Tablet
500 mg PO BID
glucosamine-chondroitin 250-200 mg Tablet
2 tab PO DAILY
cholecalciferol (vitamin D3) [Vitamin D3] 25 mcg (1,000 unit) Tablet
25 mcg PO DAILY
PreserVision AREDS 2,148 mcg-113 mg-45 mg-17.4mg Tablet
2 tab PO DAILY
pregabalin 75 mg capsule
75 mg PO TID 3 Days Qty: 9 0RF
Referrals:
Lakesha Hawley DO [Family Provider, General]
Interventions
Interventions:
*Risk Screen - Suicide Last Done: 01/12/25 10:35
*General Assessment Last Done: 01/12/25 10:35
*Neglect/Abuse Screening Last Done: 01/12/25 10:35
*ED- Fall Risk Assessment Last Done: 01/12/25 10:49
*ED COVID-19 Vaccine History Last Done: 01/12/25 10:35
ED- Cardiac Assessment Last Done: 01/12/25 11:46
ED- Neurological Assessment Last Done: 01/12/25 11:46
ED- Pulmonary Assessment Last Done: 01/12/25 11:46
Discharge Date and Time
Print Language: SAO TOMEAN
[2025-01-12 11:30] LABS: Urine Character Clear (Clear)
[2025-01-12 11:31] LABS: Hematocrit 37.4 % (37.0-47.0); Hemoglobin 11.8 g/dL (12.0-16.0); Mean Corp Hgb Conc. 31.6 g/dL (33.0-37.0); Mean Corpuscular Volume 94.7 fL (81.0-99.0); Nucleated Red Blood Cells % 0 %; Platelet Count 148 10^3/uL (130-400); Red Cell Dist. Width 14.1 % (11.5-14.5)
[2025-01-12 11:47] LABS: ALT (SGPT) 46 U/L (0-35); AST (SGOT) 43 U/L (14-36); Albumin 4.0 g/dl (3.5-5.0); Alkaline Phosphatase 117 U/L (38-126); Blood Urea Nitrogen 31 mg/dl (7-17); Calcium 9.1 mg/dl (8.4-10.2); Carbon Dioxide 37 mmol/L (22-30); Chloride 99 mmol/L (98-107); Estimated Creatinine Clearance 42 ml/min; Glucose 126 mg/dl (70-99); Magnesium 2.2 mg/dl (1.6-2.3); Potassium 4.2 mmol/L (3.5-5.1); Sodium 139 mmol/L (135-145); Total Protein 6.4 g/dl (6.3-8.2); eGFR 56.60
[2025-01-12] MEDS: DUONEB 3 ML INH ×2 (12:56→21:34)
[2025-01-12] MEDS: DECADRON 10 MG IV (12:56)
[2025-01-12 13:56] LABS: Troponin I < 0.012 ng/ml
--- NOTE | 2025-01-12 15:27 | HPS.HSE ---
Family Physician
-
Family Physician: Lakesha Hawley, DO
Chief Complaint
-
Not a productive cough and chest congestion for 1 month duration
History of Present Illness
79 years old female came in from residential. Patient had 3 complaints. First 1 was just congestion and atrial fibrillation. Patient reported that she has been having cough, nonproductive for almost a month. She was recently in the hospital and
did not go away. She denies fever or chills. No chest pain. She denies palpitation. She also complained of generalized weakness and none specific to certain side or event. The third complaint was tremor. Patient reported that she spilled her
soup yesterday and dropped her glasses while trying to wear it. Tremors are jerky like movement, going on for a few days. She said these movements were noticed by the staff. According to her [id number] in the room, she reported that [facility]
staff was adjusting her pain medicine and was given recently oxycodone and possible weaning/stopping of her Lyrica treatment. Patient complains of chronic pain in her joints/hips/back and shoulders. She said oxycodone helped but not very much in
controlling her pain.
Medical History
Past Medical History
Past Medical History: Reports Other (COPD, chronic hypoxic respiratory failure on 3 L, hypothyroidism,sick sinus syndrome status post pacemaker, aortic stenosis status post bioprosthetic valve, chronic systolic heart failure, hyperparathyroidism,
rheumatoid arthritis, peripheral vascular disease, coronary artery disease pa)
Past Surgical History: Reports Other (No recent major surgery)
Social History
Tobacco: Former Smoker
Alcohol: None
Drug: None
Personal:
Living: [facility]
Employment: Not Employed
Family History
Family History: Early CAD, Diabetes and Hypertension
Allergies / Home Medications
Allergies reflects when Allergies were last updated in [facility].
Home Medications with original date entered in [facility]
Allergy/Medication List:
Allergies
Allergy/AdvReac Type Severity Reaction Status Date / Time
codeine Allergy migraine Verified 01/12/25 10:45
duloxetine HCl (From Allergy confusion Verified 01/12/25 10:45
Cymbalta)
metoclopramide Allergy DYSTONIA Verified 01/12/25 10:45
PER MD
tramadol HCl (From Ultram) Allergy Hives Verified 01/12/25 10:45
Home Medications
allopurinol 300 mg tablet 300 mg PO DAILY gout 09/29/14
citalopram 20 mg tablet 20 mg PO DAILY Mental Health/Anxiety 09/29/14
omeprazole 20 mg tablet,delayed release 20 mg PO DAILY Gastrointestinal issue 09/29/14
tizanidine 4 mg tablet 4 mg PO TID spasms 09/29/14
torsemide 20 mg tablet 40 mg PO DAILY Fluid Retention/Swelling 11/04/16
aspirin 81 mg tablet,delayed release 81 mg PO DAILY #0 tabs 03/15/24
diltiazem HCl 180 mg capsule,extended release 24 hr (Cardizem CD) 180 mg PO DAILY Blood Pressure 10/06/24
multivitamin 1 tab PO DAILY Supplement 10/06/24
potassium chloride 20 mEq tablet,extended release 40 meq PO DAILY Electrolyte Repletion 10/06/24
rosuvastatin 20 mg tablet 20 mg PO DAILY High Cholesterol 10/06/24
spironolactone 25 mg tablet 12.5 mg PO DAILY Fluid Retention/Swelling 10/06/24
umeclidinium 62.5 mcg-vilanterol 25 mcg/actuation powdr for inhalation (Anoro Ellipta) 1 inh inhalation R DAILY Lung/Breathing Issues 10/06/24
calcium carbonate 500 mg PO BID Supplement 12/21/24
cholecalciferol (vitamin D3) 25 mcg (1,000 unit) tablet (Vitamin D3) 25 mcg PO DAILY Supplement 12/21/24
glucosamine-chondroitin 250 mg-200 mg tablet 2 tab PO DAILY Supplement 12/21/24
levothyroxine 100 mcg tablet (Synthroid) 100 mcg PO DAILY Thyroid 12/21/24
vitamins A,C,H-tltc-wmcqlv 2,148 mcg-113 mg-45 mg-17.4 mg tablet (PreserVision AREDS) 2 tab PO DAILY Supplement 12/21/24
pregabalin 75 mg capsule 75 mg PO TID Pain 3 days #9 caps 12/23/24
Review of Systems
-
History Source: Patient
A 12 point ROS was completed and negative except as noted: Yes
Constitutional: Reports Fatigue; Denies Fever or Chills
EENT: Denies Sore Throat or Runny Nose
Respiratory: Reports Cough and Trouble Breathing
Cardiac: Denies Chest Pain
Abdomen/GI: Denies Abdominal Pain, Nausea or Diarrhea
: Denies Dysuria
Musculoskeletal: Reports Joint Pain
Skin: Denies Itching or Rash
Neurological: Reports Weakness; Denies Numbness
Endocrine: Denies Temp Intolerance
Psych: Denies Panic Disorder
Physical Exam
Vital Signs
Vital Signs
Temp Pulse Resp BP Pulse Ox
99.2 F 64 20 107/67 96
01/12/25 10:35 01/12/25 14:15 01/12/25 14:15 01/12/25 14:00 01/12/25 15:04
Physical Exam
General: No Apparent Distress, Comfortable, Conversant and Appears Chronically Ill
HEENT: Moist mucous membranes and Atraumatic
Respiratory: Rhonchi; No Wheezes
Cardiac: S1/S2, Regular Rhythm and Peripheral Edema
GI: Soft, Non Tender and Non Distended
Genito-urinary: No Patel
Musculoskeletal: No Cyanosis
Skin: No Jaundice
Neuro: AO x 3, Nonfocal/grossly intact and Tremors
Psych: Calm and Intact Judgment/Insight; No Agitated
Laboratory Results
-
01/12/25 11:10
01/12/25 11:10
Laboratory Results
Total Bilirubin 1.0 mg/dl (0.2-1.3) 01/12/25 11:10
AST 43 U/L (14-36) H 01/12/25 11:10
ALT 46 U/L (0-35) H 01/12/25 11:10
Alkaline Phosphatase 117 U/L (38-126) 01/12/25 11:10
Troponin I < 0.012 ng/ml 01/12/25 13:21
Impression/Plan
-
79 years old female presented with chest congestion/cough, weakness, tremor of bilateral upper extremities
# Cough for 1 month duration. Patient feels her chest is congested. She denies sputum production. No fever or chills. No leukocytosis.
History of chronic Hypoxic Respiratory Failure, on oxygen 3L via NC at baseline no change in oxygen requirement.
Chest x-ray, no acute findings
Possible acute exacerbation of COPD, continue breathing treatment.
Will avoid systemic steroid. Will start on inhaled steroid.
Appreciate pulmonary input
# Tremor, paroxysmal noted in bilateral upper extremity, mostly intentional tremor
No tremor noted while resting.
Possible medication related. New report of starting oxycodone at residential for arthritic pain
Will verify her medication.
CAT scan of the head no acute findings. Patient is lucid and fully oriented
#Non-Obstructive Coronary Artery Disease
No chest pain.
-Continue aspirin
# Acute on chronic HFpEF
Patient reported that staff told her she had fluid retention. According to our records,
Her weight was 67 kg on 12/23/24, currently 77 kg
Will start the patient on IV furosemide. Hold spironolactone and torsemide
-Monitor Daily Weights
Appreciate cardiology input
# Chronic kidney disease stage IIIa.
Monitor renal function
# Ambulatory dysfunction, chronic
#Paroxysmal Atrial Fibrillation
-Continue diltiazem
-Patient is not anticoagulation secondary to prior eye hemorrhage
#Essential Hypertension
-Continue Cardizem
#Hyperlipidemia
-Continue rosuvastatin
#Hypothyroidism
-Continue levothyroxine
#Depression
Mood is cooperative
-Continue citalopram
#Cervical Radiculopathy
Will do Tylenol foghpr-[id number]-[id number] to hopefully lessen her need for pain medications
Hx Severe Aortic Stenosis s/p TAVR
Hx Ulcerative Colitis
Hx Rheumatoid Arthritis
DVT proph: SCDs
Code Status: Full Code, confirmed with patient.
Total time spent to see the patient on the floor, examine the patient, review data and lab results, discuss treatment plan with patient, ER doctor, nursing staff around 75 minutes.
[2025-01-12] MEDS: LASIX 40 MG IV (16:45)
--- NOTE | 2025-01-12 21:30 | PTCARENOTE ---
Pt arrived to room 419-01. Pt transferred from stretcher to bed. Pt AAOx3, VSS. Pt oriented to room, call ball placed within reach.
[2025-01-12] MEDS: PULMICORT 0.5 MG INH (21:34)
[2025-01-12] MEDS: HEPARIN 5000 UNITS SC (22:16)
[2025-01-12] MEDS: KCL 20 MEQ PO (22:16)
[2025-01-12] MEDS: CRESTOR 20 MG PO (22:16)
[2025-01-12] MEDS: LYRICA 25 MG PO (22:17)
[2025-01-12] MEDS: TYLENOL 1000 MG PO (22:17)
[2025-01-12] MEDS: ZANAFLEX 2 MG PO (22:17)
[2025-01-13] VITALS (7 sets, daily range): BP systolic 98–147; BP diastolic 48–75; PULSE 60; O2SAT 99; BMI 30.1
--- NOTE | 2025-01-13 03:42 | DOWNTIME ---
There was a [employer] Client Sewage Disposal Engineer Downtime on 01/13/2025 from 0100 to 01/13/2025 at 0220. Downtime documentation of patient's care, including medication administrations, has been reconciled in the electronic record per guidelines. Refer to the
patient's paper chart under the miscellaneous tab to see printed paper medication records and downtime forms.
[2025-01-13] MEDS: SYNTHROID 100 MCG PO (06:08)
[2025-01-13] MEDS: PULMICORT 0.5 MG INH ×2 (07:57→19:13)
[2025-01-13] MEDS: DUONEB 3 ML INH ×3 (07:57→19:14)
[2025-01-13 08:27] LABS: Blood Urea Nitrogen 30 mg/dl (7-17); Calcium 9.4 mg/dl (8.4-10.2); Carbon Dioxide 34 mmol/L (22-30); Chloride 102 mmol/L (98-107); Estimated Creatinine Clearance 60 ml/min; Glucose 153 mg/dl (70-99); Magnesium 2.2 mg/dl (1.6-2.3); Potassium 4.4 mmol/L (3.5-5.1); Sodium 142 mmol/L (135-145); eGFR > 60.00
[2025-01-13] MEDS: OCUVITE SOFTGEL 2 CAP PO (08:32)
[2025-01-13] MEDS: PROTONIX 40 MG PO (08:32)
[2025-01-13] MEDS: CARDIZEM CD 180 MG PO (08:33)
[2025-01-13] MEDS: ASPIR LOW (ENTERIC COATED) 81 MG PO (08:33)
[2025-01-13] MEDS: ZYLOPRIM 300 MG PO (08:33)
[2025-01-13] MEDS: CELEXA 20 MG PO (08:33)
[2025-01-13] MEDS: KCL 20 MEQ PO (08:33)
[2025-01-13] MEDS: TYLENOL 1000 MG PO ×3 (08:33→20:37)
[2025-01-13] MEDS: ZANAFLEX 2 MG PO ×3 (08:33→20:37)
[2025-01-13] MEDS: LYRICA 25 MG PO ×2 (08:33→20:37)
[2025-01-13] MEDS: HEPARIN 5000 UNITS SC ×2 (08:33→20:35)
[2025-01-13] MEDS: LASIX 40 MG IV ×2 (08:34→16:19)
[2025-01-13] MEDS: DESENEX/MITRAZOL/ZEASORB 1 APPLIC TOPICAL ×2 (08:34→20:35)
--- NOTE | 2025-01-13 09:12 | W.PN.HOSP.TC ---
Today's Communication/Plan
-
.
Assessment / Plan
Assessment / Plan
Physical Exam
General: No Apparent Distress, Comfortable, Conversant and Appears Chronically Ill
HEENT: Moist mucous membranes and Atraumatic
Respiratory: less rales, limited, no wheezes.
Cardiac: S1/S2, Regular Rhythm and Peripheral Edema
GI: Soft, Non Tender and Non Distended
Genito-urinary: No Patel
Musculoskeletal: No Cyanosis
Skin: No Jaundice
Neuro: AO x 3, Nonfocal/grossly intact and less Tremors
Psych: Calm and Intact Judgment/Insight; No Agitated
79 years old female presented with chest congestion/cough, weakness, tremor of bilateral upper extremities
# Acute on chronic HFpEF
Seems better
c/w IV Lasix, holding oral diuretic to push IV Lasix for short time to improve breathing.
-Monitor Daily Weights
prophylactic potassium supplement
- Order echo of heart
Appreciate cardiology input
# Cough for 1 month duration due to combination of poorly controlled COPD and CHF.
c/w IV Lasix
c/w nebulizer treatment
Monitor weight
CT chest , no pneumonia
Will avoid systemic steroid. c/w inhaled steroid.
Appreciate pulmonary input
# Tremor, paroxysmal noted in bilateral upper extremity, mostly intentional tremor
No tremor noted while resting.
Likely medication related. Seems associated with new medicine oxycodone. reduced both Lyrica/ tizanidine, cant stop them abruptly.
CAT scan of the head no acute findings. Patient is lucid and fully oriented
#Non-Obstructive Coronary Artery Disease
No chest pain.
-Continue aspirin
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
Monitor renal function
# Ambulatory dysfunction, chronic
#Paroxysmal Atrial Fibrillation
-Continue diltiazem
-Patient is not anticoagulation secondary to prior eye hemorrhage
#Essential Hypertension
-Continue Cardizem
#Hyperlipidemia
-Continue rosuvastatin
#Hypothyroidism
-Continue levothyroxine
#Depression
Mood is cooperative
-Continue citalopram
#Cervical Radiculopathy
c/w Tylenol [id number] to reduce need for pain medications
Hx Severe Aortic Stenosis s/p TAVR
Hx Ulcerative Colitis
Hx Rheumatoid Arthritis
DVT proph: SCDs
Code Status: Full Code, confirmed with patient.
Total time spent to see the patient on the floor, examine the patient, review data and lab results, discuss treatment plan with patient, nursing staff around 55 minutes.
Anticipated Discharge: > 48 hours
Subjective/Interval History
-
Date of Service: January 13, 2025
Objective Data
-
Labs:
Laboratory Results
01/13/25
06:42
Sodium 142
Potassium 4.4
Chloride 102
Carbon Dioxide 34 H
BUN 30 H
Creatinine 0.7
Glucose 153 H
Calcium 9.4
Vital Signs:
Vital Signs
Temp Pulse Resp BP Pulse Ox
98.5 F 66 28 147/62 97
01/13/25 07:53 01/13/25 08:33 01/13/25 07:53 01/13/25 08:33 01/13/25 07:53
I&O
01/12/25 01/13/25 01/14/25
06:59 06:59 06:59
Intake Total 120 / 120
Balance 120 / 120
--- NOTE | 2025-01-13 09:47 | CON.CAR ---
Addendum entered and electronically signed by Serafin Diaz MD 01/13/25 16:05:
I saw and examined the patient.
The RETAIL FIELD MERCHANDISER's note was reviewed and I agree with the note.
Comment:
79-year-old female with HFpEF, hypertension, dyslipidemia, paroxysmal atrial fibrillation, nonobstructive coronary artery disease, TAVR, and COPD on home O2 who presents with cough and chest congestion.
Physical exam with RRR, no murmurs, mild crackles, and trace LE edema
Labs notable for creatinine 0.7, proBNP 1310 (has A-fib)
TTE 01/13/2025: LVEF 60-65%, normal TAVR, PASP 20 mmHg
Device interrogation with 100% V pacing
I suspect her dyspnea/cough is multifactorial. She does not seem to be significantly volume overloaded by exam, labs, or echocardiogram but we can try a short course of IV diuresis. On device interrogation it appears that she is having more
paroxysmal atrial fibrillation starting in mid October 2024. This may be contributing to dyspnea. I will reach out to her primary thermal cutting machine operator and see what she thinks about a rhythm control strategy. Options would be dofetilide versus sotalol given
her underlying lung disease. Amiodarone is not a good choice. She is not on anticoagulation due to history of eye hemorrhage; declined watchman in the past. She is also being seen by pulmonary who suspects HFpEF exacerbation and possibly mild
COPD exacerbation. Holding off on steroids for now.
Original Note:
Consultation
Consultation Request
Date/Time Consultation Requested: 01/12/2025 16:12
Date/Time Consultation Performed: 01/13/2025 09:45
Requesting Provider: Dr. Trujillo
Performing Provider: ASHUTOSH Farias for Dr. Diaz
Reason for Consultation: Acute on chronic HFpEF
Medical History
-
Chief Complaint: Cough
History of Present Illness:
Gia Hernandez is an 79-year-old female (known to Dr. Ramirez, her primary thermal cutting machine operator), with hypertension, dyslipidemia, paroxysmal atrial fibrillation (not on oral anticoagulation due to eye hemorrhage), nonobstructive coronary artery disease, severe
aortic stenosis s/p TAVR (12/08/2021), SSS s/p [employer] pacemaker, CKD, MARY, and COPD with chronic hypoxemia requiring 3 L nasal cannula who presented to the emergency department with a chief complaint of cough and chest congestion. This has been
going on for month without relief. She was in the hospiotal earlier this month and does not think her breathing ever got better. She also has been having challenges with tremors. She denies chest pain, dizziness, and palpitations. Cardiology was
consulted for acute on chronic HFpEF. She was also found to be in atrial fibrillation.
Past Medical History
Past Medical History: Arrhythmias (Paroxysmal atrial fibrillation, SSS s/p PPM), CAD (Nonobstructive), CHF (HFpEF), COPD, GERD, HTN, Hypercholesterolemia, Hypothyroidism, Renal Failure (CKD), Valvular Disease (Severe aortic stenosis s/p TAVR) and
Other (MARY)
Past Surgical History: Cholecystectomy, Gynecological and Orthopedic
Social History
Tobacco: Former Smoker
Alcohol: None
Drug: None
Living: [facility] ([facility]
Employment: Retired
Family History
Family History: Reviewed & Not Pertinent
Allergies / Home Medications
Allergy/AdvReac Type Severity Reaction Status Date / Time
codeine Allergy migraine Verified 01/12/25 10:45
duloxetine HCl (From Allergy confusion Verified 01/12/25 10:45
Cymbalta)
egg Allergy Unknown Verified 01/12/25 16:32
metoclopramide Allergy DYSTONIA Verified 01/12/25 10:45
PER MD
tramadol HCl (From Ultram) Allergy Hives Verified 01/12/25 10:45
�Medication �Instructions �Recorded �Confirmed �Type
allopurinol 300 mg tablet 300 mg PO DAILY gout 09/29/14 01/12/25 History
citalopram 20 mg tablet 20 mg PO DAILY Mental 09/29/14 01/12/25 History
Health/Anxiety
omeprazole 20 mg tablet,delayed 20 mg PO DAILY Gastrointestinal 09/29/14 01/12/25 History
release issue
tizanidine 4 mg tablet 4 mg PO TID spasms 09/29/14 01/12/25 History
torsemide 20 mg tablet 40 mg PO DAILY Fluid 11/04/16 01/12/25 History
Retention/Swelling
aspirin 81 mg tablet,delayed 81 mg PO DAILY #0 tabs 03/15/24 01/12/25 Rx
release
diltiazem HCl 180 mg 180 mg PO DAILY Blood Pressure 10/06/24 01/12/25 History
capsule,extended release 24 hr
(Cardizem CD)
multivitamin 1 tab PO DAILY Supplement 10/06/24 01/12/25 History
potassium chloride 20 mEq 40 meq PO DAILY Electrolyte 10/06/24 01/12/25 History
tablet,extended release Repletion
rosuvastatin 20 mg tablet 20 mg PO HS High Cholesterol 10/06/24 01/12/25 History
spironolactone 25 mg tablet 12.5 mg PO DAILY Fluid 10/06/24 01/12/25 History
Retention/Swelling
umeclidinium 62.5 mcg-vilanterol 1 inh inhalation R DAILY 10/06/24 01/12/25 History
25 mcg/actuation powdr for Lung/Breathing Issues
inhalation (Anoro Ellipta)
cholecalciferol (vitamin D3) 25 25 mcg PO DAILY Supplement 12/21/24 01/12/25 History
mcg (1,000 unit) tablet (Vitamin
D3)
glucosamine-chondroitin 250 mg-200 2 tab PO DAILY Supplement 12/21/24 01/12/25 History
mg tablet
levothyroxine 100 mcg tablet 100 mcg PO DAILY Thyroid 12/21/24 01/12/25 History
(Synthroid)
vitamins A,C,F-lfxc-nmaafx 2,148 2 tab PO DAILY Supplement 12/21/24 01/12/25 History
mcg-113 mg-45 mg-17.4 mg tablet
(PreserVision AREDS)
acetaminophen 325 mg tablet 650 mg PO Q6HPRN PRN temp>100F 01/12/25 01/12/25 History
(Tylenol)
acetaminophen 500 mg tablet 1,000 mg PO Q8HPRN PRN 01/12/25 01/12/25 History
(Tylenol Extra Strength) breakthrough pain
bisacodyl 10 mg rectal suppository 10 mg IL DAILYPRN PRN if MOM 01/12/25 01/12/25 History
(Dulcolax (bisacodyl)) ineffective
calcium carbonate 500 mg PO BID 01/12/25 01/12/25 History
ketorolac 10 mg tablet 10 mg PO BID 01/12/25 01/12/25 History
lidocaine 4 % topical patch 1 patch topical DAILY L knee & L 01/12/25 01/12/25 History
shoulder
loperamide 2 mg tablet 2 mg PO Q4HPRN PRN loose stools 01/12/25 01/12/25 History
magnesium hydroxide 400 mg/5 mL 30 ml PO [id number] PRN if no BM x 3 01/12/25 01/12/25 History
oral suspension (Milk of Magnesia) days
oxycodone 5 mg tablet 5 mg PO Q6HPRN PRN moderate to 01/12/25 01/12/25 History
severe pain
pregabalin 100 mg capsule 100 mg PO Q8H 01/12/25 01/12/25 History
sodium phosphates 19 gram-7 118 ml IL DAILYPRN PRN if dulcolax 01/12/25 01/12/25 History
gram/118 mL enema (Fleet Enema) supp ineffective
Review of Systems
-
History Source: Patient
All other systems: Negative unless noted
Constitutional: Fatigue
EENT: No Symptoms
Respiratory: Trouble Breathing
Cardiac: No Symptoms
Abdomen/GI: No Symptoms
: No Symptoms
Musculoskeletal: No Symptoms
Skin: No Symptoms
Neurological: No Symptoms
Endocrine: No Symptoms
Hematologic/Lymphatic: No Symptoms
Physical Exam
Vital Signs
Temp Pulse Resp BP Pulse Ox
98.5 F 66 28 147/62 97
01/13/25 07:53 01/13/25 08:33 01/13/25 07:53 01/13/25 08:33 01/13/25 07:53
Lab Results
01/12/25 11:10
01/13/25 06:42
Troponin I < 0.012 ng/ml 01/12/25 13:21
Biy-Q-Zhtpoqxejbk Pept 1310 pg/ml 01/12/25 13:21
Physical Exam
General: Well Developed, Well Nourished, No Apparent Distress and Comfortable
HEENT: Normocephalic, Anicteric and Moist Mucous Membranes
Respiratory: Crackles and Non Labored Respirations
Cardiac: S1/S2, Irregular Rhythm and Peripheral Edema (trace)
Breast: Deferred by me
GI: Soft, Non Tender, Non Distended and Normal Bowel Sounds
Rectal: Deferred by Provider
Genito-urinary: No Costovertebral Tender
Musculoskeletal: No Cyanosis
Skin: Warm and Dry
Neuro: Awake and Alert
Hematologic/Lymphatic: No Lymphadenopathy
Psych: Calm
Impression / Plan
-
I/P: 79F presented from [facility] with a chief complaint of cough and chest congestion.
Primary Information Security Consultant: Dr. Ramirez
HFpEF acute on chronic
-Small pleural effusions, SOB, and elevated proBNP
-Diuresis with furosemide 40mg IV BID
-Dry weight presumed to be ~66kg
-Case mgmt to quiles SGLT2
-Trend daily weight, I/O, and BMP with diuresis
-Update echocardiogram
-HF education
Atrial fibrillation, presumed paroxysmal
-Will interrogated device to see onset
-Currently rate controlled
-Oral Anticoagulation: None due to prior eye hemorrhage, she declined watchman by her primary thermal cutting machine operator
-[id number]: score at least 5 (Heart failure, HTN, age 75 or more, female gender)
CKD, follow with diuresis, stable
MDT PPM
-Interrogation today
-MRI conditional
Abnormal CT
-Chest: Stable 1.2 cm left lower lobe pulmonary nodule, possibly neoplasm. Scattered slightly prominent mediastinal lymph nodes, slightly progressed, reactive versus metastatic
-Follow up per pulmonary
Chronic hypoxic respiratory failure, in the setting of COPD, on 3L NC as an outpatient
CAD, non obstructive, stable without CP, on ASA
Severe s/p TAVR 12/08/2021, peak/mean gradients 23/12 mmHg
SSS s/p PPM, device interrogation as above
Data Reviewed
-
EKG: Report Reviewed by me
Radiology: Report Reviewed by me (CXR: Small bilateral pleural effusions, new since previous radiograph.)
CT Scan: Report Reviewed by me (Head: No acute intracranial abnormality noted.) and Other (Chest: Stable 1.2 cm left lower lobe pulmonary nodule, possibly neoplasm. Recommend outpatient workup with dedicated PET/CT. Scattered slightly prominent
mediastinal lymph nodes, slightly progressed, reactive versus metastatic. )
Medical Tests (Nuc Med, Echo etc): Report Reviewed by me
Labs: Labs Reviewed by me
Old Records: Reviewed
--- NOTE | 2025-01-13 10:00 | CON.PUL ---
Consultation
Consultation Request
Date/Time Consultation Requested: 01/13/2025-7:30 AM
Date/Time Consultation Performed: 01/13/2025-11:30 AM
Requesting Provider: Hospitalist
Performing Provider: Dr. Pruitt
Reason for Consultation: Shortness of breath
Medical History
-
Chief Complaint: Shortness of breath
History of Present Illness:
79-year-old former smoking female with underlying COPD, hypothyroidism, chronic systolic heart failure, CAD and peripheral vascular disease presented with congestion, atrial fibrillation, cough and pulmonary was consulted for cough and possible COPD
exacerbation 01/13/2025.. She is feeling better, still has some shortness of breath with exertion, no chest pain, pleurisy, but has some chest 'heaviness'. She has no hemoptysis, fevers, chills, focal weakness
Past Medical History
Past Medical History: None (COPD. Former smoker PAF Restrictive lung disease Nocturnal hypoxemia MARY-CPAP intolerant Pulmonary nodule status post bronchoscopy 09/2024-no malignant cells-close radiographic follow-up suggested Ulcerative colitis
Hypertension Rheumatoid thrice Hypothyroid Gastritis Chronic kidney disease )
Past Surgical History: None (Left wrist surgery. History of DVT. Right rotator cuff 2006. DNC. Left foot surgery. Tubal ligation. TAB R 2016. Cholecystectomy.)
Social History
Tobacco: Former Smoker
Alcohol: None
Drug: None
Personal:
Living: With Family
Occupational Exposures: No known asbestos exposure
Environmental Exposures: No known tuberculosis exposure
Family History
Family History: Reviewed & Not Pertinent
Allergies / Home Medications
Allergies
Allergy/AdvReac Type Severity Reaction Status Date / Time
codeine Allergy migraine Verified 01/12/25 10:45
duloxetine HCl (From Allergy confusion Verified 01/12/25 10:45
Cymbalta)
egg Allergy Unknown Verified 01/12/25 16:32
metoclopramide Allergy DYSTONIA Verified 01/12/25 10:45
PER MD
tramadol HCl (From Ultra) Allergy Hives Verified 01/12/25 10:45
Home Medications
�Medication �Instructions �Recorded �Confirmed �Last Taken �Type
allopurinol 300 mg tablet 300 mg PO DAILY gout 09/29/14 01/12/25 01/12/25 History
citalopram 20 mg tablet 20 mg PO DAILY Mental 09/29/14 01/12/25 01/12/25 History
Health/Anxiety
omeprazole 20 mg tablet,delayed 20 mg PO DAILY Gastrointestinal 09/29/14 01/12/25 01/12/25 History
release issue
tizanidine 4 mg tablet 4 mg PO TID spasms 09/29/14 01/12/25 01/12/25 History
torsemide 20 mg tablet 40 mg PO DAILY Fluid 11/04/16 01/12/25 01/12/25 History
Retention/Swelling
aspirin 81 mg tablet,delayed 81 mg PO DAILY #0 tabs 03/15/24 01/12/25 01/12/25 Rx
release
diltiazem HCl 180 mg 180 mg PO DAILY Blood Pressure 10/06/24 01/12/25 01/12/25 History
capsule,extended release 24 hr
(Cardizem CD)
multivitamin 1 tab PO DAILY Supplement 10/06/24 01/12/25 01/12/25 History
potassium chloride 20 mEq 40 meq PO DAILY Electrolyte 10/06/24 01/12/25 01/12/25 History
tablet,extended release Repletion
rosuvastatin 20 mg tablet 20 mg PO HS High Cholesterol 10/06/24 01/12/25 01/11/25 History
spironolactone 25 mg tablet 12.5 mg PO DAILY Fluid 10/06/24 01/12/25 01/12/25 History
Retention/Swelling
umeclidinium 62.5 mcg-vilanterol 1 inh inhalation R DAILY 10/06/24 01/12/25 01/12/25 History
25 mcg/actuation powdr for Lung/Breathing Issues
inhalation (Anoro Ellipta)
cholecalciferol (vitamin D3) 25 25 mcg PO DAILY Supplement 12/21/24 01/12/25 01/12/25 History
mcg (1,000 unit) tablet (Vitamin
D3)
glucosamine-chondroitin 250 mg-200 2 tab PO DAILY Supplement 12/21/24 01/12/25 01/12/25 History
mg tablet
levothyroxine 100 mcg tablet 100 mcg PO DAILY Thyroid 12/21/24 01/12/25 01/12/25 History
(Synthroid)
vitamins A,C,H-hgdg-qfiueh 2,148 2 tab PO DAILY Supplement 12/21/24 01/12/25 01/12/25 History
mcg-113 mg-45 mg-17.4 mg tablet
(PreserVision AREDS)
acetaminophen 325 mg tablet 650 mg PO Q6HPRN PRN temp>100F 01/12/25 01/12/25 Unknown History
(Tylenol)
acetaminophen 500 mg tablet 1,000 mg PO Q8HPRN PRN 01/12/25 01/12/25 01/10/25 History
(Tylenol Extra Strength) breakthrough pain
bisacodyl 10 mg rectal suppository 10 mg [place] DAILYPRN PRN if MOM 01/12/25 01/12/25 Unknown History
(Dulcolax (bisacodyl)) ineffective
calcium carbonate 500 mg PO BID 01/12/25 01/12/25 01/12/25 History
ketorolac 10 mg tablet 10 mg PO BID 01/12/25 01/12/25 01/11/25 History
lidocaine 4 % topical patch 1 patch topical DAILY L knee & L 01/12/25 01/12/25 01/11/25 History
shoulder
loperamide 2 mg tablet 2 mg PO Q4HPRN PRN loose stools 01/12/25 01/12/25 Unknown History
magnesium hydroxide 400 mg/5 mL 30 ml PO [id number] PRN if no BM x 3 01/12/25 01/12/25 Unknown History
oral suspension (Milk of Magnesia) days
oxycodone 5 mg tablet 5 mg PO Q6HPRN PRN moderate to 01/12/25 01/12/25 01/12/25 History
severe pain
pregabalin 100 mg capsule 100 mg PO Q8H 01/12/25 01/12/25 01/12/25 History
sodium phosphates 19 gram-7 118 ml [place] DAILYPRN PRN if dulcolax 01/12/25 01/12/25 Unknown History
gram/118 mL enema (Fleet Enema) supp ineffective
Review of Systems
Vitals / Labs / Diagnostic Testing
Vital Signs
Temp Pulse Resp BP Pulse Ox
98.5 F 66 28 147/62 97
01/13/25 07:53 01/13/25 08:33 01/13/25 07:53 01/13/25 08:33 01/13/25 07:53
Lab Data
01/12/25 11:10
01/13/25 06:42
Diagnostic Testing:
Physical Exam
-
HEENT: Other ( for HPI)
Exam:
HEENT atraumatic normocephalic and anicteric. Heart was regular without murmur. Chest with crackles at the bases, few rhonchi. Integument without rashes or icterus. Neurologic exam without weakness or numbness. Abdomen soft and nondistended.
The patient had no JVD, cyanosis, clubbing or edema.
Assessment
-
79-year-old former smoking female with underlying COPD, hypothyroidism, chronic systolic heart failure, CAD and peripheral vascular disease presented with congestion, atrial fibrillation, cough and pulmonary was consulted for cough and possible COPD
exacerbation 01/13/2025.
Heart failure, preserved EF-acute on top of chronic.
Chronic cough.
COPD with mild acute exacerbation.
Mild bhgvtg-fnmkfegdmj-xeiiokmnkc 11.8.
Hyperglycemia.
Mild transaminitis
Conditions present prior to admission:
COPD
Former smoker
PAF
Restrictive lung disease
Nocturnal hypoxemia
MARY-CPAP intolerant
Pulmonary nodule status post bronchoscopy 09/2024-no malignant cells-close radiographic follow-up suggested
Ulcerative colitis
Hypertension
Rheumatoid thrice
Hypothyroid
Gastritis
Chronic kidney disease
Osteoporosis
Hyperlipidemia
Diverticulosis
Gout
Sick sinus syndrome status post pacemaker 2011 and generator change 2021
Peripheral neuropathy
Bladder calculi and renal calculi
Anxiety/depression
Ablation-declined oral anticoagulant
Hypocalcemia
Migraines
Acute neuritis
GERD
Anemia
Cervical radiculopathy neck
Left wrist surgery. History of DVT. Right rotator cuff 2007. DNC. Left foot surgery. Tubal ligation. TAB R 2016. Cholecystectomy.
Pulmonary nodule incidentally noted CT TAVR with change in nodular underwent robotic bronchoscopy-no conclusive malignant cells-repeat CT December 2024
Plan
Respiratory decompensation, likely due to heart failure, preserved EF and possibly mild COPD exacerbation.
Supplemental options as needed.
Nebulizers -dual nebs 3 times a day
Aspiration precautions.
Observe off steroids
Diuresis as tolerated.
Monitor intake, output, weight, lower extremity edema and renal function.
Replacement electrolytes as needed.
Follow-up radiographically..
Cardiology evaluation pending
DVT prophylaxis-on heparin.
GI prophylaxis-on pantoprazole.
Nutrition
Early mobilization
Follows with pulmonary-Dr. Steel-first seen 02/05/2024 and subsequently followed up with Ching BOYKIN on 12/04/2024-has appointment with Dr. Chanel 1:30 PM 02/16/2025
Diagnostic data:
CXR 10/09/24: Left basilar opacity without significant change.� Could represent, nation of atelectasis and small pleural effusion
CXR 10/08/2024: Decreased conspicuously of the previously suspected tiny left apical pneumothorax, likely resolved.� (This was post bronchoscopy).
Chest x-ray 12/21/24-NAD, mild asymmetrical elevation of left hemidiaphragm.
Chest x-ray 01/12/25-small bilateral pleural effusions
CT chest Ion 09/12/2024: Superior segment of the left lower lobe 1.1 cm nodule, increased volume soft tissue component with diameter of [address] chest 01/12/25-stable 1.2; left lower lobe nodule, scattered, slightly prominent mediastinal lymph nodes
PFT 08/28/2024: FVC 1.63/71%, FEV1 1.11/65%, ratio 68%, significant BD response in FEV1 (16%), post BD results FVC 1.76/77%, FEV1 1.29/76%, ratio 73%, TLC 3.21/70%, DLCO 11.50/63%, DLCO/VA 4.31/107%.� Mild restriction. Mildly reduced diffusing
capacity that normalizes with alveolar adjustment.
[place] 02/05/24: FVC 1.43/57%, FEV1 0.94/51%, ratio 66%, no significant BD response in FEV1.� Moderate obstruction and suggestive of mild restrictive pattern.
Echo 03/11/2024: EF 55 to 60%.� Mid anteroseptal, apical septal and mid to distal inferior akinesis/dyskinesis.� Wall motion consistent with conduction abnormality, paced rhythm. Normal RV size and function.� TAVR.� Trace AR.
HST 07/21/2024: DIEUDONNE 12.1 events/hour, O2 obinna 76%, 90.3% of the study time spent with O2 below 90%
Split study 09/30/14: Sleep efficiency 90%, AHI 35.35 events per hour, O2 obinna 80%; CPAP ineffective, recommended auto BiPAP therapy.
Bronchoscopic biopsy 10/08/24-unremarkable alveolar lung tissue, Left lower lobe TBNA-unsatisfactory for evaluation, left lower lobe BAL-negative for malignancy
Data Reviewed
-
PFT: Report reviewed by me
EKG: Report reviewed by me
Radiology: Report reviewed by me
CT Scan: Report reviewed by me
Medical Tests (Nuc Med, Echo etc): Report reviewed by me
Labs: Labs reviewed by me
Old Records: Reviewed
Total Time Spent with Patient (in minutes): 65
--- NOTE | 2025-01-13 10:37 | PN.CDI ---
Addendum entered and electronically signed by Eduard Trujillo MD 01/13/25 10:56:
AECOPD was present on admission and is now resolved.
Original Note:
CDI
- -
CDI:
Physician Documentation Request
Admit Date: 01/12/25 16:09
Dear Doctor Cassandra,
Patient admitted for heart failure.
H&P: 'Possible acute exacerbation of COPD, continue breathing treatment. Will avoid systemic steroid. Will start on inhaled steroid.'
01/13 Hospitalist PN: 'Cough for 1 month duration due to combination of poorly controlled COPD and CHF...c/w nebulizer treatment...c/w inhaled steroid.'
Please clarify the following:
____ - AECOPD was present on admission and is now resolved.
____ - AECOPD was present on admission and is still being monitored, evaluated or treated
____ - AECOPD was ruled out
____ - AECOPD is still a likely, suspected, probable diagnosis
____ - Other
____ - Unable to determine
Use of terms such as suspected, likely, concern for, or probable (associated with a specific diagnosis that is being evaluated, monitored, or treated as if it exists) are acceptable and can be coded in the inpatient setting, when documented at the
time of discharge.
Thank you,
Maame Hernandez RN, BSN
CDI Specialist
Available via [place] text
Please use your independent medical judgment in providing your response.
[2025-01-13] MEDS: ALDACTONE PO (12:07)
--- NOTE | 2025-01-13 13:02 | CM ---
CM reviewed chart, patient seen bedside, initial assessment completed. Patient came from [facility], does not believe family paid for a bed hold, patient would like to return home with [facility]. Patient reports she lives independently in a one level
home, four steps to enter, next to her son and daughter in law. Patient owns a RW, grab bars in shower, shower chair, raised toilet seat, O2 through [employer]. Patient reports PCP Dr. Oliveira, pharmacy [facility], confirms prescription coverage. Call to
patients pharmacy to check cost of Jardiance/Farxiga 10 mg once day- per pharmacist, Jardiance 30 day supply $147, Farxiga 30 day supply $140- will relay to Cardiology. CM will continue to follow for all discharge planning needs.
Plan; home with [facility], watch for PT evaluations
[2025-01-13] MEDS: TESSALON PERLES 100 MG PO (13:14)
[2025-01-13] MEDS: CRESTOR 20 MG PO (17:26)
[2025-01-14] MEDS: LIDOCAINE 4% PATCH 2 PATCH TOPICAL ×2 (02:22→21:28)
[2025-01-14 04:08] VITALS: BP 112/68
[2025-01-14 06:00] VITALS: BMI 29.9
[2025-01-14] MEDS: SYNTHROID 100 MCG PO (06:29)
[2025-01-14] MEDS: DUONEB 3 ML INH ×3 (07:43→19:06)
[2025-01-14] MEDS: PULMICORT 0.5 MG INH ×2 (07:43→19:06)
[2025-01-14 07:51] VITALS: BP 137/62
--- NOTE | 2025-01-14 08:00 | W.PN.CD ---
Today's Communication / Plan
-
continue IV diuresis with intensive monitoring
Impression / Plan
-
I/P: 79F presented from [place] with a chief complaint of cough and chest congestion.
Primary Director Internal Communications: Dr. Ramirez
Acute on chronic hypoxic respiratory failure, in the setting of COPD, on 3L NC as an outpatient
-HF contributing
-Dr Trujillo to address COPD component
HFpEF acute on chronic
-Small pleural effusions, SOB, and elevated proBNP
-Diuresis with furosemide 40mg IV BID, this requires intensive monitoring
-Dry weight presumed to be ~66kg---this seems low, will continue to reevaluate
-Case mgmt to quiles SGLT2
-Trend daily weight, I/O, and BMP with diuresis
-HF education
Atrial fibrillation, presumed paroxysmal
-more episodes since October
-Dr Boyd d/w Dr Ramirez her primary op cardiology, will continue with rate control.
-Oral Anticoagulation: None due to prior eye hemorrhage, she declined watchman by her primary tomb maker helper
-[id number]: score at least 5 (Heart failure, HTN, age 75 or more, female gender)
CKD, follow with diuresis, stable
MDT PPM
-MRI conditional
Abnormal CT
-Chest: Stable 1.2 cm left lower lobe pulmonary nodule, possibly neoplasm. Scattered slightly prominent mediastinal lymph nodes, slightly progressed, reactive versus metastatic
-Follow up per pulmonary
CAD, non obstructive, stable without CP, on ASA
Severe s/p TAVR 12/08/2021, peak/mean gradients 23/12 mmHg
SSS s/p PPM, device interrogation as above
Data:
TTE 01/13/2025: LVEF 60-65%, normal TAVR, PASP 20 mmHg
Device interrogation with 100% V pacing
Physical Exam
Vital Signs/Labs
Vital Signs
Temp Pulse Resp BP Pulse Ox
98.6 F 64 18 112/68 95
01/14/25 04:08 01/14/25 04:08 01/14/25 04:08 01/14/25 04:08 01/14/25 04:08
01/13/25 01/14/25 01/15/25
06:59 06:59 06:59
Actual Weight 164 lb 3 oz 163 lb 7 oz
01/12/25 11:10
Magnesium 2.2 mg/dl (1.6-2.3) 01/13/25 06:42
01/12/25
13:21
Eis-L-Fxupbsayejw Pept 1310
LAB Results
01/12/25
13:21
Troponin I < 0.012
Physical Exam
Constitutional: No acute distress
Cardiovascular: Rhythm & rate is regular, JVD pressure is normal, Systolic murmur absent, Diastolic murmur absent, Pedal edema present (1+ b/l ) and JVD present (13cm H20)
Respiratory: Respiratory effort normal and Wheeze Present (Bilateral, diffuse end exp wheeze)
Neuro/Psych: AO x 3
Data Reviewed
-
Date of Service: January 14, 2025
Medical Decision Making: Review of Case with other Provider (Dr Cassandra tinoco with steroids will continue diuresis)
[2025-01-14 08:31] LABS: Blood Urea Nitrogen 28 mg/dl (7-17); Calcium 9.3 mg/dl (8.4-10.2); Carbon Dioxide 35 mmol/L (22-30); Chloride 102 mmol/L (98-107); Estimated Creatinine Clearance 52 ml/min; Glucose 103 mg/dl (70-99); Potassium 4.1 mmol/L (3.5-5.1); Sodium 143 mmol/L (135-145); eGFR > 60.00
[2025-01-14] MEDS: SOLU-MEDROL PF 40 MG IV (08:32)
[2025-01-14] MEDS: LASIX 40 MG IV ×2 (08:32→15:56)
[2025-01-14] MEDS: ZANAFLEX 2 MG PO ×3 (08:33→21:27)
[2025-01-14] MEDS: PROTONIX 40 MG PO (08:33)
[2025-01-14] MEDS: HEPARIN 5000 UNITS SC ×2 (08:33→21:27)
[2025-01-14] MEDS: LYRICA 25 MG PO ×2 (08:33→21:27)
[2025-01-14] MEDS: CARDIZEM CD 180 MG PO (08:34)
[2025-01-14] MEDS: CELEXA 20 MG PO (08:34)
[2025-01-14] MEDS: OCUVITE SOFTGEL 2 CAP PO (08:34)
[2025-01-14] MEDS: ALDACTONE 12.5 MG PO (08:34)
[2025-01-14] MEDS: TYLENOL 1000 MG PO ×3 (08:34→21:27)
[2025-01-14] MEDS: ASPIR LOW (ENTERIC COATED) 81 MG PO (08:34)
[2025-01-14] MEDS: ZYLOPRIM 300 MG PO (08:34)
[2025-01-14] MEDS: KCL 20 MEQ PO (08:35)
[2025-01-14] MEDS: DESENEX/MITRAZOL/ZEASORB 1 APPLIC TOPICAL ×2 (08:35→21:27)
--- NOTE | 2025-01-14 09:34 | W.PN.HOSP.TC ---
Today's Communication/Plan
-
IV steroid
Tessalon PRN
nebulizer
IV Lasix
Aldactone
Assessment / Plan
Assessment / Plan
Physical Exam
General: No Apparent Distress, Comfortable, Conversant and Appears Chronically Ill
HEENT: Moist mucous membranes and Atraumatic
Respiratory: less rales, limited, positive bilateral expiratory wheezes.
Cardiac: S1/S2, Regular Rhythm and Peripheral Edema
GI: Soft, Non Tender and Non Distended
Genito-urinary: No Patel
Musculoskeletal: No Cyanosis
Skin: No Jaundice
Neuro: AO x 3, Nonfocal/grossly intact and less Tremors
Psych: Calm and Intact Judgment/Insight; No Agitated
79 years old female presented with chest congestion/cough, weakness, tremor of bilateral upper extremities
# Acute on chronic HFpEF
Seems better from weight loss side, feels less congested but has wheezing ( see below)
c/w IV Lasix, holding oral diuretic to push IV Lasix for short time to improve breathing.
-Monitor Daily Weights
prophylactic potassium supplement
Echo of the heart 01/13 showed LVEF 60-65%, mild LVH, TAVR dysfunction well, no significant change.
Appreciate cardiology input
#acute COPD exacerbation
seems to start wheezing, possible due to CHF episode
Tessalon PRN
Will give IV SoluMedrol and c/w Nebulizer therapy
Appreciate pulmonary input
# Tremor, paroxysmal noted in bilateral upper extremity, mostly intentional tremor
No tremor noted, improved after adjusting her medications.
Likely medication related. Seems associated with new medicine oxycodone. reduced both Lyrica/ tizanidine, cant stop them abruptly.
CAT scan of the head no acute findings. Patient is lucid and fully oriented
#Non-Obstructive Coronary Artery Disease
No chest pain.
-Continue aspirin
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
Monitor renal function
# Ambulatory dysfunction, chronic
#Paroxysmal Atrial Fibrillation
-Continue diltiazem
-Patient is not anticoagulation secondary to prior eye hemorrhage
#Essential Hypertension
-Continue Cardizem
#Hyperlipidemia
-Continue rosuvastatin
#Hypothyroidism
-Continue levothyroxine
#Depression
Mood is cooperative
-Continue citalopram
#Cervical Radiculopathy
c/w Tylenol vhjfch-csx-cefse to reduce need for pain medications
Hx Severe Aortic Stenosis s/p TAVR
Hx Ulcerative Colitis
Hx Rheumatoid Arthritis
DVT proph: SCDs
Code Status: Full Code, confirmed with patient.
Total time spent to see the patient on the floor, examine the patient, review data and lab results, discuss treatment plan with patient, nursing staff around 55 minutes.
Anticipated Discharge: > 48 hours
Subjective/Interval History
-
Date of Service: January 14, 2025
No chest pain
No sob
She has wheezes
Objective Data
-
Labs:
Laboratory Results
01/14/25
06:50
Sodium 143
Potassium 4.1
Chloride 102
Carbon Dioxide 35 H
BUN 28 H
Creatinine 0.8
Glucose 103 H
Calcium 9.3
Vital Signs:
Vital Signs
Temp Pulse Resp BP Pulse Ox
97.6 F 64 20 137/62 98
01/14/25 07:51 01/14/25 07:51 01/14/25 07:51 01/14/25 07:51 01/14/25 07:51
I&O
01/13/25 01/14/25 01/15/25
06:59 06:59 06:59
Intake Total 120 / 120 920 / 920
Balance 120 / 120 920 / 920
--- NOTE | 2025-01-14 09:58 | W.PN.PUL.V3 ---
Today's Communication / Plan
-
Increase diuresis
Begin steroids
Continue nebulizers
Assessment
-
79-year-old former smoking female with underlying COPD, hypothyroidism, chronic systolic heart failure, CAD and peripheral vascular disease presented with congestion, atrial fibrillation, cough and pulmonary was consulted for cough and possible COPD
exacerbation 01/13/2025.
Heart failure, preserved EF-acute on top of chronic.
Chronic cough.
COPD with mild acute exacerbation.
Mild pqbufs-wdyncppuai-apgxsckiyh 11.8.
Hyperglycemia.
Mild transaminitis
Conditions present prior to admission:
COPD
Former smoker
PAF
Restrictive lung disease
Nocturnal hypoxemia
MARY-CPAP intolerant
Pulmonary nodule status post bronchoscopy 09/2024-no malignant cells-close radiographic follow-up suggested
Ulcerative colitis
Hypertension
Rheumatoid thrice
Hypothyroid
Gastritis
Chronic kidney disease
Osteoporosis
Hyperlipidemia
Diverticulosis
Gout
Sick sinus syndrome status post pacemaker 2011 and generator change 2021
Peripheral neuropathy
Bladder calculi and renal calculi
Anxiety/depression
Ablation-declined oral anticoagulant
Hypocalcemia
Migraines
Acute neuritis
GERD
Anemia
Cervical radiculopathy neck
Left wrist surgery. History of DVT. Right rotator cuff 2006. DNC. Left foot surgery. Tubal ligation. TAB R 2016. Cholecystectomy.
Pulmonary nodule incidentally noted CT TAVR with change in nodular underwent robotic bronchoscopy/-no conclusive malignant cells-repeat CT December 2024
Plan
Respiratory decompensation, likely due to heart failure, preserved EF and mild COPD exacerbation.
Supplemental options as needed.
Nebulizers -dual nebs 3 times a day
Aspiration precautions.
Steroids initiated 01/14/2025 with ongoing wheezing on exam
Diuresis continues as tolerated-did not diurese-consider increasing intravenous diuretics
Monitor intake, output, weight, lower extremity edema and renal function.
Replacement electrolytes as needed.
Follow-up radiographically..
Cardiology evaluation ongoing-correspondence reviewed
Echocardiogram 01/13/2025-EF 60-65%, TAVR functioning well, no significant change with exception patient is in atrial fibrillation with 100% ventricular pacing compared to 02/2024
DVT prophylaxis-on heparin.
GI prophylaxis-on pantoprazole.
Nutrition
Early mobilization
Follows with pulmonary-Dr. Steel-first seen 02/05/2024 and subsequently followed up with Ching BOYKIN on 12/04/2024-has appointment with Dr. Chanel 1:30 PM 02/16/2025
Diagnostic data:
CXR 10/09/24: Left basilar opacity without significant change.� Could represent, nation of atelectasis and small pleural effusion
CXR 10/08/2024: Decreased conspicuously of the previously suspected tiny left apical pneumothorax, likely resolved.� (This was post bronchoscopy).
Chest x-ray 12/21/24-NAD, mild asymmetrical elevation of left hemidiaphragm.
Chest x-ray 01/12/25-small bilateral pleural effusions
CT chest Ion 09/12/2024: Superior segment of the left lower lobe 1.1 cm nodule, increased volume soft tissue component with diameter of [address] chest 01/12/25-stable 1.2; left lower lobe nodule, scattered, slightly prominent mediastinal lymph nodes
PFT 08/28/2024: FVC 1.63/71%, FEV1 1.11/65%, ratio 68%, significant BD response in FEV1 (16%), post BD results FVC 1.76/77%, FEV1 1.29/76%, ratio 73%, TLC 3.21/70%, DLCO 11.50/63%, DLCO/VA 4.31/107%.� Mild restriction. Mildly reduced diffusing
capacity that normalizes with alveolar adjustment.
[place] 02/05/24: FVC 1.43/57%, FEV1 0.94/51%, ratio 66%, no significant BD response in FEV1.� Moderate obstruction and suggestive of mild restrictive pattern.
Echo 03/11/2024: EF 55 to 60%.� Mid anteroseptal, apical septal and mid to distal inferior akinesis/dyskinesis.� Wall motion consistent with conduction abnormality, paced rhythm. Normal RV size and function.� TAVR.� Trace AR.
HST 07/21/2024: DIEUDONNE 12.1 events/hour, O2 obinna 76%, 90.3% of the study time spent with O2 below 90%
Split study 09/30/14: Sleep efficiency 90%, AHI 35.35 events per hour, O2 obinna 80%; CPAP ineffective, recommended auto BiPAP therapy.
Bronchoscopic biopsy 10/08/24-unremarkable alveolar lung tissue, Left lower lobe TBNA-unsatisfactory for evaluation, left lower lobe BAL-negative for malignancy
Subjective Data
-
Date of Service:
Date of Service: January 14, 2025
Chief Complaint: Pulmonary Follow Up and Dyspnea Follow Up
Subjective:
Patient complained of increased wheezing, some shortness of breath, no chest pain, chest tightness
Review of Systems
General: Other (Per HPI)
Objective Data
Data Reviewed
Vital Signs / I&O:
Vital Signs
Temp Pulse Resp BP Pulse Ox
97.6 F 64 20 137/62 98
01/14/25 07:51 01/14/25 07:51 01/14/25 07:51 01/14/25 07:51 01/14/25 07:51
Intake and Output
01/13/25 01/14/25 01/15/25
06:59 06:59 06:59
Intake Total 120 / 120 920 / 920
Balance 120 / 120 920 / 920
SaO2: 98
Nasal Cannula flow liters per minute: 3
Physical Exam
General: Respiratory Distress (n) and Comfortable
HEENT: Normocephalic, Anicteric and Moist Mucous Membranes
Cardiovascular: Regular Rhythm and Murmur
Respiratory: Wheeze (Expiratory), Crackles ( basilar), Rhonchi (n), Non-Labored Respirations, Accessory Resp Muscle Use (n) and Stridor (n)
GI: Soft, Non Distended and Non Tender
Neurology: Awake, Alert and No Motor Deficits
Skin: Warm, Good Color, Cyanosis (n) and Jaundice (n)
Labs/Micro/Reports
Lab Data
01/12/25 11:10
01/14/25 06:50
Microbiology
01/12/25 22:25 Nose MRSA Screen - Final
No Methicillin Resistant Staphylococcus aureus isolated.
--- NOTE | 2025-01-14 11:45 | PN.CDI ---
Addendum entered and electronically signed by Eduard Trujillo MD 01/14/25 12:16:
Pressure injury stage [Present on admission Sacrum] Stage 2
Original Note:
CDI
- -
CDI:
Physician Documentation Request
Admit Date: 01/12/25 16:09
Dear Doctor Cassandra,
Patient admitted for heart failure.
Nursing documentation clinical panel wound care
01/12/25
23:34
Dressing appearance [Present on admission Sacrum] Dry/intact
Is this a pressure-related injury? [Present on admission Sacrum] Yes
Pressure injury appearance [Present on admission Sacrum] [place] wound bed
Pressure injury stage [Present on admission Sacrum] Stage 2
Treatment provided [Present on admission Sacrum] Silicone border
foam
Physician documentation of the type and location of wounds is required for compliant documentation. Based on the above clinical findings and your assessment, please provide the following in your progress note:
1. Location of the ulcer/wound, including laterality.
2. Type (etiology) of ulcer/wound:
- Diabetic ulcer
- Arterial (ischemic) ulcer
- Traumatic wound
- Venous stasis ulcer
- Pressure (decubitus) ulcer
- Non-healing surgical wound
- Other
- Unable to determine
3. For a non-pressure ulcer, please indicate the depth/severity:
- Limited to the breakdown of skin
- With fat layer exposed
- With necrosis of muscle
- With necrosis of bone
- Other
- Unable to determine
4. If a pressure ulcer, please also include the stage* of the ulcer:
- Stage 1 - Skin intact, non-blanchable redness
- Stage 2 - Partial thickness loss of dermis, includes intact or open blister
- Stage 3 - Full thickness tissue not including bone, tendon or muscle
- Stage 4 - Full thickness tissue loss, including exposed bone, tendon or muscle
- Unstageable - Full thickness loss in which the base of the ulcer is covered by slough (yellow, medina, dillon, green or brown) and/or eschar (medina, brown or black) in the wound bed.
- Unable to determine
Use of terms such as suspected, likely, concern for, or probable (associated with a specific diagnosis that is being evaluated, monitored, or treated as if it exists) are acceptable and can be coded in the inpatient setting, when documented at the
time of discharge.
Thank you,
Maame Hernandez RN, BSN
CDI Specialist
Available via [place] text
Please use your independent medical judgment in providing your response.
*Source: National Pressure Ulcer Advisory Panel (NPUAP)
[2025-01-14 11:48] VITALS: BP 115/53
[2025-01-14] MEDS: REMOVE LIDOCAINE PATCH 2 PATCH REMOVE (13:59)
[2025-01-14 15:55] VITALS: BP 119/54
--- NOTE | 2025-01-14 16:05 | CM ---
CM reviewed chart, patient seen bedside, discussed therapy recommendations of SNF. Patient agreeable, requesting referral back to [facility], will send in [facility]. Patient will require insurance auth for SNF once accepted. CM will continue to follow
for all discharge planning needs.
Plan; [facility] pending acceptance, will require auth
[2025-01-14] MEDS: SOLU-MEDROL PF 20 MG IV (16:06)
[2025-01-14] MEDS: TESSALON PERLES 100 MG PO (16:57)
[2025-01-14] MEDS: CRESTOR 20 MG PO (18:36)
[2025-01-14 23:40] VITALS: BP 123/56
[2025-01-15 06:00] VITALS: BMI 30.3
[2025-01-15] MEDS: SYNTHROID 100 MCG PO (06:39)
[2025-01-15 07:00] VITALS: BP 89/44
[2025-01-15] MEDS: LASIX 40 MG IV ×2 (07:30→16:11)
[2025-01-15] MEDS: ALDACTONE 12.5 MG PO (07:30)
[2025-01-15] MEDS: HEPARIN 5000 UNITS SC ×2 (07:30→20:39)
[2025-01-15] MEDS: SOLU-MEDROL PF 20 MG IV (07:30)
[2025-01-15] MEDS: TYLENOL 1000 MG PO ×2 (07:30→21:22)
[2025-01-15] MEDS: OCUVITE SOFTGEL 2 CAP PO (07:30)
[2025-01-15] MEDS: CELEXA 20 MG PO (07:30)
[2025-01-15] MEDS: CARDIZEM CD 180 MG PO (07:30)
[2025-01-15] MEDS: ZANAFLEX 2 MG PO ×3 (07:32→21:22)
[2025-01-15] MEDS: ASPIR LOW (ENTERIC COATED) 81 MG PO (07:32)
[2025-01-15] MEDS: PROTONIX 40 MG PO (07:33)
[2025-01-15] MEDS: TESSALON PERLES 100 MG PO (07:33)
[2025-01-15] MEDS: TYLENOL PO (07:34)
[2025-01-15] MEDS: DESENEX/MITRAZOL/ZEASORB 1 APPLIC TOPICAL ×2 (07:35→20:38)
[2025-01-15] MEDS: KCL 20 MEQ PO (07:35)
[2025-01-15] MEDS: ZYLOPRIM 300 MG PO (07:35)
[2025-01-15] MEDS: LYRICA 25 MG PO ×2 (07:35→20:39)
[2025-01-15] MEDS: REMOVE LIDOCAINE PATCH 1 PATCH REMOVE (07:40)
[2025-01-15] MEDS: PULMICORT 0.5 MG INH ×2 (07:57→20:04)
[2025-01-15] MEDS: DUONEB 3 ML INH ×4 (07:57→20:04)
--- NOTE | 2025-01-15 08:01 | W.PN.CD ---
Today's Communication / Plan
-
Feeling improved
Cont IV diuresis
Standing weights
Impression / Plan
-
I/P: 79F presented from [facility] with a chief complaint of cough and chest congestion.
Primary Cuff Cutter: Dr. Ramirez
Acute on chronic hypoxic respiratory failure, in the setting of COPD, on 3L NC as an outpatient
-HF contributing
-Dr Trujillo to address COPD component
HFpEF acute on chronic
-Small pleural effusions, SOB, and elevated proBNP
-Diuresis with furosemide 40mg IV BID, this requires intensive monitoring
-Dry weight presumed to be ~66kg 145 lbs -this seems low, will continue to reevaluate
-SGLT2i are ~$140
-Trend daily weight, I/O, and BMP with diuresis
-HF education
Atrial fibrillation, presumed paroxysmal
-more episodes since October
-Dr Boyd d/w Dr Ramirez her primary op cardiology, will continue with rate control.
-Oral Anticoagulation: None due to prior eye hemorrhage, she declined watchman by her primary account collector
-[id number]: score at least 5 (Heart failure, HTN, age 75 or more, female gender)
CKD, follow with diuresis, stable
MDT PPM
-MRI conditional
Abnormal CT
-Chest: Stable 1.2 cm left lower lobe pulmonary nodule, possibly neoplasm. Scattered slightly prominent mediastinal lymph nodes, slightly progressed, reactive versus metastatic
-Follow up per pulmonary
Subjective: feeling better
CAD, non obstructive, stable without CP, on ASA
Severe s/p TAVR 12/08/2021, peak/mean gradients 23/12 mmHg
SSS s/p PPM, device interrogation as above
Data:
TTE 01/13/2025: LVEF 60-65%, normal TAVR, PASP 20 mmHg
Device interrogation with 100% V pacing
Physical Exam
Vital Signs/Labs
Vital Signs
Temp Pulse Resp BP Pulse Ox
98.2 F 64 16 123/56 95
01/14/25 23:40 01/15/25 08:00 01/15/25 08:00 01/14/25 23:40 01/15/25 08:00
01/14/25 01/15/25 01/16/25
06:59 06:59 06:59
Actual Weight 163 lb 7 oz 165 lb 4 oz
Magnesium 2.2 mg/dl (1.6-2.3) 01/13/25 06:42
01/12/25
13:21
Vde-M-Ftdtdlkmnbx Pept 1310
LAB Results
01/12/25
13:21
Troponin I < 0.012
Physical Exam
Constitutional: No acute distress and Comfortable
EENT: Anicteric
Cardiovascular: Rhythm & rate is regular
Respiratory: Respiratory effort normal, Wheeze Present and Crackles Present
GI: Soft
Neuro/Psych: AO x 3
Data Reviewed
-
Date of Service: January 15, 2025
Medical Decision Making: Reviewed Test Results
EKG: Tracing Personally Visualized and interpreted (paced)
Echo: Report Reviewed by me
Labs: Labs Reviewed by me
--- NOTE | 2025-01-15 08:24 | W.PN.HOSP.TC ---
Today's Communication/Plan
-
IV steroid
IV Lasix
Zyrtec
nebs
Assessment / Plan
Assessment / Plan
Physical Exam
General: No Apparent Distress, Comfortable, Conversant and Appears Chronically Ill
HEENT: Moist mucous membranes and Atraumatic
Respiratory: less wheezes but still rales.
Cardiac: S1/S2, Regular Rhythm and Peripheral Edema
GI: Soft, Non Tender and Non Distended
Genito-urinary: No Patel
Musculoskeletal: No Cyanosis
Skin: No Jaundice
Neuro: AO x 3, Nonfocal/grossly intact and less Tremors
Psych: Calm and Intact Judgment/Insight; No Agitated
79 years old female presented with chest congestion/cough, weakness, tremor of bilateral upper extremities
# Acute on chronic HFpEF
no chest pain, no worsening sob, feels congested
c/w IV Lasix, holding oral diuretic to push IV Lasix for short time to improve breathing.
-Monitor Daily Weights. Not much weight loss
prophylactic potassium supplement
Echo of the heart 01/13 showed LVEF 60-65%, mild LVH, TAVR dysfunction well, no significant change.
Appreciate cardiology input
# Acute rhinitis
No fevers
Will try Zyrtec and ocean nasal [place]
#acute COPD exacerbation
seems to start wheezing, possible due to CHF episode
Tessalon PRN
c/w IV SoluMedrol and c/w Nebulizer therapy
Appreciate pulmonary input
# Tremor, paroxysmal noted in bilateral upper extremity, mostly intentional tremor
No tremor noted, improved after adjusting her medications.
Likely medication related. Seems associated with new medicine oxycodone. reduced both Lyrica/ tizanidine, cant stop them abruptly.
CAT scan of the head no acute findings. Patient is lucid and fully oriented
# pressure stage 2 sacral injury
POA
#Non-Obstructive Coronary Artery Disease
No chest pain.
-Continue aspirin
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
Monitor renal function
# Ambulatory dysfunction, chronic
#Paroxysmal Atrial Fibrillation
-Continue diltiazem
-Patient is not anticoagulation secondary to prior eye hemorrhage
#Essential Hypertension
-Continue Cardizem
#Hyperlipidemia
-Continue rosuvastatin
#Hypothyroidism
-Continue levothyroxine
#Depression
Mood is cooperative
-Continue citalopram
#Cervical Radiculopathy
c/w Tylenol rcmbmb-lci-hrbiw to reduce need for pain medications
Hx Severe Aortic Stenosis s/p TAVR
Hx Ulcerative Colitis
Hx Rheumatoid Arthritis
DVT proph: SCDs
Code Status: Full Code, confirmed with patient.
Total time spent to see the patient on the floor, examine the patient, review data and lab results, discuss treatment plan with patient, nursing staff around 55 minutes.
Anticipated Discharge: > 48 hours
Subjective/Interval History
-
Date of Service: January 15, 2025
Nasal congestion
No sob
No chest pain
Objective Data
-
Labs:
Laboratory Results
01/15/25
06:00
WBC Pending
Hgb Pending
Hct Pending
Plt Count Pending
Sodium Pending
Potassium Pending
Chloride Pending
Carbon Dioxide Pending
BUN Pending
Creatinine Pending
Glucose Pending
Calcium Pending
Vital Signs:
Vital Signs
Temp Pulse Resp BP Pulse Ox
98.2 F 64 16 123/56 95
01/14/25 23:40 01/15/25 08:00 01/15/25 08:00 01/14/25 23:40 01/15/25 08:00
I&O
01/14/25 01/15/25 01/16/25
06:59 06:59 06:59
Intake Total 920 / 920 960 / 960
Balance 920 / 920 960 / 960
[2025-01-15 09:00] VITALS: BMI 28.3
--- NOTE | 2025-01-15 09:51 | W.PN.PUL.V3 ---
Today's Communication / Plan
-
Increase steroids
Continue nebulizers
Continue diuresis attempts
Assessment
-
79-year-old former smoking female with underlying COPD, hypothyroidism, chronic systolic heart failure, CAD and peripheral vascular disease presented with congestion, atrial fibrillation, cough and pulmonary was consulted for cough and possible COPD
exacerbation 01/13/2025.
Heart failure, preserved EF-acute on top of chronic.
Chronic cough.
COPD with mild acute exacerbation.
Mild vbmbnt-gkwqhkyzxy-lgrnshdmca 11.8.
Hyperglycemia.
Mild transaminitis
Conditions present prior to admission:
COPD
Former smoker
PAF
Restrictive lung disease
Nocturnal hypoxemia
MARY-CPAP intolerant
Pulmonary nodule status post bronchoscopy 09/2024-no malignant cells-close radiographic follow-up suggested
Ulcerative colitis
Hypertension
Rheumatoid thrice
Hypothyroid
Gastritis
Chronic kidney disease
Osteoporosis
Hyperlipidemia
Diverticulosis
Gout
Sick sinus syndrome status post pacemaker 2011 and generator change 2021
Peripheral neuropathy
Bladder calculi and renal calculi
Anxiety/depression
Ablation-declined oral anticoagulant
Hypocalcemia
Migraines
Acute neuritis
GERD
Anemia
Cervical radiculopathy neck
Left wrist surgery. History of DVT. Right rotator cuff 2006. DNC. Left foot surgery. Tubal ligation. TAB R 2016. Cholecystectomy.
Pulmonary nodule incidentally noted CT TAVR with change in nodular underwent robotic bronchoscopy/-no conclusive malignant cells-repeat CT December 2024
Plan
Respiratory decompensation, likely due to heart failure, preserved EF and-no change COPD exacerbation.
Supplemental options as needed.
Nebulizers -dual nebs 3 times a day
Aspiration precautions.
Steroids initiated 01/14/2025 with ongoing wheezing on exam-will increase dose with ongoing wheezing
Diuresis continues as tolerated-did not diurese-consider increasing intravenous diuretics
Monitor intake, output, weight, lower extremity edema and renal function.
Replacement electrolytes as needed.
Follow-up radiographically..
Cardiology evaluation ongoing-correspondence reviewed
Echocardiogram 01/13/2025-EF 60-65%, TAVR functioning well, no significant change with exception patient is in atrial fibrillation with 100% ventricular pacing compared to 02/2024
DVT prophylaxis-on heparin.
GI prophylaxis-on pantoprazole.
Nutrition
Early mobilization
Follows with pulmonary-Dr. Steel-first seen 02/05/2024 and subsequently followed up with Ching BOYKIN on 12/04/2024-has appointment with Dr. Chanel 1:30 PM 02/16/2025
Diagnostic data:
CXR 10/09/24: Left basilar opacity without significant change.� Could represent, nation of atelectasis and small pleural effusion
CXR 10/08/2024: Decreased conspicuously of the previously suspected tiny left apical pneumothorax, likely resolved.� (This was post bronchoscopy).
Chest x-ray 12/21/24-NAD, mild asymmetrical elevation of left hemidiaphragm.
Chest x-ray 01/12/25-small bilateral pleural effusions
CT chest Ion 09/12/2024: Superior segment of the left lower lobe 1.1 cm nodule, increased volume soft tissue component with diameter of [address] chest 01/12/25-stable 1.2; left lower lobe nodule, scattered, slightly prominent mediastinal lymph nodes
PFT 08/28/2024: FVC 1.63/71%, FEV1 1.11/65%, ratio 68%, significant BD response in FEV1 (16%), post BD results FVC 1.76/77%, FEV1 1.29/76%, ratio 73%, TLC 3.21/70%, DLCO 11.50/63%, DLCO/VA 4.31/107%.� Mild restriction. Mildly reduced diffusing
capacity that normalizes with alveolar adjustment.
Jovany 02/05/24: FVC 1.43/57%, FEV1 0.94/51%, ratio 66%, no significant BD response in FEV1.� Moderate obstruction and suggestive of mild restrictive pattern.
Echo 03/11/2024: EF 55 to 60%.� Mid anteroseptal, apical septal and mid to distal inferior akinesis/dyskinesis.� Wall motion consistent with conduction abnormality, paced rhythm. Normal RV size and function.� TAVR.� Trace AR.
HST 07/21/2024: DIEUDONNE 12.1 events/hour, O2 obinna 76%, 90.3% of the study time spent with O2 below 90%
Split study 09/30/14: Sleep efficiency 90%, AHI 35.35 events per hour, O2 obinna 80%; CPAP ineffective, recommended auto BiPAP therapy.
Bronchoscopic biopsy 10/08/24-unremarkable alveolar lung tissue, Left lower lobe TBNA-unsatisfactory for evaluation, left lower lobe BAL-negative for malignancy
Subjective Data
-
Date of Service:
Date of Service: January 15, 2025
Chief Complaint: Pulmonary Follow Up and Dyspnea Follow Up
Subjective:
Had episode of shortness of breath and wheezing responding to nebs this morning, continues to some wheezing, no chest pain or abdominal pain
Review of Systems
General: Other (Per HPI)
Objective Data
Data Reviewed
Vital Signs / I&O:
Vital Signs
Temp Pulse Resp BP Pulse Ox
98.2 F 64 16 123/56 95
01/14/25 23:40 01/15/25 08:00 01/15/25 08:00 01/14/25 23:40 01/15/25 08:00
Intake and Output
01/14/25 01/15/25 01/16/25
06:59 06:59 06:59
Intake Total 920 / 920 960 / 960
Balance 920 / 920 960 / 960
SaO2: 95
Nasal Cannula flow liters per minute: 4
Physical Exam
General: Respiratory Distress (n) and Comfortable
HEENT: Normocephalic, Anicteric and Moist Mucous Membranes
Cardiovascular: Regular Rhythm and Murmur
Respiratory: Wheeze (Expiratory), Crackles ( basilar), Rhonchi (n), Non-Labored Respirations, Accessory Resp Muscle Use (n) and Stridor (n)
GI: Soft, Non Distended and Non Tender
Neurology: Awake, Alert and No Motor Deficits
Skin: Warm, Good Color, Cyanosis (n) and Jaundice (n)
Labs/Micro/Reports
Microbiology
01/12/25 22:25 Nose MRSA Screen - Final
No Methicillin Resistant Staphylococcus aureus isolated.
[2025-01-15] MEDS: ZYRTEC 10 MG PO (10:07)
[2025-01-15] MEDS: OCEAN, SALINE MIST 1 SPRAYS NASAL ×2 (10:08→12:25)
[2025-01-15 10:27] VITALS: BP 105/50; PULSE 60; O2SAT 96
[2025-01-15 10:46] LABS: Hematocrit 37.1 % (37.0-47.0); Hemoglobin 12.0 g/dL (12.0-16.0); Mean Corp Hgb Conc. 32.3 g/dL (33.0-37.0); Mean Corpuscular Volume 93.5 fL (81.0-99.0); Platelet Count 188 10^3/uL (130-400); Red Cell Dist. Width 14.3 % (11.5-14.5)
[2025-01-15 11:26] LABS: Blood Urea Nitrogen 27 mg/dl (7-17); Calcium 9.3 mg/dl (8.4-10.2); Carbon Dioxide 33 mmol/L (22-30); Chloride 100 mmol/L (98-107); Estimated Creatinine Clearance 51 ml/min; Glucose 150 mg/dl (70-99); Potassium 4.3 mmol/L (3.5-5.1); Sodium 142 mmol/L (135-145); eGFR > 60.00
--- NOTE | 2025-01-15 14:20 | CM ---
CM reviewed chart, patient has been accepted by [facility] for STR pending bed availability. Patient will require insurance auth. CM will continue to follow for all discharge planning needs.
Plan; [facility] SNF, pending bed availability, will need auth
[2025-01-15 15:00] VITALS: BP 116/52
[2025-01-15] MEDS: SOLU-MEDROL PF 40 MG IV (16:10)
[2025-01-15] MEDS: CRESTOR 20 MG PO (16:10)
[2025-01-15] MEDS: OCEAN, SALINE MIST 50 SPRAYS NASAL (16:16)
[2025-01-15] MEDS: LIDOCAINE 4% PATCH 2 PATCH TOPICAL (20:39)
[2025-01-15] MEDS: OCEAN, SALINE MIST 2 SPRAYS NASAL (21:22)
[2025-01-15 23:49] VITALS: BP 118/73
[2025-01-16] MEDS: SYNTHROID 100 MCG PO (05:48)
[2025-01-16 06:00] VITALS: BMI 29.2
[2025-01-16] MEDS: DUONEB 3 ML INH ×4 (07:32→18:40)
[2025-01-16] MEDS: PULMICORT 0.5 MG INH ×2 (07:32→18:40)
[2025-01-16 07:55] VITALS: BP 130/58
--- NOTE | 2025-01-16 08:01 | W.PN.CD ---
Today's Communication / Plan
-
Continue IV diuresis
Likely switch to PO tomorrow pending weight (was 150lb standing scale in September)
Impression / Plan
-
I/P: 79F presented from [facility] with a chief complaint of cough and chest congestion.
Primary Upper Doubler: Dr. Ramirez
Acute on chronic hypoxic respiratory failure, in the setting of COPD, on 3L NC as an outpatient
-HF contributing
-pulmonary addressing COPD component; she is on steroids
HFpEF acute on chronic
-Small pleural effusions, SOB, and elevated proBNP
-Diuresis with furosemide 40mg IV BID, this requires intensive monitoring
-Dry weight presumed to be ~66kg 145 lbs -this seems low, will continue to reevaluate (of note, was 150lb standing in September)
-SGLT2i are ~$140
-Trend daily weight, I/O, and BMP with diuresis
-HF education
Atrial fibrillation, presumed paroxysmal
-more episodes since October
-Dr Diaz d/w Dr Ramirez her primary op cardiology, will continue with rate control.
-Oral Anticoagulation: None due to prior eye hemorrhage, she declined watchman by her primary lawn care technician
-[id number]: score at least 5 (Heart failure, HTN, age 75 or more, female gender)
CKD, follow with diuresis, stable
MDT PPM
-MRI conditional
Abnormal CT
-Chest: Stable 1.2 cm left lower lobe pulmonary nodule, possibly neoplasm. Scattered slightly prominent mediastinal lymph nodes, slightly progressed, reactive versus metastatic
-Follow up per pulmonary
Subjective: feeling ok. peeing but not a ton. breathing better sometimes and worse others.
CAD, non obstructive, stable without CP, on ASA
Severe s/p TAVR 12/08/2021, peak/mean gradients 23/12 mmHg
SSS s/p PPM, device interrogation as above
Data:
TTE 01/13/2025: LVEF 60-65%, normal TAVR, PASP 20 mmHg
Device interrogation with 100% V pacing
Physical Exam
Vital Signs/Labs
Vital Signs
Temp Pulse Resp BP Pulse Ox
97.6 F 83 16 118/73 96
01/15/25 23:49 01/15/25 23:49 01/15/25 23:49 01/15/25 23:49 01/15/25 23:49
01/15/25 01/16/25 01/17/25
06:59 06:59 06:59
Actual Weight 165 lb 4 oz 154 lb 7 oz
01/15/25 09:57
01/15/25 09:57
Magnesium 2.2 mg/dl (1.6-2.3) 01/13/25 06:42
01/12/25
13:21
Ncm-C-Lsjghjeyycu Pept 1310
Physical Exam
Constitutional: No acute distress and Comfortable
Cardiovascular: Rhythm & rate is regular, Pedal edema is absent and Murmur/rub/gallop absent
Respiratory: Respiratory effort normal, Wheeze Present, Crackles Present and Rhonchi Present
Data Reviewed
-
Date of Service: January 16, 2025
Medical Decision Making: Reviewed Test Results, Independent Historian Assessment, Test Interpretation and Review of Case with other Provider
EKG: Tracing Personally Visualized and interpreted
Echo: Report Reviewed by me
Labs: Labs Reviewed by me
--- NOTE | 2025-01-16 08:01 | W.PN.HOSP.TC ---
Today's Communication/Plan
-
will updated family per pt request
c/w IV Lasix, IV steroid
Avoid opiates
c/w Tylenol
Assessment / Plan
Assessment / Plan
Physical Exam
General: No Apparent Distress, Comfortable, Conversant and Appears Chronically Ill
HEENT: Moist mucous membranes and Atraumatic
Respiratory: less wheezes but still rales.
Cardiac: S1/S2, Regular Rhythm and Peripheral Edema
GI: Soft, Non Tender and Non Distended
Genito-urinary: No Patel
Musculoskeletal: No Cyanosis
Skin: No Jaundice
Neuro: AO x 3, Nonfocal/grossly intact and less Tremors
Psych: Calm and Intact Judgment/Insight; No Agitated
79 years old female presented with chest congestion/cough, weakness, tremor of bilateral upper extremities
# Acute on chronic HFpEF
no chest pain, no worsening sob, feels congested
c/w IV Lasix, holding oral diuretic to push IV Lasix for short time to improve breathing.
-Monitor Daily Weights. Not much weight loss
prophylactic potassium supplement
Echo of the heart 01/13 showed LVEF 60-65%, mild LVH, TAVR dysfunction well, no significant change.
Appreciate cardiology input
# Acute rhinitis
No fevers
c/w Zyrtec and ocean nasal [place]
#acute COPD exacerbation
seems to start wheezing, possible due to CHF episode
Tessalon PRN
c/w IV SoluMedrol, agree to do higher dose and c/w Nebulizer therapy
Appreciate pulmonary input
# Tremor, paroxysmal noted in bilateral upper extremity, mostly intentional tremor
No tremor noted, improved after adjusting her medications.
Likely medication related. Seems associated with new medicine oxycodone. Reduced both Lyrica/ tizanidine, would not recommend to stop them abruptly.
CAT scan of the head no acute findings. Patient is lucid and fully oriented
# pressure stage 2 sacral injury
POA
#Non-Obstructive Coronary Artery Disease
No chest pain.
-Continue aspirin
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
Monitor renal function
# Ambulatory dysfunction, chronic
#Paroxysmal Atrial Fibrillation
-Continue diltiazem
-Patient is not anticoagulation secondary to prior eye hemorrhage
#Essential Hypertension
-Continue Cardizem
#Hyperlipidemia
-Continue rosuvastatin
#Hypothyroidism
-Continue levothyroxine
#Depression
Mood is cooperative
-Continue citalopram
#Cervical Radiculopathy
c/w Tylenol roqutp-rzf-meosn to reduce need for pain medications
Hx Severe Aortic Stenosis s/p TAVR
Hx Ulcerative Colitis
Hx Rheumatoid Arthritis
DVT proph: SCDs
Code Status: Full Code, confirmed with patient.
Total time spent to see the patient on the floor, examine the patient, review data and lab results, discuss treatment plan with patient, nursing staff around 55 minutes.
Anticipated Discharge: 24 - 48 hours
Subjective/Interval History
-
Date of Service: January 16, 2025
No chest pain
Feels better, less congested
No abdominal pain
Objective Data
-
Vital Signs:
Vital Signs
Temp Pulse Resp BP Pulse Ox
97.6 F 83 16 118/73 96
01/15/25 23:49 01/15/25 23:49 01/15/25 23:49 01/15/25 23:49 01/15/25 23:49
I&O
01/15/25 01/16/25 01/17/25
06:59 06:59 06:59
Intake Total 960 / 960 1440 / 1440 240 / 240
Balance 960 / 960 1440 / 1440 240 / 240
[2025-01-16] MEDS: LASIX 40 MG IV ×2 (08:35→16:55)
[2025-01-16] MEDS: OCUVITE SOFTGEL 2 CAP PO (08:36)
[2025-01-16] MEDS: KCL 20 MEQ PO (08:36)
[2025-01-16] MEDS: ASPIR LOW (ENTERIC COATED) 81 MG PO (08:36)
[2025-01-16] MEDS: ALDACTONE 12.5 MG PO (08:36)
[2025-01-16] MEDS: ZANAFLEX 2 MG PO ×3 (08:36→21:37)
[2025-01-16] MEDS: CARDIZEM CD 180 MG PO (08:36)
[2025-01-16] MEDS: LYRICA 25 MG PO ×2 (08:36→21:38)
[2025-01-16] MEDS: CELEXA 20 MG PO (08:36)
[2025-01-16] MEDS: PROTONIX 40 MG PO (08:36)
[2025-01-16] MEDS: ZYLOPRIM 300 MG PO (08:37)
[2025-01-16] MEDS: TYLENOL 1000 MG PO ×3 (08:37→21:37)
[2025-01-16] MEDS: SOLU-MEDROL PF 40 MG IV ×2 (08:37→16:56)
[2025-01-16] MEDS: REMOVE LIDOCAINE PATCH 2 PATCH REMOVE (08:38)
[2025-01-16] MEDS: HEPARIN 5000 UNITS SC ×2 (08:39→21:32)
[2025-01-16] MEDS: DESENEX/MITRAZOL/ZEASORB 1 APPLIC TOPICAL ×2 (08:39→21:32)
[2025-01-16] MEDS: OCEAN, SALINE MIST NASAL ×2 (08:41→14:10)
[2025-01-16] MEDS: ZYRTEC 10 MG PO (08:43)
--- NOTE | 2025-01-16 09:21 | W.PN.PUL.V3 ---
Today's Communication / Plan
-
Wean oxygen
Increase activity
No change in methylprednisolone
Add mucolytic's and mucus clearing devices
Continue nebulizers
Add budesonide
Diuresis per cardiology
Assessment
-
79-year-old former smoking female with underlying COPD, hypothyroidism, chronic systolic heart failure, CAD and peripheral vascular disease presented with congestion, atrial fibrillation, cough and pulmonary was consulted for cough and possible COPD
exacerbation 01/13/2025.
Heart failure, preserved EF-acute on top of chronic.
Chronic cough.
COPD with mild acute exacerbation.
Mild dadvmn-bcesaqookt-xltsjyybqz 11.8.
Hyperglycemia.
Mild transaminitis
Conditions present prior to admission:
COPD
Former smoker
PAF
Restrictive lung disease
Nocturnal hypoxemia
MARY-CPAP intolerant
Pulmonary nodule status post bronchoscopy 09/2024-no malignant cells-close radiographic follow-up suggested
Ulcerative colitis
Hypertension
Rheumatoid thrice
Hypothyroid
Gastritis
Chronic kidney disease
Osteoporosis
Hyperlipidemia
Diverticulosis
Gout
Sick sinus syndrome status post pacemaker 2011 and generator change 2021
Peripheral neuropathy
Bladder calculi and renal calculi
Anxiety/depression
Ablation-declined oral anticoagulant
Hypocalcemia
Migraines
Acute neuritis
GERD
Anemia
Cervical radiculopathy neck
Left wrist surgery. History of DVT. Right rotator cuff 2007. DNC. Left foot surgery. Tubal ligation. TAB R 2016. Cholecystectomy.
Pulmonary nodule incidentally noted CT TAVR with change in nodular underwent robotic bronchoscopy/-no conclusive malignant cells-repeat CT December 2024
Plan
Respiratory decompensation, likely due to heart failure, preserved EF and-mild to moderate COPD exacerbation.
Supplemental options as needed.
Nebulizers -duonebs 3 times a day
Budesonide will be added
Mucolytic's will be added
Mucus clearing devices will be added
Check sputum culture-observe off antibiotics for now
Aspiration precautions.
Steroids initiated 01/14/2025 and dose increased to methylprednisone 40 mg IV twice daily on 01/15/2025
Diuresis continues as tolerated-did not diurese-consider increasing intravenous diuretics
Monitor intake, output, weight, lower extremity edema and renal function.
Replacement electrolytes as needed.
Follow-up radiographically..
Cardiology evaluation ongoing-correspondence reviewed
Echocardiogram 01/13/2025-EF 60-65%, TAVR functioning well, no significant change with exception patient is in atrial fibrillation with 100% ventricular pacing compared to 02/2024
DVT prophylaxis-on heparin.
GI prophylaxis-on pantoprazole.
Nutrition
Early mobilization
Follows with pulmonary-Dr. Steel-first seen 02/05/2024 and subsequently followed up with Ching BOYKIN on 12/04/2024-has appointment with Dr. Chanel 1:30 PM 02/16/2025
Diagnostic data:
CXR 10/09/24: Left basilar opacity without significant change.� Could represent, nation of atelectasis and small pleural effusion
CXR 10/08/2024: Decreased conspicuously of the previously suspected tiny left apical pneumothorax, likely resolved.� (This was post bronchoscopy).
Chest x-ray 12/21/24-NAD, mild asymmetrical elevation of left hemidiaphragm.
Chest x-ray 01/12/25-small bilateral pleural effusions
CT chest Ion 09/12/2024: Superior segment of the left lower lobe 1.1 cm nodule, increased volume soft tissue component with diameter of [address] chest 01/12/25-stable 1.2; left lower lobe nodule, scattered, slightly prominent mediastinal lymph nodes
PFT 08/28/2024: FVC 1.63/71%, FEV1 1.11/65%, ratio 68%, significant BD response in FEV1 (16%), post BD results FVC 1.76/77%, FEV1 1.29/76%, ratio 73%, TLC 3.21/70%, DLCO 11.50/63%, DLCO/VA 4.31/107%.� Mild restriction. Mildly reduced diffusing
capacity that normalizes with alveolar adjustment.
[place] 02/05/24: FVC 1.43/57%, FEV1 0.94/51%, ratio 66%, no significant BD response in FEV1.� Moderate obstruction and suggestive of mild restrictive pattern.
Echo 03/11/2024: EF 55 to 60%.� Mid anteroseptal, apical septal and mid to distal inferior akinesis/dyskinesis.� Wall motion consistent with conduction abnormality, paced rhythm. Normal RV size and function.� TAVR.� Trace AR.
HST 07/21/2024: DIEUDONNE 12.1 events/hour, O2 obinna 76%, 90.3% of the study time spent with O2 below 90%
Split study 09/30/14: Sleep efficiency 90%, AHI 35.35 events per hour, O2 obinna 80%; CPAP ineffective, recommended auto BiPAP therapy.
Bronchoscopic biopsy 10/08/24-unremarkable alveolar lung tissue, Left lower lobe TBNA-unsatisfactory for evaluation, left lower lobe BAL-negative for malignancy
Subjective Data
-
Date of Service:
Date of Service: January 16, 2025
Chief Complaint: Pulmonary Follow Up and Dyspnea Follow Up
Subjective:
Still some wheezing, some shortness of breath, chest congestion and occasional cough, no abdominal pain
Review of Systems
General: Other (Per HPI)
Objective Data
Data Reviewed
Vital Signs / I&O:
Vital Signs
Temp Pulse Resp BP Pulse Ox
98.6 F 68 18 130/58 93
01/16/25 07:55 01/16/25 07:55 01/16/25 07:55 01/16/25 07:55 01/16/25 07:55
Intake and Output
01/15/25 01/16/25 01/17/25
06:59 06:59 06:59
Intake Total 960 / 960 1440 / 1440 240 / 240
Balance 960 / 960 1440 / 1440 240 / 240
SaO2: 93
Nasal Cannula flow liters per minute: 4
Physical Exam
General: Respiratory Distress (n) and Comfortable
HEENT: Normocephalic, Anicteric and Moist Mucous Membranes
Cardiovascular: Regular Rhythm and Murmur
Respiratory: Wheeze (Expiratory), Crackles ( basilar), Rhonchi (Expiratory), Non-Labored Respirations, Accessory Resp Muscle Use (n) and Stridor (n)
GI: Soft, Non Distended and Non Tender
Neurology: Awake, Alert and No Motor Deficits
Skin: Warm, Good Color, Cyanosis (n) and Jaundice (n)
Labs/Micro/Reports
Lab Data
01/15/25 09:57
01/15/25 09:57
Microbiology
01/12/25 22:25 Nose MRSA Screen - Final
No Methicillin Resistant Staphylococcus aureus isolated.
--- NOTE | 2025-01-16 15:01 | CM ---
Patient seen at bedside
IV Lasix, IV steroid
Referral in [facility] for [facility]
PLAN: [facility] pending bed availability when stable, will need ins auth
[2025-01-16 15:55] VITALS: BP 114/57
[2025-01-16 15:59] VITALS: BP 114/57; PULSE 76; O2SAT 96
[2025-01-16 16:08] VITALS: BP 114/57; PULSE 76; O2SAT 96
[2025-01-16] MEDS: CRESTOR 20 MG PO (16:57)
[2025-01-16] MEDS: OCEAN, SALINE MIST 2 SPRAYS NASAL (16:59)
[2025-01-16] MEDS: LIDOCAINE 4% PATCH 2 PATCH TOPICAL (21:33)
[2025-01-16] MEDS: OCEAN, SALINE MIST 4 SPRAYS NASAL (21:36)
[2025-01-16] MEDS: MUCINEX 1200 MG PO (21:36)
[2025-01-16 23:06] VITALS: BP 121/60
[2025-01-17] MEDS: SYNTHROID 100 MCG PO (06:12)
[2025-01-17] MEDS: TYLENOL 1000 MG PO ×3 (06:29→23:09)
[2025-01-17] MEDS: PULMICORT 0.5 MG INH ×2 (07:37→20:06)
[2025-01-17] MEDS: DUONEB 3 ML INH ×4 (07:37→20:06)
[2025-01-17 07:55] VITALS: BP 148/71
[2025-01-17] MEDS: OCEAN, SALINE MIST 2 SPRAYS NASAL (07:57)
[2025-01-17] MEDS: HEPARIN 5000 UNITS SC ×2 (07:58→20:33)
[2025-01-17] MEDS: KCL 20 MEQ PO (07:58)
[2025-01-17] MEDS: SOLU-MEDROL PF 40 MG IV ×2 (07:59→16:11)
[2025-01-17] MEDS: ZANAFLEX 2 MG PO ×3 (07:59→23:09)
[2025-01-17] MEDS: ZYRTEC 10 MG PO (07:59)
[2025-01-17] MEDS: LASIX 40 MG IV ×2 (07:59→16:11)
[2025-01-17] MEDS: CELEXA 20 MG PO (07:59)
[2025-01-17] MEDS: ZYLOPRIM 300 MG PO (07:59)
[2025-01-17] MEDS: LYRICA 25 MG PO ×2 (08:00→20:34)
[2025-01-17] MEDS: ALDACTONE 12.5 MG PO (08:00)
[2025-01-17] MEDS: OCUVITE SOFTGEL 2 CAP PO (08:00)
[2025-01-17] MEDS: MUCINEX 1200 MG PO ×2 (08:00→20:34)
[2025-01-17] MEDS: ASPIR LOW (ENTERIC COATED) 81 MG PO (08:00)
[2025-01-17] MEDS: PROTONIX 40 MG PO (08:00)
[2025-01-17] MEDS: CARDIZEM CD 180 MG PO (08:00)
[2025-01-17] MEDS: REMOVE LIDOCAINE PATCH 2 PATCH REMOVE (08:01)
[2025-01-17] MEDS: DESENEX/MITRAZOL/ZEASORB 1 APPLIC TOPICAL ×2 (08:01→20:33)
--- NOTE | 2025-01-17 08:54 | W.PN.HOSP.TC ---
Today's Communication/Plan
-
Daily weight, no weight since 01/15
Adding oral Augmentin for sinus pain
c/w IV steroid, no tapering yet
BMP today
Assessment / Plan
Assessment / Plan
Physical Exam
General: No Apparent Distress, Comfortable, Conversant and Appears Chronically Ill
HEENT: Moist mucous membranes and Atraumatic
Respiratory: less wheezes but still rales.
Cardiac: S1/S2, Regular Rhythm and Peripheral Edema
GI: Soft, Non Tender and Non Distended
Genito-urinary: No Patel
Musculoskeletal: No Cyanosis
Skin: No Jaundice
Neuro: AO x 3, Nonfocal/grossly intact and less Tremors
Psych: Calm and Intact Judgment/Insight; No Agitated
79 years old female presented with chest congestion/cough, weakness, tremor of bilateral upper extremities
# Acute on chronic HFpEF
no chest pain, no worsening sob, feels congested
c/w IV Lasix, holding oral diuretic to push IV Lasix for short time to improve breathing.
-Monitor Daily Weights. Not much weight loss
prophylactic potassium supplement
Echo of the heart 01/13 showed LVEF 60-65%, mild LVH, TAVR dysfunction well, no significant change.
Appreciate cardiology input
# Acute rhinitis/ sinusitis
She is complaining of pain and discomfort in sinuses, will do short course of oral antibiotic
No fevers
c/w Zyrtec and ocean nasal [place]
#acute COPD exacerbation
still with wheezes/ rhonchi
Tessalon PRN
c/w IV SoluMedrol, agree to do higher dose and c/w Nebulizer therapy
Appreciate pulmonary input
# Tremor, paroxysmal noted in bilateral upper extremity, mostly intentional tremor
No tremor noted, improved after adjusting her medications.
Likely medication related. Seems associated with new medicine oxycodone. Reduced both Lyrica/ tizanidine, would not recommend to stop them abruptly.
CAT scan of the head no acute findings. Patient is lucid and fully oriented
# pressure stage 2 sacral injury
POA
#Non-Obstructive Coronary Artery Disease
No chest pain.
-Continue aspirin
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
Monitor renal function
# Ambulatory dysfunction, chronic
#Paroxysmal Atrial Fibrillation
-Continue diltiazem
-Patient is not anticoagulation secondary to prior eye hemorrhage
#Essential Hypertension
-Continue Cardizem
#Hyperlipidemia
-Continue rosuvastatin
#Hypothyroidism
-Continue levothyroxine
#Depression
Mood is cooperative
-Continue citalopram
#Cervical Radiculopathy
c/w Tylenol [id number]-[id number]-[id number] to reduce need for pain medications
Hx Severe Aortic Stenosis s/p TAVR
Hx Ulcerative Colitis
Hx Rheumatoid Arthritis
DVT proph: SCDs
Code Status: Full Code, confirmed with patient.
Total time spent to see the patient on the floor, examine the patient, review data and lab results, discuss treatment plan with patient, nursing staff around 55 minutes.
Anticipated Discharge: > 48 hours
Subjective/Interval History
-
Date of Service: January 17, 2025
No chest pain
No sob
No fevers
Objective Data
-
Vital Signs:
Vital Signs
Temp Pulse Resp BP Pulse Ox
98.1 F 80 18 148/71 97
01/17/25 07:55 01/17/25 07:55 01/17/25 07:55 01/17/25 07:55 01/17/25 07:55
I&O
01/16/25 01/17/25 01/18/25
06:59 06:59 06:59
Intake Total 1440 / 1440 1200 / 1200
Balance 1440 / 1440 1200 / 1200
--- NOTE | 2025-01-17 09:04 | W.PN.CD ---
Today's Communication / Plan
-
Continue Lasix
Impression / Plan
-
I/P: 79F presented from [facility] with a chief complaint of cough and chest congestion.
Primary Finishing Room Operator: Dr. Ramirez
Acute on chronic hypoxic respiratory failure, in the setting of COPD, on 3L NC as an outpatient
-HF contributing
-pulmonary addressing COPD component; she is on steroids
HFpEF acute on chronic
-Small pleural effusions, SOB, and elevated proBNP
-Diuresis with furosemide 40mg IV BID, this requires intensive monitoring
-Dry weight presumed to be ~66kg 145 lbs -this seems low, will continue to reevaluate (of note, was 150lb standing in September) - weight today 154 lbs
-SGLT2i are ~$140
-Trend daily weight, I/O, and BMP with diuresis
-HF education
Atrial fibrillation, presumed paroxysmal
-more episodes since October
-Dr Diaz d/w Dr Ramirez her primary op cardiology, will continue with rate control.
-Oral Anticoagulation: None due to prior eye hemorrhage, she declined watchman by her primary manager it training
-[id number]: score at least 5 (Heart failure, HTN, age 75 or more, female gender)
CKD, follow with diuresis, stable
MDT PPM
-MRI conditional
Abnormal CT
-Chest: Stable 1.2 cm left lower lobe pulmonary nodule, possibly neoplasm. Scattered slightly prominent mediastinal lymph nodes, slightly progressed, reactive versus metastatic
-Follow up per pulmonary
Subjective:
no active complaints. OOB
CAD, non obstructive, stable without CP, on ASA
Severe s/p TAVR 12/08/2021, peak/mean gradients 23/12 mmHg
SSS s/p PPM, device interrogation as above
Data:
TTE 01/13/2025: LVEF 60-65%, normal TAVR, PASP 20 mmHg
Device interrogation with 100% V pacing
Physical Exam
Vital Signs/Labs
Vital Signs
Temp Pulse Resp BP Pulse Ox
98.1 F 80 18 148/71 97
01/17/25 07:55 01/17/25 07:55 01/17/25 07:55 01/17/25 07:55 01/17/25 07:55
01/16/25 01/17/25 01/18/25
06:59 06:59 06:59
Actual Weight 70.052 kg
01/15/25 09:57
01/15/25 09:57
Magnesium 2.2 mg/dl (1.6-2.3) 01/13/25 06:42
01/12/25
13:21
Gig-O-Aqteskuymdp Pept 1310
Physical Exam
Constitutional: No acute distress and Comfortable
EENT: Anicteric and Moist mucous membranes
Respiratory: Respiratory effort normal and Lungs clear to auscul.
Neuro/Psych: Alert, Oriented and AO x 3
Data Reviewed
-
Date of Service: January 17, 2025
Medical Decision Making: Reviewed Test Results, Test Interpretation and Review of Case with other Provider
Labs: Labs Reviewed by me
Old Records: Reviewed
[2025-01-17] MEDS: AUGMENTIN 500 MG/125 MG 1 TABLET PO ×2 (09:44→20:32)
[2025-01-17 09:54] LABS: Hematocrit 34.1 % (37.0-47.0); Hemoglobin 11.4 g/dL (12.0-16.0); Mean Corp Hgb Conc. 33.4 g/dL (33.0-37.0); Mean Corpuscular Volume 89.7 fL (81.0-99.0); Platelet Count 190 10^3/uL (130-400); Red Cell Dist. Width 14.3 % (11.5-14.5)
[2025-01-17] MEDS: OCEAN, SALINE MIST NASAL (11:41)
[2025-01-17 12:01] LABS: Blood Urea Nitrogen 32 mg/dl (7-17); Calcium 8.8 mg/dl (8.4-10.2); Carbon Dioxide 29 mmol/L (22-30); Chloride 100 mmol/L (98-107); Estimated Creatinine Clearance 51 ml/min; Glucose 193 mg/dl (70-99); Potassium 3.9 mmol/L (3.5-5.1); Sodium 137 mmol/L (135-145); eGFR > 60.00
[2025-01-17 15:42] VITALS: BP 120/49
[2025-01-17] MEDS: CRESTOR 20 MG PO (16:11)
[2025-01-17] MEDS: OCEAN, SALINE MIST 4 SPRAYS NASAL ×2 (16:13→23:08)
--- NOTE | 2025-01-17 16:35 | W.PN.PUL3 ---
Today's Communication / Plan
-
Wean oxygen as tolerated, goal SpO2 88-95%
Increase activity as tolerated
No change in methylprednisolone until tomorrow or Sunday
Continue Mucinex + Acapella
Continue nebulizers + budesonide
Diuresis per cardiology
Need to check weights daily as no fluid output is being documented
Repeat CXR tomorrow as well as BNP
Pulmonary service will continue to follow along; outpatient follow-up already arranged on 02/16/[address] Chanel
Assessment
-
79-year-old former smoking female with underlying COPD, hypothyroidism, chronic systolic heart failure, CAD and peripheral vascular disease presented with congestion, atrial fibrillation, cough and pulmonary was consulted for cough and possible COPD
exacerbation 01/13/2025.
Heart failure, preserved EF-acute on top of chronic.
Chronic cough.
COPD with mild acute exacerbation.
Mild anemia
Hyperglycemia.
Mild transaminitis
Conditions present prior to admission:
COPD
Former smoker
PAF
Restrictive lung disease
Nocturnal hypoxemia
MARY-CPAP intolerant
Pulmonary nodule status post bronchoscopy 09/2024-no malignant cells-close radiographic follow-up suggested
Ulcerative colitis
Hypertension
Rheumatoid thrice
Hypothyroid
Gastritis
Chronic kidney disease
Osteoporosis
Hyperlipidemia
Diverticulosis
Gout
Sick sinus syndrome status post pacemaker 2011 and generator change 2021
Peripheral neuropathy
Bladder calculi and renal calculi
Anxiety/depression
Ablation-declined oral anticoagulant
Hypocalcemia
Migraines
Acute neuritis
GERD
Anemia
Cervical radiculopathy neck
Left wrist surgery. History of DVT. Right rotator cuff 2006. DNC. Left foot surgery. Tubal ligation. TAB R 2016. Cholecystectomy.
Pulmonary nodule incidentally noted CT TAVR with change in nodular underwent robotic bronchoscopy/-no conclusive malignant cells-repeat CT December 2024
Plan
Respiratory decompensation, likely due to heart failure, preserved EF and-mild to moderate COPD exacerbation - patient seems to be improving on diuretics + steroids
Continue with supplemental O2 as needed, currently on 3 L/min nasal cannula saturating 94%
Wean down supplemental O2 as tolerated while keeping SpO2 88-95%
Continue DuoNebs QID + budesonide BID
Mucolytics with mucinex
Mucus clearing devices
Check sputum culture if patient can produce a decent sample
Aspiration precautions.
Steroids initiated 01/14/2025 and dose increased to methylprednisone 40 mg IV twice daily on 01/15/2025
CT chest performed on 01/12/2025 showing left basilar atelectasis with no evidence of pneumonia or heart failure
Repeat CXR tomorrow
Trend her BNP as well
Diuresis continues with 40 mg Lasix IV BID
Increase diuretic dose/frequency as needed to achieve optimal net negative balance of 1-1.5 L per 24 hours
Need to start checking daily weight as the intake/output is not accurate (no output has been consistently documented)
Trend electrolytes to avoid hypokalemia and hypomag (K>4, Mg>2)
Monitor intake, output, weight, lower extremity edema and renal function.
Follow-up radiographically
Cardiology evaluation ongoing-correspondence reviewed
Echocardiogram 01/13/2025-EF 60-65%, TAVR functioning well, no significant change with exception patient is in atrial fibrillation with 100% ventricular pacing compared to 02/2024
DVT prophylaxis-on heparin SQ
GI prophylaxis-on pantoprazole.
Nutrition
Early mobilization
Follows with pulmonary-Dr. Chanel-first seen 02/05/2024 and subsequently followed up with Ching BOYKIN on 12/04/2024-has appointment with Dr. Chanel 1:30 PM 02/16/2025
Pulmonary service will continue to follow
Diagnostic data:
CXR 10/09/24: Left basilar opacity without significant change.� Could represent, nation of atelectasis and small pleural effusion
CXR 10/08/2024: Decreased conspicuously of the previously suspected tiny left apical pneumothorax, likely resolved.� (This was post bronchoscopy).
Chest x-ray 12/21/24-NAD, mild asymmetrical elevation of left hemidiaphragm.
Chest x-ray 01/12/25-small bilateral pleural effusions
CT chest Ion 09/12/2024: Superior segment of the left lower lobe 1.1 cm nodule, increased volume soft tissue component with diameter of [address] chest 01/12/25-stable 1.2; left lower lobe nodule, scattered, slightly prominent mediastinal lymph nodes
PFT 08/28/2024: FVC 1.63/71%, FEV1 1.11/65%, ratio 68%, significant BD response in FEV1 (16%), post BD results FVC 1.76/77%, FEV1 1.29/76%, ratio 73%, TLC 3.21/70%, DLCO 11.50/63%, DLCO/VA 4.31/107%.� Mild restriction. Mildly reduced diffusing
capacity that normalizes with alveolar adjustment.
[place] 02/05/24: FVC 1.43/57%, FEV1 0.94/51%, ratio 66%, no significant BD response in FEV1.� Moderate obstruction and suggestive of mild restrictive pattern.
Echo 03/11/2024: EF 55 to 60%.� Mid anteroseptal, apical septal and mid to distal inferior akinesis/dyskinesis.� Wall motion consistent with conduction abnormality, paced rhythm. Normal RV size and function.� TAVR.� Trace AR.
HST 07/21/2024: DIEUDONNE 12.1 events/hour, O2 obinna 76%, 90.3% of the study time spent with O2 below 90%
Split study 09/30/14: Sleep efficiency 90%, AHI 35.35 events per hour, O2 obinna 80%; CPAP ineffective, recommended auto BiPAP therapy.
Bronchoscopic biopsy 10/08/24-unremarkable alveolar lung tissue, Left lower lobe TBNA-unsatisfactory for evaluation, left lower lobe BAL-negative for malignancy
Total time spent today was 36 minutes for this encounter. Time includes reviewing laboratory test/imaging results, reviewing pertinent medical records, obtaining and reviewing medical history, performing an appropriate exam, ordering medications,
tests and procedures. Time also includes documentation of this encounter, coordinating patient care and communicating with other healthcare professionals. Total time does not include separately billed tests performed on this date of service.
Subjective Data
-
Date of Service:
Date of Service: January 17, 2025
Chief Complaint: Pulmonary Follow Up and Dyspnea Follow Up
Subjective:
Patient seen earlier this afternoon (late note entry). Patient is resting in bed in no acute distress. She says that she feels okay at the moment. She has been afebrile overnight. She feels like she is slowly improving. Currently denies SOB at
rest. Also she does have facial pain but has normal smell and normal hearing.
Review of Systems
General: Other (Negative unless mentioned above)
Objective Data
Data Reviewed
Vital Signs / I&O / Oxygen:
Vital Signs
Temp Pulse Resp BP Pulse Ox
98.3 F 72 18 121/60 96
01/16/25 23:06 01/17/25 07:38 01/17/25 07:38 01/16/25 23:06 01/17/25 07:38
Intake and Output
01/16/25 01/17/25 01/18/25
06:59 06:59 06:59
Intake Total 1440 / 1440 1200 / 1200
Balance 1440 / 1440 1200 / 1200
SaO2 96
Nasal Cannula flow liters per 3
minute
Physical Exam
General: Respiratory Distress (n), Comfortable, Chills (n) and Sweats (n)
HEENT: Normocephalic, Anicteric and Moist Mucous Membranes
Cardiovascular: S1-S2, Murmur and Peripheral Edema (Trace lower extremity edema bilaterally)
Respiratory: Wheeze ([place] occasionally upon expiration particularly in the left upper lobe), Crackles (Bilateral), Rhonchi (Expiratory), Non-Labored Respirations, Accessory Resp Muscle Use (n) and Stridor (n)
GI: Soft, Non Distended, Non Tender and Normal Bowel Sounds
Neurology: Awake, Alert and Tremors (n)
Skin: Warm, Dry, Cyanosis (n) and Jaundice (n)
Labs/Micro/Reports
Lab Data
01/15/25 09:57
01/15/25 09:57
Microbiology
01/12/25 22:25 Nose MRSA Screen - Final
No Methicillin Resistant Staphylococcus aureus isolated.
[2025-01-17] MEDS: LIDOCAINE 4% PATCH 2 PATCH TOPICAL (20:34)
[2025-01-17 23:45] VITALS: BP 114/52
[2025-01-18] MEDS: SYNTHROID 100 MCG PO (04:59)
[2025-01-18 05:29] VITALS: BMI 27.8
[2025-01-18 06:41] LABS: COVID-19 Antigen Negative (Negative)
[2025-01-18] MEDS: DUONEB 3 ML INH ×4 (07:58→20:08)
[2025-01-18] MEDS: PULMICORT 0.5 MG INH ×2 (07:59→20:09)
[2025-01-18 08:21] VITALS: BP 138/68
[2025-01-18] MEDS: OCEAN, SALINE MIST 4 SPRAYS NASAL ×4 (08:36→21:43)
[2025-01-18] MEDS: LASIX 40 MG IV (08:37)
[2025-01-18] MEDS: SOLU-MEDROL PF 40 MG IV ×2 (08:37→16:01)
[2025-01-18] MEDS: TYLENOL 1000 MG PO ×3 (08:37→21:43)
[2025-01-18] MEDS: LYRICA 25 MG PO ×2 (08:37→20:29)
[2025-01-18] MEDS: CELEXA 20 MG PO (08:38)
[2025-01-18] MEDS: AUGMENTIN 500 MG/125 MG 1 TABLET PO ×2 (08:38→20:30)
[2025-01-18] MEDS: ASPIR LOW (ENTERIC COATED) 81 MG PO (08:38)
[2025-01-18] MEDS: HEPARIN 5000 UNITS SC ×2 (08:38→20:24)
[2025-01-18] MEDS: ZANAFLEX 2 MG PO ×3 (08:39→21:42)
[2025-01-18] MEDS: ALDACTONE 12.5 MG PO (08:39)
[2025-01-18] MEDS: CARDIZEM CD 180 MG PO (08:39)
[2025-01-18] MEDS: ZYLOPRIM 300 MG PO (08:39)
[2025-01-18] MEDS: OCUVITE SOFTGEL 2 CAP PO (08:39)
[2025-01-18] MEDS: PROTONIX 40 MG PO (08:39)
[2025-01-18] MEDS: ZYRTEC 10 MG PO (08:39)
[2025-01-18] MEDS: KCL 20 MEQ PO (08:39)
[2025-01-18] MEDS: REMOVE LIDOCAINE PATCH 2 PATCH REMOVE (08:40)
[2025-01-18] MEDS: MUCINEX 1200 MG PO ×2 (08:40→20:25)
[2025-01-18] MEDS: DESENEX/MITRAZOL/ZEASORB 1 APPLIC TOPICAL ×2 (08:45→20:26)
--- NOTE | 2025-01-18 08:57 | W.PN.HOSP.TC ---
Today's Communication/Plan
-
Change to oral Lasix
IV steroid
Chest x ray
Assessment / Plan
Assessment / Plan
Physical Exam
General: No Apparent Distress, Comfortable, Conversant and Appears Chronically Ill
HEENT: Moist mucous membranes and Atraumatic
Respiratory: less wheezes but still rales.
Cardiac: S1/S2, Regular Rhythm and Peripheral Edema
GI: Soft, Non Tender and Non Distended
Genito-urinary: No Patel
Musculoskeletal: No Cyanosis
Skin: No Jaundice
Neuro: AO x 3, Nonfocal/grossly intact and less Tremors
Psych: Calm and Intact Judgment/Insight; No Agitated
79 years old female presented with chest congestion/cough, weakness, tremor of bilateral upper extremities
# Acute on chronic HFpEF
no chest pain, no worsening sob, feels congested
s/p IV Lasix, held oral diuretic to push IV Lasix for short time to improve breathing. Started on low dose Aldactone, change to oral Lasix.
-Monitor Daily Weights. Good weight loss
- prophylactic potassium supplement
Echo of the heart 01/13 showed LVEF 60-65%, mild LVH, TAVR dysfunction well, no significant change.
Appreciate cardiology input
# Acute rhinitis/ sinusitis
She is complaining of pain and discomfort in sinuses, will do short course of oral antibiotic
No fevers
c/w Zyrtec and ocean nasal [place]
#acute COPD exacerbation
still with wheezes/ rhonchi but less
Tessalon PRN
Repeat chest x ray
c/w IV SoluMedrol, agree to do higher dose and c/w Nebulizer therapy
Appreciate pulmonary input
# Tremor, paroxysmal noted in bilateral upper extremity, mostly intentional tremor
No tremor noted, improved after adjusting her medications.
Likely medication related. Seems associated with new medicine oxycodone. Reduced both Lyrica/ tizanidine, would not recommend to stop them abruptly.
CAT scan of the head no acute findings. Patient is lucid and fully oriented
# pressure stage 2 sacral injury
POA
#Non-Obstructive Coronary Artery Disease
No chest pain.
Negative troponin an admission.
Echo no wall motion abnormalities reported.
-Continue aspirin
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
Monitor renal function
# Ambulatory dysfunction, chronic
#Paroxysmal Atrial Fibrillation
-Continue diltiazem
-Patient is not anticoagulation secondary to prior eye hemorrhage
#Essential Hypertension
-Continue Cardizem
#Hyperlipidemia
-Continue rosuvastatin
#Hypothyroidism
-Continue levothyroxine
#Depression
Mood is cooperative
-Continue citalopram
#Cervical Radiculopathy
c/w Tylenol icrrpp-sle-russj to reduce need for pain medications
Hx Severe Aortic Stenosis s/p TAVR
Hx Ulcerative Colitis
Hx Rheumatoid Arthritis
DVT proph: SCDs
Code Status: Full Code, confirmed with patient.
Total time spent to see the patient on the floor, examine the patient, review data and lab results, discuss treatment plan with patient, nursing staff around 55 minutes.
Anticipated Discharge: > 48 hours
Subjective/Interval History
-
Date of Service: January 18, 2025
She feels better but still some sob/ sinus pain but overall better
She denies pain or headache
Objective Data
-
Vital Signs:
Vital Signs
Temp Pulse Resp BP Pulse Ox
98.2 F 77 16 138/68 98
01/18/25 08:21 01/18/25 08:21 01/18/25 08:21 01/18/25 08:21 01/18/25 08:21
I&O
01/17/25 01/18/25 01/19/25
06:59 06:59 06:59
Intake Total 1200 / 1200 960 / 960
Balance 1200 / 1200 960 / 960
--- NOTE | 2025-01-18 09:12 | W.PN.CD ---
Today's Communication / Plan
-
- Switch IV lasix to PO Torsemide
- Stable from cardai stand point.
Impression / Plan
-
I/P: 79F presented from [facility] with a chief complaint of cough and chest congestion.
Primary Handicrafts Teacher: Dr. Ramirez
Acute on chronic hypoxic respiratory failure, in the setting of COPD, on 3L NC as an outpatient
-HF contributing
-pulmonary addressing COPD component; she is on steroids
HFpEF acute on chronic
-Small pleural effusions, SOB, and elevated proBNP
-Can switch IV lasix to PO Torsemide (Home dose).
-Dry weight presumed to be ~66kg 145 lbs -68 kg today but appears euvolemic on exam. May be new baseline.
-SGLT2i are ~$140
-Trend daily weight, I/O, and BMP with diuresis
-HF education
Atrial fibrillation, presumed paroxysmal
-more episodes since October
-Dr Diaz d/w Dr Ramirez her primary op cardiology, will continue with rate control.
-Oral Anticoagulation: None due to prior eye hemorrhage, she declined watchman by her primary scrub nurse
-[id number]: score at least 5 (Heart failure, HTN, age 75 or more, female gender)
CKD, follow with diuresis, stable
MDT PPM
-MRI conditional
Abnormal CT
-Chest: Stable 1.2 cm left lower lobe pulmonary nodule, possibly neoplasm. Scattered slightly prominent mediastinal lymph nodes, slightly progressed, reactive versus metastatic
-Follow up per pulmonary
Subjective:
no active complaints. OOB
CAD, non obstructive, stable without CP, on ASA
Severe s/p TAVR 12/08/2021, peak/mean gradients 23/12 mmHg
SSS s/p PPM, device interrogation as above
Data:
TTE 01/13/2025: LVEF 60-65%, normal TAVR, PASP 20 mmHg
Device interrogation with 100% V pacing
Physical Exam
Vital Signs/Labs
Vital Signs
Temp Pulse Resp BP Pulse Ox
98.2 F 77 16 138/68 98
01/18/25 08:21 01/18/25 08:21 01/18/25 08:21 01/18/25 08:21 01/18/25 08:21
01/17/25 01/18/25 01/19/25
06:59 06:59 06:59
Actual Weight 68.81 kg
01/17/25 09:36
01/17/25 09:36
Magnesium 2.2 mg/dl (1.6-2.3) 01/13/25 06:42
01/12/25 01/18/25
13:21 05:45
Jcv-[id number] Pept [id number]
Physical Exam
Constitutional: No acute distress and Comfortable
EENT: Anicteric and Moist mucous membranes
Cardiovascular: Rhythm & rate is regular, Pedal edema is absent and JVD pressure is normal
Respiratory: Respiratory effort normal, Lungs clear to auscul. and Wheeze Absent
GI: Soft, Distention absent and Non tender
Neuro/Psych: Alert, Oriented and AO x 3
Data Reviewed
-
Date of Service: January 18, 2025
Medical Decision Making: Reviewed Test Results, Test Interpretation and Review of Case with other Provider
EKG: Tracing Personally Visualized and interpreted
Echo: Report Reviewed by me
Labs: Labs Reviewed by me
Old Records: Reviewed
[2025-01-18 09:48] LABS: Troponin I < 0.012 ng/ml
[2025-01-18] MEDS: CRESTOR 20 MG PO (16:01)
[2025-01-18 16:41] VITALS: BP 125/56
--- NOTE | 2025-01-18 16:56 | W.PN.PUL3 ---
Today's Communication / Plan
-
Wean oxygen as tolerated, goal SpO2 88-95%
Increase activity as tolerated
Consider reducing Solu-Medrol dose tomorrow if she continues to clinically improve
Continue Mucinex + Acapella
Continue nebulizers + budesonide
Diuresis per cardiology
Need to check weights daily as no fluid output is being documented
Start CPAP; check blood gas tomorrow and if significant hypercapnia then transition to BiPAP
Pulmonary service will continue to follow along; outpatient follow-up already arranged on 02/16/[address] Chanel
Assessment
-
79-year-old former smoking female with underlying COPD, hypothyroidism, chronic systolic heart failure, CAD and peripheral vascular disease presented with congestion, atrial fibrillation, cough and pulmonary was consulted for cough and possible COPD
exacerbation 01/13/2025.
Heart failure, preserved EF-acute on top of chronic.
Chronic cough.
COPD with mild acute exacerbation.
Mild anemia
Hyperglycemia.
Mild transaminitis
Conditions present prior to admission:
COPD
Former smoker
PAF
Restrictive lung disease
Nocturnal hypoxemia
MARY-Hx of CPAP intolerant/noncompliance
Pulmonary nodule status post bronchoscopy 09/2024-no malignant cells-close radiographic follow-up suggested
Ulcerative colitis
Hypertension
Rheumatoid thrice
Hypothyroid
Gastritis
Chronic kidney disease
Osteoporosis
Hyperlipidemia
Diverticulosis
Gout
Sick sinus syndrome status post pacemaker 2011 and generator change 2021
Peripheral neuropathy
Bladder calculi and renal calculi
Anxiety/depression
Ablation-declined oral anticoagulant
Hypocalcemia
Migraines
Acute neuritis
GERD
Anemia
Cervical radiculopathy neck
Left wrist surgery. History of DVT. Right rotator cuff 2006. DNC. Left foot surgery. Tubal ligation. TAB R 2016. Cholecystectomy.
Pulmonary nodule incidentally noted CT TAVR with change in nodular underwent robotic bronchoscopy/-no conclusive malignant cells-repeat CT December 2024
Plan
Respiratory decompensation, likely due to heart failure, preserved EF and-mild to moderate COPD exacerbation - patient seems to be improving on diuretics + steroids
Continue with supplemental O2 as needed, currently on 3 L/min nasal cannula saturating 97-98%
Wean down supplemental O2 as tolerated while keeping SpO2 88-95%
Continue DuoNebs QID + budesonide BID
Mucolytics with mucinex
Mucus clearing devices
Check sputum culture if patient can produce a decent sample
Aspiration precautions.
Continue with Augmentin which was started given concern for acute bacterial rhinosinusitis
Steroids initiated 01/14/2025 and dose increased to methylprednisone 40 mg IV twice daily on 01/15/2025 --> wean down dose as she clinically improves
CT chest performed on 01/12/2025 showing left basilar atelectasis with no evidence of pneumonia or heart failure
CXR today shows small bilateral pleural effusions with retrocardiac opacity, likely due to atelectasis; overall no real significant change compared to prior CXR on 01/12/2025
proBNP checked today and is much improved compared to last value of 1310 on 01/12/2025
Diuresis continues with 40 mg Lasix IV BID --> now being changed to torsemide 40mg once daily per cardiology
Need to start checking daily weight as the intake/output is not accurate (no output has been consistently documented)
Trend electrolytes to avoid hypokalemia and hypomag (K>4, Mg>2)
Monitor intake, output, weight, lower extremity edema and renal function.
Cardiology evaluation ongoing-correspondence reviewed
Echocardiogram 01/13/2025-EF 60-65%, TAVR functioning well, no significant change with exception patient is in atrial fibrillation with 100% ventricular pacing compared to 02/2024
Patient is prescribed CPAP which she uses at home although not always nightly.
- She is willing to use CPAP tonight, which I will order for her
- At home she is prescribed auto CPAP 5�20 cmH2O, with average pressure 14.4, max pressure 15.8
- Check blood gas tomorrow morning however if patient found to have significant hypercapnia then would consider transitioning from CPAP to BiPAP
DVT prophylaxis-on heparin SQ
GI prophylaxis-on pantoprazole.
Nutrition
Early mobilization
Follows with pulmonary-Dr. Chanel-first seen 02/05/2024 and subsequently followed up with Ching BOYKIN on 12/04/2024-has appointment with Dr. Chanel 1:30 PM 02/16/2025
Pulmonary service will continue to follow
Diagnostic data:
CXR 10/09/24: Left basilar opacity without significant change.� Could represent, nation of atelectasis and small pleural effusion
CXR 10/08/2024: Decreased conspicuously of the previously suspected tiny left apical pneumothorax, likely resolved.� (This was post bronchoscopy).
Chest x-ray 12/21/24-NAD, mild asymmetrical elevation of left hemidiaphragm.
Chest x-ray 01/12/25-small bilateral pleural effusions
CT chest Ion 09/12/2024: Superior segment of the left lower lobe 1.1 cm nodule, increased volume soft tissue component with diameter of [address] chest 01/12/25-stable 1.2; left lower lobe nodule, scattered, slightly prominent mediastinal lymph nodes
PFT 08/28/2024: FVC 1.63/71%, FEV1 1.11/65%, ratio 68%, significant BD response in FEV1 (16%), post BD results FVC 1.76/77%, FEV1 1.29/76%, ratio 73%, TLC 3.21/70%, DLCO 11.50/63%, DLCO/VA 4.31/107%.� Mild restriction. Mildly reduced diffusing
capacity that normalizes with alveolar adjustment.
[place] 02/05/24: FVC 1.43/57%, FEV1 0.94/51%, ratio 66%, no significant BD response in FEV1.� Moderate obstruction and suggestive of mild restrictive pattern.
Echo 03/11/2024: EF 55 to 60%.� Mid anteroseptal, apical septal and mid to distal inferior akinesis/dyskinesis.� Wall motion consistent with conduction abnormality, paced rhythm. Normal RV size and function.� TAVR.� Trace AR.
HST 07/21/2024: DIEUDONNE 12.1 events/hour, O2 obinna 76%, 90.3% of the study time spent with O2 below 90%
Split study 09/30/14: Sleep efficiency 90%, AHI 35.35 events per hour, O2 obinna 80%; CPAP ineffective, recommended auto BiPAP therapy.
Bronchoscopic biopsy 10/08/24-unremarkable alveolar lung tissue, Left lower lobe TBNA-unsatisfactory for evaluation, left lower lobe BAL-negative for malignancy
Total time spent today was 38 minutes for this encounter. Time includes reviewing laboratory test/imaging results, reviewing pertinent medical records, obtaining and reviewing medical history, performing an appropriate exam, ordering medications,
tests and procedures. Time also includes documentation of this encounter, coordinating patient care and communicating with other healthcare professionals. Total time does not include separately billed tests performed on this date of service.
Subjective Data
-
Date of Service:
Date of Service: January 18, 2025
Chief Complaint: Pulmonary Follow Up and Dyspnea Follow Up
Subjective:
Patient was seen and evaluated earlier this afternoon (late note entry). Currently on 3 L/min nasal cannula. She feels like she is slightly improving compared to yesterday. She feels tired. Denies chest pain, BARNES, nausea, fevers or chills.
Review of Systems
General: Other (Negative unless mentioned above)
Objective Data
Data Reviewed
Vital Signs / I&O / Oxygen:
Vital Signs
Temp Pulse Resp BP Pulse Ox
98.2 F 77 16 138/68 98
01/18/25 08:21 01/18/25 08:21 01/18/25 08:21 01/18/25 08:21 01/18/25 08:21
Intake and Output
01/17/25 01/18/25 01/19/25
06:59 06:59 06:59
Intake Total 1200 / 1200 960 / 960
Balance 1200 / 1200 960 / 960
SaO2 98
Nasal Cannula flow liters per 3
minute
Physical Exam
General: Respiratory Distress (n), Comfortable, Chills (n) and Sweats (n)
HEENT: Normocephalic, Anicteric and Moist Mucous Membranes
Cardiovascular: S1-S2 and Peripheral Edema (negative)
Respiratory: Wheeze ([place] bilaterally in the upper lung davalos), Crackles (negative), Rhonchi (Bilaterally), Non-Labored Respirations, Accessory Resp Muscle Use (n) and Stridor (n)
GI: Soft, Non Distended, Non Tender and Normal Bowel Sounds
Neurology: Awake, Alert and Tremors (n)
Skin: Warm, Dry, Cyanosis (n) and Jaundice (n)
Labs/Micro/Reports
Lab Data
01/17/25 09:36
01/17/25 09:36
[2025-01-18 18:20] LABS: Troponin I < 0.012 ng/ml
[2025-01-18] MEDS: LIDOCAINE 4% PATCH 2 PATCH TOPICAL (20:25)
[2025-01-18 23:30] VITALS: BP 120/54
[2025-01-18 23:52] VITALS: BP 120/54
[2025-01-19 02:32] LABS: Troponin I < 0.012 ng/ml
[2025-01-19] MEDS: SYNTHROID 100 MCG PO (05:01)
[2025-01-19 06:00] VITALS: BMI 28.1
[2025-01-19 07:46] VITALS: BP 146/62
[2025-01-19] MEDS: DUONEB 3 ML INH ×4 (07:50→20:35)
[2025-01-19] MEDS: PULMICORT 0.5 MG INH ×2 (07:50→20:35)
[2025-01-19 08:33] LABS: Venous Blood Gas B.E. 6.3 mmol/L (-4 to +4); Venous Blood Gas O2 Sat % 98.1 %
[2025-01-19] MEDS: LYRICA 25 MG PO ×2 (08:50→21:06)
[2025-01-19] MEDS: OCUVITE SOFTGEL 2 CAP PO (09:02)
[2025-01-19] MEDS: OCEAN, SALINE MIST 2 SPRAYS NASAL ×2 (09:03→17:21)
[2025-01-19] MEDS: CARDIZEM CD 180 MG PO (09:03)
[2025-01-19] MEDS: AUGMENTIN 500 MG/125 MG 1 TABLET PO ×2 (09:03→21:05)
[2025-01-19] MEDS: ASPIR LOW (ENTERIC COATED) 81 MG PO (09:04)
[2025-01-19] MEDS: PROTONIX 40 MG PO (09:04)
[2025-01-19] MEDS: ALDACTONE 12.5 MG PO (09:04)
[2025-01-19] MEDS: SOLU-MEDROL PF 40 MG IV (09:05)
[2025-01-19] MEDS: REMOVE LIDOCAINE PATCH 2 PATCH REMOVE (09:05)
[2025-01-19] MEDS: TYLENOL 1000 MG PO ×3 (09:05→21:06)
[2025-01-19] MEDS: MUCINEX 1200 MG PO ×2 (09:05→21:06)
[2025-01-19] MEDS: ZYLOPRIM 300 MG PO (09:06)
[2025-01-19] MEDS: ZANAFLEX 2 MG PO ×3 (09:06→21:09)
[2025-01-19] MEDS: CELEXA 20 MG PO (09:07)
[2025-01-19] MEDS: DESENEX/MITRAZOL/ZEASORB 1 APPLIC TOPICAL ×2 (09:07→21:05)
[2025-01-19] MEDS: DEMADEX 40 MG PO (09:07)
[2025-01-19] MEDS: KCL 20 MEQ PO (09:08)
[2025-01-19] MEDS: HEPARIN 5000 UNITS SC ×2 (09:08→21:06)
[2025-01-19] MEDS: ZYRTEC 10 MG PO (09:09)
[2025-01-19 09:44] LABS: Blood Urea Nitrogen 29 mg/dl (7-17); Calcium 9.1 mg/dl (8.4-10.2); Carbon Dioxide 28 mmol/L (22-30); Chloride 103 mmol/L (98-107); Estimated Creatinine Clearance 67 ml/min; Glucose 138 mg/dl (70-99); Potassium 4.4 mmol/L (3.5-5.1); Sodium 136 mmol/L (135-145); eGFR > 60.00
[2025-01-19 10:26] VITALS: BP 115/49; PULSE 60; O2SAT 96
--- NOTE | 2025-01-19 11:52 | CM ---
CM reviewed chart, patient seen bedside. Patient plan remains discharge to [facility] when stable, pending bed availability. Patient will need insurance auth. Followed by pulmonary. CM will continue to follow for all discharge planning needs.
Plan; [facility] pending bed availability, will need auth
[2025-01-19] MEDS: OCEAN, SALINE MIST 1 SPRAYS NASAL ×2 (13:00→21:06)
--- NOTE | 2025-01-19 13:41 | W.PN.PUL3 ---
Today's Communication / Plan
-
Decreased Opjq-Mruacr-[id number] transition to prednisone tomorrow 01/20/2025.
Continue nebulizer therapy while in the hospital-restart inhalers upon discharge
Oral diuretic
Complete 7 days of antibiotics for rhinosinusitis
Outpatient follow-up regarding left lower lobe lung nodule-likely will recommend PET/CT and percutaneous biopsy. Recommend follow-up in 2 weeks in my office.
Home oxygen assessment in AM
Assessment
-
79-year-old former smoking female with underlying COPD, hypothyroidism, chronic systolic heart failure, CAD and peripheral vascular disease presented with congestion, atrial fibrillation, cough and pulmonary was consulted for cough and possible COPD
exacerbation 01/13/2025.
Heart failure, preserved EF-acute on top of chronic.
Chronic cough.
COPD with mild acute exacerbation.
Mild anemia
Hyperglycemia.
Mild transaminitis
Conditions present prior to admission:
COPD
Former smoker
PAF
Restrictive lung disease
Nocturnal hypoxemia
MARY-Hx of CPAP intolerant/noncompliance
Pulmonary nodule status post bronchoscopy 09/2024-no malignant cells-close radiographic follow-up suggested
Ulcerative colitis
Hypertension
Rheumatoid thrice
Hypothyroid
Gastritis
Chronic kidney disease
Osteoporosis
Hyperlipidemia
Diverticulosis
Gout
Sick sinus syndrome status post pacemaker 2011 and generator change 2021
Peripheral neuropathy
Bladder calculi and renal calculi
Anxiety/depression
Ablation-declined oral anticoagulant
Hypocalcemia
Migraines
Acute neuritis
GERD
Anemia
Cervical radiculopathy neck
Left wrist surgery. History of DVT. Right rotator cuff 2006. DNC. Left foot surgery. Tubal ligation. TAB R 2016. Cholecystectomy.
Pulmonary nodule incidentally noted CT TAVR with change in nodular underwent robotic bronchoscopy/-no conclusive malignant cells-repeat CT December 2024
Plan
Respiratory decompensation, likely due to heart failure, preserved EF and-mild to moderate COPD exacerbation - clinically improved on current regimen.
-
Continue with supplemental O2 as needed, currently on 3 L/min nasal cannula saturating 97-98%
Wean down supplemental O2 as tolerated while keeping SpO2 88-95%
Home oxygen assessment 01/20/2025. May need temporary oxygen to go home.
-
Continue DuoNebs QID + budesonide BID-while in the hospital. Usually on Anoro.
Mucolytics with mucinex
Mucus clearing devices
Unable to produce sputum.
Aspiration precautions.
Continue with Augmentin which was started given concern for acute bacterial rhinosinusitis-complete 7 days.
Steroids initiated 01/14/2025 and dose increased to methylprednisone 40 mg IV twice daily on 01/15/2025 --> decrease Solu-Medrol today and transition to prednisone on 01/20/2025---40 mg and decrease by 10 mg every [address] chest performed on 01/12/2025 showing left basilar atelectasis with no evidence of pneumonia or heart failure
CXR shows small bilateral pleural effusions with retrocardiac opacity, likely due to atelectasis; overall no real significant change compared to prior CXR on 01/12/2025
Status post diuresis.
Transitioned to oral diuretics per cardiology
Correspondence reviewed no additional recommendations.
Echocardiogram 01/13/2025-EF 60-65%, TAVR functioning well, no significant change with exception patient is in atrial fibrillation with 100% ventricular pacing compared to 02/2024
Patient is prescribed CPAP which she uses at home although not always nightly.
- She is willing to use CPAP tonight, which I will order for her
- At home she is prescribed auto CPAP 5�20 cmH2O, with average pressure 14.4, max pressure 15.8
- Check blood gas tomorrow morning however if patient found to have significant hypercapnia then would consider transitioning from CPAP to BiPAP
Left lower lobe lung nodule: 1.2 cm.
Prior bronchoscopy was not nondiagnostic-atypical cells
Repeat CT chest 01/12/2025 reviewed: Stable lung nodule. Mildly enlarged lymph nodes.
Likely will recommend PET/CT and percutaneous biopsy. Follow-up with me in about 2 weeks.
DVT prophylaxis-on heparin SQ
GI prophylaxis-on pantoprazole.
Follows with pulmonary-Dr. Chanel-first seen 02/05/2024 and subsequently followed up with Ching BOYKIN on 12/04/2024-has appointment with Dr. Chanel 1:30 PM 02/16/2025
Pulmonary service will continue to follow

Diagnostic data:
CXR 10/09/24: Left basilar opacity without significant change.� Could represent, nation of atelectasis and small pleural effusion
CXR 10/08/2024: Decreased conspicuously of the previously suspected tiny left apical pneumothorax, likely resolved.� (This was post bronchoscopy).
Chest x-ray 12/21/24-NAD, mild asymmetrical elevation of left hemidiaphragm.
Chest x-ray 01/12/25-small bilateral pleural effusions
CT chest Ion 09/12/2024: Superior segment of the left lower lobe 1.1 cm nodule, increased volume soft tissue component with diameter of [address] chest 01/12/25-stable 1.2; left lower lobe nodule, scattered, slightly prominent mediastinal lymph nodes
PFT 08/28/2024: FVC 1.63/71%, FEV1 1.11/65%, ratio 68%, significant BD response in FEV1 (16%), post BD results FVC 1.76/77%, FEV1 1.29/76%, ratio 73%, TLC 3.21/70%, DLCO 11.50/63%, DLCO/VA 4.31/107%.� Mild restriction. Mildly reduced diffusing
capacity that normalizes with alveolar adjustment.
[place] 02/05/24: FVC 1.43/57%, FEV1 0.94/51%, ratio 66%, no significant BD response in FEV1.� Moderate obstruction and suggestive of mild restrictive pattern.
Echo 03/11/2024: EF 55 to 60%.� Mid anteroseptal, apical septal and mid to distal inferior akinesis/dyskinesis.� Wall motion consistent with conduction abnormality, paced rhythm. Normal RV size and function.� TAVR.� Trace AR.
HST 07/21/2024: DIEUDONNE 12.1 events/hour, O2 obinna 76%, 90.3% of the study time spent with O2 below 90%
Split study 09/30/14: Sleep efficiency 90%, AHI 35.35 events per hour, O2 obinna 80%; CPAP ineffective, recommended auto BiPAP therapy.
Bronchoscopic biopsy 10/08/24-unremarkable alveolar lung tissue, Left lower lobe TBNA-unsatisfactory for evaluation, left lower lobe BAL-negative for malignancy
Total time spent today was 39 minutes for this encounter. Time includes reviewing laboratory test/imaging results, reviewing pertinent medical records, obtaining and reviewing medical history, performing an appropriate exam, ordering medications,
tests and procedures. Time also includes documentation of this encounter, coordinating patient care and communicating with other healthcare professionals. Total time does not include separately billed tests performed on this date of service.
Subjective Data
-
Date of Service:
Date of Service: January 19, 2025
Chief Complaint: Pulmonary Follow Up (Acute exacerbation of COPD/heart failure) and Dyspnea Follow Up
Subjective:
Clinically improved
Denies hemoptysis
Denies phlegm production
No significant wheezing
Review of Systems
Cardiopulmonary: Dyspnea (improved), Cough (n) and Sputum Production (n)
GI: Abdominal Pain (n) and Nausea (n)
Objective Data
Data Reviewed
Vital Signs / I&O / Oxygen:
Vital Signs
Temp Pulse Resp BP Pulse Ox
97.7 F 78 16 146/62 97
01/19/25 07:46 01/19/25 11:45 01/19/25 11:45 01/19/25 07:46 01/19/25 11:45
Intake and Output
01/18/25 01/19/2501/20/25
06:59 06:59 06:59
Intake Total 960 / 960 420 / 420
Output Total 1200 / 1200
Balance 960 / 960 -780 / -780
SaO2 97
Nasal Cannula flow liters per 3
minute
Physical Exam
General: Respiratory Distress (n), Comfortable, Chills (n) and Sweats (n)
HEENT: Normocephalic, Anicteric and Moist Mucous Membranes
Cardiovascular: S1-S2 and Peripheral Edema (negative)
Respiratory: Wheeze (minimal, improved.), Crackles (negative), Rhonchi (Bilaterally), Non-Labored Respirations, Accessory Resp Muscle Use (n) and Stridor (n)
GI: Soft, Non Distended, Non Tender and Normal Bowel Sounds
Neurology: Awake, Alert and Tremors (n)
Skin: Warm, Dry, Cyanosis (n) and Jaundice (n)
Labs/Micro/Reports
Lab Data
01/17/25 09:36
01/19/25 08:14
Microbiology
01/18/25 06:55 Nose MRSA Screen - Final
No Methicillin Resistant Staphylococcus aureus isolated.
--- NOTE | 2025-01-19 15:08 | W.PN.HOSP.TC ---
Today's Communication/Plan
-
Assessment / Plan
Assessment / Plan
Physical Exam
General: No Apparent Distress, Comfortable, Conversant and Appears Chronically Ill
HEENT: Moist mucous membranes and Atraumatic, nasal cannula in place
Respiratory: Minimal expiratory wheezing bilaterally
Cardiac: S1/S2, Regular Rhythm and Peripheral Edema
GI: Soft, Non Tender and Non Distended
Genito-urinary: No Patel
Musculoskeletal: No Cyanosis
Skin: No Jaundice
Neuro: AO x 3, Nonfocal/grossly intact and less Tremors
Psych: Calm and Intact Judgment/Insight; No Agitated
79 years old female presented with chest congestion/cough, weakness, tremor of bilateral upper extremities
# Acute on chronic HFpEF
-Have now transitioned to oral torsemide, continue Aldactone
-Monitor Daily Weights. Good weight loss
- prophylactic potassium supplement
Echo of the heart 01/13 showed LVEF 60-65%, mild LVH, TAVR dysfunction well, no significant change.
Appreciate cardiology input
# Acute rhinitis/ sinusitis
-Continue Augmentin to complete a total course of 7 days
No fevers
c/w Zyrtec and ocean nasal [place]
#acute COPD exacerbation
still with wheezes/ rhonchi but less
Tessalon PRN
Transition to oral prednisone tomorrow 01/20
c/w Nebulizer therapy while inpatient, inhalers at discharge
Appreciate pulmonary input
# Tremor, paroxysmal noted in bilateral upper extremity, mostly intentional tremor
No tremor noted, improved after adjusting her medications.
Likely medication related. Seems associated with new medicine oxycodone. Reduced both Lyrica/ tizanidine, would not recommend to stop them abruptly.
CAT scan of the head no acute findings. Patient is lucid and fully oriented
# pressure stage 2 sacral injury
POA
#Non-Obstructive Coronary Artery Disease
No chest pain.
Negative troponin an admission.
Echo no wall motion abnormalities reported.
-Continue aspirin
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
Monitor renal function
# Ambulatory dysfunction, chronic
#Paroxysmal Atrial Fibrillation
-Continue diltiazem
-Patient is not anticoagulation secondary to prior eye hemorrhage
#Essential Hypertension
-Continue Cardizem
#Hyperlipidemia
-Continue rosuvastatin
#Hypothyroidism
-Continue levothyroxine
#Depression
Mood is cooperative
-Continue citalopram
#Cervical Radiculopathy
c/w Tylenol [id number] to reduce need for pain medications
Hx Severe Aortic Stenosis s/p TAVR
Hx Ulcerative Colitis
Hx Rheumatoid Arthritis
DVT proph: SCDs
Code Status: Full Code, confirmed with patient.
Total time spent to see the patient on the floor, examine the patient, review data and lab results, discuss treatment plan with patient, nursing staff around 45 minutes.
Anticipated Discharge: 24 - 48 hours
Subjective/Interval History
-
Date of Service: January 19, 2025
Patient was seen and examined at bedside this morning. Remains on baseline 3 L oxygen via nasal cannula. Minimal expiratory wheezing bilaterally. She feels like she has improved since admission.
Objective Data
-
Labs:
Laboratory Results
01/19/25
08:14
Sodium 136
Potassium 4.4
Chloride 103
Carbon Dioxide 28
BUN 29 H
Creatinine 0.6
Glucose 138 H
Calcium 9.1
Vital Signs:
Vital Signs
Temp Pulse Resp BP Pulse Ox
97.7 F 78 16 146/62 97
01/19/25 07:46 01/19/25 11:45 01/19/25 11:45 01/19/25 07:46 01/19/25 11:45
I&O
07/27/25 07/28/25 07/29/25
06:59 06:59 06:59
Intake Total 960 / 960 420 / 420
Output Total 1200 / 1200
Balance 960 / 960 -780 / -780
Review of Systems
-
History Source: Patient
All other systems: Reviewed and negative
Physical Exam
-
General: No Apparent Distress
[2025-01-19 15:25] VITALS: BP 103/54
[2025-01-19] MEDS: SOLU-MEDROL PF 20 MG IV (17:23)
[2025-01-19] MEDS: CRESTOR 20 MG PO (17:24)
[2025-01-19] MEDS: LIDOCAINE 4% PATCH 2 PATCH TOPICAL (21:07)
[2025-01-19 23:56] VITALS: BP 104/39
[2025-01-20 01:14] VITALS: BP 105/54
[2025-01-20 06:00] VITALS: BMI 27.7
[2025-01-20] MEDS: SYNTHROID 100 MCG PO (06:30)
[2025-01-20] MEDS: DUONEB 3 ML INH ×3 (07:30→15:36)
[2025-01-20] MEDS: PULMICORT 0.5 MG INH (07:30)
[2025-01-20] MEDS: ZYLOPRIM 300 MG PO (08:01)
[2025-01-20] MEDS: OCUVITE SOFTGEL 2 CAP PO (08:01)
[2025-01-20] MEDS: LYRICA 25 MG PO (08:01)
[2025-01-20] MEDS: ZANAFLEX 2 MG PO (08:01)
[2025-01-20] MEDS: AUGMENTIN 500 MG/125 MG 1 TABLET PO (08:01)
[2025-01-20] MEDS: TYLENOL 1000 MG PO (08:02)
[2025-01-20] MEDS: DEMADEX 40 MG PO (08:02)
[2025-01-20] MEDS: CARDIZEM CD 180 MG PO (08:02)
[2025-01-20] MEDS: MUCINEX 1200 MG PO (08:02)
[2025-01-20] MEDS: PROTONIX 40 MG PO (08:02)
[2025-01-20] MEDS: ASPIR LOW (ENTERIC COATED) 81 MG PO (08:03)
[2025-01-20] MEDS: ZYRTEC 10 MG PO (08:03)
[2025-01-20] MEDS: DESENEX/MITRAZOL/ZEASORB 1 APPLIC TOPICAL (08:03)
[2025-01-20] MEDS: KCL 20 MEQ PO (08:03)
[2025-01-20] MEDS: ALDACTONE 12.5 MG PO (08:03)
[2025-01-20] MEDS: CELEXA 20 MG PO (08:03)
[2025-01-20] MEDS: HEPARIN 5000 UNITS SC (08:04)
[2025-01-20] MEDS: OCEAN, SALINE MIST 1 SPRAYS NASAL (08:06)
[2025-01-20] MEDS: REMOVE LIDOCAINE PATCH 2 PATCH REMOVE (08:13)
[2025-01-20] MEDS: SOLU-MEDROL PF 20 MG IV (08:14)
[2025-01-20 09:01] VITALS: BP 110/56
[2025-01-20 09:34] VITALS: BP 95/57; O2SAT 97
--- NOTE | 2025-01-20 11:07 | CM ---
CM reviewed chart, patient seen bedside, aware plan for d/c today, [facility] able to offer bed. Auth approved through [facility], approved 01/20-01/23, next review 01/23, fax updates to [phone], auth #[id number]. IMM verbally reviewed with patient, provided
with copy, placed in chart. CM spoke with patients son and daughter in law, will provide transport to [facility] around 3:00 p.m. - will charge patients O2 and bring it for transport. Auth information provided to [facility]. CM will continue to follow
for all discharge planning needs.
Plan; [facility], family to transport
Laura Valadez, 3rd floor
Report: [phone]
--- NOTE | 2025-01-20 11:29 | RESPNOTE ---
Room air resting - 95%
Room air ambulating - 88%
1L o2 applied. 1L ambulating - 94%
Total distance: 100 ft
Patient required 1L on ambulation to maintain spo2 > 88%
--- NOTE | 2025-01-20 12:24 | W.PN.PUL3 ---
Today's Communication / Plan
-
Prednisone taper
Continue nebulizers while in the hospital-restart inhalers upon discharge
Complete 7 days of antibiotic
Incentive spirometry
Diuresis as able
Pulmonary follow-up in about 2 weeks
Discharge planning to [facility] ongoing.
Assessment
-
79-year-old former smoking female with underlying COPD, hypothyroidism, chronic systolic heart failure, CAD and peripheral vascular disease presented with congestion, atrial fibrillation, cough and pulmonary was consulted for cough and possible COPD
exacerbation 01/13/2025.
Heart failure, preserved EF-acute on top of chronic.
Chronic cough.
COPD with mild acute exacerbation.
Mild anemia
Hyperglycemia.
Mild transaminitis
Conditions present prior to admission:
COPD
Former smoker
PAF
Restrictive lung disease
Nocturnal hypoxemia
MARY-Hx of CPAP intolerant/noncompliance
Pulmonary nodule status post bronchoscopy 09/2024-no malignant cells-close radiographic follow-up suggested
Ulcerative colitis
Hypertension
Rheumatoid thrice
Hypothyroid
Gastritis
Chronic kidney disease
Osteoporosis
Hyperlipidemia
Diverticulosis
Gout
Sick sinus syndrome status post pacemaker 2011 and generator change 2021
Peripheral neuropathy
Bladder calculi and renal calculi
Anxiety/depression
Ablation-declined oral anticoagulant
Hypocalcemia
Migraines
Acute neuritis
GERD
Anemia
Cervical radiculopathy neck
Left wrist surgery. History of DVT. Right rotator cuff 2007. DNC. Left foot surgery. Tubal ligation. TAB R 2016. Cholecystectomy.
Pulmonary nodule incidentally noted CT TAVR with change in nodular underwent robotic bronchoscopy/-no conclusive malignant cells-repeat CT December 2024
Plan
Respiratory decompensation, likely due to heart failure, preserved EF and-mild to moderate COPD exacerbation - clinically improved on current regimen.
-
Clinically improved.
Home oxygen assessment 01/20/2025-patient required 1 L of supplemental oxygen with ambulation upon discharge. None at rest.
-
Continue DuoNebs QID + budesonide BID-while in the hospital. Usually on Anoro-restart upon discharge.
Mucolytics with mucinex
Mucus clearing devices
Unable to produce sputum.
Aspiration precautions.
Continue with Augmentin which was started given concern for acute bacterial rhinosinusitis-complete 7 days.
Transitioned to prednisone on 01/20/2025---40 mg and decrease by 10 mg every 48 [address] to [address]
CT chest performed on 01/12/2025 showing left basilar atelectasis with no evidence of pneumonia or heart failure
CXR shows small bilateral pleural effusions with retrocardiac opacity, likely due to atelectasis; overall no real significant change compared to prior CXR on 01/12/2025
Status post diuresis.
Transitioned to oral diuretics per cardiology
Correspondence reviewed no additional recommendations.
Echocardiogram 01/13/2025-EF 60-65%, TAVR functioning well, no significant change with exception patient is in atrial fibrillation with 100% ventricular pacing compared to 02/2024
Patient is prescribed CPAP which she uses at home although not always nightly.
- Continue CPAP at night as able.
- At home she is prescribed auto CPAP 5�20 cmH2O, with average pressure 14.4, max pressure 15.8
- Check blood gas tomorrow morning however if patient found to have significant hypercapnia then would consider transitioning from CPAP to BiPAP
Left lower lobe lung nodule: 1.2 cm.
Prior bronchoscopy was not nondiagnostic-atypical cells
Repeat CT chest 01/12/2025 reviewed: Stable lung nodule. Mildly enlarged lymph nodes.
Likely will recommend PET/CT and percutaneous biopsy. Follow-up with me in about 2 weeks.
DVT prophylaxis-on heparin SQ
GI prophylaxis-on pantoprazole.
Follows with pulmonary-Dr. Chanel-first seen 02/05/2024 and subsequently followed up with Ching BOYKIN on 12/04/2024-has appointment with Dr. Chanel 1:30 PM 02/16/2025
Agree with discharge planning to [facility].

Diagnostic data:
CXR 10/09/24: Left basilar opacity without significant change.� Could represent, nation of atelectasis and small pleural effusion
CXR 10/08/2024: Decreased conspicuously of the previously suspected tiny left apical pneumothorax, likely resolved.� (This was post bronchoscopy).
Chest x-ray 12/21/24-NAD, mild asymmetrical elevation of left hemidiaphragm.
Chest x-ray 01/12/25-small bilateral pleural effusions
CT chest Ion 09/12/2024: Superior segment of the left lower lobe 1.1 cm nodule, increased volume soft tissue component with diameter of [address] chest 01/12/25-stable 1.2; left lower lobe nodule, scattered, slightly prominent mediastinal lymph nodes
PFT 08/28/2024: FVC 1.63/71%, FEV1 1.11/65%, ratio 68%, significant BD response in FEV1 (16%), post BD results FVC 1.76/77%, FEV1 1.29/76%, ratio 73%, TLC 3.21/70%, DLCO 11.50/63%, DLCO/VA 4.31/107%.� Mild restriction. Mildly reduced diffusing
capacity that normalizes with alveolar adjustment.
Jovany 02/05/24: FVC 1.43/57%, FEV1 0.94/51%, ratio 66%, no significant BD response in FEV1.� Moderate obstruction and suggestive of mild restrictive pattern.
Echo 03/11/2024: EF 55 to 60%.� Mid anteroseptal, apical septal and mid to distal inferior akinesis/dyskinesis.� Wall motion consistent with conduction abnormality, paced rhythm. Normal RV size and function.� TAVR.� Trace AR.
HST 07/21/2024: DIEUDONNE 12.1 events/hour, O2 obinna 76%, 90.3% of the study time spent with O2 below 90%
Split study 09/30/14: Sleep efficiency 90%, AHI 35.35 events per hour, O2 obinna 80%; CPAP ineffective, recommended auto BiPAP therapy.
Bronchoscopic biopsy 10/08/24-unremarkable alveolar lung tissue, Left lower lobe TBNA-unsatisfactory for evaluation, left lower lobe BAL-negative for malignancy
Subjective Data
-
Date of Service:
Date of Service: January 20, 2025
Chief Complaint: Pulmonary Follow Up (Acute exacerbation of COPD/heart failure) and Dyspnea Follow Up
Subjective:
Overall feels better
Wheezing has mostly resolved
Denies increased phlegm production
Review of Systems
Cardiopulmonary: Dyspnea (Improved) and Dyspnea on Exertion ( improved)
GI: Abdominal Pain (n)
Objective Data
Data Reviewed
Vital Signs / I&O / Oxygen:
Vital Signs
Temp Pulse Resp BP Pulse Ox
97.7 F 61 16 110/56 95
01/20/25 09:01 01/20/25 09:01 01/20/25 09:01 01/20/25 09:01 01/20/25 09:01
Intake and Output
01/19/25 01/20/25 01/21/25
06:59 06:59 06:59
Intake Total 420 / 420 720 / 720
Output Total 1200 / 1200
Balance -780 / -780 720 / 720
SaO2 95
Nasal Cannula flow liters per 3
minute
Physical Exam
General: Respiratory Distress (n), Comfortable, Chills (n) and Sweats (n)
HEENT: Normocephalic, Anicteric and Moist Mucous Membranes
Cardiovascular: S1-S2 and Peripheral Edema (negative)
Respiratory: Wheeze (minimal, improved.), Crackles (negative), Rhonchi (Bilaterally), Non-Labored Respirations, Accessory Resp Muscle Use (n) and Stridor (n)
GI: Soft, Non Distended, Non Tender and Normal Bowel Sounds
Neurology: Awake, Alert, Oriented and Tremors (n)
Skin: Warm, Dry, Cyanosis (n) and Jaundice (n)
Labs/Micro/Reports
Lab Data
01/17/25 09:36
01/19/25 08:14
Microbiology
01/18/25 06:55 Nose MRSA Screen - Final
No Methicillin Resistant Staphylococcus aureus isolated.
--- NOTE | 2025-01-20 12:42 | W.DCSUMMARY ---
Discharge Summary
Discharge Data
Date of Admission: 01/12/25
Date of Discharge: 01/20/25
Total time spent discharging patient (in min): 46
-
Pending Results: No
Hospital Course
Ms. Hernandez is an 79-year-old female with a medical history of HFpEF, COPD, paroxysmal A-fib, hypertension, hypothyroidism, cervical radiculopathy, and severe aortic stenosis (status post TAVR) who presented with cough, congestion, weakness, and tremor
of bilateral upper extremities. She was found to have an acute exacerbation of her HFpEF and was started on diuresis. She was also found to be bronchospastic and started on steroids and breathing treatments for exacerbation of her COPD. She was
also started on antibiotics for acute sinusitis. She clinically improved with above-mentioned treatments. She has been transitioned back to her home regimen of torsemide and spironolactone. She will be transitioned to an oral steroid taper at
discharge for her bronchospasm and should continue taking her scheduled inhalers. She will also be continued on antibiotics to complete a total 7-day course. The tremor in her arms resolved with discontinuation of her newly started oxycodone and
reduction in her doses of Lyrica and tizanidine. She was started on scheduled acetaminophen 1 g 3 times a day for pain control in addition to continuing lidocaine patches. She will need follow-up in the outpatient setting for ongoing monitoring
and dosage adjustments as needed. She was evaluated by PT/OT who recommended SNF which has been arranged. At time of hospital discharge she was medically stable.
General: No Apparent Distress, Comfortable and Conversant
HEENT: NormoCephalic, Moist mucous membranes, Atraumatic
Respiratory: Clear and Non Labored Respirations
Cardiac: S1/S2 and Regular Rhythm; No Rub or Gallop
GI: Soft, Non Tender, Non Distended and Normal Bowel Sounds
Musculoskeletal: No Edema, no deformity
: NO Patel
Neuro: Awake, Alert, Nonfocal/grossly intact
Psych: Calm and Intact Judgment/Insight
Discharge Plan
-
Patient Disposition: Care Home/SNF
Discharge Diagnosis/Procedures: Acute on chronic HFpEF, COPD with acute exacerbation
Activity Restrictions/Additional Instructions:
Ms. Hernandez is an 79-year-old female with a medical history of HFpEF, COPD, paroxysmal A-fib, hypertension, hypothyroidism, cervical radiculopathy, and severe aortic stenosis (status post TAVR) who presented with cough, congestion, weakness, and tremor
of bilateral upper extremities. She was found to have an acute exacerbation of her HFpEF and was started on diuresis. She was also found to be bronchospastic and started on steroids and breathing treatments for exacerbation of her COPD. She was
also started on antibiotics for acute sinusitis. She clinically improved with above-mentioned treatments. She has been transitioned back to her home regimen of torsemide and spironolactone. She will be transitioned to an oral steroid taper at
discharge for her bronchospasm and should continue taking her scheduled inhalers. She will also be continued on antibiotics to complete a total 7-day course. The tremor in her arms resolved with discontinuation of her newly started oxycodone and
reduction in her doses of Lyrica and tizanidine. She was started on scheduled acetaminophen 1 g 3 times a day for pain control in addition to continuing lidocaine patches. She will need follow-up in the outpatient setting for ongoing monitoring
and dosage adjustments as needed. She was evaluated by PT/OT who recommended SNF which has been arranged. At time of hospital discharge she was medically stable.
Referrals:
Apollo Pate MD [Active, Pulmonary Medicine] - in two weeks
Lakesha Hawley DO [Family Provider, General]
Yessica Ramirez MD [Non-Admitting Privileges, Cardiology] - in two to four weeks
Prescriptions:
New
tizanidine 2 mg Tablet
2 mg PO TID 30 Days Qty: 90 0RF
amoxicillin-pot clavulanate 500-125 mg Tablet
1 tab PO Q12 3 Days Qty: 6 0RF
Saline Nasal 0.65 % Aerosol,[place]
2 spray intranasal QID Qty: 44 0RF
pregabalin 25 mg Capsule
25 mg PO BID 30 Days Qty: 60 0RF
cetirizine 10 mg Tablet
10 mg PO DAILY 30 Days Qty: 30 0RF
Continued
citalopram 20 MG tablet
20 mg PO DAILY
allopurinol 300 MG tablet
300 mg PO DAILY
omeprazole 20 MG tablet,delayed release (DR/EC)
20 mg PO DAILY
torsemide 20 MG tablet
40 mg PO DAILY
aspirin 81 mg Tablet,Delayed Release (Dr/Ec)
81 mg PO DAILY Qty: 0 0RF
multivitamin Tablet
1 tab PO DAILY
diltiazem HCl [Cardizem CD] 180 mg Capsule,Extended Release 24hr
180 mg PO DAILY
rosuvastatin 20 mg Tablet
20 mg PO HS
umeclidinium-vilanterol [Anoro Ellipta] 62.5-25 mcg/actuation Blister With Device
1 inh INHALATION R DAILY
potassium chloride 20 mEq Tablet Extended Release
40 meq PO DAILY
spironolactone 25 mg tablet
12.5 mg PO DAILY
levothyroxine [Synthroid] 100 mcg Tablet
100 mcg PO DAILY
glucosamine-chondroitin 250-200 mg Tablet
2 tab PO DAILY
cholecalciferol (vitamin D3) [Vitamin D3] 25 mcg (1,000 unit) Tablet
25 mcg PO DAILY
PreserVision AREDS 2,148 mcg-113 mg-45 mg-17.4mg Tablet
2 tab PO DAILY
lidocaine 4 % Adhesive Patch,Medicated
1 patch TOPICAL DAILY
loperamide 2 mg Tablet
2 mg PO Q4HPRN PRN (Reason: loose stools)
ketorolac 10 mg Tablet
10 mg PO BID
magnesium hydroxide [Milk of Magnesia] 400 mg/5 mL Suspension
30 ml PO [id number] PRN (Reason: if no BM x 3 days)
Patient Comments:
01/12/2025, give on day 4.
bisacodyl [Dulcolax (bisacodyl)] 10 mg Suppository
10 mg TX DAILYPRN PRN (Reason: if MOM ineffective)
Patient Comments:
01/12/2025, give on day 5.
Fleet Enema 19-7 gram/118 mL Enema
118 ml TX DAILYPRN PRN (Reason: if dulcolax supp ineffective)
Patient Comments:
01/12/2025, give on day 6.
calcium carbonate 500 mg calcium (1,250 mg) Tablet,Chewable
500 mg PO BID
Changed
acetaminophen [Tylenol Extra Strength] 500 mg Tablet
1,000 mg PO TID Qty: 0 0RF
Discontinued
tizanidine 4 MG tablet
4 mg PO TID
acetaminophen [Tylenol] 325 mg Tablet
650 mg PO Q6HPRN PRN (Reason: temp>100F)
oxycodone 5 mg Tablet
5 mg PO Q6HPRN PRN (Reason: moderate to severe pain)
pregabalin 100 mg Capsule
100 mg PO Q8H
Discharge Orders:
Discharge Patient (As Directed); Ordered 01/20/25
Ordered By: Jordan Diamond
Discharge Date and Time
Print Language: LITHUANIAN
[2025-01-20] MEDS: OCEAN, SALINE MIST NASAL (13:08)
[2025-01-20 16:19] VITALS: BP 114/62
== END 2025-01-20 18:16 | DRG 291 ==
LOC: 4 WEST ACU 16:09
PROVIDERS: Internal Medicine Cardiovascular Disease; Internal Medicine Critical Care Medicine; Nurse Practitioner Family; Physician Assistant; ADMITTING PHYSICIAN Internal Medicine; ATTENDING PHYSICIAN Internal Medicine; EMERGENCY PHYSICIAN Emergency Medicine; FAMILY PHYSICIAN Family Medicine; OTHER PHYSICIAN Internal Medicine Critical Care Medicine; OTHER PHYSICIAN Student in an Organized Health Care Education/Training Program
PROC: 5A09357 Assistance with Respiratory Ventilation, Less than 24 Consecutive Hours, Continuous Positive Airway Pressure (ICD-10-PCS; 2025-01-18)
DX: I13.0 Hypertensive heart and chronic kidney disease with heart failure and stage 1 through stage 4 chronic kidney disease, or unspecified chronic kidney disease (principal); I50.33 Acute on chronic diastolic (congestive) heart failure; J44.1 Chronic obstructive pulmonary disease with (acute) exacerbation; K51.90 Ulcerative colitis, unspecified, without complications; J96.11 Chronic respiratory failure with hypoxia; J98.11 Atelectasis; J01.90 Acute sinusitis, unspecified; Z79.899 Other long term (current) drug therapy; Z79.890 Hormone replacement therapy; Z87.891 Personal history of nicotine dependence; E03.9 Hypothyroidism, unspecified; I25.10 Atherosclerotic heart disease of native coronary artery without angina pectoris; N18.31 Chronic kidney disease, stage 3a; D63.1 Anemia in chronic kidney disease; D64.9 Anemia, unspecified; I48.0 Paroxysmal atrial fibrillation; M81.0 Age-related osteoporosis without current pathological fracture; I49.5 Sick sinus syndrome; Z95.0 Presence of cardiac pacemaker; Z87.442 Personal history of urinary calculi; F41.9 Anxiety disorder, unspecified; F32.A Depression, unspecified; E83.51 Hypocalcemia; G43.909 Migraine, unspecified, not intractable, without status migrainosus; K21.9 Gastro-esophageal reflux disease without esophagitis; Z86.718 Personal history of other venous thrombosis and embolism; G47.33 Obstructive sleep apnea (adult) (pediatric); Z95.3 Presence of xenogenic heart valve; J98.4 Other disorders of lung; G89.29 Other chronic pain; E11.22 Type 2 diabetes mellitus with diabetic chronic kidney disease; E11.51 Type 2 diabetes mellitus with diabetic peripheral angiopathy without gangrene; E11.65 Type 2 diabetes mellitus with hyperglycemia; E78.00 Pure hypercholesterolemia, unspecified; Z99.81 Dependence on supplemental oxygen; M06.9 Rheumatoid arthritis, unspecified; Z79.82 Long term (current) use of aspirin; Z86.73 Personal history of transient ischemic attack (TIA), and cerebral infarction without residual deficits; Z88.5 Allergy status to narcotic agent; Z96.651 Presence of right artificial knee joint; L89.152 Pressure ulcer of sacral region, stage 2
CPT/HCPCS: 70450; 71046; 71250; 80048; 80053; 81003; 82550; 82805; 83735; 83880; 84443; 84484; 85025; 85027; 87070; 87811; 93005; 93306; 94640; 94660; 96374; 97116; 97163; 97167; 97530; 97535; 99285

== ENCOUNTER → 2025-01-23 12:12 | Outpatient (REF) | payer BC, OTHER, SELFPAY ==
[2025-01-23 13:01] LABS: Hematocrit 35.4 % (37.0-47.0); Hemoglobin 11.7 g/dL (12.0-16.0); Mean Corp Hgb Conc. 33.1 g/dL (33.0-37.0); Mean Corpuscular Volume 91.0 fL (81.0-99.0); Nucleated Red Blood Cells % 0 %; Platelet Count 170 10^3/uL (130-400); Red Cell Dist. Width 13.7 % (11.5-14.5)
[2025-01-23 13:46] LABS: Blood Urea Nitrogen 52 mg/dl (7-17); Calcium 8.1 mg/dl (8.4-10.2); Carbon Dioxide 29 mmol/L (22-30); Chloride 99 mmol/L (98-107); Glucose 83 mg/dl (70-99); Potassium 3.9 mmol/L (3.5-5.1); Sodium 135 mmol/L (135-145); eGFR 56.60
== END ==
LOC: OLABP 12:12
PROVIDERS: ATTENDING PHYSICIAN Family Medicine
DX: I48.91 Unspecified atrial fibrillation (principal); J96.11 Chronic respiratory failure with hypoxia; I35.0 Nonrheumatic aortic (valve) stenosis; I50.9 Heart failure, unspecified; J44.9 Chronic obstructive pulmonary disease, unspecified; I25.10 Atherosclerotic heart disease of native coronary artery without angina pectoris
CPT/HCPCS: 36415; 80048; 85025

== ENCOUNTER → 2025-01-26 09:46 | Outpatient (REF) | payer BC, SELFPAY ==
[2025-01-26 12:21] LABS: Hematocrit 39.6 % (37.0-47.0); Hemoglobin 12.7 g/dL (12.0-16.0); Mean Corp Hgb Conc. 32.1 g/dL (33.0-37.0); Mean Corpuscular Volume 93.2 fL (81.0-99.0); Platelet Count 180 10^3/uL (130-400); Red Cell Dist. Width 13.9 % (11.5-14.5)
[2025-01-26 12:41] LABS: Blood Urea Nitrogen 36 mg/dl (7-17); Calcium 9.2 mg/dl (8.4-10.2); Carbon Dioxide 31 mmol/L (22-30); Chloride 101 mmol/L (98-107); Glucose 95 mg/dl (70-99); Potassium 4.9 mmol/L (3.5-5.1); Sodium 138 mmol/L (135-145); eGFR > 60.00
== END ==
LOC: OLABP 09:46
PROVIDERS: ATTENDING PHYSICIAN Family Medicine
DX: Z86.73 Personal history of transient ischemic attack (TIA), and cerebral infarction without residual deficits (principal); Z95.0 Presence of cardiac pacemaker; I35.0 Nonrheumatic aortic (valve) stenosis; I50.9 Heart failure, unspecified; J44.9 Chronic obstructive pulmonary disease, unspecified; K51.90 Ulcerative colitis, unspecified, without complications; M06.9 Rheumatoid arthritis, unspecified; M10.9 Gout, unspecified; M19.91 Primary osteoarthritis, unspecified site; R50.9 Fever, unspecified; I25.6 Silent myocardial ischemia; E03.9 Hypothyroidism, unspecified
CPT/HCPCS: 36415; 80048; 85027

== ENCOUNTER → 2025-02-02 11:03 | Outpatient (REF) | payer BC, OTHER, SELFPAY ==
[2025-02-02 13:46] LABS: Blood Urea Nitrogen 42 mg/dl (7-17); Calcium 8.4 mg/dl (8.4-10.2); Carbon Dioxide 33 mmol/L (22-30); Chloride 101 mmol/L (98-107); Glucose 86 mg/dl (70-99); Potassium 4.2 mmol/L (3.5-5.1); Sodium 139 mmol/L (135-145); eGFR 56.60
[2025-02-02 13:50] LABS: Hematocrit 31.1 % (37.0-47.0); Hemoglobin 9.8 g/dL (12.0-16.0); Mean Corp Hgb Conc. 31.5 g/dL (33.0-37.0); Mean Corpuscular Volume 94.0 fL (81.0-99.0); Nucleated Red Blood Cells % 0 %; Platelet Count 100 10^3/uL (130-400); Red Cell Dist. Width 14.1 % (11.5-14.5)
== END ==
LOC: OLABP 11:03
PROVIDERS: ATTENDING PHYSICIAN Family Medicine
DX: I48.91 Unspecified atrial fibrillation (principal); J96.11 Chronic respiratory failure with hypoxia; G62.9 Polyneuropathy, unspecified; Z95.0 Presence of cardiac pacemaker; I50.9 Heart failure, unspecified; R41.82 Altered mental status, unspecified; J44.9 Chronic obstructive pulmonary disease, unspecified; M06.9 Rheumatoid arthritis, unspecified; M10.9 Gout, unspecified; M19.91 Primary osteoarthritis, unspecified site; R94.31 Abnormal electrocardiogram [ECG] [EKG]; R50.9 Fever, unspecified; Z86.73 Personal history of transient ischemic attack (TIA), and cerebral infarction without residual deficits
CPT/HCPCS: 36415; 80048; 85025

== ENCOUNTER → 2025-02-10 10:08 | Outpatient (REF) | payer BC, OTHER, SELFPAY ==
[2025-02-10 11:29] LABS: Hematocrit 33.3 % (37.0-47.0); Hemoglobin 10.6 g/dL (12.0-16.0); Mean Corp Hgb Conc. 31.8 g/dL (33.0-37.0); Mean Corpuscular Volume 94.3 fL (81.0-99.0); Platelet Count 189 10^3/uL (130-400); Red Cell Dist. Width 15.2 % (11.5-14.5)
[2025-02-10 11:45] LABS: Blood Urea Nitrogen 45 mg/dl (7-17); Calcium 9.5 mg/dl (8.4-10.2); Carbon Dioxide 39 mmol/L (22-30); Chloride 94 mmol/L (98-107); Glucose 92 mg/dl (70-99); Potassium 4.3 mmol/L (3.5-5.1); Sodium 139 mmol/L (135-145); eGFR 50.48
== END ==
LOC: OLABN 10:08
PROVIDERS: ATTENDING PHYSICIAN Family Medicine
DX: R94.31 Abnormal electrocardiogram [ECG] [EKG] (principal); Z86.73 Personal history of transient ischemic attack (TIA), and cerebral infarction without residual deficits; Z95.0 Presence of cardiac pacemaker; I48.91 Unspecified atrial fibrillation; F32.A Depression, unspecified; J96.11 Chronic respiratory failure with hypoxia; G93.40 Encephalopathy, unspecified; I35.0 Nonrheumatic aortic (valve) stenosis; I50.9 Heart failure, unspecified; R41.82 Altered mental status, unspecified; E03.9 Hypothyroidism, unspecified; J44.9 Chronic obstructive pulmonary disease, unspecified; K51.90 Ulcerative colitis, unspecified, without complications
CPT/HCPCS: 36415; 80048; 83880; 85027

== ENCOUNTER → 2025-02-17 09:53 | Outpatient (REF) | payer BC, OTHER, SELFPAY ==
[2025-02-17 11:02] LABS: Blood Urea Nitrogen 61 mg/dl (7-17); Calcium 9.5 mg/dl (8.4-10.2); Carbon Dioxide 38 mmol/L (22-30); Chloride 94 mmol/L (98-107); Glucose 100 mg/dl (70-99); Potassium 3.7 mmol/L (3.5-5.1); Sodium 139 mmol/L (135-145); eGFR 45.48
== END ==
LOC: OLABP 09:53
PROVIDERS: ATTENDING PHYSICIAN Family Medicine
DX: Z86.73 Personal history of transient ischemic attack (TIA), and cerebral infarction without residual deficits (principal); Z95.0 Presence of cardiac pacemaker; F32.9 Major depressive disorder, single episode, unspecified; J96.11 Chronic respiratory failure with hypoxia; G62.9 Polyneuropathy, unspecified; G93.41 Metabolic encephalopathy; I35.0 Nonrheumatic aortic (valve) stenosis; I50.9 Heart failure, unspecified; I49.5 Sick sinus syndrome; J44.9 Chronic obstructive pulmonary disease, unspecified; K51.90 Ulcerative colitis, unspecified, without complications; M06.9 Rheumatoid arthritis, unspecified; M10.9 Gout, unspecified; M19.91 Primary osteoarthritis, unspecified site; R50.9 Fever, unspecified; R94.31 Abnormal electrocardiogram [ECG] [EKG]; E03.9 Hypothyroidism, unspecified; I25.10 Atherosclerotic heart disease of native coronary artery without angina pectoris; R41.82 Altered mental status, unspecified
CPT/HCPCS: 36415; 80048

== ENCOUNTER → 2025-02-25 12:48 | Outpatient (REF) | payer BC, OTHER, SELFPAY ==
[2025-02-25 13:32] LABS: Blood Urea Nitrogen 61 mg/dl (7-17); Calcium 8.7 mg/dl (8.4-10.2); Carbon Dioxide 35 mmol/L (22-30); Chloride 95 mmol/L (98-107); Glucose 106 mg/dl (70-99); Potassium 3.7 mmol/L (3.5-5.1); Sodium 138 mmol/L (135-145); eGFR 41.31
== END ==
LOC: OLABP 12:48
PROVIDERS: ATTENDING PHYSICIAN Family Medicine
DX: J96.11 Chronic respiratory failure with hypoxia (principal); I48.91 Unspecified atrial fibrillation; G62.9 Polyneuropathy, unspecified; I25.10 Atherosclerotic heart disease of native coronary artery without angina pectoris; I35.0 Nonrheumatic aortic (valve) stenosis; I50.9 Heart failure, unspecified; J44.9 Chronic obstructive pulmonary disease, unspecified; E03.9 Hypothyroidism, unspecified; K51.90 Ulcerative colitis, unspecified, without complications; M06.9 Rheumatoid arthritis, unspecified; M10.9 Gout, unspecified; R50.9 Fever, unspecified; R94.31 Abnormal electrocardiogram [ECG] [EKG]
CPT/HCPCS: 36415; 80048

== ENCOUNTER → 2025-02-27 13:36 | Outpatient (REF) | payer BC, OTHER, SELFPAY ==
[2025-02-27 13:48] LABS: Hematocrit 35.0 % (37.0-47.0); Hemoglobin 11.2 g/dL (12.0-16.0); Mean Corp Hgb Conc. 32.0 g/dL (33.0-37.0); Mean Corpuscular Volume 92.6 fL (81.0-99.0); Nucleated Red Blood Cells % 0 %; Platelet Count 167 10^3/uL (130-400); Red Cell Dist. Width 15.0 % (11.5-14.5)
[2025-02-27 13:49] LABS: Urine Character Clear (Clear)
== END ==
LOC: OLABP 13:36
PROVIDERS: ATTENDING PHYSICIAN Family Medicine
DX: Z86.73 Personal history of transient ischemic attack (TIA), and cerebral infarction without residual deficits (principal); Z95.0 Presence of cardiac pacemaker; I48.91 Unspecified atrial fibrillation; F32.A Depression, unspecified; J96.11 Chronic respiratory failure with hypoxia; G62.9 Polyneuropathy, unspecified; G93.41 Metabolic encephalopathy; I35.0 Nonrheumatic aortic (valve) stenosis; J44.9 Chronic obstructive pulmonary disease, unspecified; K51.90 Ulcerative colitis, unspecified, without complications; M06.9 Rheumatoid arthritis, unspecified; M10.9 Gout, unspecified; M19.91 Primary osteoarthritis, unspecified site; R94.31 Abnormal electrocardiogram [ECG] [EKG]; I25.10 Atherosclerotic heart disease of native coronary artery without angina pectoris; I50.9 Heart failure, unspecified; R41.82 Altered mental status, unspecified; F03.90 Unspecified dementia, unspecified severity, without behavioral disturbance, psychotic disturbance, mood disturbance, and anxiety
CPT/HCPCS: 81003; 85025

== ENCOUNTER → 2025-03-04 13:36 | Outpatient (REF) | payer BC, OTHER, SELFPAY ==
[2025-03-04 14:20] LABS: Blood Urea Nitrogen 80 mg/dl (7-17); Calcium 8.8 mg/dl (8.4-10.2); Carbon Dioxide 33 mmol/L (22-30); Chloride 96 mmol/L (98-107); Glucose 94 mg/dl (70-99); Potassium 3.6 mmol/L (3.5-5.1); Sodium 137 mmol/L (135-145); eGFR 41.31
== END ==
LOC: OLABP 13:36
PROVIDERS: ATTENDING PHYSICIAN Family Medicine
DX: Z86.73 Personal history of transient ischemic attack (TIA), and cerebral infarction without residual deficits (principal); I48.91 Unspecified atrial fibrillation; Z95.0 Presence of cardiac pacemaker; J96.11 Chronic respiratory failure with hypoxia; I50.9 Heart failure, unspecified; J44.9 Chronic obstructive pulmonary disease, unspecified; K51.90 Ulcerative colitis, unspecified, without complications; I25.10 Atherosclerotic heart disease of native coronary artery without angina pectoris; M06.9 Rheumatoid arthritis, unspecified; M10.9 Gout, unspecified; M19.91 Primary osteoarthritis, unspecified site; R50.9 Fever, unspecified
CPT/HCPCS: 36415; 80048

== ENCOUNTER → 2025-03-06 11:18 | Outpatient (REF) | payer BC, OTHER, SELFPAY ==
[2025-03-06 12:13] LABS: Blood Urea Nitrogen 78 mg/dl (7-17); Calcium 9.1 mg/dl (8.4-10.2); Carbon Dioxide 34 mmol/L (22-30); Chloride 98 mmol/L (98-107); Glucose 174 mg/dl (70-99); Potassium 4.3 mmol/L (3.5-5.1); Sodium 139 mmol/L (135-145); eGFR 50.48
== END ==
LOC: OLABP 11:18
PROVIDERS: ATTENDING PHYSICIAN Family Medicine
DX: J44.9 Chronic obstructive pulmonary disease, unspecified (principal); Z86.73 Personal history of transient ischemic attack (TIA), and cerebral infarction without residual deficits; Z95.0 Presence of cardiac pacemaker; I48.91 Unspecified atrial fibrillation; J96.11 Chronic respiratory failure with hypoxia; G62.9 Polyneuropathy, unspecified; G93.41 Metabolic encephalopathy; I35.0 Nonrheumatic aortic (valve) stenosis; I50.9 Heart failure, unspecified; E03.9 Hypothyroidism, unspecified; I25.10 Atherosclerotic heart disease of native coronary artery without angina pectoris; M10.9 Gout, unspecified; R50.9 Fever, unspecified; R94.31 Abnormal electrocardiogram [ECG] [EKG]
CPT/HCPCS: 36415; 80048

== ENCOUNTER → 2025-03-10 11:47 | Outpatient (REF) | payer BC, OTHER, SELFPAY ==
[2025-03-10 12:53] LABS: Blood Urea Nitrogen 67 mg/dl (7-17); Calcium 8.5 mg/dl (8.4-10.2); Carbon Dioxide 30 mmol/L (22-30); Chloride 100 mmol/L (98-107); Glucose 109 mg/dl (70-99); Potassium 4.8 mmol/L (3.5-5.1); Sodium 137 mmol/L (135-145); eGFR 50.48
== END ==
LOC: OLABP 11:47
PROVIDERS: ATTENDING PHYSICIAN Family Medicine
DX: Z86.73 Personal history of transient ischemic attack (TIA), and cerebral infarction without residual deficits (principal); I48.91 Unspecified atrial fibrillation; F32.A Depression, unspecified; Z95.0 Presence of cardiac pacemaker; I35.0 Nonrheumatic aortic (valve) stenosis; J44.9 Chronic obstructive pulmonary disease, unspecified; G93.41 Metabolic encephalopathy; J96.11 Chronic respiratory failure with hypoxia; G62.9 Polyneuropathy, unspecified; M19.91 Primary osteoarthritis, unspecified site; R50.9 Fever, unspecified; M10.9 Gout, unspecified
CPT/HCPCS: 36415; 80048

== ENCOUNTER → 2025-03-17 11:44 | Outpatient (REF) | payer BC, OTHER, SELFPAY ==
[2025-03-17 12:58] LABS: TSH 1.76 uIU/ml (0.47-4.68)
== END ==
LOC: OLABP 11:44
PROVIDERS: ATTENDING PHYSICIAN Family Medicine
DX: I35.0 Nonrheumatic aortic (valve) stenosis (principal); I48.91 Unspecified atrial fibrillation; G62.9 Polyneuropathy, unspecified; Z86.73 Personal history of transient ischemic attack (TIA), and cerebral infarction without residual deficits; Z95.0 Presence of cardiac pacemaker; J44.9 Chronic obstructive pulmonary disease, unspecified; M06.9 Rheumatoid arthritis, unspecified; R50.9 Fever, unspecified; M10.9 Gout, unspecified; K51.90 Ulcerative colitis, unspecified, without complications; I50.9 Heart failure, unspecified; R41.82 Altered mental status, unspecified; E03.9 Hypothyroidism, unspecified
CPT/HCPCS: 36415; 84443

== ENCOUNTER → 2025-03-18 10:27 | Outpatient (REF) | payer OTHER, SELFPAY ==
[2025-03-18 10:54] LABS: Glucose 89 mg/dl (70-99)
== END ==
LOC: PET 10:27
PROVIDERS: ATTENDING PHYSICIAN Nurse Practitioner Family; REFERRING PHYSICIAN Internal Medicine Critical Care Medicine
DX: R91.1 Solitary pulmonary nodule (principal); Z01.812 Encounter for preprocedural laboratory examination
CPT/HCPCS: 36415; 78815; 82947; A9552

== ENCOUNTER → 2025-04-01 11:49 | Outpatient (REF) | payer BC, OTHER, SELFPAY ==
[2025-04-01 13:18] LABS: Hematocrit 30.9 % (37.0-47.0); Hemoglobin 9.4 g/dL (12.0-16.0); Mean Corp Hgb Conc. 30.4 g/dL (33.0-37.0); Mean Corpuscular Volume 96.9 fL (81.0-99.0); Nucleated Red Blood Cells % 0 %; Platelet Count 188 10^3/uL (130-400); Red Cell Dist. Width 15.4 % (11.5-14.5)
[2025-04-01 13:25] LABS: ALT (SGPT) 13 U/L (0-35); AST (SGOT) 18 U/L (14-36); Albumin 3.5 g/dl (3.5-5.0); Alkaline Phosphatase 79 U/L (38-126); Blood Urea Nitrogen 32 mg/dl (7-17); C-Reactive Protein 48.00 mg/L (0.0-10.00); Calcium 8.6 mg/dl (8.4-10.2); Carbon Dioxide 33 mmol/L (22-30); Chloride 103 mmol/L (98-107); Glucose 82 mg/dl (70-99); Potassium 4.4 mmol/L (3.5-5.1); Sodium 140 mmol/L (135-145); Total Protein 5.7 g/dl (6.3-8.2); Uric Acid 4.4 mg/dl (2.5-6.2); eGFR 50.48
[2025-04-02 13:53] LABS: Rheumatoid Agglutinin Less Than 10 IU (<10 IU)
== END ==
LOC: OLABP 11:49
PROVIDERS: ATTENDING PHYSICIAN Family Medicine
DX: I48.91 Unspecified atrial fibrillation (principal); F32.9 Major depressive disorder, single episode, unspecified; J96.11 Chronic respiratory failure with hypoxia; G93.41 Metabolic encephalopathy; I50.9 Heart failure, unspecified; J44.9 Chronic obstructive pulmonary disease, unspecified; I25.10 Atherosclerotic heart disease of native coronary artery without angina pectoris; M10.9 Gout, unspecified; R50.9 Fever, unspecified; R94.31 Abnormal electrocardiogram [ECG] [EKG]
CPT/HCPCS: 36415; 80053; 84550; 85025; 85652; 86140; 86200; 86430

== ENCOUNTER 2025-04-10 15:47 | Inpatient (IN) | payer OTHER, SELFPAY ==
[2025-04-10] VITALS (11 sets, daily range): BP systolic 103–171; BP diastolic 56–114; BMI 31.4
--- NOTE | 2025-04-10 11:06 | ED.GENMED ---
History of Present Illness
<Jordan Jamil PA-C - Last Filed: 04/10/25 14:44>
General
Chief Complaint: Chest Pain
Time Seen by Provider: 04/10/25 10:59
History of Present Illness
History of Present Illness:
79-year-old female with history of COPD on chronic oxygen, aortic stenosis status post TAVR, sick sinus syndrome status post pacemaker, hypertension, hyperlipidemia, and CHF presents to the emergency department for evaluation of chest pressure/pain
that began approximately 1 hour prior to my evaluation. States she was given pain medications which seem to improve the symptoms. Symptoms were described as pressure, without shortness of breath. Denies any recent fevers or coughing. No recent
increased leg swelling. Last cardiac catheterization was pre-TAVR in September 2021 showing mild nonobstructive CAD. Last echocardiogram was December 2024 showing an EF of 60 to 65% with mild concentric LVH
Past History
<Jordan Jamil PA-C - Last Filed: 04/10/25 14:44>
Past History
ED Past Medical History: CAD, CHF, COPD, HTN, Hypercholesterolemia, Hypothyroidism and Psychiatric
ED Past Surgical History: Cholecystectomy, Gynecological (DIANA/BSO) and Orthopedic (total right knee replacement)
Social History
Tobacco: Non-smoker
Alcohol: None
Drug: None
Personal:
Living: with family (lives with who is able to help her)
Review of Systems
<Jordan Jamil PA-C - Last Filed: 04/10/25 14:44>
Review of Systems
Allergies reviewed?: Yes
All Other Systems: ROS reviewed and negative except as documented in HPI and ROS
Phy Exam
<Jordan Jamil PA-C - Last Filed: 04/10/25 14:44>
Physical Exam
Physical Exam:
GEN: Well appearing, NAD, WDWN
HEENT: Oral mucosa moist, no scleral icterus
Cardiac: Regular rate and rhythm
Lung: No respiratory distress, no tachypnea, lungs clear to auscultation
MSK: No gross deformity or injuries
Skin: Good color, no pallor or jaundice, no rashes
Neuro: AO x3, moves all extremities freely
Psych: Calm, cooperative
Scores
<Jordan Jamil PA-C - Last Filed: 04/10/25 14:44>
Heart Score for Chest Pain Patients
STEMI patient?: No
History: Moderately Suspicious
ECG: Nonspecific Repolarization
Age: >/= 65 years
Risk Factors: >/= 3 Risk Factors or History of CAD
Troponin: >/= 3 x Normal Limit
Heart Score for Chest Pain Patients: 8
Heart Score Risk: 72.7 % MACE over next 6 weeks
Course
<Jordan Jamil PA-C - Last Filed: 04/10/25 14:44>
Orders/Labs/Results
Orders:
Orders
04/10/25 10:56
Electrocardiogram (*1) Urgent
Reason for Study: Chest Pain
04/10/25 10:57
EKG- Treatment ONCE
04/10/25 11:05
CR Chest - 2 Views Urgent
Comment:
Reason For Exam: chest pain
04/10/25 11:09
Complete Blood Count/With Diff Urgent
D-Dimer Urgent
PTT Urgent
Comment: ADD ON
Prothrombin Time Urgent
Comment: ADD ON
04/10/25 12:25
CT Chest PE Study Urgent
Comment:
Reason For Exam: chest pain/dyspnea, elevated dimer
04/10/25 13:02
Comprehensive Metabolic Panel Urgent
NT-proBNP Urgent
Troponin I Urgent
04/10/25 14:04
Aspirin Chewable [Low Strength Aspirin] 243 mg PO NOW STA
04/10/25 14:05
Add On- LAB Urgent
Tests Added?: aPTT, PT INR
04/10/25 14:09
Heparin 4,000 units IV NOW STA
Pharmacy Request to Place See Dose Instructions PO NOW STA
Discontinue all Active Warfarin orders?: Yes
04/10/25 14:[address] Non Medication Order As Directed
Physician Order: PTT 6 hours after initial start of Heparin infusion
04/10/25 14:15
Heparin 79860 Units/250 ml 25,000 units in 250 ml IV PER PROTOCOL
Weight to be used for heparin protocol in kilograms (kg):: 77.7
Protocol:: Cardiac Tx/Acute Coronary
PTT Goal Range to be used:: PTT 73 to 111 seconds
Order type:: Initial
INITIAL Infusion Dose (UNITS/KG/hr) & then follow protocol:: 12 units/kg/hr
Infusion Dose in UNITS/hr & then follow protocol (UNITS/hr):: 950
INFUSION RATE in mL/hr & then follow protocol (mL/hr):: 9.5
PTT less than or equal to 64 seconds:: Increase rate by 200 units/hr (+ 2 mL/hr)
PTT 64.1 to 72.9 seconds:: Increase rate by 100 units/hr (+ 1 mL/hr)
PTT 73 to 111 seconds:: Target Range. No change in rate.
PTT 111.1 to 130.9 seconds:: Decrease rate by 100 units/hr (- 1 mL/hr)
PTT 131 to 199.9 seconds:: HOLD for 1 hr. Then decrease rate by 200 units/hr (- 2 mL/hr)
PTT greater than or equal to 200 seconds:: HOLD for 2 hrs & Notify Provider. Then decrease by 200 units/hr (-
2 mL/hr)
Lab follow-up:: Each change, PTT q6h until 2 consecutive are therapeutic. Then PTT
daily.
04/10/25 14:41
Furosemide [Lasix] 80 mg IV NOW STA
04/10/25 15:[address] See Dose Instructions IV DIRECTED
Abnormal Lab Results
04/10/25 04/10/25
11:09 13:02
RBC 3.52 L 10^6/uL
(4.20-5.40)
Hgb 10.4 L g/dL
(12.0-16.0)
Hct 34.2 L %
(37.0-47.0)
MCHC 30.4 L g/dL
(33.0-37.0)
RDW 15.4 H %
(11.5-14.5)
MPV 10.9 H fL
(7.4-10.4)
Abs Immat Gran (auto) 0.1 H 10^3/uL
(0-0.05)
Absolute Neuts (auto) 8.4 H 10^3/uL
(1.4-6.5)
Absolute Lymphs (auto) 0.9 L 10^3/uL
(1.2-3.4)
Immature Gran % 1.4 H %
(0-0.5)
Neutrophils % 86.3 H %
(42.2-75.2)
Lymphocytes % 9.6 L %
(20.5-51.1)
D-Dimer 1.09 H ug/mlFEU
(0.00-0.50)
Carbon Dioxide 35 H mmol/L
(22-30)
BUN 26 H mg/dl
(7-17)
Glucose 125 H mg/dl
(70-99)
Troponin I 0.242 H* ng/ml
Total Protein 5.8 L g/dl
(6.3-8.2)
04/10/25 11:09
04/10/25 13:02
Vital Signs
Initial and Last Documented VS:
Initial Vital Signs
Temp Pulse Resp BP Pulse Ox
98.6 F 92 22 119/64 97
04/10/25 10:58 04/10/25 10:58 04/10/25 10:58 04/10/25 10:58 04/10/25 10:58
Last Documented Vital Signs
Temp Pulse Resp BP Pulse Ox
98.6 F 92 22 119/64 97
04/10/25 10:58 04/10/25 10:58 04/10/25 10:58 04/10/25 10:58 04/10/25 11:06
<Rock Baum, DO - Last Filed: 04/10/25 14:10>
Orders/Labs/Results
Orders:
Orders
04/10/25 10:56
Electrocardiogram (*1) Urgent
Reason for Study: Chest Pain
04/10/25 10:57
EKG- Treatment ONCE
04/10/25 11:05
CR Chest - 2 Views Urgent
Comment:
Reason For Exam: chest pain
04/10/25 11:09
Complete Blood Count/With Diff Urgent
D-Dimer Urgent
PTT Urgent
Comment: ADD ON
Prothrombin Time Urgent
Comment: ADD ON
04/10/25 12:25
CT Chest PE Study Urgent
Comment:
Reason For Exam: chest pain/dyspnea, elevated dimer
04/10/25 13:02
Comprehensive Metabolic Panel Urgent
NT-proBNP Urgent
Troponin I Urgent
04/10/25 14:04
Aspirin Chewable [Low Strength Aspirin] 243 mg PO NOW STA
04/10/25 14:05
Add On- LAB Urgent
Tests Added?: aPTT, PT INR
04/10/25 14:09
Heparin 4,000 units IV NOW STA
Pharmacy Request to Place See Dose Instructions PO NOW STA
Discontinue all Active Warfarin orders?: Yes
04/10/25 14:[address] Non Medication Order As Directed
Physician Order: PTT 6 hours after initial start of Heparin infusion
04/10/25 14:15
Heparin [id number] Units/250 ml 25,000 units in 250 ml IV PER PROTOCOL
Weight to be used for heparin protocol in kilograms (kg):: 77.7
Protocol:: Cardiac Tx/Acute Coronary
PTT Goal Range to be used:: PTT 73 to 111 seconds
Order type:: Initial
INITIAL Infusion Dose (UNITS/KG/hr) & then follow protocol:: 12 units/kg/hr
Infusion Dose in UNITS/hr & then follow protocol (UNITS/hr):: 950
INFUSION RATE in mL/hr & then follow protocol (mL/hr):: 9.5
PTT less than or equal to 64 seconds:: Increase rate by 200 units/hr (+ 2 mL/hr)
PTT 64.1 to 72.9 seconds:: Increase rate by 100 units/hr (+ 1 mL/hr)
PTT 73 to 111 seconds:: Target Range. No change in rate.
PTT 111.1 to 130.9 seconds:: Decrease rate by 100 units/hr (- 1 mL/hr)
PTT 131 to 199.9 seconds:: HOLD for 1 hr. Then decrease rate by 200 units/hr (- 2 mL/hr)
PTT greater than or equal to 200 seconds:: HOLD for 2 hrs & Notify Provider. Then decrease by 200 units/hr (-
2 mL/hr)
Lab follow-up:: Each change, PTT q6h until 2 consecutive are therapeutic. Then PTT
daily.
04/10/25 14:41
Furosemide [Lasix] 80 mg IV NOW STA
04/10/25 15:[address] See Dose Instructions IV DIRECTED
Abnormal Lab Results
04/10/25 04/10/25
11:09 13:02
RBC 3.52 L 10^6/uL
(4.20-5.40)
Hgb 10.4 L g/dL
(12.0-16.0)
Hct 34.2 L %
(37.0-47.0)
MCHC 30.4 L g/dL
(33.0-37.0)
RDW 15.4 H %
(11.5-14.5)
MPV 10.9 H fL
(7.4-10.4)
Abs Immat Gran (auto) 0.1 H 10^3/uL
(0-0.05)
Absolute Neuts (auto) 8.4 H 10^3/uL
(1.4-6.5)
Absolute Lymphs (auto) 0.9 L 10^3/uL
(1.2-3.4)
Immature Gran % 1.4 H %
(0-0.5)
Neutrophils % 86.3 H %
(42.2-75.2)
Lymphocytes % 9.6 L %
(20.5-51.1)
D-Dimer 1.09 H ug/mlFEU
(0.00-0.50)
Carbon Dioxide 35 H mmol/L
(22-30)
BUN 26 H mg/dl
(7-17)
Glucose 125 H mg/dl
(70-99)
Troponin I 0.242 H* ng/ml
Total Protein 5.8 L g/dl
(6.3-8.2)
04/10/25 11:09
04/10/25 13:02
Vital Signs
Initial and Last Documented VS:
Initial Vital Signs
Temp Pulse Resp BP Pulse Ox
98.6 F 92 22 119/64 97
04/10/25 10:58 04/10/25 10:58 04/10/25 10:58 04/10/25 10:58 04/10/25 10:58
Last Documented Vital Signs
Temp Pulse Resp BP Pulse Ox
98.6 F 92 22 119/64 97
04/10/25 10:58 04/10/25 10:58 04/10/25 10:58 04/10/25 10:58 04/10/25 11:06
<Jordan Jamil PA-C - Last Filed: 04/10/25 14:44>
MDM/Problems Addressed
MDM/Problems Addressed:
Patient arrives with acute onset of chest pain denies complaints of shortness of breath. She had significantly elevated troponin, due to elevated D-dimer PE study was obtained that shows no evidence for acute PE. EKG is nonischemic and device
interrogation shows no events. She does appear volume recently. May be a component of CHF as well. However given lack of shortness of chest pain will treat this as ACS until proven otherwise. Patient will be admitted on heparin, diurese as well
<Jordan Jamil PA-C - Last Filed: 04/10/25 14:44>
Comment
Comment:
EKG independently interpreted by me shows a ventricular paced rhythm with no ischemic changes
*Pulse Oximetry
SaO2: 97
Nasal Cannula flow liters per minute: 4
Patient hypoxic: no
*Critical Care Note
Total Time (30-74mins, 75-104mins- exclusive of procedures): 40 minutes
comment:
Critical care time: 40 minutes
Critical care time was exclusive of: Separately billable procedures, treating other patients, and teaching time
Critical care was necessary to treat or prevent imminent or life-threatening deterioration of the following conditions: ACS/NSTEMI
Critical care time spent personally by me on the following activities:
[x] Review of old charts
[x] Obtaining history from patient or surrogate
[x] Ordering and review of the laboratory studies
[x] Ordering and review of radiographic studies
[x] Ordering and performing treatments and interventions
[x] Patient patient's response to treatment
[x] Development of treatment plan with patient or surrogate
<Jordan Jamil PA-C - Last Filed: 04/10/25 14:44>
Update Note
Update Note:
Device interrogation performed, no significant ventricular dysrhythmias, consistently in atrial fibrillation without rapid rates
ED Attending Note
<Jordan Jamil PA-C - Last Filed: 04/10/25 14:44>
-
Portions of this chart may have been created with voice recognition software.� Occasional wrong word or��sound alike� substitutions may have occurred due to the inherent limitations of voice recognition software.
<Rock Baum DO - Last Filed: 04/10/25 14:10>
ED Attending Note
Patient seen and examined by attending physician: Yes
I performed the substantive portion of visit, reviewed & personally made and approve the management plan that is documented in note by myself or GRETEL.: Yes
Discharge Plan
Departure
Patient Disposition: Admit
Date of Disposition: 04/10/25
Time of Disposition: 14:42
Admit to: Telemetry
Presentation/result/management discussed w/ accepting /: Hospitalist
Discharge Problem:
ACS (acute coronary syndrome)
Prescriptions:
No Action
citalopram 20 MG tablet
20 mg PO DAILY
allopurinol 300 MG tablet
300 mg PO DAILY
omeprazole 20 MG tablet,delayed release (DR/EC)
20 mg PO DAILY
torsemide 20 MG tablet
40 mg PO DAILY
aspirin 81 mg Tablet,Delayed Release (Dr/Ec)
81 mg PO DAILY Qty: 0 0RF
multivitamin Tablet
1 tab PO DAILY
diltiazem HCl [Cardizem CD] 180 mg Capsule,Extended Release 24hr
180 mg PO DAILY
rosuvastatin 20 mg Tablet
20 mg PO HS
umeclidinium-vilanterol [Anoro Ellipta] 62.5-25 mcg/actuation Blister With Device
1 inh INHALATION R DAILY
potassium chloride 20 mEq Tablet Extended Release
40 meq PO DAILY
spironolactone 25 mg tablet
12.5 mg PO DAILY
levothyroxine [Synthroid] 100 mcg Tablet
100 mcg PO DAILY
glucosamine-chondroitin 250-200 mg Tablet
2 tab PO DAILY
cholecalciferol (vitamin D3) [Vitamin D3] 25 mcg (1,000 unit) Tablet
25 mcg PO DAILY
PreserVision AREDS 2,148 mcg-113 mg-45 mg-17.4mg Tablet
2 tab PO DAILY
lidocaine 4 % Adhesive Patch,Medicated
1 patch TOPICAL DAILY
loperamide 2 mg Tablet
2 mg PO Q4HPRN PRN (Reason: loose stools)
ketorolac 10 mg Tablet
10 mg PO BID
magnesium hydroxide [Milk of Magnesia] 400 mg/5 mL Suspension
30 ml PO [id number] PRN (Reason: if no BM x 3 days)
Patient Comments:
01/12/2025, give on day 4.
bisacodyl [Dulcolax (bisacodyl)] 10 mg Suppository
10 mg NE DAILYPRN PRN (Reason: if MOM ineffective)
Patient Comments:
01/12/2025, give on day 5.
Fleet Enema 19-7 gram/118 mL Enema
118 ml NE DAILYPRN PRN (Reason: if dulcolax supp ineffective)
Patient Comments:
01/12/2025, give on day 6.
calcium carbonate 500 mg calcium (1,250 mg) Tablet,Chewable
500 mg PO BID
tizanidine 2 mg Tablet
2 mg PO TID 30 Days Qty: 90 0RF
amoxicillin-pot clavulanate 500-125 mg Tablet
1 tab PO Q12 3 Days Qty: 6 0RF
Saline Nasal 0.65 % Aerosol,[place]
2 spray intranasal QID Qty: 44 0RF
pregabalin 25 mg Capsule
25 mg PO BID 30 Days Qty: 60 0RF
cetirizine 10 mg Tablet
10 mg PO DAILY 30 Days Qty: 30 0RF
acetaminophen [Tylenol Extra Strength] 500 mg Tablet
1,000 mg PO TID Qty: 0 0RF
Referrals:
ACTE KIM [Family Provider]
Interventions
Interventions:
*Risk Screen - Suicide Last Done: 04/10/25 10:58
*General Assessment Last Done: 04/10/25 10:58
*Neglect/Abuse Screening Last Done: 04/10/25 10:58
ED- Cardiac Assessment Last Done: 04/10/25 11:12
Discharge Date and Time
Print Language: HONDURAN
[2025-04-10 11:24] LABS: Hematocrit 34.2 % (37.0-47.0); Hemoglobin 10.4 g/dL (12.0-16.0); Mean Corp Hgb Conc. 30.4 g/dL (33.0-37.0); Mean Corpuscular Volume 97.2 fL (81.0-99.0); Nucleated Red Blood Cells % 0 %; Platelet Count 225 10^3/uL (130-400); Red Cell Dist. Width 15.4 % (11.5-14.5)
[2025-04-10 11:31] LABS: D-Dimer 1.09 ug/mlFEU (0.00-0.50)
[2025-04-10 13:38] LABS: ALT (SGPT) 20 U/L (0-35); AST (SGOT) 22 U/L (14-36); Albumin 3.7 g/dl (3.5-5.0); Alkaline Phosphatase 68 U/L (38-126); Blood Urea Nitrogen 26 mg/dl (7-17); Calcium 8.7 mg/dl (8.4-10.2); Carbon Dioxide 35 mmol/L (22-30); Chloride 102 mmol/L (98-107); Estimated Creatinine Clearance 47 ml/min; Glucose 125 mg/dl (70-99); Potassium 5.0 mmol/L (3.5-5.1); Sodium 138 mmol/L (135-145); Total Protein 5.8 g/dl (6.3-8.2); eGFR > 60.00
[2025-04-10 14:01] LABS: Troponin I 0.242 ng/ml
[2025-04-10 14:30] LABS: INR 0.90; PT 12.5 Sec (11.4-14.6)
[2025-04-10 14:31] LABS: APTT 27.5 Sec (23.4-35.0)
--- NOTE | 2025-04-10 14:53 | HPS.HSE ---
Addendum entered and electronically signed by Mark Cifuentes MD 04/10/25 16:18:
This is an addendum to H&P written by Mariajose Doe on 04/10/2025. �Patient seen and examined independently with resident.
79-year-old female past medical history of COPD on 3 L baseline, aortic stenosis status post TAVR, sick sinus syndrome status post pacemaker, paroxysmal atrial fibrillation, tricuspid/mitral regurgitation, obstructive sleep apnea, hypertension,
hyperlipidemia, CAD, HFpEF, rheumatoid arthritis, ulcerative colitis, CKD 3, chronic anemia, osteoporosis, hyperparathyroidism, depression, epistaxis, presenting with chest pain 4 of 10 starting a month ago substernal that occurs even without
exertion but also with shortness of breath.
Chest pain worsening since last night. �Orthopnea at nighttime for past month.
Vital signs show tachypnea to 22. �On examination she has bilateral crackles, increased lower extremity edema.
Labs show stable anemia of 10.4. �Troponin of 0.24. �Cardiac BNP of 1800. �EKG showed V paced rhythm. �D-dimer 1.09.
�Chest x-ray shows mild central pulm vascular congestion. �Small bilateral pleural effusions. �CT PE showed no evidence of pulmonary embolism, mild pulmonary edema, tiny bilateral pleural effusions.
Currently no chest pain.
Patient was given loading dose aspirin, started on heparin drip. �80 IV Lasix given.
Patient with NSTEMI, acute CHF exacerbation. �Trend troponins until peak, continue aspirin, continue heparin drip. �N.p.o. for Pilot Plant Research Technician today check A1c and lipid panel. �Continue Lasix. �Cardiology consulted.
Original Note:
Family Physician
-
Family Physician: RUN Meograph [place]
Chief Complaint
-
Chest pain
History of Present Illness
79-year-old female with PMHx significant for COPD, home O2 dependence, aortic stenosis s/p TAVR, sick sinus syndrome s/p pacemaker, paroxysmal A-fib, MARY-CPAP intolerant, hypertension, hyperlipidemia, HFpEF with most recent EF as of 01/13/2025-60 to
65%, rheumatoid arthritis, uncomplicated ulcerative colitis, CKD stage G3 A/G1, RBBB, tricuspid valve insufficiency, benign pulmonary nodule post bronchoscopy-10/17 with no malignant cells, osteoporosis, history of nephro and urolithiasis, MDD,
hyperparathyroidism presents to the ER for evaluation of chest pain. Patient states that her chest pain started about a month ago, it was substernal, pressure-like, 4/10 in intensity and was associated with some shortness of breath. Each episode
lasted few minutes to several minutes but patient attributed it to be her normal from not walking and prolonged staying in the bed. Beginning 10 PM yesterday her chest pain started feeling worse about 10/10 in intensity, nonradiating mostly
substernal and is not associated with nausea and vomiting.
She denies having any syncopal episodes, dysuria, frequency, palpitations, orthopnea, PND, pedal edema. She states to have day-wally on her legs and wears compression stockings thoroughly.
Upon arrival to the ER, her vital signs are stable except for tachypnea, she is afebrile, her hemoglobin was found to be at 10.1, her troponins are elevated at 0.242, her proBNP is elevated at 1810, best known proBNP-476 in the last year. Neurology
was consulted, patient was given loading dose of aspirin, heparin bolus and was started on heparin drip along with 1 units of Lasix. Her D-dimers were elevated at 1, and a chest CT PE was obtained to rule out possible pulmonary embolism that showed
no evidence for pulmonary embolism but some evidence for congestion and and bilateral small pleural effusions consistent with a diagnosis of heart failure.
Medical History
Past Medical History
Past Medical History: Reports Other
Additional Past Medical History:
COPD
Former smoker
PAF
Restrictive lung disease
Nocturnal hypoxemia
MARY-CPAP intolerant
Pulmonary nodule status post bronchoscopy 09/2024-no malignant cells-close radiographic follow-up suggested
Ulcerative colitis
Hypertension
Rheumatoid thrice
Hypothyroid
Gastritis
Chronic kidney disease
Osteoporosis
Hyperlipidemia
Diverticulosis
Gout
Sick sinus syndrome status post pacemaker 2011 and generator change 2021
Peripheral neuropathy
Bladder calculi and renal calculi
Anxiety/depression
Ablation-declined oral anticoagulant
Hypocalcemia
Migraines
Acute neuritis
GERD
Anemia
Cervical radiculopathy neck
Past Surgical History: Reports Other
Additional Past Surgical History:
Left wrist surgery. History of DVT. Right rotator cuff 2006. DNC. Left foot surgery. Tubal ligation. TAB R 2016. Cholecystectomy.
Social History
Tobacco: Former Smoker
Alcohol: None
Drug: None
Personal:
Living: [facility]
Employment: Retired
Family History
Family History: Other (Diabetes, CAD, hypertension.)
Allergies / Home Medications
Allergies reflects when Allergies were last updated in [facility].
Home Medications with original date entered in [facility]
Allergy/Medication List:
Allergies
Allergy/AdvReac Type Severity Reaction Status Date / Time
codeine Allergy migraine Verified 01/12/25 10:45
duloxetine HCl (From Allergy confusion Verified 01/12/25 10:45
Cymbalta)
egg Allergy Unknown Verified 01/12/25 16:32
metoclopramide Allergy DYSTONIA Verified 01/12/25 10:45
PER MD
tramadol HCl (From Ultram) Allergy Hives Verified 01/12/25 10:45
Home Medications
allopurinol 300 mg tablet 300 mg PO DAILY gout 09/29/14
omeprazole 20 mg tablet,delayed release 20 mg PO DAILY Gastrointestinal issue 09/29/14
torsemide 20 mg tablet 40 mg PO DAILY Fluid Retention/Swelling 11/04/16
aspirin 81 mg tablet,delayed release 81 mg PO DAILY #0 tabs 03/15/24
diltiazem HCl 180 mg capsule,extended release 24 hr (Cardizem CD) 180 mg PO DAILY Blood Pressure 10/06/24
multivitamin 1 tab PO DAILY Supplement 10/06/24
potassium chloride 20 mEq tablet,extended release 30 meq PO DAILY Electrolyte Repletion 10/06/24
rosuvastatin 20 mg tablet 20 mg PO HS High Cholesterol 10/06/24
spironolactone 25 mg tablet 12.5 mg PO DAILY Fluid Retention/Swelling 10/06/24
umeclidinium 62.5 mcg-vilanterol 25 mcg/actuation powdr for inhalation (Anoro Ellipta) 1 inh inhalation R DAILY Lung/Breathing Issues 10/06/24
cholecalciferol (vitamin D3) 25 mcg (1,000 unit) tablet (Vitamin D3) 25 mcg PO DAILY Supplement 12/21/24
glucosamine-chondroitin 250 mg-200 mg tablet 2 tab PO DAILY Supplement 12/21/24
levothyroxine 100 mcg tablet (Synthroid) 100 mcg PO DAILY Thyroid 12/21/24
vitamins A,C,B-pxwq-geamrt 2,148 mcg-113 mg-45 mg-17.4 mg tablet (PreserVision AREDS) 2 tab PO DAILY Supplement 12/21/24
bisacodyl 10 mg rectal suppository (Dulcolax (bisacodyl)) 10 mg TN DAILYPRN PRN if MOM ineffective 01/12/25
calcium carbonate 500 mg PO BID Supplement 01/12/25
lidocaine 4 % topical patch 1 patch topical DAILY L knee & L shoulder 01/12/25
loperamide 2 mg tablet 2 mg PO Q4HPRN PRN loose stools 01/12/25
magnesium hydroxide 400 mg/5 mL oral suspension (Milk of Magnesia) 30 ml PO [id number] PRN if no BM x 3 days 01/12/25
sodium phosphates 19 gram-7 gram/118 mL enema (Fleet Enema) 118 ml TN DAILYPRN PRN if dulcolax supp ineffective 01/12/25
acetaminophen 500 mg tablet (Tylenol Extra Strength) 1,000 mg (2 x 500 mg) PO TID breakthrough pain #0 tabs 01/20/25
pregabalin 25 mg capsule 25 mg PO BID 30 days #60 caps 01/20/25
sodium chloride 0.65 % nasal spray aerosol (Saline Nasal) 2 spray intranasal QID #44 mL 01/20/25
citalopram 20 mg tablet 20 mg PO DAILY 04/10/25
dextran 70-hypromellose eye drops in a dropperette (Artificial Tears (PF) drops in a dropperette) 1 drp BOTH EYES Q4HPRN PRN dry eye 04/10/25
dextran 70-hypromellose eye drops in a dropperette (Artificial Tears (PF) drops in a dropperette) 2 drp ophthalmic (eye) BID 04/10/25
diclofenac sodium 1 % topical gel 2 g topical Q8 pain right hip/knee 04/10/25
docusate sodium 100 mg capsule (Colace) 200 mg PO HS 04/10/25
fluticasone propionate 50 mcg/actuation nasal spray,suspension 2 spray intranasal DAILY 04/10/25
ipratropium 0.5 mg-albuterol 3 mg (2.5 mg base)/3 mL nebulization soln 3 ml inhalation TID 04/10/25
ketorolac 10 mg tablet 10 mg PO . SEE BELOW TID 04/10/25
melatonin 10 mg tablet 10 mg PO HS 04/10/25
midodrine 2.5 mg tablet 2.5 mg PO DAILY 04/10/25
oxycodone 10 mg tablet 10 mg PO DAILYPRN PRN severe pain 04/10/25
oxycodone 10 mg tablet,crush resistant,extended release 12 hr (OxyContin) 10 mg PO BID 04/10/25
oxycodone 5 mg tablet 5 mg PO DAILYPRN PRN moderate pain 04/10/25
prednisone 10 mg tablet 10 mg PO DAILY ra, copd 04/10/25
ropinirole 0.5 mg tablet 0.5 mg PO HS 04/10/25
sennosides 8.6 mg tablet (Senokot) 8.6 mg PO HS 04/10/25
tizanidine 2 mg tablet 4 mg PO QID 04/10/25
Review of Systems
-
Constitutional: Reports Fatigue
EENT: Reports No Symptoms
Respiratory: Reports Trouble Breathing
Cardiac: Reports Chest Pain
Abdomen/GI: Reports No Symptoms
: Reports No Symptoms
Musculoskeletal: Reports No Symptoms
Skin: Reports No Symptoms
Neurological: Reports No Symptoms
Endocrine: Reports No Symptoms
Hematologic/Lymphatic: Reports No Symptoms
Psych: Reports No Symptoms
Physical Exam
Vital Signs
Vital Signs
Temp Pulse Resp BP Pulse Ox
98.6 F 92 22 119/64 97
04/10/25 10:58 04/10/25 10:58 04/10/25 10:58 04/10/25 10:58 04/10/25 11:06
Physical Exam
General: Comfortable
HEENT: Moist mucous membranes
Respiratory: Crackles (Bilateral lower lobe crackles); No Wheezes, Rales or Rhonchi
Cardiac: S1/S2, Regular Rhythm and Murmur (Systolic murmur, 3/6 in intensity, best heard at the apex.); No Rub or Gallop
GI: Soft, Non Tender, Non Distended and Normal Bowel Sounds
Genito-urinary: Deferred by me
Musculoskeletal: No Clubbing and No Cyanosis
Neuro: AO x 3 and No Motor Deficits
Psych: Calm
Laboratory Results
-
04/10/25 11:09
04/10/25 13:02
Laboratory Results
PT 12.5 Sec (11.4-14.6) 04/10/25 11:09
INR 0.90 04/10/25 11:09
APTT Cancelled 04/10/25 14:10
Total Bilirubin 0.6 mg/dl (0.2-1.3) 04/10/25 13:02
AST 22 U/L (14-36) 04/10/25 13:02
ALT 20 U/L (0-35) 04/10/25 13:02
Alkaline Phosphatase 68 U/L (38-126) 04/10/25 13:02
Troponin I 0.242 ng/ml H* 04/10/25 13:02
Data Reviewed
-
CT Scan: Image Personally Visualized and interpreted, Report Reviewed by me, Discussed with Physician and Discussed with Patient
Lab Data: Labs Reviewed by me, Discussed with Physician and Discussed with Patient
Old Records: Reviewed
Impression/Plan
-
IMPRESSION: 79-year-old female with PMHx significant for COPD, home O2 dependence, aortic stenosis s/p TAVR, sick sinus syndrome s/p pacemaker, paroxysmal A-fib, MARY-CPAP intolerant, hypertension, hyperlipidemia, HFpEF with most recent EF as of
01/13/2025-60 to 65%, rheumatoid arthritis, uncomplicated ulcerative colitis, CKD stage G3 A/G1, RBBB, tricuspid valve insufficiency, benign pulmonary nodule post bronchoscopy-10/17 with no malignant cells, osteoporosis, history of nephro and
urolithiasis, MDD, hyperparathyroidism presented for evaluation of chest pain, is diagnosed to have NSTEMI-chest pain and troponins positive no EKG changes. Being admitted to treat NSTEMI.
PLAN:
# NSTEMI-
Chest pain and troponins positive, no EKG changes.
N.p.o. for now, admit to IVU.
History of minimal nonobstructive CAD in left heart catheterization as of 2021.
Most recent echocardiogram-EF of 60 to 65%-01/13/2025.
S/p loading dose of aspirin and on heparin drip.
Received high intensity statin in the AM.
Cardiology consulted, on board plan is to take her for left heart catheterization.
N.p.o. today. Obtain EKG in the a.m. tomorrow.
# Acute on chronic respiratory failure-
Currently requiring 4 L nasal cannula flow
Likely secondary to NSTEMI and acute exacerbation of HFpEF
Wean off oxygen as tolerated
# Acute exacerbation of HFpEF-
Likely from NSTEMI
Sodium and fluid restricted diet when diet is advanced.
Obtain daily weights, continue IV Lasix 80 mg, baseline torsemide 40 mg twice daily.
Continue Aldactone, monitor weights and daily I's and O's.
Defer GDMT to cardiology.
# Paroxysmal A-fib-
Continue home dose Cardizem, adjust as recommended by cardiology
Not on Eliquis because of epistaxis in the past.
# Chronic pain syndrome-
From osteoarthritis in bilateral hips and knees.
Discontinue ketorolac.
Use other pain medication regimen-lidocaine, long-acting oxycodone
And diclofenac topical. Also on tizanidine and pregabalin-continue.
Add pain medication and adjust the dose as needed.
Recommend outpatient pain management as pain management is contributing to polypharmacy.
# Normocytic anemia-
Likely from anemia of chronic disease.
Globin stable at her baseline, trend hemoglobin.
# COPD-Home O2 dependent-3l
Wean off to home oxygen as tolerated.
Continue home inhaler regimen.
# Severe constipation-
Patient on multiple bowel regimens as needed.
Continue all regimens as needed with MiraLAX and docusate daily standing dose.
# Hypothyroidism-
Continue home dose levothyroxine.
# Rheumatoid arthritis-
Continue low-dose prednisone.
# History of nonobstructive CAD-
On aspirin and statin at home.
Continue current regimen.
# GERD-
Protonix
# Orthostatic hypotension-
Wears compression stockings, continue compression stockings and abdominal binders
Midodrine 2.5 mg 3 times daily
# DVT prophylaxis-
On heparin drip.
# CODE STATUS-
Full code.
[2025-04-10] MEDS: LASIX 80 MG IV (15:00)
[2025-04-10] MEDS: HEPARIN 4000 UNITS IV (15:01)
[2025-04-10] MEDS: LOW STRENGTH ASPIRIN 243 MG PO (15:01)
[2025-04-10] MEDS: HEPARIN 25000 UNITS/250 ML IV ×2 (15:02→21:02)
--- NOTE | 2025-04-10 15:14 | CON.CAR ---
Addendum entered and electronically signed by Orestes Florez MD 04/10/25 16:24:
I saw and examined the patient independently and performed majority of MDM.
The PRODUCTION LAPPING MACHINE OPERATOR's note was reviewed and I agree with the note with changes/additions below.
Comment: 79 yo female with PMH of TAVR 2021, non-obstructive CAD at the time, presents to ED with chest pressure while transferring out of wheelchair. She has been experiencing chest pressure intermittently over course of the month, but today was
much more severe. Exam with RRR, III/ systolic murmur at RUSB, trace LE edema. EKG: V paced. CT PE: no PE. Echo 12/2024: normal LVEF and TAVR function. TnI 0.242.
ACS/NSTEMI
-severe, threat to life
-ASA, heparin drip
-discussed with interventional cardiology: plan for cardiac cath today
TAVR
-stable on echo done 12/2024
Original Note:
Consultation
Consultation Request
Date/Time Consultation Requested: 04/10/25 2:45p
Date/Time Consultation Performed: 04/10/25 3p
Requesting Provider: Jordan Jamil PA-C
Performing Provider: ASHUTOSH Asif for Dr. Florez
Reason for Consultation: chest pain
Medical History
-
Chief Complaint: chest pain
History of Present Illness:
Mrs. Hernandez is an 79 yo female (known to Dr. Ramirez) with HFpEF, COPD on 3L [place] oxygen, paroxysmal Afib (not on OAC due to eye hemorrhage, declined Watchman), CKD, MDT PPM, severe s/p TAVR 11/2021, HLD and nonobstructive CAD on cath 09/2021 with
focal 30% proximal LAD and 40% mid LAD stenoses, who presents from [place] to the ER with c/o severe chest pain. Chest pain began after she got out of bed to her wheelchair, to the bathroom then back into bed this am, then the chest pain started.
She had assistance from a nurse. She describes chest pain as chest pressure 'like someone is sitting on my chest', it has now resolved. There was associated SOB as well. She c/o having mild chest pressure intermittently for 1 month, sometimes
occurring with exertion and even at rest. Initial troponin 0.242, EKG V paced. Currently she denies any chest pressure.
CXR: Findings suggestive of mild central pulmonary vascular congestion, small bilateral pleural effusions.
Past Medical History
Past Medical History: Other (as above)
Social History
Tobacco: Former Smoker
Living: Senior Living ([place])
Family History
Family History: Reviewed & Not Pertinent
Allergies / Home Medications
Allergy/AdvReac Type Severity Reaction Status Date / Time
codeine Allergy migraine Verified 01/12/25 10:45
duloxetine HCl (From Allergy confusion Verified 01/12/25 10:45
Cymbalta)
egg Allergy Unknown Verified 01/12/25 16:32
metoclopramide Allergy DYSTONIA Verified 01/12/25 10:45
PER MD
tramadol HCl (From Ultram) Allergy Hives Verified 01/12/25 10:45
�Medication �Instructions �Recorded �Confirmed �Type
allopurinol 300 mg tablet 300 mg PO DAILY gout 09/29/14 01/12/25 History
citalopram 20 mg tablet 20 mg PO DAILY Mental 09/29/14 01/12/25 History
Health/Anxiety
omeprazole 20 mg tablet,delayed 20 mg PO DAILY Gastrointestinal 09/29/14 01/12/25 History
release issue
torsemide 20 mg tablet 40 mg PO DAILY Fluid 11/04/16 01/12/25 History
Retention/Swelling
aspirin 81 mg tablet,delayed 81 mg PO DAILY #0 tabs 03/15/24 01/12/25 Rx
release
diltiazem HCl 180 mg 180 mg PO DAILY Blood Pressure 10/06/24 01/12/25 History
capsule,extended release 24 hr
(Cardizem CD)
multivitamin 1 tab PO DAILY Supplement 10/06/24 01/12/25 History
potassium chloride 20 mEq 40 meq PO DAILY Electrolyte 10/06/24 01/12/25 History
tablet,extended release Repletion
rosuvastatin 20 mg tablet 20 mg PO HS High Cholesterol 10/06/24 01/12/25 History
spironolactone 25 mg tablet 12.5 mg PO DAILY Fluid 10/06/24 01/12/25 History
Retention/Swelling
umeclidinium 62.5 mcg-vilanterol 1 inh inhalation R DAILY 10/06/24 01/12/25 History
25 mcg/actuation powdr for Lung/Breathing Issues
inhalation (Anoro Ellipta)
cholecalciferol (vitamin D3) 25 25 mcg PO DAILY Supplement 12/21/24 01/12/25 History
mcg (1,000 unit) tablet (Vitamin
D3)
glucosamine-chondroitin 250 mg-200 2 tab PO DAILY Supplement 12/21/24 01/12/25 History
mg tablet
levothyroxine 100 mcg tablet 100 mcg PO DAILY Thyroid 12/21/24 01/12/25 History
(Synthroid)
vitamins A,C,R-nghu-uftryb 2,148 2 tab PO DAILY Supplement 12/21/24 01/12/25 History
mcg-113 mg-45 mg-17.4 mg tablet
(PreserVision AREDS)
bisacodyl 10 mg rectal suppository 10 mg [place] DAILYPRN PRN if MOM 01/12/25 01/12/25 History
(Dulcolax (bisacodyl)) ineffective
calcium carbonate 500 mg PO BID Supplement 01/12/25 01/12/25 History
ketorolac 10 mg tablet 10 mg PO BID Pain 01/12/25 01/12/25 History
lidocaine 4 % topical patch 1 patch topical DAILY L knee & L 01/12/25 01/12/25 History
shoulder
loperamide 2 mg tablet 2 mg PO Q4HPRN PRN loose stools 01/12/25 01/12/25 History
magnesium hydroxide 400 mg/5 mL 30 ml PO [id number] PRN if no BM x 3 01/12/25 01/12/25 History
oral suspension (Milk of Magnesia) days
sodium phosphates 19 gram-7 118 ml TX DAILYPRN PRN if dulcolax 01/12/25 01/12/25 History
gram/118 mL enema (Fleet Enema) supp ineffective
acetaminophen 500 mg tablet 1,000 mg (2 x 500 mg) PO TID 01/20/25 01/12/25 Rx
(Tylenol Extra Strength) breakthrough pain #0 tabs
amoxicillin 500 mg-potassium 1 tab PO Q12 3 days #6 tabs 01/20/25 Rx
clavulanate 125 mg tablet
cetirizine 10 mg tablet 10 mg PO DAILY 30 days #30 tabs 01/20/25 Rx
pregabalin 25 mg capsule 25 mg PO BID 30 days #60 caps 01/20/25 Rx
sodium chloride 0.65 % nasal spray 2 spray intranasal QID #44 mL 01/20/25 Rx
aerosol (Saline Nasal)
tizanidine 2 mg tablet 2 mg PO TID 30 days #90 tabs 01/20/25 Rx
Review of Systems
-
History Source: Patient
All other systems: Negative unless noted
Physical Exam
Vital Signs
Temp Pulse Resp BP Pulse Ox
98.6 F 61 19 140/70 100
04/10/25 10:58 04/10/25 15:00 04/10/25 15:00 04/10/25 15:00 04/10/25 15:00
Lab Results
04/10/25 11:09
04/10/25 13:02
Troponin I 0.242 ng/ml H* 04/10/25 13:02
Raw-O-Julfaqhcohl Pept 1810 pg/ml 04/10/25 13:02
Vtd-Y-Geugxnylyjp Pept Cancelled 04/10/25 13:02
Physical Exam
General: Well Developed, Well Nourished and No Apparent Distress
HEENT: Normocephalic and Anicteric
Respiratory: Clear and Non Labored Respirations
Cardiac: S1/S2, Regular Rhythm and Murmur (2/6 LC)
Breast: Deferred by me
GI: Soft, Non Tender and Normal Bowel Sounds
Rectal: Deferred by Provider
Musculoskeletal: No Edema
Skin: Warm and Dry
Neuro: AO x 3
Psych: Calm
Impression / Plan
-
Chest pressure - severe today after exertion.
- ACS, initial troponin 0.242, trend to peak.
- EKG with V pacing.
- just received 324mg ASA, IV Heparin.
- no chest pressure currently.
- nonobstructive CAD on cath 09/2021 with 30% pLAD and 40% mLAD.
- will plan for cath today.
HFpEF - acute on chronic.
- small b/l pleural effusions on CXR.
- receiving IV Lasix in ER.
Aortic stenosis - s/p TAVR 2021.
- stable on echo 12/2024.
Afib - paroxysmal.
- Vpaced on tele.
- [id number] VASc score is at least 5, not on OAC due to eye hemorrhage and declined Watchman by Dr. Ramirez.
PPM - MDT device, stable with normal function.
- managed by Dr. Ramirez's office.
COPD - oxygen dependent 3L NC.
- stable.
12/2024 echo: 60-65%, Normal right ventricular size and function. Mild concentric left ventricular hypertrophy. TAVR is functioning well: 13 mmHg and trace aortic regurgitation. No change since 03/11/2024.
Data Reviewed
-
EKG: Tracing Personally Visualized and interpreted
Radiology: Report Reviewed by me (CXR: Findings suggestive of mild central pulmonary vascular congestion, small bilateral pleural effusions.)
Medical Tests (Nuc Med, Echo etc): Report Reviewed by me (12/2024 echo: 60-65%, Normal right ventricular size and function. Mild concentric left ventricular hypertrophy. TAVR is functioning well: 13 mmHg and trace aortic regurgitation. No change
since 03/11/2024.) and Other (cath 09/2021 with focal 30% proximal LAD and 40% mid LAD stenoses)
Labs: Labs Reviewed by me
Old Records: Reviewed
--- NOTE | 2025-04-10 16:47 | CM ---
Pricing on Brilinta though the patient's prescription plan, [employer] scripts, ID# [id number] is covered at $32 for a 30 day supply.
--- NOTE | 2025-04-10 17:26 | ITS.CL.PN ---
[employer] - Procedure Note
Procedure
Procedure Note:
CARDIAC CATHETERIZATION REPORT
Date of Procedure: 04/10/2025
Referring: Dr. John Florez MD, PhD
Indication: NSTEMI
PROCEDURE(S)
1. left heart catheterization
2. coronary angiography
ACCESS: 6F right radial artery (closure: radial band)
CATHETERS
1. 6F JR4
2. 6F JL3.5
3. 6F pigtail
MODERATE SEDATION: 35 minutes of moderate sedation was utilized. An independent internist medical doctor md was present to assist with and help manage the patient's level of consciousness and physiologic status.
HEMODYNAMIC DATA
LV 160/9 (EDP 17) mmHg
AO 152/71 (mean 100) mmHg
CORONARY ANGIOGRAPHY
Dominance: Right
LM: Large with mild distal tapering
LAD: Large vessel giving rise to a moderate caliber high rising D1/ramus, moderate caliber branching D2, and wrapping around the apex. There are serial 30% stenoses in the proximal to mid LAD unchanged from 2021 angiography.
LCx: Large vessel giving rise to a large OM1 and moderate caliber LPL branch. There are mild luminal irregularities only.
RCA: Large vessel giving rise to a moderate caliber RPDA and several small RPL branches. There are mild luminal irregularities only.
VENTRICULOGRAPHY
Overall normal EF with mild apical wall motion abnormality.
RADIATION: dose 396 mGy; DAP 29.4 Gy*cm2; fluoroscopy time 12.5 min
CONCLUSIONS
1. Non-obstructive coronary artery disease
2. Mildly elevated LV filling pressure and no aortic stenosis
3. Preserved EF with possible mild apical wall motion abnormality
RECOMMENDATIONS
1. Treat empirically for NSTEMI with 48 hours heparin starting 9PM tonight, noting that Type 1 [place] seems unlikely. Cont. ASA. Start low dose metoprolol.
2. Formal echo
3. Trend troponin to peak
Copy to: Dr. Yessica Ramirez MD (analysis lead); BARBARA Araiza (PCP)
Signed: Arjun Oakes MD, PhD
[2025-04-10 19:00] LABS: Troponin I 0.265 ng/ml
[2025-04-10] MEDS: NSS 351 IV (19:21)
[2025-04-10] MEDS: REFRESH EYE DROPS (PF) 2 DROPS OPHTH (19:34)
[2025-04-10] MEDS: TYLENOL 1000 MG PO (19:34)
[2025-04-10] MEDS: ZANAFLEX 4 MG PO (19:35)
[2025-04-10] MEDS: DICLOFENAC 1% TOPICAL GEL 2 GRAM TOPICAL ×2 (19:36→23:13)
--- NOTE | 2025-04-10 19:49 | PTCARENOTE ---
Received pt from [facility] rt tr band intact +distal pulse and pulse ox 98%. V paced on the monitor denies cp. Purewick in place draining clear yellow urine. Bladder scan 800 ml. Hospitalist notified and ordered straight cath done without complications
total 950 ml. and drained 900 from purewick. ACS and Heart failure education books given. On admission b/l lower extremities skin tears. dressing changed wound consult ordered. Call king within reach.
[2025-04-10] MEDS: LYRICA 25 MG PO (20:27)
[2025-04-10] MEDS: COLACE 200 MG PO (20:50)
[2025-04-10] MEDS: SENOKOT 8.6 MG PO (20:51)
[2025-04-10] MEDS: MELATONIN 10 MG PO (20:52)
[2025-04-10] MEDS: ZANAFLEX PO (20:52)
[2025-04-10] MEDS: CRESTOR 20 MG PO (20:52)
[2025-04-10] MEDS: OXYCONTIN (CONTROLLED RELEASE) 10 MG PO (21:02)
[2025-04-11] VITALS (8 sets, daily range): BP systolic 113–149; BP diastolic 66–86; PULSE 65; O2SAT 97; BMI 29.7
[2025-04-11 00:17] LABS: Troponin I 0.265 ng/ml
--- NOTE | 2025-04-11 02:22 | PTCARENOTE ---
Addendum entered by Marcela Irene RN 04/11/25 04:09:
Correction: Heparin was restarted @ 950unit/hour not 9500 unit/hour.
Original Note:
Received pt at change of shift, R band to right wrist intact and inflated, good radial pulse and O2 sat at 97% on 4LO2 via NC. Pt denies pain. Heparin restarted at 2100 at 9500 unit/hour as per order. Vpaced on the monitor, HR 60's. Call king within
reach, POC on going.
[2025-04-11 03:21] LABS: Hematocrit 33.8 % (37.0-47.0); Hemoglobin 10.7 g/dL (12.0-16.0); Mean Corp Hgb Conc. 31.7 g/dL (33.0-37.0); Mean Corpuscular Volume 94.7 fL (81.0-99.0); Nucleated Red Blood Cells % 0 %; Platelet Count 235 10^3/uL (130-400); Red Cell Dist. Width 15.0 % (11.5-14.5)
[2025-04-11 03:45] LABS: APTT 74.7 Sec (23.4-35.0)
[2025-04-11 04:09] LABS: ALT (SGPT) 21 U/L (0-35); AST (SGOT) 26 U/L (14-36); Albumin 3.8 g/dl (3.5-5.0); Alkaline Phosphatase 73 U/L (38-126); Blood Urea Nitrogen 27 mg/dl (7-17); Calcium 8.5 mg/dl (8.4-10.2); Carbon Dioxide 35 mmol/L (22-30); Chloride 99 mmol/L (98-107); Estimated Creatinine Clearance 52 ml/min; Glucose 97 mg/dl (70-99); Magnesium 1.8 mg/dl (1.6-2.3); Potassium 3.6 mmol/L (3.5-5.1); Sodium 138 mmol/L (135-145); Total Protein 6.0 g/dl (6.3-8.2); eGFR > 60.00
[2025-04-11] MEDS: SYNTHROID 100 MCG PO (05:46)
[2025-04-11] MEDS: LYRICA 25 MG PO ×2 (07:19→20:56)
[2025-04-11] MEDS: TYLENOL 1000 MG PO ×3 (07:19→21:38)
[2025-04-11] MEDS: ASPIR LOW (ENTERIC COATED) 81 MG PO (07:19)
[2025-04-11] MEDS: SPIRIVA RESPIMAT 2.5 MCG 2 PUFF INH (07:46)
[2025-04-11] MEDS: STRIVERDI RESPIMAT 2 PUFF INH (07:46)
--- NOTE | 2025-04-11 08:40 | W.PN.HOSP.TC ---
Today's Communication/Plan
-
Continue with IV heparin for another 24 hours
Continue the aspirin, beta-janet, statins
Add Pepcid and Maalox
Follow BMP
Assessment / Plan
Assessment / Plan
ACS/non-ST elevation [place]
Cardiac catheterization shows nonobstructive CAD, mildly elevated LV filling pressures and preserved EF and possibly mild apical wall motion abnormality.
Patient today without chest pain.
Troponin peak of 0.2
Continue with heparin for another 24 hours as planned
Continue with aspirin and beta-janet. Continue with statins
Formal echo pending
Acute heart failure with preserved EF
Continue with IV Lasix. Patient on home spironolactone which is continued here.
Weight improving
Follow BMP
Aortic stenosis s/p TAVR stable echo in 2024
Paroxysmal atrial fibrillation-V paced rhythm. Not on AC due to high hemorrhage and declined Watchman
GERD
Patient symptomatic with burping, reflux symptoms today. On PPI.
Will temporarily add Pepcid.
As needed Maalox.
COPD with chronic hypoxic respiratory failure on home O2 3 L
No evidence of exacerbation
Continue with inhalers. Continue with her maintenance dose of prednisone at 10 mg daily.
Hypothyroidism-continue Synthroid
Full code
Anticipated Discharge: > 48 hours
Subjective/Interval History
-
Date of Service: April 11, 2025
Complaints of heartburn, reflux symptoms and burping. Denies any nausea. No abdominal pain. History of colitis but no diarrhea currently.
Breathing is okay at rest.
Objective Data
-
Labs:
Laboratory Results
04/11/25 04/11/25
03:13 10:00
WBC 10.4
Hgb 10.7 L
Hct 33.8 L
Plt Count 235
APTT 74.7 H Pending
Sodium 138
Potassium 3.6 D
Chloride 99
Carbon Dioxide 35 H
BUN 27 H
Creatinine 0.8
Glucose 97
Calcium 8.5
Total Bilirubin 0.9
AST 26
ALT 21
Alkaline Phosphatase 73
Vital Signs:
Vital Signs
Temp Pulse Resp BP Pulse Ox
97.9 F 60 16 138/66 98
04/11/25 03:05 04/11/25 07:49 04/11/25 07:49 04/11/25 03:04 04/11/25 07:49
I&O
04/10/25 04/11/25 04/12/25
06:59 06:59 06:59
Intake Total 705 / 705
Output Total 800 / 800
Balance -95 / -95
Physical Exam
-
General: Comfortable
Respiratory: Crackles (Bilateral basal) and Non Labored Respirations; Negative Wheezes or Accessory Resp Muscle Use
Cardiac: Regular Rhythm and S1/S2; Negative Tachycardic
GI: Soft and Nontender
Neuro: AO x 3
Psych: Calm
Data Reviewed
-
Labs: Labs Reviewed by me
[2025-04-11] MEDS: LASIX 80 MG IV (09:07)
[2025-04-11] MEDS: ALDACTONE 12.5 MG PO (09:08)
[2025-04-11] MEDS: PROTONIX 40 MG PO (09:08)
[2025-04-11] MEDS: CARDIZEM CD 180 MG PO (09:08)
[2025-04-11] MEDS: TOPROL XL 12.5 MG PO (09:08)
[2025-04-11] MEDS: DELTASONE 10 MG PO (09:09)
[2025-04-11] MEDS: OXYCONTIN (CONTROLLED RELEASE) 10 MG PO ×2 (09:09→20:57)
[2025-04-11] MEDS: CELEXA 20 MG PO (09:09)
[2025-04-11] MEDS: DICLOFENAC 1% TOPICAL GEL 2 GRAM TOPICAL ×2 (09:10→16:33)
[2025-04-11] MEDS: REFRESH EYE DROPS (PF) 2 DROPS OPHTH ×2 (09:11→20:57)
[2025-04-11] MEDS: ZYLOPRIM 300 MG PO (09:12)
[2025-04-11] MEDS: LIDOCAINE 4% PATCH TOPICAL (09:35)
[2025-04-11] MEDS: MAALOX 30 ML PO ×2 (09:35→20:57)
[2025-04-11] MEDS: ZANAFLEX PO (09:37)
--- NOTE | 2025-04-11 10:12 | W.PN.CD ---
Today's Communication / Plan
-
IV lasix
IV heparin
Impression / Plan
-
Chest pressure, elevated troponin
-cath with nonobstructive CAD
-suspect Type II [place] in setting of acute HF
-discussed with interventional cards: IV heparin for one more day
HFpEF - acute on chronic. Severe, requiring hospitalization and IV diuresis with close monitoring of labs/tele.
- continue IV lasix
Aortic stenosis - s/p TAVR 2021.
- stable on echo 12/2024.
Afib - may be persistent now
- Vpaced on tele.
- [id number] VASc score is at least 5, not on OAC due to eye hemorrhage and declined Watchman by Dr. Ramirez.
PPM - MDT device, stable with normal function.
- managed by Dr. Ramirez's office.
COPD - oxygen dependent 3L NC.
- stable.
12/2024 echo: 60-65%, Normal right ventricular size and function. Mild concentric left ventricular hypertrophy. TAVR is functioning well: 13 mmHg and trace aortic regurgitation. No change since 03/11/2024.
Physical Exam
Vital Signs/Labs
Vital Signs
Temp Pulse Resp BP Pulse Ox
98.7 F 60 16 149/67 98
04/11/25 07:35 04/11/25 09:51 04/11/25 07:49 04/11/25 09:51 04/11/25 07:49
04/10/25 04/11/25 04/12/25
06:59 06:59 06:59
Actual Weight 73.7 kg
04/11/25 03:13
04/11/25 03:13
PT 12.5 Sec (11.4-14.6) 04/10/25 11:09
INR 0.90 04/10/25 11:09
APTT 74.7 Sec (23.4-35.0) H 04/11/25 03:13
Magnesium 1.8 mg/dl (1.6-2.3) 04/11/25 03:13
04/10/25 04/10/25
13:02 13:02
Lxo-S-Cjlxygnnxmg Pept 1810 Cancelled
LAB Results
04/10/25 04/10/25 04/10/25
11:09 13:02 18:24
Troponin I Cancelled 0.242 H* 0.265 H*
04/10/25
23:31
Troponin I 0.265 H*
Physical Exam
Constitutional: No acute distress and Comfortable
EENT: Moist mucous membranes
Cardiovascular: Rhythm & rate is regular, Pedal edema is absent, JVD present and Systolic murmur present
Respiratory: Respiratory effort normal and Lungs clear to auscul.
Neuro/Psych: AO x 3
Data Reviewed
-
Date of Service: April 11, 2025
EKG: Other (Tele: Pantograph Watcher 60)
Labs: Labs Reviewed by me
[2025-04-11] MEDS: PEPCID 20 MG PO (11:05)
[2025-04-11 11:20] LABS: APTT 72.2 Sec (23.4-35.0)
[2025-04-11] MEDS: ZANAFLEX 2 MG PO ×3 (13:31→21:38)
--- NOTE | 2025-04-11 14:58 | PTCARENOTE ---
Assumed care of the pt @ 0700. Pt is AAOx3 V paced on the monitor VSS. Midodrine held this morning due to Sbp > 140. Heparin gtt infusing. rt radial cath site dressing c/d/i. Pt oob to chair x 2 hours 2 person assist with walker. POC discussed with
pt. Call king within reach.
[2025-04-11 17:48] LABS: APTT 114.0 Sec (23.4-35.0)
[2025-04-11] MEDS: HEPARIN 25000 UNITS/250 ML IV (21:00)
[2025-04-11] MEDS: REQUIP 0.5 MG PO (21:38)
[2025-04-11] MEDS: COLACE 200 MG PO (21:38)
[2025-04-11] MEDS: SENOKOT 8.6 MG PO (21:38)
[2025-04-11] MEDS: MELATONIN 10 MG PO (21:38)
[2025-04-11] MEDS: CRESTOR 20 MG PO (21:38)
[2025-04-12] VITALS (7 sets, daily range): BP systolic 88–142; BP diastolic 55–71; BMI 29.7
[2025-04-12] MEDS: DICLOFENAC 1% TOPICAL GEL 2 GRAM TOPICAL ×4 (00:13→23:08)
--- NOTE | 2025-04-12 01:04 | PTCARENOTE ---
Received pt at change of shift resting in bed. V-paced on tele, HR 60's. pt denies any CP or SOB at this time. Sating 97% on 3L. PRN Maalox administered per pt request--see AUG. pt verbalizes relief. pt w/c bound at baseline and x1-2 assist in the
bed. Encouraged pt to call RN with any questions/concerns. Call king within reach.
[2025-04-12 05:09] LABS: Hematocrit 36.3 % (37.0-47.0); Hemoglobin 11.8 g/dL (12.0-16.0); Mean Corp Hgb Conc. 32.5 g/dL (33.0-37.0); Mean Corpuscular Volume 92.6 fL (81.0-99.0); Platelet Count 234 10^3/uL (130-400); Red Cell Dist. Width 14.7 % (11.5-14.5)
[2025-04-12 05:23] LABS: APTT 117.7 Sec (23.4-35.0)
[2025-04-12] MEDS: TYLENOL 500 MG PO (05:28)
[2025-04-12] MEDS: SYNTHROID 100 MCG PO (05:28)
[2025-04-12 06:03] LABS: Blood Urea Nitrogen 21 mg/dl (7-17); Calcium 8.6 mg/dl (8.4-10.2); Carbon Dioxide 36 mmol/L (22-30); Chloride 97 mmol/L (98-107); Estimated Creatinine Clearance 52 ml/min; Glucose 102 mg/dl (70-99); Potassium 3.9 mmol/L (3.5-5.1); Sodium 134 mmol/L (135-145); eGFR > 60.00
[2025-04-12] MEDS: STRIVERDI RESPIMAT 2 PUFF INH (08:11)
[2025-04-12] MEDS: SPIRIVA RESPIMAT 2.5 MCG 2 PUFF INH (08:11)
[2025-04-12] MEDS: ZANAFLEX 2 MG PO ×4 (08:19→23:01)
[2025-04-12] MEDS: LYRICA 25 MG PO ×2 (08:19→19:41)
[2025-04-12] MEDS: TYLENOL PO (08:20)
[2025-04-12] MEDS: CELEXA 20 MG PO (08:21)
[2025-04-12] MEDS: ASPIR LOW (ENTERIC COATED) 81 MG PO (08:21)
[2025-04-12] MEDS: ZYLOPRIM 300 MG PO (08:21)
[2025-04-12] MEDS: CARDIZEM CD 180 MG PO (08:21)
[2025-04-12] MEDS: TOPROL XL 12.5 MG PO (08:22)
[2025-04-12] MEDS: PROTONIX 40 MG PO (08:22)
[2025-04-12] MEDS: OXYCONTIN (CONTROLLED RELEASE) 10 MG PO ×2 (08:22→19:41)
[2025-04-12] MEDS: REFRESH EYE DROPS (PF) 2 DROPS OPHTH ×2 (08:22→19:41)
[2025-04-12] MEDS: LIDOCAINE 4% PATCH 1 PATCH TOPICAL (08:23)
[2025-04-12] MEDS: LASIX 80 MG IV (08:23)
[2025-04-12] MEDS: ALDACTONE 12.5 MG PO (08:25)
[2025-04-12] MEDS: PEPCID 20 MG PO (08:25)
[2025-04-12] MEDS: KCL 40 MEQ PO (09:01)
--- NOTE | 2025-04-12 09:15 | W.PN.CD ---
Today's Communication / Plan
-
stop IV heparin
continue IV lasix
echo tomorrow
Impression / Plan
-
Chest pressure, elevated troponin
-cath with nonobstructive CAD
-suspect Type II [place] in setting of acute HF
-stop IV heparin
HFpEF - acute on chronic. Severe, requiring hospitalization and IV diuresis with close monitoring of labs/tele.
- continue IV lasix
Aortic stenosis - s/p TAVR 2021.
- echo tomorrow
Afib - may be persistent now
- Vpaced on tele.
- [id number] VASc score is at least 5, not on OAC due to eye hemorrhage and declined Watchman by Dr. Ramirez.
PPM - MDT device, stable with normal function.
- managed by Dr. Ramirez's office.
COPD - oxygen dependent 3L NC.
- stable.
12/2024 echo: 60-65%, Normal right ventricular size and function. Mild concentric left ventricular hypertrophy. TAVR is functioning well: 13 mmHg and trace aortic regurgitation. No change since 03/11/2024.
Physical Exam
Vital Signs/Labs
Vital Signs
Temp Pulse Resp BP Pulse Ox
98 F 60 16 130/70 93
04/12/25 07:22 04/12/25 08:25 04/12/25 07:22 04/12/25 08:25 04/12/25 07:22
04/11/25 04/12/25 04/13/25
06:59 06:59 06:59
Actual Weight 73.7 kg 73.6 kg
04/12/25 05:02
04/12/25 05:02
PT 12.5 Sec (11.4-14.6) 04/10/25 11:09
INR 0.90 04/10/25 11:09
APTT 117.7 Sec (23.4-35.0) H 04/12/25 05:02
Magnesium 1.8 mg/dl (1.6-2.3) 04/11/25 03:13
04/10/25 04/10/25
13:02 13:02
Vjp-H-Opuvpgeboms Pept 1810 Cancelled
LAB Results
04/10/25 04/10/25 04/10/25
11:09 13:02 18:24
Troponin I Cancelled 0.242 H* 0.265 H*
04/10/25
23:31
Troponin I 0.265 H*
Physical Exam
Constitutional: No acute distress and Comfortable
EENT: Moist mucous membranes
Cardiovascular: Rhythm & rate is regular, Pedal edema present, JVD present and Systolic murmur present
Respiratory: Respiratory effort normal and Lungs clear to auscul.
Neuro/Psych: AO x 3
Data Reviewed
-
Date of Service: April 12, 2025
EKG: Other (Tele: Chain Saw Driver 60)
Labs: Labs Reviewed by me
--- NOTE | 2025-04-12 10:02 | W.PN.HOSP.TC ---
Today's Communication/Plan
-
Off of IV heparin. Continue with aspirin.
On IV Lasix.
Echo tomorrow.
Assessment / Plan
Assessment / Plan
ACS/non-ST elevation [place]
Cardiac catheterization shows nonobstructive CAD, mildly elevated LV filling pressures and preserved EF and possibly mild apical wall motion abnormality.
Patient today without chest pain.
Troponin peak of 0.2
Off of IV heparin now.
Continue with aspirin and beta-janet. Continue with statins
Formal echo pending
Acute heart failure with preserved EF
Continue with IV Lasix. Patient on home spironolactone which is continued here.
Weight improving
Follow BMP
Aortic stenosis s/p TAVR stable echo in 2024
Paroxysmal atrial fibrillation-V paced rhythm. Not on AC due to high hemorrhage and declined Watchman
GERD
Improved symptoms. Continue with PPI.
Will temporarily add Pepcid. Dose of tizanidine decreased to due to interaction with Pepcid. Will reassume home dose of tizanidine once off of Pepcid
As needed Maalox.
COPD with chronic hypoxic respiratory failure on home O2 3 L
No evidence of exacerbation
Continue with inhalers. Continue with her maintenance dose of prednisone at 10 mg daily.
Hypothyroidism-continue Synthroid
Full code
Anticipated Discharge: 24 - 48 hours
Subjective/Interval History
-
Date of Service: April 12, 2025
She just felt generally unwell. Nothing specific . Appetite not great today. No nausea. No heartburn today.
She felt short of breath with transfers but denies any chest pain today. No dizziness.
Objective Data
-
Labs:
Laboratory Results
04/12/25 04/12/25
05:02 11:30
WBC 9.1
Hgb 11.8 L
Hct 36.3 L
Plt Count 234
APTT 117.7 H Pending
Sodium 134 L
Potassium 3.9
Chloride 97 L
Carbon Dioxide 36 H
BUN 21 H
Creatinine 0.8
Glucose 102 H
Calcium 8.6
Vital Signs:
Vital Signs
Temp Pulse Resp BP Pulse Ox
98 F 60 16 130/70 93
04/12/25 07:22 04/12/25 08:25 04/12/25 07:22 04/12/25 08:25 04/12/25 07:22
I&O
04/11/25 04/12/25 04/13/25
06:59 06:59 06:59
Intake Total 705 / 705 240 / 240
Output Total 800 / 800 1909 / 1909
Balance -95 / -95 -1670 / -1670
Physical Exam
-
General: Comfortable
Respiratory: Wheezes (occasional), Crackles (Bibasilar) and Non Labored Respirations; Negative Accessory Resp Muscle Use
Cardiac: Regular Rhythm and S1/S2; Negative Tachycardic
Musculoskeletal: Negative No Edema
Neuro: AO x 3
Psych: Calm
Data Reviewed
-
Labs: Labs Reviewed by me
[2025-04-12] MEDS: TYLENOL 1000 MG PO ×2 (15:27→22:59)
[2025-04-12] MEDS: MIRALAX 17 GRAMS PO (15:27)
--- NOTE | 2025-04-12 19:20 | PTCARENOTE ---
~3064-8199: Handoff report received from nightshift RN. Pt Aox4, V paced 60s on tele, SBP 130s, RA satting 96% diminished with exp. wheezes noted. Patient moaning and c/o generalized pain averaging 7/10, scheduled medication given. Patient
encouraged to turn and reposition in bed. Purewick in place for stress incontinence, I/Os charted. Heparin gtt stopped per order. Nasal swab from 04/10 resulted + MRSA, contact precautions initiated. All needs met at this time, call king within
reach.
~0681-2539: Foam pads applied to NC tubing to prevent skin breakdown. Patient resting. Pain is more tolerable now after scheduled meds per patient. Purewick changed, I/Os charted. Turning and repositioning utilized. All needs met at this time, call
king within reach.
~3029-9082: full linen change, hygiene care provided, new purewick replaced plus perineal care. Possible stage 1 noted on R gluteal cleft. Turning and repositioning utilized.
~6061-8588: Eggs removed from patient allergy list. Per patient she is not allergic to eggs and 'eats eggs all the time at [employer].'
~6297-2426: Pt turned and repositions, hygiene care provided with new purewick. Pt NSr 70s, 3L NC. Patient states her pain is currently 5/10 generalized which is 'acceptable' at this time. All needs met at this time, call bells within reach. Handoff
report given to shift mechanic RN.
[2025-04-12] MEDS: REQUIP 0.5 MG PO (22:59)
[2025-04-12] MEDS: MELATONIN 10 MG PO (23:00)
[2025-04-12] MEDS: CRESTOR 20 MG PO (23:01)
[2025-04-12] MEDS: SENOKOT 8.6 MG PO (23:01)
[2025-04-12] MEDS: COLACE 200 MG PO (23:01)
[2025-04-13] VITALS (9 sets, daily range): BP systolic 100–146; BP diastolic 58–80; PULSE 61; BMI 30.1
--- NOTE | 2025-04-13 00:41 | PTCARENOTE ---
Rec'd pt at change of shift. Pt AAO*3, VSS, and Vpaced on tele monitor. Pt reports acceptable level of pain (history of chronic pain). Pt maintained bed rest with q2 turns and education on skin breakdown prevention. Pt denies having any questions
or concerns and now resting with call king in reach. See MAr and flowchart for full pt care and assessment.
[2025-04-13] MEDS: SYNTHROID 100 MCG PO (05:05)
[2025-04-13 06:09] LABS: Blood Urea Nitrogen 23 mg/dl (7-17); Calcium 8.8 mg/dl (8.4-10.2); Carbon Dioxide 35 mmol/L (22-30); Chloride 95 mmol/L (98-107); Estimated Creatinine Clearance 46 ml/min; Glucose 110 mg/dl (70-99); Potassium 4.6 mmol/L (3.5-5.1); Sodium 134 mmol/L (135-145); eGFR > 60.00
[2025-04-13] MEDS: STRIVERDI RESPIMAT 2 PUFF INH (07:49)
[2025-04-13] MEDS: SPIRIVA RESPIMAT 2.5 MCG 2 PUFF INH (07:49)
[2025-04-13] MEDS: MIRALAX 17 GRAMS PO (07:51)
[2025-04-13] MEDS: LIDOCAINE 4% PATCH 1 PATCH TOPICAL (07:51)
[2025-04-13] MEDS: ZANAFLEX 2 MG PO ×4 (07:52→22:49)
[2025-04-13] MEDS: REFRESH EYE DROPS (PF) 2 DROPS OPHTH ×2 (07:52→19:31)
[2025-04-13] MEDS: ALDACTONE 12.5 MG PO (07:53)
[2025-04-13] MEDS: TOPROL XL 12.5 MG PO (07:54)
[2025-04-13] MEDS: LASIX 80 MG IV (07:54)
[2025-04-13] MEDS: CARDIZEM CD 180 MG PO (07:55)
[2025-04-13] MEDS: PROTONIX 40 MG PO (07:55)
[2025-04-13] MEDS: TYLENOL 1000 MG PO ×3 (07:56→22:48)
[2025-04-13] MEDS: ZYLOPRIM 300 MG PO (07:56)
[2025-04-13] MEDS: PEPCID 20 MG PO (07:56)
[2025-04-13] MEDS: ASPIR LOW (ENTERIC COATED) 81 MG PO (07:56)
[2025-04-13] MEDS: CELEXA 20 MG PO (07:57)
[2025-04-13] MEDS: DICLOFENAC 1% TOPICAL GEL 2 GRAM TOPICAL ×2 (07:57→15:43)
[2025-04-13] MEDS: LYRICA 25 MG PO ×2 (07:57→19:31)
[2025-04-13] MEDS: OXYCONTIN (CONTROLLED RELEASE) 10 MG PO ×2 (07:57→19:31)
--- NOTE | 2025-04-13 09:39 | W.PN.CD ---
Today's Communication / Plan
-
f/u echo, if no concerning findings, patient stable for discharge
recommend 40 PO daily torsemide on discharge with weight based instructions for BID dosing.
Impression / Plan
-
Chest pressure, elevated troponin
-cath with nonobstructive CAD
-suspect Type II [place] in setting of acute HF
-s/p IV heparin
HFpEF - acute on chronic. Severe, requiring hospitalization and IV diuresis with close monitoring of labs/tele.
- continue IV lasix 80 daily, this dose has kept her net even, prior home dose was torsemide 40 daily PRN, on discharge recommend 40 torsemide PO daily (not PRN) with BID dosing should the patient experience weight gain >3 pounds in a day or >5
pounds in a week
Aortic stenosis - s/p TAVR 2021.
- echo pending today
Afib - may be persistent now
- Vpaced on tele.
- [id number] VASc score is at least 5, not on OAC due to eye hemorrhage and declined Watchman by Dr. Ramirez.
PPM - MDT device, stable with normal function.
- managed by Dr. Ramirez's office.
COPD - oxygen dependent 3L NC.
- stable.
12/2024 echo: 60-65%, Normal right ventricular size and function. Mild concentric left ventricular hypertrophy. TAVR is functioning well: 13 mmHg and trace aortic regurgitation. No change since 03/11/2024.
Physical Exam
Vital Signs/Labs
Vital Signs
Temp Pulse Resp BP Pulse Ox
37.1 C 60 16 136/62 98
04/13/25 07:50 04/13/25 07:51 04/13/25 07:51 04/13/25 07:49 04/13/25 07:51
04/12/25 04/13/25 04/14/25
06:59 06:59 06:59
Actual Weight 73.6 kg 74.5 kg
04/12/25 05:02
04/13/25 05:03
PT 12.5 Sec (11.4-14.6) 04/10/25 11:09
INR 0.90 04/10/25 11:09
APTT Cancelled 04/12/25 11:30
Magnesium 1.8 mg/dl (1.6-2.3) 04/11/25 03:13
04/10/25 04/10/25
13:02 13:02
Jdf-Q-Howgpthkqqe Pept 1810 Cancelled
LAB Results
04/10/25 04/10/25 04/10/25
11:09 13:02 18:24
Troponin I Cancelled 0.242 H* 0.265 H*
04/10/25
23:31
Troponin I 0.265 H*
Physical Exam
Constitutional: Comfortable
Cardiovascular: Rhythm & rate is regular
Respiratory: Respiratory effort normal
Neuro/Psych: AO x 3
Data Reviewed
-
Date of Service: April 13, 2025
Medical Decision Making: Reviewed Test Results
EKG: Tracing Personally Visualized and interpreted
Labs: Labs Reviewed by me
--- NOTE | 2025-04-13 13:34 | WOUNDNOTE ---
LLE (ANTERIOR LATERAL)
--- NOTE | 2025-04-13 13:35 | WOUNDNOTE ---
L ABDOMEN FOLD (OUTER LOWER)
--- NOTE | 2025-04-13 13:38 | WOUNDNOTE ---
WO RN note: Patient admitted with ACS, NSTEMI. Patient admitted from [facility].
See H&P for complete history.
PMH: COPD on o2, TAVR, pacer, a fib, sleep apnea, CAD, CHF, RA (prednisone), ulcerative colitis, CKD3, hyperparathyroid, depression, epistaxis.
Wound Location and type/assessment: Patient admitted with: bilateral LE broken blister, LLE wound pink with scant yellow fibrin, RLE wound pink. Coccyx fragile appearing skin, abdominal/groin MASD. +Palpable pedal pulses.
Appetite: good.
Pressure redistribution devices in place: Centrella Max air bed. Patient turns with 1 assist. Heels off bed with pillow.
Plan: LE silicone border foam dressing changed. Patient turned to L semi side lying position. t/c SPD and ordered air chair cushion and Foot Waffle boots. Discussed with SHARONDA Slater.
Will confirm orders with Dr. Patton.
Care plan to be updated and will follow as needed.
Note to case management of equipment requested for discharge: Air mattress at SNF if not already in place.
Recommend follow up at wound care center upon discharge.
--- NOTE | 2025-04-13 14:19 | W.PN.HOSP.TC ---
Today's Communication/Plan
-
repeat Echo pending
IV Lasix; Torsemide 40mg daily at discharge
pending SNF placement
Assessment / Plan
Assessment / Plan
Assessment:
Type 2 [place] in setting of Acute CHF
- s/p IV heparin
- Cardiac catheterization shows nonobstructive CAD, mildly elevated LV filling pressures and preserved EF and possibly mild apical wall motion abnormality
- continue ASA/Statin/BB
Acute on chronic HFpEF
- continue IV Lasix; requires intensive monitoring of I/Os, weights, lytes
- at discharge, Torsemide 40mg daily (BID if weight gain parameters met)
s/p TAVR 2021
- repeat Echo
Persistent A. Fib
- V-paced
- not on AC due to eye hemorrhage and declined Watchman per OP Medication Aide (Dr. Ramirez)
GERD
- continue PPI
- continue temporarily Pepcid. Dose of tizanidine decreased to due to interaction with Pepcid. Will reassume home dose of tizanidine once off of Pepcid
COPD
- on 3L NC at home
- no acute flare
- continue inhalers and oral prednisone
Hypothyroidism
- continue Synthroid
DVT ppx: SCDs
Code: Full
Anticipated Discharge: 24 - 48 hours
Subjective/Interval History
-
Date of Service: April 13, 2025
denies cp. reports SOB improving
Objective Data
-
Labs:
Laboratory Results
04/13/25
05:03
Sodium 134 L
Potassium 4.6
Chloride 95 L
Carbon Dioxide 35 H
BUN 23 H
Creatinine 0.9
Glucose 110 H
Calcium 8.8
Vital Signs:
Vital Signs
Temp Pulse Resp BP Pulse Ox
98.2 F 62 17 113/62 96
04/13/25 10:58 04/13/25 12:00 04/13/25 10:58 04/13/25 10:58 04/13/25 10:58
I&O
04/12/25 04/13/25 04/14/25
06:59 06:59 06:59
Intake Total 240 / 240 968.5 / 968.5 240 / 240
Output Total 1910 / 1910 1600 / 1600 1650 / 1650
Balance -1670 / -1670 -631.5 / -631.5 -1410 / -1410
Physical Exam
-
General: No Apparent Distress
HEENT: Normocephalic and Atraumatic
Respiratory: Negative Wheezes
Cardiac: Irregular Rhythm
GI: Soft
Neuro: AO x 3
Psych: Calm
Data Reviewed
-
Total Time Spent with Patient (in minutes): 51
Labs: Labs Reviewed by me
--- NOTE | 2025-04-13 15:06 | CM ---
spoke to pt in room, she is at [facility] and wants to return. she needs short term rehab, referral faxed. her bed is avail for tomorrow. cm to get auth from [employer] prior to going.
--- NOTE | 2025-04-13 18:53 | PTCARENOTE ---
Addendum entered by Bryon Reid RN 04/13/25 18:57:
Assumed care at 0700. Patient AO x3, poor vision. Crackles b/l at bases, no cough, oxygen at 3 liters NC. V-paced, no edema. Purwick diuresing large volumes of pale yellow urine. Wound care completed by wound nurse. Recommended to discontinue
purwick by wound nurse, now using bedpan. Turning in bed, heels elevated, call king in reach
Original Note:
Assumed care at 0700. Patient AO x3, poor vision. Crackles b/l at bases, no cough, oxygen at 3 liters NC. V-paced, no edema. Purwick diuresing large volumes of pale yellow urine. Wound care completed by wound nurse. Turning in bed, heels elevated,
call king in reach
--- NOTE | 2025-04-13 21:23 | PTCARENOTE ---
Rec'd pt at change of shift. Pt AAO*3, Vpaced on tele monitor, and VSS. Pt reports acceptable pain level and scheduled pain meds given as ordered. Pt denies any questions or concerns and updated on plan of care. Pt now resting with call king in
reach. See MAr and flowchart for full pt care and assessment.
[2025-04-13] MEDS: MAGNESIUM SULFATE 50 IV (22:39)
[2025-04-13] MEDS: REQUIP 0.5 MG PO (22:48)
[2025-04-13] MEDS: MELATONIN 10 MG PO (22:48)
[2025-04-13] MEDS: SENOKOT 8.6 MG PO (22:48)
[2025-04-13] MEDS: COLACE 200 MG PO (22:48)
[2025-04-13] MEDS: CRESTOR 20 MG PO (22:48)
[2025-04-14 02:27] VITALS: BP 125/64; BMI 29.5
[2025-04-14] MEDS: DICLOFENAC 1% TOPICAL GEL 2 GRAM TOPICAL ×2 (02:30→09:35)
[2025-04-14 03:01] LABS: Hematocrit 40.8 % (37.0-47.0); Hemoglobin 12.7 g/dL (12.0-16.0); Mean Corp Hgb Conc. 31.1 g/dL (33.0-37.0); Mean Corpuscular Volume 96.0 fL (81.0-99.0); Platelet Count 198 10^3/uL (130-400); Red Cell Dist. Width 14.5 % (11.5-14.5)
--- NOTE | 2025-04-14 03:09 | PTCARENOTE ---
Tele monitor shows 25 beat run of VT. Pt denies any pain or discomfort or palpitations. BP 122/74 and HR returned to 60's. ASHUTOSH Cassidy notified. Rec'd order for mg infusion and given as ordered. Pt resting with call king in reach. Plan of
care ongoing.
[2025-04-14 03:21] LABS: Blood Urea Nitrogen 22 mg/dl (7-17); Calcium 9.5 mg/dl (8.4-10.2); Carbon Dioxide 35 mmol/L (22-30); Chloride 95 mmol/L (98-107); Estimated Creatinine Clearance 41 ml/min; Glucose 113 mg/dl (70-99); Magnesium 3.0 mg/dl (1.6-2.3); Potassium 4.4 mmol/L (3.5-5.1); Sodium 135 mmol/L (135-145); eGFR 56.60
[2025-04-14] MEDS: SYNTHROID 100 MCG PO (05:19)
[2025-04-14] MEDS: STRIVERDI RESPIMAT 2 PUFF INH (07:36)
[2025-04-14] MEDS: SPIRIVA RESPIMAT 2.5 MCG 2 PUFF INH (07:36)
[2025-04-14 08:28] VITALS: BP 153/65
[2025-04-14] MEDS: CARDIZEM CD 180 MG PO (09:32)
[2025-04-14] MEDS: OXYCONTIN (CONTROLLED RELEASE) 10 MG PO (09:33)
[2025-04-14] MEDS: ALDACTONE 12.5 MG PO (09:33)
[2025-04-14] MEDS: LIDOCAINE 4% PATCH 1 PATCH TOPICAL (09:33)
[2025-04-14] MEDS: MIRALAX 17 GRAMS PO (09:33)
[2025-04-14] MEDS: REFRESH EYE DROPS (PF) 2 DROPS OPHTH (09:34)
[2025-04-14] MEDS: CELEXA 20 MG PO (09:34)
[2025-04-14] MEDS: PROTONIX 40 MG PO (09:34)
[2025-04-14] MEDS: LYRICA 25 MG PO (09:34)
[2025-04-14] MEDS: PEPCID 20 MG PO (09:34)
[2025-04-14] MEDS: ASPIR LOW (ENTERIC COATED) 81 MG PO (09:35)
[2025-04-14] MEDS: LASIX IV ×2 (09:36→10:53)
[2025-04-14] MEDS: TYLENOL 1000 MG PO (09:37)
[2025-04-14] MEDS: ZYLOPRIM 300 MG PO (09:37)
[2025-04-14] MEDS: ZANAFLEX 2 MG PO ×2 (09:37→14:24)
[2025-04-14] MEDS: TOPROL XL 12.5 MG PO (09:37)
--- NOTE | 2025-04-14 10:32 | W.PN.HOSP.TC ---
Today's Communication/Plan
-
dc to SNF
Assessment / Plan
Assessment / Plan
Assessment:
Type 2 [place] in setting of Acute CHF
- s/p IV heparin
- Cardiac catheterization shows nonobstructive CAD, mildly elevated LV filling pressures and preserved EF and possibly mild apical wall motion abnormality
- continue ASA/Statin/BB
Acute on chronic HFpEF
- s/p IV Lasix course; at discharge, Torsemide 40mg daily (BID if weight gain parameters met)
s/p TAVR 2021
- Echo: wall motion mid and apical anterior septum, mid and apical inferior septum, apical lateral segment, and apex are abnormal. EF 45-50% (reduced from 60-65%)
Persistent A. Fib
- V-paced
- not on AC due to eye hemorrhage and declined Watchman per OP Antique Clocks Repairer (Dr. Ramirez)
GERD
- continue PPI
- continue temporarily Pepcid. Dose of tizanidine decreased to due to interaction with Pepcid. Will reassume home dose of tizanidine once off of Pepcid at discharge
COPD
- on 3L NC at home
- no acute flare
- continue inhalers and oral prednisone
Hypothyroidism
- continue Synthroid
DVT ppx: SCDs
Code: Full
More than 30 minutes spent in discharge including
Final examination of the patient
Summarizing hospital stay
Instructions for continuing care to all relevant caregivers
Preparation of discharge records, prescriptions, and referral forms
Total time spent (in minutes):41
Anticipated Discharge: Today
Subjective/Interval History
-
Date of Service: April 14, 2025
resting comfortably, no complaints at present
Objective Data
-
Labs:
Laboratory Results
04/14/25
02:36
WBC 8.6
Hgb 12.7
Hct 40.8
Plt Count 198
Sodium 135
Potassium 4.4
Chloride 95 L
Carbon Dioxide 35 H
BUN 22 H
Creatinine 1.0
Glucose 113 H
Calcium 9.5
Vital Signs:
Vital Signs
Temp Pulse Resp BP Pulse Ox
98.8 F 65 24 153/65 98
04/14/25 08:30 04/14/25 08:28 04/14/25 08:30 04/14/25 08:28 04/14/25 08:30
I&O
04/13/25 04/14/25 04/15/25
06:59 06:59 06:59
Intake Total 968.5 / 968.5 720 / 720
Output Total 1600 / 1600 1950 / 1950
Balance -631.5 / -631.5 -1230 / -1230
Physical Exam
-
General: No Apparent Distress
HEENT: Normocephalic and Atraumatic
Respiratory: Negative Wheezes
Cardiac: Regular Rhythm and S1/S2
GI: Soft
Genito-urinary: No Costovertebral Tender
Neuro: AO x 3
Psych: Calm
Data Reviewed
-
Total Time Spent with Patient (in minutes): 41
Labs: Labs Reviewed by me
--- NOTE | 2025-04-14 10:34 | W.DCSUMMARY ---
Discharge Summary
Discharge Data
Date of Admission: 04/10/25
Date of Discharge: 04/14/25
-
Pending Results: No
Hospital Course
79 y/o F with history of COPD on 3L NC, s/p TAVR. SSS s/p PPM, PAF, Valvular HD, HTN, CAD, chronic HFpEF, CKD stage 3 presented with SOB at rest and with exertion. She was noted to have a type 2 PR in setting of acute CHF and underwent cath on
04/10 showing nonobstructive CAD. She completed a course of IV Lasix and was transitioned to Torsemide daily (BID if weight gain parameters met). She will discharge to SNF and have follow up in Cardiology clinic. Of note, she had an updated Echo
showing EF is now 45-50% (reduced from 60-65% previously).
Discharge Plan
-
Patient Disposition: Longterm/SNF
Discharge Diagnosis/Procedures: Cardiac catheterization 04/10. acute CHF. Troponin elevation from acute CHF
Condition: Fair
Diet: Low Cholesterol, 2 Gram Sodium and Restrict fluids to 48 oz
Activity: As tolerated
Blood Work: BMP in 1 week
Other Services: PT and OT
Activity Restrictions/Additional Instructions:
Wound Care Instructions
Bilateral le wounds-clean with saline, silicone border foam, change q 3 days and prn loosened dressing.
Sacral/coccyx-protective silicone border foam, change q 3 days and prn loosened dressing.
Barrier ointment to marcos skin bid.
Miconazole powder to abdominal/groin, affected areas bid.
Air mattress
Turning schedule
Elevate heels off bed with pillow/s or soft heel relief boot as tolerated.
Follow up at wound care center call for an appointment.
Stand Alone Forms: DC Instructions- Cath/EP Lab
Referrals:
Cierra Tena CRNP [Specified Professional Personl, Cardiology] - 05/01/25 8:40 am
CATE KIM [Family Provider]
Prescriptions:
New
metoprolol succinate 25 mg Tablet Extended Release 24 Hr
12.5 mg PO DAILY Qty: 30 0RF
Continued
allopurinol 300 MG tablet
300 mg PO DAILY
omeprazole 20 MG tablet,delayed release (DR/EC)
20 mg PO DAILY
torsemide 20 MG tablet
40 mg PO DAILY
aspirin 81 mg Tablet,Delayed Release (Dr/Ec)
81 mg PO DAILY Qty: 0 0RF
multivitamin Tablet
1 tab PO DAILY
diltiazem HCl [Cardizem CD] 180 mg Capsule,Extended Release 24hr
180 mg PO DAILY
rosuvastatin 20 mg Tablet
20 mg PO HS
umeclidinium-vilanterol [Anoro Ellipta] 62.5-25 mcg/actuation Blister With Device
1 inh INHALATION R DAILY
potassium chloride 20 mEq Tablet Extended Release
30 meq PO DAILY
spironolactone 25 mg tablet
12.5 mg PO DAILY
levothyroxine [Synthroid] 100 mcg Tablet
100 mcg PO DAILY
glucosamine-chondroitin 250-200 mg Tablet
2 tab PO DAILY
cholecalciferol (vitamin D3) [Vitamin D3] 25 mcg (1,000 unit) Tablet
25 mcg PO DAILY
PreserVision AREDS 2,148 mcg-113 mg-45 mg-17.4mg Tablet
2 tab PO DAILY
lidocaine 4 % Adhesive Patch,Medicated
1 patch TOPICAL DAILY
loperamide 2 mg Tablet
2 mg PO Q4HPRN PRN (Reason: loose stools)
magnesium hydroxide [Milk of Magnesia] 400 mg/5 mL Suspension
30 ml PO [id number] PRN (Reason: if no BM x 3 days)
Patient Comments:
01/12/2025, give on day 4.
bisacodyl [Dulcolax (bisacodyl)] 10 mg Suppository
10 mg PA DAILYPRN PRN (Reason: if MOM ineffective)
Patient Comments:
01/12/2025, give on day 5.
Fleet Enema 19-7 gram/118 mL Enema
118 ml PA DAILYPRN PRN (Reason: if dulcolax supp ineffective)
Patient Comments:
01/12/2025, give on day 6.
calcium carbonate 500 mg calcium (1,250 mg) Tablet,Chewable
500 mg PO BID
Saline Nasal 0.65 % Aerosol,Halls
2 spray intranasal QID Qty: 44 0RF
pregabalin 25 mg Capsule
25 mg PO BID 30 Days Qty: 60 0RF
acetaminophen [Tylenol Extra Strength] 500 mg Tablet
1,000 mg PO TID Qty: 0 0RF
sennosides [Senokot] 8.6 mg Tablet
8.6 mg PO HS
citalopram 20 mg tablet
20 mg PO DAILY
ropinirole 0.5 mg Tablet
0.5 mg PO HS
docusate sodium [Colace] 100 mg Capsule
200 mg PO HS
midodrine 2.5 mg tablet
2.5 mg PO DAILY
fluticasone propionate [Flonase] 50 mcg/actuation Halls,Suspension
2 spray INTRANASAL DAILY
Artificial Tears (PF) Dropperette
2 drp OPHTHALMIC (EYE) BID
Artificial Tears (PF) Dropperette
1 drp BOTH EYES Q4HPRN PRN (Reason: dry eye)
diclofenac sodium 1 % Gel
2 g TOPICAL Q8
melatonin 10 mg Tablet
10 mg PO HS
tizanidine 2 mg tablet
4 mg PO QID
oxycodone 10 mg Tablet,Oral Only,Ext.Rel.12 Hr
10 mg PO BID Qty: 10 0RF
Changed
ipratropium-albuterol 0.5 mg-3 mg(2.5 mg base)/3 mL solution for nebulization
3 ml INHALATION TID PRN (Reason: shortness of breath or wheezing) Qty: 0 0RF
Discontinued
prednisone 10 mg tablet
10 mg PO DAILY
Rx Instructions:
04/10/25: x 2 days, started 04/09
ketorolac 10 mg Tablet
10 mg PO . SEE BELOW TID
Rx Instructions:
04/10/25: per [place] paperwork, patient has been on 01/26/2025 through now.
maximum total duration of 5 days from all oral, intranasal, or parenteral formulations
oxycodone 5 mg tablet
5 mg PO DAILYPRN PRN (Reason: moderate pain)
oxycodone 10 mg tablet
10 mg PO DAILYPRN PRN (Reason: severe pain)
Discharge Orders:
Discharge Patient (As Directed); Ordered 04/14/25
Ordered By: Faisal Patton
Discharge Date and Time
Print Language: LAO
[2025-04-14 11:13] VITALS: BP 103/60
[2025-04-14] MEDS: DEMADEX 40 MG PO (11:41)
[2025-04-14 14:32] VITALS: BP 126/77
--- NOTE | 2025-04-14 15:02 | CM ---
derek approved # [id number] - 7 days skilled, NRD 04/20-- ambul / acute care-auth (oxygen) [id number] for transfer back to [facility]
--- NOTE | 2025-04-14 15:35 | PTCARENOTE ---
Pt's IV line & car builder D/C'd; Pt's belongings incl clothing packed for transport. Report called to Cortney at [facility]. Pt transported via ambulance stretcher by Acute Care.
== END 2025-04-14 15:40 | DRG 280 ==
LOC: IVU 15:47
PROVIDERS: Emergency Medicine; Internal Medicine; Physician Assistant; Student in an Organized Health Care Education/Training Program; ADMITTING PHYSICIAN Hospitalist; ATTENDING PHYSICIAN Internal Medicine; EMERGENCY PHYSICIAN Emergency Medicine; OTHER PHYSICIAN Internal Medicine
PROC: B2151ZZ Fluoroscopy of Left Heart using Low Osmolar Contrast (ICD-10-PCS; 2025-04-10)
PROC: B2111ZZ Fluoroscopy of Multiple Coronary Arteries using Low Osmolar Contrast (ICD-10-PCS; 2025-04-10)
PROC: 4A023N7 Measurement of Cardiac Sampling and Pressure, Left Heart, Percutaneous Approach (ICD-10-PCS; 2025-04-10)
DX: I21.A1 Myocardial infarction type 2 (principal); I50.33 Acute on chronic diastolic (congestive) heart failure; I13.0 Hypertensive heart and chronic kidney disease with heart failure and stage 1 through stage 4 chronic kidney disease, or unspecified chronic kidney disease; J96.11 Chronic respiratory failure with hypoxia; I48.19 Other persistent atrial fibrillation; Z87.891 Personal history of nicotine dependence; I48.0 Paroxysmal atrial fibrillation; K21.9 Gastro-esophageal reflux disease without esophagitis; E03.9 Hypothyroidism, unspecified; J44.9 Chronic obstructive pulmonary disease, unspecified; Z99.81 Dependence on supplemental oxygen; Z79.899 Other long term (current) drug therapy; Z79.82 Long term (current) use of aspirin
CPT/HCPCS: 71046; 71275; 80048; 80053; 83735; 83880; 84100; 84484; 85025; 85027; 85379; 85610; 85730; 87070; 87147; 93005; 93288; 93308; 93321; 93325; 93458; 94640; 96374; 96375; 97163; 97166; 97530; 97535; 99152; 99153; 99291; C1769; C1894; Q9967

== ENCOUNTER → 2025-04-17 11:06 | Outpatient (REF) | payer BC, OTHER, SELFPAY ==
[2025-04-17 12:31] LABS: Hematocrit 34.1 % (37.0-47.0); Hemoglobin 10.5 g/dL (12.0-16.0); Mean Corp Hgb Conc. 30.8 g/dL (33.0-37.0); Mean Corpuscular Volume 96.1 fL (81.0-99.0); Nucleated Red Blood Cells % 0 %; Platelet Count 159 10^3/uL (130-400); Red Cell Dist. Width 14.6 % (11.5-14.5)
[2025-04-17 12:47] LABS: Blood Urea Nitrogen 36 mg/dl (7-17); Calcium 8.8 mg/dl (8.4-10.2); Carbon Dioxide 26 mmol/L (22-30); Chloride 103 mmol/L (98-107); Glucose 110 mg/dl (70-99); Potassium 3.7 mmol/L (3.5-5.1); Sodium 134 mmol/L (135-145); eGFR 14.56
== END ==
LOC: OLABP 11:06
PROVIDERS: ATTENDING PHYSICIAN Family Medicine
DX: I48.91 Unspecified atrial fibrillation (principal); J44.9 Chronic obstructive pulmonary disease, unspecified; E03.9 Hypothyroidism, unspecified; G62.9 Polyneuropathy, unspecified
CPT/HCPCS: 36415; 80048; 85025

== ENCOUNTER → 2025-05-08 10:48 | Outpatient (REF) | payer BC, OTHER, SELFPAY ==
[2025-05-08 11:50] LABS: Hematocrit 34.2 % (37.0-47.0); Hemoglobin 9.9 g/dL (12.0-16.0); Mean Corp Hgb Conc. 28.9 g/dL (33.0-37.0); Mean Corpuscular Volume 99.1 fL (81.0-99.0); Nucleated Red Blood Cells % 0 %; Platelet Count 176 10^3/uL (130-400); Red Cell Dist. Width 14.3 % (11.5-14.5)
[2025-05-08 11:53] LABS: ALT (SGPT) 17 U/L (0-35); AST (SGOT) 20 U/L (14-36); Albumin 3.6 g/dl (3.5-5.0); Alkaline Phosphatase 80 U/L (38-126); Blood Urea Nitrogen 27 mg/dl (7-17); Calcium 9.0 mg/dl (8.4-10.2); Carbon Dioxide 38 mmol/L (22-30); Chloride 98 mmol/L (98-107); Glucose 88 mg/dl (70-99); Potassium 3.9 mmol/L (3.5-5.1); Sodium 137 mmol/L (135-145); Total Protein 5.9 g/dl (6.3-8.2); Uric Acid 4.5 mg/dl (2.5-6.2); eGFR > 60.00
[2025-05-08 12:24] LABS: C-Reactive Protein 40.20 mg/L (0.0-10.00)
[2025-05-08 13:02] LABS: Anisocytosis 1+; Hypochromasia 2+; Normal RBC Morphology No; Polychromasia 1+
[2025-05-08 13:03] LABS: Basophilic Stippling 1+; Ovalocytes 1+
[2025-05-08 16:09] LABS: Urine Character Clear (Clear)
[2025-05-10 07:46] LABS: CCP Antibody IgG/IgA 2 Units (0-19)
== END ==
LOC: OLABP 10:48
PROVIDERS: ATTENDING PHYSICIAN Family Medicine
DX: Z86.73 Personal history of transient ischemic attack (TIA), and cerebral infarction without residual deficits (principal); Z95.0 Presence of cardiac pacemaker; I48.91 Unspecified atrial fibrillation; F32.A Depression, unspecified; J96.11 Chronic respiratory failure with hypoxia; G93.41 Metabolic encephalopathy; I35.0 Nonrheumatic aortic (valve) stenosis; I50.9 Heart failure, unspecified; J44.9 Chronic obstructive pulmonary disease, unspecified; E03.9 Hypothyroidism, unspecified; R94.31 Abnormal electrocardiogram [ECG] [EKG]; R50.9 Fever, unspecified; M10.9 Gout, unspecified
CPT/HCPCS: 36415; 80053; 81003; 84550; 85025; 85652; 86140; 86200; 86430; 87086

== ENCOUNTER 2025-05-09 19:05 | Inpatient (IN) | payer OTHER, SELFPAY ==
[2025-05-09] VITALS (12 sets, daily range): BP systolic 90–134; BP diastolic 55–73; BMI 31.6; BMI 30.7
[2025-05-09 15:59] LABS: Hematocrit 33.2 % (37.0-47.0); Hemoglobin 10.3 g/dL (12.0-16.0); Mean Corp Hgb Conc. 31.0 g/dL (33.0-37.0); Mean Corpuscular Volume 95.7 fL (81.0-99.0); Nucleated Red Blood Cells % 0 %; Platelet Count 181 10^3/uL (130-400); Red Cell Dist. Width 14.4 % (11.5-14.5)
--- NOTE | 2025-05-09 16:19 | ED.GENMED ---
History of Present Illness
<ASHUTOSH Pepper - Last Filed: 05/09/25 18:10>
General
Chief Complaint: Weakness
Source: patient
Exam Limitations: none
Time Seen by Provider: 05/09/25 16:12
Nursing documentation reviewed up to this point in time: agreed with
History of Present Illness
History of Present Illness:
79-year-old female from [facility] living with past medical history of COPD O2 dependent(4 L nasal cannula) migraines stroke aortic stenosis A-fib CAD CHF DVT right bundle branch block, chronic kidney disease stage III pacemaker valve
disorder TAVR sick sinus syndrome presents to the ER. Patient complains of feeling weak for the past several days with bodyaches. Patient was recently here April 10 the discharge for acute CHF and NSTEMI and went to [facility]
showing nonobstructive CAD. She was given Lasix IV and transition to torsemide daily.
Past History
<ASHUTOSH Pepper - Last Filed: 05/09/25 18:10>
Past History
ED Past Medical History: CAD, CHF, COPD, HTN, Hypercholesterolemia, Hypothyroidism and Psychiatric
ED Past Surgical History: Cholecystectomy, Gynecological (DIANA/BSO) and Orthopedic (total right knee replacement)
Social History
Tobacco: Non-smoker
Alcohol: None
Drug: None
Personal:
Living: with family (lives with who is able to help her)
Phy Exam
<ASHUTOSH Pepper - Last Filed: 05/09/25 18:10>
General Physical Exam
General Presentation: no apparent distress
General age: appears stated age
General Skin: warm and dry
General Habitus: elderly
General Mental: alert
General Hydration: appears well hydrated
Cardiovascular Exam
Cardiovascular Exam: regular rate/rhythm
Pulmonary Exam
Pulmonary Exam: no respiratory distress and other (mild crackles at bases )
Neurological Exam
Neurological Exam: alert and oriented x3
Musculoskeletal Exam
Musculoskeletal Exam: other (mild b/l swelling )
Skin Exam
Skin Exam: normal color and warm/dry
Psychiatric Exam
Psychiatric Exam: normal mood/affect
Course
<ASHUTOSH Pepper - Last Filed: 05/09/25 18:10>
Orders/Labs/Results
Orders:
Orders
05/09/25 15:50
Electrocardiogram (*1) Urgent
Reason for Study: Other
Other Reason for Exam: Possible Sepsis
EKG- Treatment ONCE
05/09/25 15:53
Complete Blood Count/With Diff Urgent
Comprehensive Metabolic Panel Urgent
NT-proBNP Urgent
Comment: CARDIAC BNP ADDED ON BY FLOOR 4:30PM 05-09-25
05/09/25 15:59
CR Chest - 2 Views Urgent
Comment:
Reason For Exam: chest tightness, weakness
05/09/25 16:01
COVID-19 Antigen Urgent
Source: Nasal Swab
Influenza A+B Rapid Molecular Urgent
DHAVAL Source: Nasal Swab
Specimen Description:
05/09/25 16:32
Add On- LAB Urgent
Tests Added?: cardiac BNP
05/09/25 16:38
Straight cath- Treatment ONCE
05/09/25 16:40
UA Reflex to Culture [Urinalysis Reflex To Culture] Urgent
Date Specimen was Collected: 05/09/25
Time Specimen was Collected: 16:38
05/09/25 17:51
Bumetanide [Bumex] 1 mg IV NOW STA
05/09/25 18:42
Admit/Transfer Patient As Directed
Co-Sign Provider:
Level of Care: Inpatient admission
Assign to:: Telemetry
Physician / Group: veldanda
Diagnosis: copd exacerbation
Reason for Telemetry: Arrhythmia
Date to Stop Telemetry: 05/12/25
Time to Stop Telemetry: 11:00
Reason for Hospitalization: copd excerbation
Expected length of stay greater than two midnights?: Yes
ELOS- Estimated Length of Stay in days: 2
I certify the patient meets the requirements for IP care: Yes
PRN Pain Medication Management As Directed
May give lesser potent ordered pain med per pt: Yes
preference::
Protocol:: Medication orders for pain may be administered in a
manner that supports deferring to patient preference
when the pt is:
- Requesting an ordered lesser potent pain medication.
Least to most potent pain medications are defined
as: acetaminophen < NSAID < tramadol < opioids
(morphine, oxycodone, hydromorphone).
- Requesting a lesser dose of the same medication IF
ORDERED.
- Requesting a less intrusive route of administration
if both routes are prescribed by the provider (PO <
IV).
05/09/25 18:43
Code Status As Directed
Resuscitation Status: Full Code
05/12/25 11:00
DC Protocol for Telemetry ONCE
Abnormal Lab Results
05/09/25
15:53
WBC 11.2 H 10^3/uL
(4.8-10.8)
RBC 3.47 L 10^6/uL
(4.20-5.40)
Hgb 10.3 L g/dL
(12.0-16.0)
Hct 33.2 L %
(37.0-47.0)
MCHC 31.0 L g/dL
(33.0-37.0)
MPV 11.5 H fL
(7.4-10.4)
Absolute Neuts (auto) 9.4 H 10^3/uL
(1.4-6.5)
Absolute Lymphs (auto) 0.7 L 10^3/uL
(1.2-3.4)
Absolute Monos (auto) 1.0 H 10^3/uL
(0.1-0.6)
Neutrophils % 84.1 H %
(42.2-75.2)
Lymphocytes % 6.3 L %
(20.5-51.1)
Carbon Dioxide 32 H mmol/L
(22-30)
BUN 29 H mg/dl
(7-17)
Creatinine 1.1 H mg/dL
(0.6-1.0)
Glucose 180 H mg/dl
(70-99)
AST 37 H U/L
(14-36)
Total Protein 6.0 L g/dl
(6.3-8.2)
05/09/25 15:53
05/09/25 15:53
Vital Signs
Initial and Last Documented VS:
Initial Vital Signs
Temp Pulse Resp BP Pulse Ox
98.4 F 66 20 93/61 96
05/09/25 15:51 05/09/25 15:51 05/09/25 15:51 05/09/25 15:51 05/09/25 15:51
Last Documented Vital Signs
Temp Pulse Resp BP Pulse Ox
98.4 F 72 18 127/66 98
05/09/25 15:51 05/09/25 19:00 05/09/25 19:00 05/09/25 19:00 05/09/25 19:00
Estate Tax Examiner consulted with Physician
Estate Tax Examiner consulted with physician?: Yes
Name of Physician Consulted: Renetta
<Riley Jackson, DO - Last Filed: 05/09/25 19:28>
Orders/Labs/Results
Orders:
Orders
05/09/25 15:50
Electrocardiogram (*1) Urgent
Reason for Study: Other
Other Reason for Exam: Possible Sepsis
EKG- Treatment ONCE
05/09/25 15:53
Complete Blood Count/With Diff Urgent
Comprehensive Metabolic Panel Urgent
NT-proBNP Urgent
Comment: CARDIAC BNP ADDED ON BY FLOOR 4:30PM 05-09-25
05/09/25 15:59
CR Chest - 2 Views Urgent
Comment:
Reason For Exam: chest tightness, weakness
05/09/25 16:01
COVID-19 Antigen Urgent
Source: Nasal Swab
Influenza A+B Rapid Molecular Urgent
DHAVAL Source: Nasal Swab
Specimen Description:
05/09/25 16:32
Add On- LAB Urgent
Tests Added?: cardiac BNP
05/09/25 16:38
Straight cath- Treatment ONCE
05/09/25 16:40
UA Reflex to Culture [Urinalysis Reflex To Culture] Urgent
Date Specimen was Collected: 05/09/25
Time Specimen was Collected: 16:38
05/09/25 17:51
Bumetanide [Bumex] 1 mg IV NOW STA
05/09/25 18:42
Admit/Transfer Patient As Directed
Co-Sign Provider:
Level of Care: Inpatient admission
Assign to:: Telemetry
Physician / Group: blaire
Diagnosis: copd exacerbation
Reason for Telemetry: Arrhythmia
Date to Stop Telemetry: 05/12/25
Time to Stop Telemetry: 11:00
Reason for Hospitalization: copd excerbation
Expected length of stay greater than two midnights?: Yes
ELOS- Estimated Length of Stay in days: 2
I certify the patient meets the requirements for IP care: Yes
PRN Pain Medication Management As Directed
May give lesser potent ordered pain med per pt: Yes
preference::
Protocol:: Medication orders for pain may be administered in a
manner that supports deferring to patient preference
when the pt is:
- Requesting an ordered lesser potent pain medication.
Least to most potent pain medications are defined
as: acetaminophen < NSAID < tramadol < opioids
(morphine, oxycodone, hydromorphone).
- Requesting a lesser dose of the same medication IF
ORDERED.
- Requesting a less intrusive route of administration
if both routes are prescribed by the provider (PO <
IV).
05/09/25 18:43
Code Status As Directed
Resuscitation Status: Full Code
05/12/25 11:00
DC Protocol for Telemetry ONCE
Abnormal Lab Results
05/09/25
15:53
WBC 11.2 H 10^3/uL
(4.8-10.8)
RBC 3.47 L 10^6/uL
(4.20-5.40)
Hgb 10.3 L g/dL
(12.0-16.0)
Hct 33.2 L %
(37.0-47.0)
MCHC 31.0 L g/dL
(33.0-37.0)
MPV 11.5 H fL
(7.4-10.4)
Absolute Neuts (auto) 9.4 H 10^3/uL
(1.4-6.5)
Absolute Lymphs (auto) 0.7 L 10^3/uL
(1.2-3.4)
Absolute Monos (auto) 1.0 H 10^3/uL
(0.1-0.6)
Neutrophils % 84.1 H %
(42.2-75.2)
Lymphocytes % 6.3 L %
(20.5-51.1)
Carbon Dioxide 32 H mmol/L
(22-30)
BUN 29 H mg/dl
(7-17)
Creatinine 1.1 H mg/dL
(0.6-1.0)
Glucose 180 H mg/dl
(70-99)
AST 37 H U/L
(14-36)
Total Protein 6.0 L g/dl
(6.3-8.2)
05/09/25 15:53
05/09/25 15:53
Vital Signs
Initial and Last Documented VS:
Initial Vital Signs
Temp Pulse Resp BP Pulse Ox
98.4 F 66 20 93/61 96
05/09/25 15:51 05/09/25 15:51 05/09/25 15:51 05/09/25 15:51 05/09/25 15:51
Last Documented Vital Signs
Temp Pulse Resp BP Pulse Ox
98.4 F 72 18 127/66 98
05/09/25 15:51 05/09/25 19:00 05/09/25 19:00 05/09/25 19:00 05/09/25 19:00
<ASHUTOSH Pepper - Last Filed: 05/09/25 18:10>
*Radiology
Radiology exam reviewed: radiology read reviewed (Mild cardiomegaly)
*Pulse Oximetry
SaO2: 96
Nasal Cannula flow liters per minute: 4
Patient hypoxic: no
*EKG
Interpreted by ED Provider?: Yes
Heart Rate: 64
Rate: normal
Rhythm: ventricular paced
Ischemia: no ischemia
*Critical Care Note
Total Time (30-74mins, 75-104mins- exclusive of procedures): Not Applicable
ED Attending Note
<ASHUTOSH Pepper - Last Filed: 05/09/25 18:10>
-
Portions of this chart may have been created with voice recognition software.� Occasional wrong word or��sound alike� substitutions may have occurred due to the inherent limitations of voice recognition software.
<Riley Jackson, DO - Last Filed: 05/09/25 19:28>
ED Attending Note
Patient seen and examined by attending physician: Yes
ED Attending Note:
I have reviewed and agree with history treatment plan by ASHUTOSH Meza. My exam revealed 79-year-old female appears weak, intermittently hypotensive. Patient with mild CHF exacerbation, weakness. Unable to ambulate herself.
Discharge Plan
Departure
Patient Disposition: Admit
Date of Disposition: 05/09/25
Time of Disposition: 18:08
Admit to: Telemetry
Admit to doctor: hospitalist
Presentation/result/management discussed w/ accepting MD/DO: Hospitalist
Patient with high blood pressure during this ER visit?: No
Condition: Fair
Covid-19: Not Applicable
Discharge Problem:
Weakness, CHF (congestive heart failure)
Interventions
Interventions:
*Risk Screen - Suicide Last Done: 05/09/25 15:56
*General Assessment Last Done: 05/09/25 15:56
*Neglect/Abuse Screening Last Done: 05/09/25 15:56
*ED- Fall Risk Assessment Last Done: 05/09/25 15:56
*ED COVID-19 Vaccine History Last Done: 05/09/25 15:56
*ED Influenza Vaccine History Last Done: 05/09/25 15:56
ED- Cardiac Assessment Last Done: 05/09/25 16:00
ED- Neurological Assessment Last Done: 05/09/25 16:00
ED- Pulmonary Assessment Last Done: 05/09/25 16:00
[2025-05-09 16:22] LABS: ALT (SGPT) 24 U/L (0-35); AST (SGOT) 37 U/L (14-36); Albumin 3.8 g/dl (3.5-5.0); Alkaline Phosphatase 81 U/L (38-126); Blood Urea Nitrogen 29 mg/dl (7-17); Calcium 8.8 mg/dl (8.4-10.2); Chloride 99 mmol/L (98-107); Estimated Creatinine Clearance 39 ml/min; Glucose 180 mg/dl (70-99); Potassium 4.6 mmol/L (3.5-5.1); Sodium 137 mmol/L (135-145); Total Protein 6.0 g/dl (6.3-8.2); eGFR 50.48
[2025-05-09 16:26] LABS: COVID-19 Antigen Negative (Negative)
[2025-05-09 16:31] LABS: Carbon Dioxide 32 mmol/L (22-30)
[2025-05-09 16:51] LABS: Urine Character Clear (Clear)
--- NOTE | 2025-05-09 18:49 | HPS.HSE ---
Family Physician
-
Family Physician: Lakesha Hawley, DO
Chief Complaint
-
cough
History of Present Illness
79-year-old female past medical history of HFpEF, aortic stenosis status post TAVR, right bundle branch block, persistent atrial fibrillation with permanent pacemaker, GERD, COPD on 4 L baseline, hypothyroidism, ulcerative colitis, rheumatoid
Joellen, cervical neuropathy, gout, presenting with productive cough, body aches, weakness for several days. She gained 8 pounds in the past few days. She denies sore throat. Denies vomiting or diarrhea.
She has chest pressure with exertion which is chronic and not new. She denies any new shortness of breath is worse than usual.
Patient was recently admitted from 04/10 to 04/14 with CHF and NSTEMI underwent catheterization showing nonobstructive CAD. Patient was treated with IV Lasix.
She denies smoking or alcohol use.
Medical History
Past Medical History
Past Medical History: Reports Other (HFpEF, aortic stenosis status post TAVR, right bundle branch block, persistent atrial fibrillation with permanent pacemaker, GERD, COPD on 4 L baseline, hypothyroidism, ulcerative colitis, rheumatoid Joellen,
cervical neuropathy, gout)
Past Surgical History: Reports None
Social History
Tobacco: Non-smoker
Alcohol: None
Drug: None
Family History
Family History: Not pertinent
Allergies / Home Medications
Allergies reflects when Allergies were last updated in [employer].
Home Medications with original date entered in [employer]
Allergy/Medication List:
Allergies
Allergy/AdvReac Type Severity Reaction Status Date / Time
codeine Allergy migraine Verified 01/12/25 10:45
duloxetine HCl (From Allergy confusion Verified 01/12/25 10:45
Cymbalta)
metoclopramide Allergy DYSTONIA Verified 01/12/25 10:45
PER MD
tramadol HCl (From Ultram) Allergy Hives Verified 01/12/25 10:45
Home Medications
allopurinol 300 mg tablet 300 mg PO DAILY gout 09/29/14
omeprazole 20 mg tablet,delayed release 20 mg PO DAILY Gastrointestinal issue 09/29/14
torsemide 20 mg tablet 30 mg PO DAILY Fluid Retention/Swelling 11/04/16
aspirin 81 mg tablet,delayed release 81 mg PO DAILY #0 tabs 03/15/24
diltiazem HCl 180 mg capsule,extended release 24 hr (Cardizem CD) 180 mg PO DAILY Blood Pressure 10/06/24
multivitamin 1 tab PO DAILY Supplement 10/06/24
potassium chloride 20 mEq tablet,extended release 30 meq PO DAILY Electrolyte Repletion 10/06/24
rosuvastatin 20 mg tablet 20 mg PO HS High Cholesterol 10/06/24
spironolactone 25 mg tablet 12.5 mg PO DAILY Fluid Retention/Swelling 10/06/24
umeclidinium 62.5 mcg-vilanterol 25 mcg/actuation powdr for inhalation (Anoro Ellipta) 1 inh inhalation R DAILY Lung/Breathing Issues 10/06/24
cholecalciferol (vitamin D3) 25 mcg (1,000 unit) tablet (Vitamin D3) 25 mcg PO DAILY Supplement 12/21/24
glucosamine-chondroitin 250 mg-200 mg tablet 2 tab PO DAILY Supplement 12/21/24
levothyroxine 100 mcg tablet (Synthroid) 100 mcg PO DAILY Thyroid 12/21/24
vitamins A,C,M-nzye-pxxsbu 2,148 mcg-113 mg-45 mg-17.4 mg tablet (PreserVision AREDS) 2 tab PO DAILY Supplement 12/21/24
bisacodyl 10 mg rectal suppository (Dulcolax (bisacodyl)) 10 mg ND DAILYPRN PRN if MOM ineffective 01/12/25
calcium carbonate 500 mg PO BID Supplement 01/12/25
lidocaine 4 % topical patch 1 patch topical DAILY L knee & L shoulder 01/12/25
loperamide 2 mg tablet 2 mg PO Q4HPRN PRN loose stools 01/12/25
magnesium hydroxide 400 mg/5 mL oral suspension (Milk of Magnesia) 30 ml PO [id number] PRN if no BM x 3 days 01/12/25
sodium phosphates 19 gram-7 gram/118 mL enema (Fleet Enema) 118 ml ND DAILYPRN PRN if dulcolax supp ineffective 01/12/25
acetaminophen 500 mg tablet (Tylenol Extra Strength) 1,000 mg (2 x 500 mg) PO TID breakthrough pain #0 tabs 01/20/25
sodium chloride 0.65 % nasal spray aerosol (Saline Nasal) 2 spray intranasal QID #44 mL 01/20/25
citalopram 20 mg tablet 20 mg PO DAILY 04/10/25
dextran 70-hypromellose eye drops in a dropperette (Artificial Tears (PF) drops in a dropperette) 1 drp BOTH EYES Q4HPRN PRN dry eye 04/10/25
dextran 70-hypromellose eye drops in a dropperette (Artificial Tears (PF) drops in a dropperette) 2 drp ophthalmic (eye) BID 04/10/25
diclofenac sodium 1 % topical gel 2 g topical TID pain right hip/knee 04/10/25
docusate sodium 100 mg capsule (Colace) 200 mg PO HS 04/10/25
fluticasone propionate 50 mcg/actuation nasal spray,suspension 2 spray intranasal DAILY 04/10/25
melatonin 10 mg tablet 10 mg PO HS 04/10/25
midodrine 2.5 mg tablet 5 mg PO BID 04/10/25
ropinirole 0.5 mg tablet 0.5 mg PO BID RLS 04/10/25
tizanidine 2 mg tablet 4 mg PO QID 04/10/25
ipratropium 0.5 mg-albuterol 3 mg (2.5 mg base)/3 mL nebulization soln 3 ml inhalation TID PRN shortness of breath or wheezing #0 mL 04/14/25
metoprolol succinate 25 mg tablet,extended release 24 hr 12.5 mg (1/2 x 25 mg) PO DAILY #30 tabs 04/14/25
morphine 10 mg/5 mL oral solution 10 mg PO Q3H Pain 05/09/25
oxycodone 15 mg tablet,crush resistant,extended release 12 hr (OxyContin) 15 mg PO BID 05/09/25
prednisone 5 mg tablet 5 mg PO .DAILYINAFTERNOON 05/09/25
pregabalin 25 mg capsule 100 mg PO Q8H 05/09/25
sennosides 8.6 mg tablet (senna) 8.6 mg PO HS 05/09/25
umeclidinium 62.5 mcg-vilanterol 25 mcg/actuation powdr for inhalation (Anoro Ellipta) 1 inh inhalation DAILY 05/09/25
Review of Systems
-
History Source: Patient
A 12 point ROS was completed and negative except as noted: Yes
Constitutional: Reports No Symptoms
EENT: Reports No Symptoms
Respiratory: Reports See HPI
Cardiac: Reports No Symptoms
Abdomen/GI: Reports No Symptoms
: Reports No Symptoms
Musculoskeletal: Reports No Symptoms
Skin: Reports No Symptoms
Neurological: Reports No Symptoms
Endocrine: Reports No Symptoms
Hematologic/Lymphatic: Reports No Symptoms
Psych: Reports No Symptoms
Physical Exam
Vital Signs
Vital Signs
Temp Pulse Resp BP Pulse Ox
98.4 F 60 14 106/60 97
05/09/25 15:51 05/09/25 18:30 05/09/25 18:00 05/09/25 18:30 05/09/25 18:30
Physical Exam
General: Well Developed, Well Nourished and No Apparent Distress
HEENT: NormoCephalic, Moist mucous membranes and Atraumatic
Respiratory: Wheezes and Rales
Cardiac: S1/S2 and Regular Rhythm; No Murmur or Rub
GI: Soft, Non Tender, Non Distended and Normal Bowel Sounds; No Organomegaly
Rectal: Deferred by Provider
Musculoskeletal: No Clubbing, No Cyanosis and No Edema
Skin: No Rash
Neuro: Nonfocal/grossly intact
Laboratory Results
-
05/09/25 15:53
05/09/25 15:53
Laboratory Results
Total Bilirubin 0.6 mg/dl (0.2-1.3) 05/09/25 15:53
AST 37 U/L (14-36) H 05/09/25 15:53
ALT 24 U/L (0-35) 05/09/25 15:53
Alkaline Phosphatase 81 U/L (38-126) 05/09/25 15:53
Data Reviewed
-
Lab Data: Labs Reviewed by me
Old Records: Reviewed
Impression/Plan
-
IMPRESSION:
PLAN:
# Acute on chronic CHF exacerbation
- Chest x-ray shows mild cardiomegaly, pulmonary vascularity top normal, cannot exclude mild CHF/acute pulm edema
- Check I's and O's, daily weight
-COVID and flu negative
-Cardiac BNP 3600
- Bumex 1 mg daily
- Cardiology consulted
- Continue spironolactone
# Possible viral URI/COPD exacerbation
# Chronic COPD
-COVID and flu negative
- On 4 L baseline
-DuoNebs every 6 hours
- Dexamethasone 4 mg every 12
Nonobstructive CAD
- Continue aspirin
Severe aortic stenosis status post TAVR
Right bundle branch
Persistent atrial fibrillation with permanent pacemaker
- Continue Cardizem
- Continue metoprolol
- Does not appear to be on anticoagulation
CKD 3
- Renal function appears
Stage II pressure ulcer
GERD
- Continue omeprazole
Hypothyroidism
- Continue levothyroxine
Gout
- Continue allopurinol
Depression
- Continue citalopram
Cervical radiculopathy/chronic pain
- Continue morphine, oxycodone,
Restless legs
- Continue pregabalin, ropinirole
Ulcerative colitis
Rheumatoid arthritis
Full code
DVT prophylaxis�Cardiac diet
DVT prophylaxis heparin
--- NOTE | 2025-05-09 20:30 | PTCARENOTE ---
Pt transported from ED to 3W via stretcher. Pt pullover from stretcher to bed, wheelchair bound @ baseline. Oriented to room, pt AAOX3, vitals WNL, on 4L O2 (chronically), pt placed on TELE and call king within reach.
[2025-05-09] MEDS: DUONEB 3 ML INH (20:53)
[2025-05-09] MEDS: HEPARIN 5000 UNITS SC (22:13)
[2025-05-09] MEDS: SENOKOT 8.6 MG PO (22:30)
[2025-05-09] MEDS: MELATONIN 10 MG PO (22:30)
[2025-05-09] MEDS: MORPHINE ORAL SOLUTION 10 MG PO (22:31)
[2025-05-09] MEDS: COLACE 200 MG PO (22:31)
[2025-05-09] MEDS: LYRICA 100 MG PO (22:31)
[2025-05-09] MEDS: TYLENOL 1000 MG PO (22:32)
[2025-05-09] MEDS: DECADRON 4 MG IV (22:32)
[2025-05-09] MEDS: OXYCONTIN (CONTROLLED RELEASE) 15 MG PO (22:32)
[2025-05-09] MEDS: CRESTOR 20 MG PO (22:33)
[2025-05-09] MEDS: ZANAFLEX 4 MG PO (22:33)
[2025-05-09] MEDS: OCEAN, SALINE MIST 2 SPRAYS NASAL (22:33)
[2025-05-10] MEDS: MORPHINE ORAL SOLUTION 10 MG PO ×8 (01:58→23:22)
[2025-05-10 02:25] VITALS: BP 151/64
[2025-05-10] MEDS: LYRICA 100 MG PO ×3 (05:45→21:59)
[2025-05-10] MEDS: SYNTHROID 100 MCG PO (05:45)
[2025-05-10 05:59] LABS: Hematocrit 36.6 % (37.0-47.0); Hemoglobin 10.7 g/dL (12.0-16.0); Mean Corp Hgb Conc. 29.2 g/dL (33.0-37.0); Mean Corpuscular Volume 96.3 fL (81.0-99.0); Nucleated Red Blood Cells % 0 %; Platelet Count 197 10^3/uL (130-400); Red Cell Dist. Width 14.2 % (11.5-14.5)
[2025-05-10 06:00] VITALS: BMI 30.5
[2025-05-10 06:18] LABS: ALT (SGPT) 27 U/L (0-35); AST (SGOT) 37 U/L (14-36); Albumin 3.7 g/dl (3.5-5.0); Alkaline Phosphatase 89 U/L (38-126); Blood Urea Nitrogen 25 mg/dl (7-17); Calcium 8.8 mg/dl (8.4-10.2); Carbon Dioxide 36 mmol/L (22-30); Chloride 98 mmol/L (98-107); Estimated Creatinine Clearance 53 ml/min; Glucose 165 mg/dl (70-99); Potassium 4.2 mmol/L (3.5-5.1); Sodium 136 mmol/L (135-145); Total Protein 6.3 g/dl (6.3-8.2); eGFR > 60.00
[2025-05-10 06:30] LABS: Troponin I 0.034 ng/ml
[2025-05-10 07:00] VITALS: BP 125/69
[2025-05-10] MEDS: DUONEB 3 ML INH ×4 (07:01→19:44)
[2025-05-10] MEDS: SPIRIVA RESPIMAT 2.5 MCG 2 PUFF INH (07:03)
[2025-05-10] MEDS: STRIVERDI RESPIMAT 2 PUFF INH (07:03)
[2025-05-10] MEDS: TYLENOL 1000 MG PO ×3 (08:11→21:58)
[2025-05-10] MEDS: PROTONIX 40 MG PO (08:11)
[2025-05-10] MEDS: ZANAFLEX 4 MG PO ×4 (08:11→21:59)
[2025-05-10] MEDS: KCL 30 MEQ PO (08:11)
[2025-05-10] MEDS: ASPIR LOW (ENTERIC COATED) 81 MG PO (08:11)
[2025-05-10] MEDS: OCUVITE SOFTGEL 1 CAP PO (08:11)
[2025-05-10] MEDS: THERAGRAN 1 TABLET PO (08:12)
[2025-05-10] MEDS: VITAMIN D3 (cholecalciferol) 25 MCG PO (08:12)
[2025-05-10] MEDS: HEPARIN 5000 UNITS SC ×2 (08:12→20:32)
[2025-05-10] MEDS: REQUIP 0.5 MG PO ×2 (08:12→20:28)
[2025-05-10] MEDS: CARDIZEM CD 180 MG PO (08:13)
[2025-05-10] MEDS: ALDACTONE 12.5 MG PO (08:13)
[2025-05-10] MEDS: BUMEX 1 MG IV ×2 (08:16→16:52)
[2025-05-10] MEDS: OCEAN, SALINE MIST 2 SPRAYS NASAL ×4 (08:25→22:10)
[2025-05-10] MEDS: ZYLOPRIM 300 MG PO (08:26)
[2025-05-10] MEDS: CELEXA 20 MG PO (08:26)
[2025-05-10] MEDS: OSCAL CAL 500 500 MG PO ×2 (08:26→20:32)
[2025-05-10] MEDS: OXYCONTIN (CONTROLLED RELEASE) 15 MG PO ×2 (08:26→21:24)
[2025-05-10] MEDS: TOPROL XL 12.5 MG PO (08:28)
--- NOTE | 2025-05-10 09:38 | W.PN.HOSP.TC ---
Today's Communication/Plan
-
see plan
Assessment / Plan
Assessment / Plan
Gen: NAD, AAOx3.
Eyes: EOMI, PERRLA, no scleral icterus.
Neck: supple.
CV: RRR, +S1/S2, no m/r/g.
Resp: B/L wheezes
Abd: +BS, soft, NT, ND
Skin: No rashes.
Neuro: CN 2-12 intact, non-focal.
Psych: Normal mood and affect.
Echo 04/13/25:
1. LV Wall Motion: mid and apical anterior septum, mid and apical inferior septum, apical lateral segment, and apex are abnormal, as described below.
2. Normal LV size with mildly reduced systolic function.
3. LVEF 45-50%. LAD territory hypokinesis.
4. Normal RV size and function.
5. S/p Arndt CONSUELO 3, 23 mm TAVR, mean gradient 9 mmHg and mild paravalvular leak.
6. Mild to moderate tricuspid regurgitation. Normal estimated PASP at 29 mmHg.
7. Compared to prior from January 13, 2025, on cfvs-kw-qbsn comparison LVEF is now mildly reduced estimated at 45-50%, previously 60-65%; otherwise no significant change.
CXR: Mild cardiomegaly. Pulmonary vascularity at least top normal. Cannot exclude mild CHF/acute pulmonary edema.
Acute on chronic hypoxic respiratory failure:
-pt on 3L NC O2 at baseline, currently on 4L NC O2
-likely multifactorial and due to acute COPD exac causing acute on chronic HFmrEF
-see below
Acute on chronic HFmrEF:
-CXR above, proBNP 3630
-cont Bumex 1mg IV daily
-daily wts, I/Os
-COVID/Flu NEG
-cont BB/Aldactone
-c/s cards
Possible COPD exac:
-cont Decadron
-cont Duonebs
Persistent atrial fibrillation:
-h/o PPM
-cont Cardizem/BB
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
Other problems:
Obesity due to excess calories
Nonobstructive CAD: cont BB/ASA
Severe s/p TAVR
RBBB
h/o stage 2 pressure ulcer
GERD: cont PPI
Hypothyroidism: cont Levoxyl
Gout: cont allopurinol
Depression: cont citalopram
Cervical radiculopathy with chronic pain and chronic opioid use with dependence: cont morphine, oxycodone,
Restless legs: cont pregabalin/ropinirole
Ulcerative colitis
Rheumatoid arthritis
FULL/heparin
Anticipated Discharge: 24 - 48 hours
Subjective/Interval History
-
Date of Service: May 10, 2025
Patient states that shortness of breath may be slightly better than on admission.
Objective Data
-
Labs:
Laboratory Results
05/10/25
05:47
WBC 7.5
Hgb 10.7 L
Hct 36.6 L
Plt Count 197
Sodium 136
Potassium 4.2
Chloride 98
Carbon Dioxide 36 H
BUN 25 H
Creatinine 0.8
Glucose 165 H
Calcium 8.8
Total Bilirubin 0.5
AST 37 H
ALT 27
Alkaline Phosphatase 89
Vital Signs:
Vital Signs
Temp Pulse Resp BP Pulse Ox
98.0 F 74 16 125/69 98
05/10/25 07:00 05/10/25 08:28 05/10/25 07:04 05/10/25 08:28 05/10/25 07:00
I&O
05/09/25 05/10/25 05/11/25
06:59 06:59 06:59
Intake Total 480 / 480
Output Total 500 / 500
Balance -20 / -20
[2025-05-10] MEDS: DECADRON 4 MG IV ×2 (10:57→22:01)
[2025-05-10 11:00] VITALS: BP 111/59
[2025-05-10] MEDS: FLUSH (NSS) 2 FLUSH IV ×2 (11:03→16:57)
[2025-05-10 15:00] VITALS: BP 124/72
--- NOTE | 2025-05-10 15:20 | CON.CAR ---
Consultation
Consultation Request
Date/Time Consultation Requested: 05/09/25 at 2213
Date/Time Consultation Performed: 05/10/2025 at 2 PM
Requesting Provider: MD Vane
Performing Provider: Serafin sykes MD
Reason for Consultation: CHF
Medical History
-
Chief Complaint: chest pain
History of Present Illness:
Mrs. Hernandez is an 79 yo female (known to Dr. Ramirez) with heart failure with mildly reduced ejection fraction (45-50%), COPD on 3L NC oxygen, paroxysmal Afib (not on OAC due to eye hemorrhage, declined Watchman), CKD, MDT PPM, severe s/p TAVR
11/2021, HLD and nonobstructive CAD on cath 09/2021 with focal 30% proximal LAD and 40% mid LAD stenoses, who presents from [facility] to the ER with c/o diffuse weakness and musculoskeletal pain. She also reports worsening lower extremity edema in the
past week for which cardiology is consulted. Her main complaint to me is that she has many joint pains and is unable to walk around without using a wheelchair due to bilateral leg weakness. She did have some worsening lower extremity edema in the
past week but this is starting to improve.
Past Medical History
Past Medical History: Other (as above)
Social History
Tobacco: Former Smoker
Living: Long-Term ([facility])
Family History
Family History: Reviewed & Not Pertinent
Allergies / Home Medications
Allergy/AdvReac Type Severity Reaction Status Date / Time
codeine Allergy migraine Verified 01/12/25 10:45
duloxetine HCl (From Allergy confusion Verified 01/12/25 10:45
Cymbalta)
metoclopramide Allergy DYSTONIA Verified 01/12/25 10:45
PER MD
tramadol HCl (From Ultram) Allergy Hives Verified 01/12/25 10:45
�Medication �Instructions �Recorded �Confirmed �Type
allopurinol 300 mg tablet 300 mg PO DAILY gout 09/29/14 05/09/25 History
omeprazole 20 mg tablet,delayed 20 mg PO DAILY Gastrointestinal 09/29/14 05/09/25 History
release issue
torsemide 20 mg tablet 30 mg PO DAILY Fluid 11/04/16 05/09/25 History
Retention/Swelling
aspirin 81 mg tablet,delayed 81 mg PO DAILY #0 tabs 03/15/24 05/09/25 Rx
release
diltiazem HCl 180 mg 180 mg PO DAILY Blood Pressure 10/06/24 05/09/25 History
capsule,extended release 24 hr
(Cardizem CD)
multivitamin 1 tab PO DAILY Supplement 10/06/24 05/09/25 History
potassium chloride 20 mEq 30 meq PO DAILY Electrolyte 10/06/24 05/09/25 History
tablet,extended release Repletion
rosuvastatin 20 mg tablet 20 mg PO HS High Cholesterol 10/06/24 05/09/25 History
spironolactone 25 mg tablet 12.5 mg PO DAILY Fluid 10/06/24 05/09/25 History
Retention/Swelling
umeclidinium 62.5 mcg-vilanterol 1 inh inhalation R DAILY 10/06/24 05/09/25 History
25 mcg/actuation powdr for Lung/Breathing Issues
inhalation (Anoro Ellipta)
cholecalciferol (vitamin D3) 25 25 mcg PO DAILY Supplement 12/21/24 05/09/25 History
mcg (1,000 unit) tablet (Vitamin
D3)
glucosamine-chondroitin 250 mg-200 2 tab PO DAILY Supplement 12/21/24 05/09/25 History
mg tablet
levothyroxine 100 mcg tablet 100 mcg PO DAILY Thyroid 12/21/24 05/09/25 History
(Synthroid)
vitamins A,C,D-xasn-fuvkhk 2,148 2 tab PO DAILY Supplement 12/21/24 05/09/25 History
mcg-113 mg-45 mg-17.4 mg tablet
(PreserVision AREDS)
bisacodyl 10 mg rectal suppository 10 mg NE DAILYPRN PRN if MOM 01/12/25 05/09/25 History
(Dulcolax (bisacodyl)) ineffective
calcium carbonate 500 mg PO BID Supplement 01/12/25 05/09/25 History
lidocaine 4 % topical patch 1 patch topical DAILY Pain 01/12/25 05/09/25 History
loperamide 2 mg tablet 2 mg PO Q4HPRN PRN loose stools 01/12/25 05/09/25 History
magnesium hydroxide 400 mg/5 mL 30 ml PO DAILYPRN PRN if no BM x 3 01/12/25 05/09/25 History
oral suspension (Milk of Magnesia) days
sodium phosphates 19 gram-7 118 ml NE DAILYPRN PRN if dulcolax 01/12/25 05/09/25 History
gram/118 mL enema (Fleet Enema) supp ineffective
citalopram 20 mg tablet 20 mg PO DAILY Mental 04/10/25 05/09/25 History
Health/Anxiety
diclofenac sodium 1 % topical gel 1 ea topical TID pain right 04/10/25 05/09/25 History
hip/knee
docusate sodium 100 mg capsule 200 mg PO HS STOOL SOFTENER 04/10/25 05/09/25 History
(Colace)
melatonin 10 mg tablet 10 mg PO HS Sleep 04/10/25 05/09/25 History
midodrine 2.5 mg tablet 5 mg PO BID Blood Pressure 04/10/25 05/09/25 History
ropinirole 0.5 mg tablet 0.5 mg PO BID@0800,2000 RLS 04/10/25 05/09/25 History
metoprolol succinate 25 mg 12.5 mg (1/2 x 25 mg) PO DAILY #30 04/14/25 05/09/25 Rx
tablet,extended release 24 hr tabs
acetaminophen 500 mg tablet 1,000 mg PO TID Pain 05/09/25 05/09/25 History
(Tylenol Extra Strength)
dextran 70-hypromellose 0.1 %-0.3 1 drp BOTH EYES Q4HPRN PRN dry eyes 05/09/25 05/09/25 History
% eye drops
dextran 70-hypromellose 0.1 %-0.3 2 drp BOTH EYES BID Eye Condition 05/09/25 05/09/25 History
% eye drops
ipratropium 0.5 mg-albuterol 3 mg 3 ml inhalation TID@0800,1400,2000 05/09/25 05/09/25 History
(2.5 mg base)/3 mL nebulization Lung/Breathing Issues
soln
morphine concentrate 100 mg/5 mL 10 mg PO Q3HPRN PRN severe pain 05/09/25 05/09/25 History
(20 mg/mL) oral solution
oxycodone 15 mg tablet,crush 15 mg PO BID Pain 05/09/25 05/09/25 History
resistant,extended release 12 hr
(OxyContin)
prednisone 5 mg tablet 5 mg PO QPM INFLAMMATION 05/09/25 05/09/25 History
pregabalin 100 mg capsule 100 mg PO Q8H Antiseizure Agent 05/09/25 05/09/25 History
sennosides 8.6 mg tablet (senna) 8.6 mg PO HS Constipation 05/09/25 05/09/25 History
sodium chloride 0.65 % nasal spray 2 spray intranasal QIDPRN PRN 05/09/25 05/09/25 History
aerosol (Saline Nasal) nasal dryness
sodium chloride-aloe vera nasal 1 spray intranasal AMHS Congestion 05/09/25 05/09/25 History
spray ([place] Saline Gel nasal spray)
tizanidine 4 mg tablet 4 mg PO QID Muscle Spasms 05/09/25 05/09/25 History
Review of Systems
-
All other systems: Negative unless noted
Physical Exam
Vital Signs
Temp Pulse Resp BP Pulse Ox
98.1 F 66 18 111/59 96
05/10/25 11:00 05/10/25 14:39 05/10/25 14:39 05/10/25 11:00 05/10/25 14:39
Lab Results
05/10/25 05:47
05/10/25 05:47
Troponin I 0.034 ng/ml 05/10/25 05:47
Miw-G-Xgzoucaueek Pept 3630 pg/ml 05/09/25 15:53
Physical Exam
General: Well Developed and Well Nourished
Respiratory: Crackles and Non Labored Respirations
Cardiac: S1/S2, Regular Rhythm and Peripheral Edema; Negative Murmur
Impression / Plan
-
Mrs. Hernandez is an 79 yo female (known to Dr. Ramirez) with heart failure with mildly reduced ejection fraction (EF 45-50%), COPD on 3L NC oxygen, paroxysmal Afib (not on OAC due to eye hemorrhage, declined Watchman), CKD, MDT PPM, severe s/p TAVR
11/2021, HLD and nonobstructive CAD on cath 09/2021 with focal 30% proximal LAD and 40% mid LAD stenoses, who presents from [facility] to the ER with c/o diffuse weakness and musculoskeletal pain. Cardiology is consulted due to concern for CHF given
worsening lower extremity edema.
Acute on chronic HFrEF (45-50%)
-Weight is up 5 pounds from discharge weight in March. proBNP 3630. She has lower extremity edema and CXR with mild CHF.
-Severe exacerbation requiring IV diuresis and close monitoring of labs and telemetry
-Increase Bumex to IV 1 mg twice daily
-GDMT:
- BB: Continue metoprolol 12.5 mg daily
- LEN/ARB/ARNI: Limited by hypotension (she is on chronic midodrine)
- MRA: Continue spironolactone 12.5 mg daily
- SGLT2 inhibitor: Will ask CM to quiles
-HF education. Sodium restriction. Daily weights.
Paroxysmal atrial fibrillation
-Currently paced on ECG.
-Rate controlled with metoprolol and diltiazem (could transition to only beta-janet given low EF but will defer to outpatient technical applications specialist).
-No anticoagulation due to prior eye hemorrhage
CAD
-Continue statin and aspirin
Aortic stenosis s/p TAVR 2021
PPM - MDT device, stable with normal function. managed by Dr. Ramirez's office.
Data Reviewed
-
EKG: Tracing Personally Visualized and interpreted
Radiology: Image Personally Visualized and interpreted
Medical Tests (Nuc Med, Echo etc): Report Reviewed by me
Labs: Labs Reviewed by me
--- NOTE | 2025-05-10 16:23 | CM ---
Alert awake oriented patient lives fci at [facility]. She is assisted in activates of daily living.She uses a walker wheelchair. She does not ambulate.She has Oxygen.
[facility]
PCP Dr Hawley
PLAN Return to [facility]
[2025-05-10 19:30] VITALS: BP 128/63
[2025-05-10] MEDS: CRESTOR 20 MG PO (21:58)
[2025-05-10] MEDS: SENOKOT 8.6 MG PO (21:59)
[2025-05-10] MEDS: MELATONIN 10 MG PO (21:59)
[2025-05-10] MEDS: COLACE 200 MG PO (22:00)
[2025-05-10 23:12] VITALS: BP 129/74
[2025-05-11] MEDS: MORPHINE ORAL SOLUTION 10 MG PO ×5 (02:16→14:06)
[2025-05-11 03:00] VITALS: BP 131/74
[2025-05-11] MEDS: SYNTHROID 100 MCG PO (05:06)
[2025-05-11 06:00] VITALS: BMI 30.4
[2025-05-11] MEDS: LYRICA 100 MG PO ×3 (06:13→21:14)
[2025-05-11 06:36] LABS: Hematocrit 34.1 % (37.0-47.0); Hemoglobin 10.1 g/dL (12.0-16.0); Mean Corp Hgb Conc. 29.6 g/dL (33.0-37.0); Mean Corpuscular Volume 95.5 fL (81.0-99.0); Platelet Count 219 10^3/uL (130-400); Red Cell Dist. Width 14.0 % (11.5-14.5)
[2025-05-11 07:25] VITALS: BMI 30.4
[2025-05-11 07:29] LABS: Blood Urea Nitrogen 24 mg/dl (7-17); Calcium 9.5 mg/dl (8.4-10.2); Chloride 95 mmol/L (98-107); Estimated Creatinine Clearance 52 ml/min; Glucose 168 mg/dl (70-99); Potassium 4.2 mmol/L (3.5-5.1); Sodium 137 mmol/L (135-145); eGFR > 60.00
[2025-05-11 07:30] VITALS: BP 137/77
[2025-05-11] MEDS: STRIVERDI RESPIMAT 2 PUFF INH (07:49)
[2025-05-11] MEDS: SPIRIVA RESPIMAT 2.5 MCG 2 PUFF INH (07:49)
[2025-05-11] MEDS: DUONEB 3 ML INH ×4 (07:49→20:00)
[2025-05-11] MEDS: OXYCONTIN (CONTROLLED RELEASE) 15 MG PO ×2 (08:27→20:07)
[2025-05-11] MEDS: ZANAFLEX 4 MG PO ×4 (08:28→21:15)
[2025-05-11] MEDS: ASPIR LOW (ENTERIC COATED) 81 MG PO (08:28)
[2025-05-11] MEDS: OSCAL CAL 500 500 MG PO ×2 (08:28→20:07)
[2025-05-11] MEDS: THERAGRAN 1 TABLET PO (08:28)
[2025-05-11] MEDS: OCUVITE SOFTGEL 1 CAP PO (08:28)
[2025-05-11] MEDS: PROTONIX 40 MG PO (08:28)
[2025-05-11] MEDS: REQUIP 0.5 MG PO ×2 (08:28→20:08)
[2025-05-11] MEDS: KCL 30 MEQ PO (08:28)
[2025-05-11] MEDS: CELEXA 20 MG PO (08:29)
[2025-05-11] MEDS: ZYLOPRIM 300 MG PO (08:29)
[2025-05-11] MEDS: TYLENOL 1000 MG PO ×3 (08:29→21:15)
[2025-05-11] MEDS: VITAMIN D3 (cholecalciferol) 25 MCG PO (08:29)
[2025-05-11] MEDS: ALDACTONE 12.5 MG PO (08:30)
[2025-05-11] MEDS: TOPROL XL 12.5 MG PO (08:30)
[2025-05-11] MEDS: BUMEX 1 MG IV ×2 (08:31→10:32)
[2025-05-11] MEDS: CARDIZEM CD 180 MG PO (08:32)
[2025-05-11] MEDS: HEPARIN 5000 UNITS SC ×2 (08:32→20:07)
[2025-05-11 08:33] LABS: Carbon Dioxide 36 mmol/L (22-30)
[2025-05-11] MEDS: OCEAN, SALINE MIST 2 SPRAYS NASAL ×4 (08:33→21:16)
--- NOTE | 2025-05-11 09:40 | W.PN.CD ---
Today's Communication / Plan
-
Increase Bumex to IV 2 mg twice daily
Impression / Plan
-
Mrs. Hernandez is an 79 yo female (known to Dr. Ramirez) with heart failure with mildly reduced ejection fraction (EF 45-50%), COPD on 3L NC oxygen, paroxysmal Afib (not on OAC due to eye hemorrhage, declined Watchman), CKD, MDT PPM, severe s/p TAVR
11/2021, HLD and nonobstructive CAD on cath 09/2021 with focal 30% proximal LAD and 40% mid LAD stenoses, who presents from [facility] to the ER with c/o diffuse weakness and musculoskeletal pain. Cardiology is consulted due to concern for CHF given
worsening lower extremity edema.
Acute on chronic HFrEF (45-50%)
-Weight is up 5 pounds from discharge weight in March. proBNP 3630. She has lower extremity edema and CXR with mild CHF.
-Severe exacerbation requiring IV diuresis and close monitoring of labs and telemetry
-Increase Bumex to IV 2 mg twice daily
-GDMT:
- BB: Continue metoprolol 12.5 mg daily
- LEN/ARB/ARNI: Limited by hypotension (she is on chronic midodrine)
- MRA: Continue spironolactone 12.5 mg daily
- SGLT2 inhibitor: Will ask CM to quiles
-HF education. Sodium restriction. Daily weights.
Paroxysmal atrial fibrillation
-Currently paced on ECG.
-Rate controlled with metoprolol and diltiazem (could transition to only beta-janet given low EF but will defer to outpatient master fisher).
-No anticoagulation due to prior eye hemorrhage
CAD
-Continue statin and aspirin
Aortic stenosis s/p TAVR 2021
PPM - MDT device, stable with normal function. managed by Dr. Ramirez's office.
Subjective: Still short of breath today with lots of musculoskeletal pain. Does not feel like she is peeing more than usual.
Physical Exam
Vital Signs/Labs
Vital Signs
Temp Pulse Resp BP Pulse Ox
97.7 F 70 18 137/77 96
05/11/25 07:30 05/11/25 08:30 05/11/25 07:51 05/11/25 08:30 05/11/25 07:51
05/10/25 05/11/25 05/12/25
06:59 06:59 06:59
Actual Weight 166 lb 9 oz 165 lb 12.8 oz
05/11/25 06:01
05/11/25 06:01
05/09/25
15:53
Bfa-D-Pyuyxcpfobn Pept 3630
LAB Results
05/10/25
05:47
Troponin I 0.034
Physical Exam
Constitutional: No acute distress and Comfortable
Cardiovascular: Rhythm & rate is regular, Pedal edema is absent, S1S2 is normal and Murmur/rub/gallop absent
Respiratory: Respiratory effort normal and Crackles Present
Neuro/Psych: AO x 3
Data Reviewed
-
Date of Service: May 11, 2025
Medical Decision Making: Reviewed Test Results, Test Interpretation and Review of Case with other Provider
EKG: Tracing Personally Visualized and interpreted
Echo: Report Reviewed by me
Labs: Labs Reviewed by me
[2025-05-11] MEDS: DECADRON 4 MG IV ×2 (10:32→21:16)
[2025-05-11 11:36] VITALS: BP 119/58
[2025-05-11 16:17] VITALS: BP 119/57
[2025-05-11] MEDS: BUMEX 2 MG IV (17:04)
--- NOTE | 2025-05-11 18:23 | W.PN.HOSP.TC ---
Addendum entered and electronically signed by Roger Denney MD 05/11/25 23:06:
Attending Addendum-
I saw and evaluated the patient. I reviewed the resident�s note and agree with findings and plan as documented in the resident�s note. Sub: continues to feel SOB. Denies fevers chills NV Complains of generalized muscle aches and pain. Full 12 point
ROS reviewed and negative except as documented Exam: Vitals reviewed in chart GEN-NAD heart RRR lungs b/l LL rales abd soft LE 2+ pitting edema
# AE HFmrEF
- follow I's and O's, daily weight
- increase Bumex to 2mg IV BID
- echo 04/13- ef 45-50%
- on torsemide at home
- attempt to start SGLT2i as IP
- appreciate cards input
- Continue GDMT-spironolactone, Toprol XL
# Chronic Hypoxemic Respiratory Failure
# COPD not in AE
-COVID and flu negative
-On 3-4 L baseline
-cont inhalers, duonebs prn
-DC Dexamethasone confirm if on chronic steroids
#Nonobstructive CAD- Continue aspirin
#Severe aortic stenosis status post TAVR
#Right bundle branch
#Persistent atrial fibrillation with permanent pacemaker- Continue Cardizem and metoprolol, not an AC candidate
#GERD- Continue omeprazole
#Hypothyroidism- Continue levothyroxine
#Gout- Continue allopurinol
#Depression- Continue citalopram
#Cervical radiculopathy/chronic pain-DC morphine start oxycodone for breaktrough cont oxycontin-PDMP reviewed
#Restless legs- Continue pregabalin, ropinirole
#Ulcerative colitis
#Rheumatoid arthritis
Full code
DVT prophylaxis-heparin->lovenox
Dispo From [facility]
ACP
Patient consented to discuss, was alone, time spent explanation of advance directives, changes in health status, patient�s health care wishes if the patient becomes unable to make health decisions, goals of care, code status, and prognosis- 16
minutes
Time spent coordinating care, review of plan of care with resident, personally reviewed previous records in EMR, med rec, labs, radiology, d/w nursing, total time documented is exclusive of any additional time listed that was spent in advance care
planning discussion -�51 minutes
Original Note:
Today's Communication/Plan
-
- Increase Bumex to 1 mg twice daily IV per cardiology recommendation
- Discontinued morphine. Ordered oxycodone 5 mg every 4 hours as needed for severe pain. Continue OxyContin extended release 15 mg twice daily. PDMP checked by pharmacy today.
Assessment / Plan
Assessment / Plan
#Acute on chronic hypoxic respiratory failure:
- Patient on 3L NC O2 at baseline, currently on 4L NC O2
- likely multifactorial etiology and due to acute COPD exacerbation causing acute on chronic HFmrEF
#Acute on chronic HFmrEF:
- CXR: Mild cardiomegaly. Pulmonary vascularity at least top normal.
- proBNP 3630
- Cardiology consulted and following, increased Bumex to 2mg IV twice daily
- Continue daily wts, I/Os
- COVID/Flu NEG in the ED
- Continue GDMT: Metoprolol 12.5 mg daily, spironolactone 12.5 mg daily
#Possible COPD exacerbation:
- Continue Decadron
- Continue Duonebs
#Persistent atrial fibrillation:
- Pacemaker
- Continue Cardizem/beta-janet
- not on AC due to history of high hemorrhage
- Patient denied watchman
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
- Discontinued morphine, continue home OxyContin extended release 15 mg twice daily, placed order for oxycodone 5 mg every 4 hours as needed for severe pain
- PDMP checked by pharmacy today
#Rheumatoid arthritis
- Pain management as above
# Nonobstructive CAD
- continue beta-janet and aspirin
# Severe s/p TAVR
# RBBB
# GERD
- continue PPI
#Hypothyroidism
- Continue levothyroxine
#Gout
- continue allopurinol
#Depression
- continue citalopram
#Restless legs
- continue pregabalin/ropinirole
#Ulcerative colitis
-Stable
# h/o stage 2 pressure ulcer
FULL code
DVT prophylaxis: Heparin
Anticipated Discharge: 24 - 48 hours
Subjective/Interval History
-
Date of Service: May 11, 2025
Patient seen at the bedside this morning. Patient was little confused, she knew her name, date of , location, but was unable to tell me how she was feeling if she was experiencing any pain. Later on rounds when seen with attending patient was
more conversational and able to describe that she was feeling generalized pain as well as joint pain. Patient had a productive cough, shortness of breath, muscle pain, and also noted an umbilical hernia which she has had for 'years'. Patient
denies any nausea.
Objective Data
-
Labs:
Laboratory Results
05/11/25
06:01
WBC 6.7
Hgb 10.1 L
Hct 34.1 L
Plt Count 219
Sodium 137
Potassium 4.2
Chloride 95 L
Carbon Dioxide 36 H
BUN 24 H
Creatinine 0.8
Glucose 168 H
Calcium 9.5
Vital Signs:
Vital Signs
Temp Pulse Resp BP Pulse Ox
97.8 F 69 18 119/57 98
05/11/25 16:17 05/11/25 17:04 05/11/25 16:17 05/11/25 17:04 05/11/25 16:17
I&O
05/10/25 05/11/25 05/12/25
06:59 06:59 06:59
Intake Total 480 / 480 1619 / 1619
Output Total 500 / 500
Balance -20 / -20 1619
Review of Systems
-
History Source: Patient
EENT: Reports No Symptoms Reported
Respiratory: Reports Cough and Other (Shortness of breath)
Cardiac: Reports No Symptoms
Abdomen/GI: Reports Other (Umbilical hernia)
Genitourinary: Reports No Symptoms
Musculoskeletal: Reports No Symptoms
Skin: Reports No Symptoms
Neuro: Reports No Symptoms
Endocrine: Reports No Symptoms
Physical Exam
-
General: Appears Chronically Ill
Respiratory: Wheezes, Crackles and Other (On 4 L O2 nasal cannula)
Cardiac: Regular Rhythm
GI: Soft, Nontender and Other (Large reducible umbilical hernia noted, no redness)
Musculoskeletal: No Edema (No edema noted bilateral lower extremities)
Skin: Warm and Dry
Neuro: Awake, Alert and Oriented
Psych: Calm
[2025-05-11 19:00] VITALS: BP 112/63
[2025-05-11] MEDS: MELATONIN 10 MG PO (21:14)
[2025-05-11] MEDS: COLACE 200 MG PO (21:15)
[2025-05-11] MEDS: SENOKOT 8.6 MG PO (21:15)
[2025-05-11] MEDS: CRESTOR 20 MG PO (21:23)
--- NOTE | 2025-05-11 21:46 | PTCARENOTE ---
Pt. refused, wants to brush teeth in the morning(05/12).
[2025-05-11] MEDS: ROXICODONE 5 MG PO (22:53)
[2025-05-11 23:00] VITALS: BP 129/72
[2025-05-12] VITALS (7 sets, daily range): BP systolic 114–168; BP diastolic 48–80; BMI 30.3; BMI 30.2
[2025-05-12] MEDS: LYRICA 100 MG PO ×3 (05:59→21:05)
[2025-05-12] MEDS: SYNTHROID 100 MCG PO (05:59)
[2025-05-12 06:28] LABS: Hematocrit 34.9 % (37.0-47.0); Hemoglobin 10.8 g/dL (12.0-16.0); Mean Corp Hgb Conc. 30.9 g/dL (33.0-37.0); Mean Corpuscular Volume 94.8 fL (81.0-99.0); Platelet Count 242 10^3/uL (130-400); Red Cell Dist. Width 14.0 % (11.5-14.5)
[2025-05-12 07:06] LABS: Blood Urea Nitrogen 34 mg/dl (7-17); Calcium 9.5 mg/dl (8.4-10.2); Chloride 92 mmol/L (98-107); Estimated Creatinine Clearance 46 ml/min; Glucose 147 mg/dl (70-99); Potassium 4.2 mmol/L (3.5-5.1); Sodium 137 mmol/L (135-145); eGFR > 60.00
[2025-05-12 07:14] LABS: Carbon Dioxide 37 mmol/L (22-30)
[2025-05-12] MEDS: STRIVERDI RESPIMAT 2 PUFF INH (07:35)
[2025-05-12] MEDS: SPIRIVA RESPIMAT 2.5 MCG 2 PUFF INH (07:35)
[2025-05-12] MEDS: DUONEB 3 ML INH ×4 (07:35→19:36)
[2025-05-12] MEDS: PROTONIX 40 MG PO (08:43)
[2025-05-12] MEDS: OCUVITE SOFTGEL 1 CAP PO (08:43)
[2025-05-12] MEDS: CARDIZEM CD 180 MG PO (08:43)
[2025-05-12] MEDS: TOPROL XL 12.5 MG PO (08:43)
[2025-05-12] MEDS: OSCAL CAL 500 500 MG PO ×2 (08:43→19:41)
[2025-05-12] MEDS: TYLENOL 1000 MG PO ×3 (08:43→21:01)
[2025-05-12] MEDS: THERAGRAN 1 TABLET PO (08:44)
[2025-05-12] MEDS: CELEXA 20 MG PO (08:44)
[2025-05-12] MEDS: ASPIR LOW (ENTERIC COATED) 81 MG PO (08:44)
[2025-05-12] MEDS: ZYLOPRIM 300 MG PO (08:44)
[2025-05-12] MEDS: VITAMIN D3 (cholecalciferol) 25 MCG PO (08:45)
[2025-05-12] MEDS: KCL 30 MEQ PO (08:45)
[2025-05-12] MEDS: ALDACTONE 12.5 MG PO (08:45)
[2025-05-12] MEDS: OCEAN, SALINE MIST 2 SPRAYS NASAL ×4 (08:45→21:02)
[2025-05-12] MEDS: ZANAFLEX 4 MG PO ×4 (08:45→21:01)
[2025-05-12] MEDS: BUMEX 2 MG IV ×2 (08:46→16:12)
[2025-05-12] MEDS: HEPARIN 5000 UNITS SC ×2 (08:49→19:41)
[2025-05-12] MEDS: OXYCONTIN (CONTROLLED RELEASE) 15 MG PO ×2 (08:51→19:41)
[2025-05-12] MEDS: REQUIP 0.5 MG PO ×2 (08:55→19:42)
--- NOTE | 2025-05-12 09:04 | W.PN.CD ---
Today's Communication / Plan
-
Continue twice daily IV Bumex
May be able to transition to p.o. diuretics tomorrow
Impression / Plan
-
Mrs. Hernandez is an 79 yo female (known to Dr. Ramirez) with heart failure with mildly reduced ejection fraction (EF 45-50%), COPD on 3L NC oxygen, paroxysmal Afib (not on OAC due to eye hemorrhage, declined Watchman), CKD, MDT PPM, severe s/p TAVR
11/2021, HLD and nonobstructive CAD on cath 09/2021 with focal 30% proximal LAD and 40% mid LAD stenoses, who presents from [facility] to the ER with c/o diffuse weakness and musculoskeletal pain. Cardiology is consulted due to concern for CHF given
worsening lower extremity edema.
Acute on chronic HFrEF (45-50%)
-Weight is up 5 pounds from discharge weight in March. proBNP 3630. She has lower extremity edema and CXR with mild CHF.
-Severe exacerbation requiring IV diuresis and close monitoring of labs and telemetry
-Continue Bumex IV 2 mg twice daily. May be ready for PO diuresis tomorrow.
-GDMT:
- BB: Continue metoprolol 12.5 mg daily
- LEN/ARB/ARNI: Limited by hypotension (she is on chronic midodrine)
- MRA: Continue spironolactone 12.5 mg daily
- SGLT2 inhibitor: Will ask CM to quiles
-HF education. Sodium restriction. Daily weights.
Paroxysmal atrial fibrillation
-Currently paced on ECG.
-Rate controlled with metoprolol and diltiazem (could transition to only beta-janet given low EF but will defer to outpatient clarifier operator).
-No anticoagulation due to prior eye hemorrhage
CAD
-Continue statin and aspirin
Aortic stenosis s/p TAVR 2021
PPM - MDT device, stable with normal function. managed by Dr. Ramirez's office.
Subjective: Still short of breath today with lots of musculoskeletal pain.
Physical Exam
Vital Signs/Labs
Vital Signs
Temp Pulse Resp BP Pulse Ox
97.7 F 81 19 114/80 96
05/12/25 07:38 05/12/25 07:39 05/12/25 07:39 05/12/25 07:38 05/12/25 07:39
05/11/25 05/12/25 05/13/25
06:59 06:59 06:59
Actual Weight 165 lb 12.8 oz 165 lb 4 oz
05/12/25 05:55
05/12/25 05:55
05/09/25
15:53
Auc-A-Vzjdhqtcpnu Pept 3630
LAB Results
05/10/25
05:47
Troponin I 0.034
Physical Exam
Constitutional: No acute distress and Comfortable
Cardiovascular: Rhythm & rate is regular, Pedal edema is absent, S1S2 is normal and Murmur/rub/gallop absent
Respiratory: Respiratory effort normal and Crackles Present
Neuro/Psych: AO x 3
Data Reviewed
-
Date of Service: May 12, 2025
Medical Decision Making: Reviewed Test Results
EKG: Tracing Personally Visualized and interpreted
Echo: Report Reviewed by me
Labs: Labs Reviewed by me
[2025-05-12] MEDS: DECADRON 4 MG IV ×2 (10:01→21:01)
--- NOTE | 2025-05-12 13:02 | PN.CDI ---
CDI
- -
CDI:
Physician Documentation Request
Admit Date: 05/09/25 19:05
Dear Doctor Barbra,
Patient admitted with acute on chronic systolic CHF.
05/11 PN, 'Persistent atrial fibrillation... Pacemaker...Continue Cardizem/beta-janet.'
05/11 Cardiology note, 'Paroxysmal atrial fibrillation....Rate controlled with metoprolol and diltiazem.'
Due to potentially conflicting documentation, please clarify in your note the current type of atrial fibrillation being monitored, evaluated and/ or treated:
Paroxysmal atrial fibrillation - terminates spontaneously or with intervention within 7 days of onset
Persistent atrial fibrillation - episodes of continuous AF that last more than 7 days and do not self-terminate
Other
Use of terms such as suspected, likely, concern for, or probable (associated with a specific diagnosis that is being evaluated, monitored, or treated as if it exists) are acceptable and can be coded in the inpatient setting, when documented at the
time of discharge.
Thank you,
Marla MARLEY,,RN,CCDS
CDI Specialist
Available via [place] text
Please use your independent medical judgment in providing your response.
--- NOTE | 2025-05-12 14:01 | PTCARENOTE ---
patient still sob with little exertion and c/o 'muscle pain'. tolerating diet, turns with assist x1, vss, will continue to monitor.
[2025-05-12] MEDS: FARXIGA 10 MG PO (16:12)
--- NOTE | 2025-05-12 16:46 | CM ---
patient chart reviewed
cont with IV Bumex
Referral in [facility] for [facility]
Patient is a LTC resident [facility]
CM called [facility]-spoke with Luh regarding pricing of Jardiance 10mg daily & Farxiga 10mg daily. Luh stated unable to given cost without prescription.
CM to follow up
PLAN: Return to [facility] when stable
--- NOTE | 2025-05-12 17:46 | W.PN.HOSP.TC ---
Addendum entered and electronically signed by Roger Denney MD 05/12/25 22:59:
Attending Addendum-
I saw and evaluated the patient. I reviewed the resident�s note and agree with findings and plan as documented in the resident�s note. Sub: Denies fevers chills NV SOB CP palps. Complains of generalized pains all over but appears comfortable. Full
12 point ROS reviewed and negative except as documented Exam: Vitals reviewed in chart GEN-NAD heart RRR lungs decreased at abses, forced expiratory wheeze, abd soft NT ND pos BS LE 2+ pitting edema
Plan:
# AE HFmrEF
- follow I's and O's, daily weight
- cont IV Bumex->transition to PO in am
- echo 04/13- ef 45-50%
- on torsemide at home
- start SGLT2i as IP
- appreciate cards input
- Continue GDMT-spironolactone, Toprol XL
# Chronic Hypoxemic Respiratory Failure
# COPD not in AE
-COVID and flu negative
-On 3-4 L baseline
-cont inhalers, duonebs prn
-DC Dexamethasone->po in am, confirm if on chronic steroids, long steroid taper
#Nonobstructive CAD- Continue aspirin
#Severe aortic stenosis status post TAVR
#Right bundle branch
#Paroxysmal atrial fibrillation with permanent pacemaker- Continue Cardizem and metoprolol, not an AC candidate
#GERD- Continue omeprazole
#Hypothyroidism- Continue levothyroxine
#Gout- Continue allopurinol
#Depression- Continue citalopram
#Cervical radiculopathy/chronic pain-DC morphine, start oxycodone for breakthrough, increase oxycontin-PDMP reviewed
#Restless legs- Continue pregabalin, ropinirole
#Ulcerative colitis
#Rheumatoid arthritis
Full code
DVT prophylaxis-heparin
Dispo From [facility]- DC in am
Time spent coordinating care, review of plan of care with resident, personally reviewed records in EMR, med rec, consults, notes, labs, radiology, d/w nursing � 51 mins
Original Note:
Today's Communication/Plan
-
- Continue Bumex 2 g IV twice daily and transition to p.o. diuretic tomorrow as per cards recs
- PT/OT consults ordered
- Possible discharge tomorrow
Assessment / Plan
Assessment / Plan
#Acute on chronic hypoxic respiratory failure:
- Patient on 3L NC O2 at baseline, currently on 4L NC O2
- likely multifactorial etiology and due to acute COPD exacerbation causing acute on chronic HFmrEF
#Acute on chronic HFmrEF (45-50%):
- CXR: Mild cardiomegaly. Pulmonary vascularity at least top normal.
- proBNP 3630
- Cardiology consulted and following
- Continue Bumex 2mg IV twice daily, switch to p.o. diuretic tomorrow based on cards recommendations
- Continue daily wts, I/Os
- COVID/Flu NEG in the ED
- Continue GDMT: Metoprolol 12.5 mg daily, spironolactone 12.5 mg daily
#Possible COPD exacerbation:
- Continue Decadron while admitted, will taper steroids at discharge
- Continue Duonebs every 6 hours
#Paroxysmal atrial fibrillation:
- Pacemaker
- Continue Cardizem/beta-janet
- not on AC due to history of high hemorrhage
- Patient denied watchman
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
- Continue home OxyContin extended release 15 mg twice daily, oxycodone 5 mg every 4 hours as needed for severe pain
- PDMP checked by pharmacy
#Rheumatoid arthritis
- Pain management as above
# Nonobstructive CAD
- continue beta-janet and aspirin
# Severe s/p TAVR
# RBBB
# GERD
- continue PPI
#Hypothyroidism
- Continue levothyroxine
#Gout
- continue allopurinol
#Depression
- continue citalopram
#Restless legs
- continue pregabalin/ropinirole
#Ulcerative colitis
-Stable
# h/o stage 2 pressure ulcer
FULL code
DVT prophylaxis: Heparin
Anticipated Discharge: Within 24 hours
Subjective/Interval History
-
Date of Service: May 12, 2025
Patient seen at the bedside this morning. Patient was awake and enjoying her breakfast. Patient is better able to answer questions this morning. Patient states that her pain is about the same as it was yesterday, worse in her left shoulder, right
hip and left wrist. Patient thinks that her breathing is improving, although she does note wheezing. Patient feels that the breathing treatments helped her. Patient denies headache, chest pain, heart palpitations, abdominal pain, swelling.
Objective Data
-
Labs:
Laboratory Results
05/12/25
05:55
WBC 7.4
Hgb 10.8 L
Hct 34.9 L
Plt Count 242
Sodium 137
Potassium 4.2
Chloride 92 L
Carbon Dioxide 37 H
BUN 34 H
Creatinine 0.9
Glucose 147 H
Calcium 9.5
Vital Signs:
Vital Signs
Temp Pulse Resp BP Pulse Ox
98.1 F 66 18 117/48 98
05/12/25 15:00 05/12/25 15:37 05/12/25 15:37 05/12/25 15:00 05/12/25 15:37
I&O
05/11/25 05/12/25 05/13/25
06:59 06:59 06:59
Intake Total 1620 / 1620 840 / 840 480 / 480
Output Total 1625 / 1625 825 / 825
Balance 1620 / 1620 -785 / -785 -345 / -345
Review of Systems
-
History Source: Patient
Constitutional: Reports No Symptoms
EENT: Reports No Symptoms Reported
Respiratory: Reports Cough, Wheezing and Other (Dyspnea. Patient on 4 L O2 nasal cannula)
Cardiac: Reports No Symptoms
Abdomen/GI: Reports Other (Umbilical hernia noted)
Genitourinary: Reports No Symptoms
Musculoskeletal: Reports No Symptoms
Skin: Reports No Symptoms
Neuro: Reports No Symptoms
Endocrine: Reports No Symptoms
Hematologic / Lymphatic: Reports No Symptoms
Allergy / Immunology: Reports No Symptoms
Physical Exam
-
General: Well Developed, Well Nourished and No Apparent Distress
HEENT: Normocephalic and Atraumatic
Respiratory: Wheezes (Forced wheeze noted bilaterally)
Cardiac: Regular Rhythm
GI: Soft, Nontender and Nondistended
Musculoskeletal: No Edema
Skin: Warm and Dry
Neuro: Awake, Alert and Oriented
Psych: Calm
[2025-05-12] MEDS: MUCINEX 600 MG PO (19:41)
[2025-05-12] MEDS: CRESTOR 20 MG PO (21:01)
[2025-05-12] MEDS: MELATONIN 10 MG PO (21:01)
[2025-05-12] MEDS: COLACE 200 MG PO (21:01)
[2025-05-12] MEDS: SENOKOT 8.6 MG PO (21:02)
--- NOTE | 2025-05-13 03:28 | DOWNTIME ---
There was a [employer] Client Manager Continuous Improvement Downtime on 05/13/2025 from 0100 to 05/13/2025 at 0255. Downtime documentation of patient's care, including medication administrations, has been reconciled in the electronic record per guidelines. Refer to the
patient's paper chart under the miscellaneous tab to see printed paper medication records and downtime forms.
[2025-05-13] MEDS: SYNTHROID 100 MCG PO (06:05)
[2025-05-13] MEDS: LYRICA 100 MG PO ×2 (06:05→14:12)
[2025-05-13 06:40] LABS: Hematocrit 38.3 % (37.0-47.0); Hemoglobin 12.1 g/dL (12.0-16.0); Mean Corp Hgb Conc. 31.6 g/dL (33.0-37.0); Mean Corpuscular Volume 89.7 fL (81.0-99.0); Platelet Count 271 10^3/uL (130-400); Red Cell Dist. Width 14.0 % (11.5-14.5)
[2025-05-13 06:58] LABS: Blood Urea Nitrogen 38 mg/dl (7-17); Calcium 10.3 mg/dl (8.4-10.2); Chloride 89 mmol/L (98-107); Estimated Creatinine Clearance 46 ml/min; Glucose 138 mg/dl (70-99); Potassium 4.0 mmol/L (3.5-5.1); Sodium 136 mmol/L (135-145); eGFR > 60.00
[2025-05-13 07:00] VITALS: BP 139/73
[2025-05-13] MEDS: SPIRIVA RESPIMAT 2.5 MCG 2 PUFF INH (07:16)
[2025-05-13] MEDS: STRIVERDI RESPIMAT 2 PUFF INH (07:16)
[2025-05-13] MEDS: DUONEB 3 ML INH ×3 (07:16→14:43)
[2025-05-13] MEDS: ZANAFLEX 4 MG PO ×2 (07:58→14:12)
[2025-05-13] MEDS: ALDACTONE 12.5 MG PO (07:58)
[2025-05-13] MEDS: THERAGRAN 1 TABLET PO (07:59)
[2025-05-13] MEDS: OXYCONTIN (CONTROLLED RELEASE) 20 MG PO (07:59)
[2025-05-13] MEDS: ASPIR LOW (ENTERIC COATED) 81 MG PO (07:59)
[2025-05-13] MEDS: PROTONIX 40 MG PO (07:59)
[2025-05-13] MEDS: DELTASONE 40 MG PO (07:59)
[2025-05-13] MEDS: CARDIZEM CD 180 MG PO (08:00)
[2025-05-13] MEDS: FARXIGA 10 MG PO (08:00)
[2025-05-13] MEDS: ZYLOPRIM 300 MG PO (08:00)
[2025-05-13] MEDS: OCUVITE SOFTGEL 1 CAP PO (08:00)
[2025-05-13] MEDS: REQUIP 0.5 MG PO (08:00)
[2025-05-13] MEDS: TYLENOL 1000 MG PO ×2 (08:00→16:09)
[2025-05-13] MEDS: VITAMIN D3 (cholecalciferol) 25 MCG PO (08:01)
[2025-05-13] MEDS: KCL 30 MEQ PO (08:01)
[2025-05-13] MEDS: HEPARIN 5000 UNITS SC (08:01)
[2025-05-13] MEDS: CELEXA 20 MG PO (08:01)
[2025-05-13] MEDS: OSCAL CAL 500 500 MG PO (08:01)
[2025-05-13] MEDS: MUCINEX 600 MG PO (08:01)
[2025-05-13] MEDS: BUMEX 2 MG IV (08:02)
[2025-05-13] MEDS: OCEAN, SALINE MIST 2 SPRAYS NASAL ×2 (08:02→14:12)
[2025-05-13] MEDS: TOPROL XL 12.5 MG PO (08:04)
[2025-05-13 08:38] LABS: Carbon Dioxide 38 mmol/L (22-30)
[2025-05-13 08:55] VITALS: BMI 28.6
--- NOTE | 2025-05-13 09:25 | W.PN.CD ---
Today's Communication / Plan
-
-Diuresed effectively on Bumex IV 2 mg twice daily; has lost 16 pounds.
-Will transition to torsemide 40 mg PO BID, which should be home regimen.
-Started on Farxiga.
-No further cardiac recommendations at this time; outpatient follow-up with primary News Correspondent.
Impression / Plan
-
Mrs. Hernandez is an 79 yo female (known to Dr. Ramirez) with heart failure with mildly reduced ejection fraction (EF 45-50%), COPD on 3L NC oxygen, paroxysmal Afib (not on OAC due to eye hemorrhage, declined Watchman), CKD, MDT PPM, severe s/p TAVR
11/2021, HLD and nonobstructive CAD on cath 09/2021 with focal 30% proximal LAD and 40% mid LAD stenoses, who presents from [facility] to the ER with c/o diffuse weakness and musculoskeletal pain. Cardiology is consulted due to concern for CHF given
worsening lower extremity edema.
Acute on chronic HFrEF (45-50%)
-Weight was up 5 pounds from discharge weight in March. proBNP 3630. She has lower extremity edema and CXR with mild CHF.
-Severe exacerbation requiring IV diuresis and close monitoring of labs and telemetry
-Diuresed effectively on Bumex IV 2 mg twice daily; has lost 16 pounds.
-Will transition to torsemide 40 mg PO BID, which should be home regimen.
-GDMT:
- BB: Continue metoprolol 12.5 mg daily
- LEN/ARB/ARNI: Limited by hypotension (she is on chronic midodrine)
- MRA: Continue spironolactone 12.5 mg daily
- SGLT2 inhibitor: Started on Farxiga.
-HF education. Sodium restriction. Daily weights.
Paroxysmal atrial fibrillation
-Currently paced on ECG.
-Remains rate controlled with metoprolol and diltiazem (could transition to only beta-janet given low EF but will defer to outpatient childcare teacher).
-No anticoagulation due to prior eye hemorrhage; patient declined Watchman device.
CAD
-Continue statin and aspirin
Aortic stenosis s/p TAVR 2021
PPM - MDT device, stable with normal function. managed by Dr. Ramirez's office.
Subjective: No major events overnight. Shortness of breath improved.
Physical Exam
Vital Signs/Labs
Vital Signs
Temp Pulse Resp BP Pulse Ox
98.3 F 62 16 139/73 92
05/13/25 07:00 05/13/25 07:19 05/13/25 07:19 05/13/25 07:00 05/13/25 07:19
05/12/25 05/13/25 05/14/25
06:59 06:59 06:59
Actual Weight 74.956 kg 74.899 kg 70.902 kg
05/13/25 06:00
05/13/25 06:00
05/09/25
15:53
Qgi-B-Pchtavhzyfy Pept 3630
Physical Exam
Constitutional: No acute distress and Comfortable
EENT: Anicteric
Cardiovascular: Rhythm & rate is regular, Pedal edema is absent, Systolic murmur present (2/6) and S1S2 is normal
Respiratory: Respiratory effort normal, Crackles Present and Other (Coarse bilateral breath sounds)
GI: Soft
Neuro/Psych: AO x 3
Other: Skin (Warm)
Data Reviewed
-
Date of Service: May 13, 2025
EKG: Tracing Personally Visualized and interpreted (Telemetry: A-fib, V paced)
Labs: Labs Reviewed by me
[2025-05-13 11:00] VITALS: BP 110/57
[2025-05-13 11:15] VITALS: BP 110/57; PULSE 60; O2SAT 96
[2025-05-13 11:39] VITALS: BP 114/59; PULSE 60; O2SAT 96
--- NOTE | 2025-05-13 13:31 | CM ---
Patient has been medically cleared for discharge back to [facility] for resumption of buttermaker continuous churn care. No insurance auth required for LTC and bed hold.
Nurse to Nurse Report #: [phone]
Fax #: [phone]
Ambulance transport scheduled for 4:30 pm. Patient, [facility], [facility] admissions and Team notified.
[2025-05-13] MEDS: ROXICODONE 5 MG PO (14:15)
[2025-05-13 15:00] VITALS: BP 119/68
[2025-05-13] MEDS: DEMADEX 40 MG PO (16:09)
--- NOTE | 2025-05-13 18:11 | W.PN.HOSP.TC ---
Addendum entered and electronically signed by Roger Denney MD 05/13/25 23:10:
Attending Addendum-
I saw and evaluated the patient. I reviewed the resident�s note and agree with findings and plan as documented in the resident�s note. Sub: Denies fevers chills NV SOB CP palps. generalized pains greatly improved. anxious about going to rehab. 'ill
only go if you're my doctor at [facility]' denies SOB. Full 12 point ROS reviewed and negative except as documented Exam: Vitals reviewed in chart GEN-NAD heart RRR lungs decreased at bases, forced expiratory wheeze, abd soft NT ND pos BS LE 2+
pitting edema
Plan:
# AE HFmrEF
- effectively diuresed, weights decreased
- follow I's and O's, daily weight
- IV Bumex->transition to PO
- echo 04/13- ef 45-50%
- on torsemide at home increase to 40mg PO BID
- started SGLT2i as IP
- appreciate cards input
- Continue GDMT-spironolactone, Toprol XL
# Chronic Hypoxemic Respiratory Failure
# COPD not in AE
-COVID and flu negative
-On 3-4 L baseline
-cont inhalers, duonebs prn
-DC Dexamethasone->on chronic steroids, long steroid taper to baseline 5mg
#Nonobstructive CAD- Continue aspirin
#Severe aortic stenosis status post TAVR
#Right bundle branch
#Paroxysmal atrial fibrillation with permanent pacemaker- Continue Cardizem and metoprolol, not an AC candidate
#GERD- Continue omeprazole
#Hypothyroidism- Continue levothyroxine
#Gout- Continue allopurinol
#Depression- Continue citalopram
#Cervical radiculopathy/chronic pain-DC morphine, start oxycodone for breakthrough, increase oxycontin-PDMP reviewed
#Restless legs- Continue pregabalin, ropinirole
#Ulcerative colitis
#Rheumatoid arthritis
Full code
DVT prophylaxis-heparin
Dispo From [facility]- DC today
Time spent coordinating care, DC planning, review of DC plan of care with resident, transition of care, review of records, med rec/scripts sent electronically, consults, notes, d/w consultants, nursing, family updated, and CM� 36 mins >50% of this
time was devoted to counseling and coordination of care
Original Note:
Today's Communication/Plan
-
- Discharge today
- Discontinued IV steroids and started prednisone taper for discharge
- Started patient on Farxiga 10 mg daily as a part of GDMT
- Cardiology updated dosing to torsemide 40 mg twice daily
Assessment / Plan
Assessment / Plan
#Acute on chronic hypoxic respiratory failure:
- Patient on 3L NC O2 at baseline, currently on 4L NC O2
- likely multifactorial etiology and due to acute COPD exacerbation causing acute on chronic HFmrEF
#Acute on chronic HFmrEF (45-50%):
- CXR: Mild cardiomegaly. Pulmonary vascularity at least top normal.
- proBNP 3630
- Cardiology consulted and signed off today, feels patient is successfully diuresed (down 16 pounds)
- Start torsemide 40 mg twice daily
- Continue daily wts, I/Os
- COVID/Flu NEG in the ED
- Continue GDMT: Metoprolol 12.5 mg daily, spironolactone 12.5 mg daily
- Added Farxiga 10 mg daily to be continued at discharge
#Possible COPD exacerbation:
- Started on prednisone today, will taper steroids at discharge
- Continue Duonebs every 6 hours
#Paroxysmal atrial fibrillation:
- Pacemaker
- Continue Cardizem/beta-janet
- not on AC due to history of high hemorrhage
- Patient denied watchman
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
- Continue home OxyContin extended release 20 mg twice daily, oxycodone 5 mg every 4 hours as needed for severe pain
- PDMP checked by pharmacy
#Rheumatoid arthritis
- Pain management as above
# Nonobstructive CAD
- continue beta-janet and aspirin
# Severe s/p TAVR
# RBBB
# GERD
- continue PPI
#Hypothyroidism
- Continue levothyroxine
#Gout
- continue allopurinol
#Depression
- continue citalopram
#Restless legs
- continue pregabalin/ropinirole
#Ulcerative colitis
-Stable
# h/o stage 2 pressure ulcer
FULL code
DVT prophylaxis: Heparin
Anticipated Discharge: Today
Subjective/Interval History
-
Date of Service: May 13, 2025
Patient seen at the bedside today. Patient has feeling better today noting improvement in both her shortness of breath and pain. Patient slept well and has good appetite. Patient denies any headache, change in vision, chest pain, nausea vomiting,
abdominal pain, swelling in her extremities. Patient states that she feels comfortable going home.
Objective Data
-
Labs:
Laboratory Results
05/13/25
06:00
WBC 8.8
Hgb 12.1
Hct 38.3
Plt Count 271
Sodium 136
Potassium 4.0
Chloride 89 L
Carbon Dioxide 38 H
BUN 38 H
Creatinine 0.9
Glucose 138 H
Calcium 10.3 H
Vital Signs:
Vital Signs
Temp Pulse Resp BP Pulse Ox
98.0 F 75 16 119/68 95
05/13/25 15:00 05/13/25 15:00 05/13/25 15:00 05/13/25 15:00 05/13/25 15:00
I&O
05/12/25 05/13/25 05/14/25
06:59 06:59 06:59
Intake Total 840 / 840 1260 / 1260
Output Total 1625 / 1625 2775 / 2775
Balance -785 / -785 -1515 / -1515
Review of Systems
-
History Source: Patient
Constitutional: Reports No Symptoms
EENT: Reports No Symptoms Reported
Respiratory: Reports Cough and Other (Shortness of breath, on O2 nasal cannula 4 L.)
Cardiac: Reports No Symptoms
Abdomen/GI: Reports No Symptoms
Genitourinary: Reports No Symptoms
Musculoskeletal: Reports No Symptoms
Skin: Reports No Symptoms
Neuro: Reports No Symptoms
Endocrine: Reports No Symptoms
Hematologic / Lymphatic: Reports No Symptoms
Allergy / Immunology: Reports No Symptoms
Physical Exam
-
General: Well Developed, Well Nourished, No Apparent Distress and Comfortable
HEENT: Moist Mucous Membranes
Respiratory: Wheezes (Forced expiratory wheeze bilaterally) and Other (No crackles present)
Cardiac: Regular Rhythm
GI: Soft, Nontender and Normal Bowel Sounds
Musculoskeletal: No Edema
Skin: Warm and Dry
Neuro: Awake, Alert and Oriented
Hematologic / Lymphatic: Lymphadenopathy
Psych: Calm
--- NOTE | 2025-05-13 19:32 | W.DCSUMMARY ---
Addendum entered and electronically signed by Roger Denney MD 05/13/25 23:13:
Read, reviewed, and agree. See same day progress note for additional details. Patient has chosen this physician as attending at [facility]. Update [place] admissions.
Randell Denney MD
Original Note:
Documented by User: Laura Belle DO, Resident 05/13/25 19:50
Discharge Summary
Discharge Data
Date of Admission: 05/09/25
Date of Discharge: 05/13/25
-
Pending Results: No
Hospital Course
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
Secondary diagnosis: Chronic hypoxic respiratory failure, chronic pain, COPD, nonobstructive CAD, severe aortic stenosis, right bundle branch, paroxysmal atrial fibrillation with permanent pacemaker
Hospital course:
Patient is an 79-year-old female with a past medical history of HFmrEF, aortic stenosis status post TAVR, right bundle branch block, persistent atrial fibrillation with permanent pacemaker, COPD on 4 L baseline, hypothyroidism, rheumatoid arthritis,
ulcerative colitis, hypothyroidism, cervical neuropathy, and gout who presented with a productive cough, body aches, weakness for several days. Patient gained about 8 pounds during this time. In the ED chest x-ray showed mild cardiomegaly,
pulmonary vascularity top normal. Patient was negative for COVID and flu. Patient's BMP was 3600. Cardiology was consulted and patient was admitted for further workup of acute on chronic HFmrEF exacerbation.
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
Cardiology was consulted from the ED and advised starting her on Bumex 1 mg IV daily, as well as continuing her spironolactone and her metoprolol 12.5 mg daily. On day 3 of the hospitalization cardiology increased her Bumex dose to 2 mg IV twice
daily. On last day of hospitalization cardiology felt that patient had been successfully diuresed. Patient lost 16 LBS over the 4-day admission and was clinically improved with improvement of both breathing and bilateral lower extremity edema.
Cardiology requested to increase her home diuretic dosage to torsemide 40 mg twice daily, and continue or spironolactone, Toprol XL at discharge. We also added an SGLT2i as inpatient, starting her on Farxiga 10 mg daily to be continued after
discharge.
Chronic hypoxic respiratory failure
Patient was continued on 3 to 4 L nasal cannula throughout hospitalization, which is her baseline. Patient was continued on inhalers and DuoNebs. Patient was started on dexamethasone while admitted. On last day of admission we transitioned her to
p.o. prednisone and discharged patient with a 12-day steroid taper that we will complete on 05/25/2025. Patient will then resume chronic steroid dose of prednisone 5 mg daily.
Chronic pain, muscular and arthritic in nature
At the beginning of admission patient was on her home pain regimen which included morphine. Patient seemed to be mildly disoriented and complained of feeling off. We decided to discontinue the morphine, increase her OxyContin dose to 20 mg twice
daily as well as adding oxycodone 5 mg as needed every 4 hours. Upon discontinuation of morphine patient seemed much clearer and more conversational. Patient notes that pain is slightly improved since adjusting her pain medications. Patient will
be discharged on this pain regimen, in addition to the pregabalin she receives for nerve pain and restless leg syndrome.
Discharge Plan
-
Patient Disposition: Penitentiary/SNF
Discharge Diagnosis/Procedures: Acute on chronic heart failure with mildly reduced ejection fraction exacerbation, chronic hypoxemic respiratory failure, nonobstructive coronary artery disease
Condition: Fair
Diet: Low Cholesterol and 2 Gram Sodium
Driving Restrictions: As prior to admission
Bathing Restrictions: None
Activity Restrictions/Additional Instructions:
Please follow up with cardiology for medication management. New medications include dapagliflozin 10mg po daily, toresemide 40mg po BID, oxycodone 5mg po [id number] PRN, oxycontin 20mg po BID
Referrals:
Lakesha Hawley DO [Family Provider, General] - in less than 1 week
Prescriptions:
New
torsemide 20 mg Tablet
40 mg PO BID@0800,1600 Qty: 60 0RF
dapagliflozin propanediol 10 mg Tablet
10 mg PO DAILY Qty: 30 0RF
oxycodone [OxyContin] 20 mg Tablet,Oral Only,Ext.Rel.12 Hr
20 mg PO BID Qty: 30 0RF
oxycodone 5 mg Tablet
5 mg PO Q4HPRN PRN (Reason: severe pain) Qty: 10 0RF
prednisone 10 mg Tablet
See Rx Instructions .ROUTE .COMPLEX Qty: 30 0RF
Rx Instructions:
Take By Mouth:
40 mg daily x3 days, 30 mg daily x3 days,
20 mg daily x3 days, 10 mg daily x3 days.
prednisone 5 mg tablet
5 mg PO DAILY Qty: 20 0RF
Rx Instructions:
Start on 05/26/2025 after you finish the prednisone taper.
Continued
allopurinol 300 MG tablet
300 mg PO DAILY
omeprazole 20 MG tablet,delayed release (DR/EC)
20 mg PO DAILY
aspirin 81 mg Tablet,Delayed Release (Dr/Ec)
81 mg PO DAILY Qty: 0 0RF
multivitamin Tablet
1 tab PO DAILY
diltiazem HCl [Cardizem CD] 180 mg Capsule,Extended Release 24hr
180 mg PO DAILY
Patient Comments:
HOLD for SBP<110
rosuvastatin 20 mg Tablet
20 mg PO HS
umeclidinium-vilanterol [Anoro Ellipta] 62.5-25 mcg/actuation Blister With Device
1 inh INHALATION R DAILY
potassium chloride 20 mEq Tablet Extended Release
30 meq PO DAILY
spironolactone 25 mg tablet
12.5 mg PO DAILY
Patient Comments:
HOLD for SBP<110
levothyroxine [Synthroid] 100 mcg Tablet
100 mcg PO DAILY
cholecalciferol (vitamin D3) [Vitamin D3] 25 mcg (1,000 unit) Tablet
25 mcg PO DAILY
PreserVision AREDS 2,148 mcg-113 mg-45 mg-17.4mg Tablet
2 tab PO DAILY
lidocaine 4 % Adhesive Patch,Medicated
1 patch TOPICAL DAILY
Rx Instructions:
apply to L knee, L wrist, 2 patches to L shoulder, 2 patches to R hip. on in am off at HS.
bisacodyl [Dulcolax (bisacodyl)] 10 mg Suppository
10 mg RI DAILYPRN PRN (Reason: if MOM ineffective)
Rx Instructions:
give on day 5 of no BM
Fleet Enema 19-7 gram/118 mL Enema
118 ml RI DAILYPRN PRN (Reason: if dulcolax supp ineffective)
Rx Instructions:
give on day 6 of no BM
calcium carbonate 500 mg calcium (1,250 mg) Tablet,Chewable
500 mg PO BID
citalopram 20 mg tablet
20 mg PO DAILY
ropinirole 0.5 mg Tablet
0.5 mg PO BID@0800,1999
docusate sodium [Colace] 100 mg Capsule
200 mg PO HS
midodrine 2.5 mg tablet
5 mg PO BID
Patient Comments:
HOLD for SBP>130
diclofenac sodium 1 % Gel
1 ea TOPICAL TID
sennosides [senna] 8.6 mg Tablet
8.6 mg PO HS
tizanidine 4 mg Tablet
4 mg PO QID
dextran 70-hypromellose 0.1-0.3 % Drops
2 drp BOTH EYES BID
ipratropium-albuterol 0.5 mg-3 mg(2.5 mg base)/3 mL solution for nebulization
3 ml INHALATION TID@0800,1400,1999
metoprolol succinate 25 mg Tablet Extended Release 24 Hr
12.5 mg PO DAILY Qty: 30 0RF
Patient Comments:
HOLD for H.R. <60 and SBP <100
pregabalin 100 mg Capsule
100 mg PO Q8H Qty: 0 0RF
Discontinued
torsemide 20 MG tablet
30 mg PO DAILY
glucosamine-chondroitin 250-200 mg Tablet
2 tab PO DAILY
loperamide 2 mg Tablet
2 mg PO Q4HPRN PRN (Reason: loose stools)
magnesium hydroxide [Milk of Magnesia] 400 mg/5 mL Suspension
30 ml PO DAILYPRN PRN (Reason: if no BM x 3 days)
Rx Instructions:
give on day 4
melatonin 10 mg Tablet
10 mg PO HS
prednisone 5 mg Tablet
5 mg PO QPM
oxycodone [OxyContin] 15 mg Tablet,Oral Only,Ext.Rel.12 Hr
15 mg PO BID
morphine concentrate 100 mg/5 mL (20 mg/mL) solution
10 mg PO Q3HPRN PRN (Reason: severe pain)
[place] Saline Gel Clay,Non-Aerosol
1 spray INTRANASAL [facility]
dextran 70-hypromellose 0.1-0.3 % Drops
1 drp BOTH EYES Q4HPRN PRN (Reason: dry eyes)
acetaminophen [Tylenol Extra Strength] 500 mg tablet
1,000 mg PO TID
Saline Nasal 0.65 % aerosol,spray
2 spray intranasal QIDPRN PRN (Reason: nasal dryness)
Discharge Orders:
Discharge Patient (As Directed); Ordered 05/13/25
Ordered By: Laura Belle
Discharge Date and Time
Discharge Date/Time: 05/13/25 17:20
Print Language: INDIAN

Documented by User: Roger Denney MD 05/13/25 23:07
Discharge Summary
Discharge Data
Date of Admission: 05/09/25
Date of Discharge: 05/13/25
Discharge Plan
-
Patient Disposition: Penitentiary/SNF
Discharge Diagnosis/Procedures: Acute on chronic heart failure with mildly reduced ejection fraction exacerbation, chronic hypoxemic respiratory failure, nonobstructive coronary artery disease
Condition: Fair
Diet: Low Cholesterol and 2 Gram Sodium
Driving Restrictions: As prior to admission
Bathing Restrictions: None
Activity Restrictions/Additional Instructions:
Please follow up with cardiology for medication management. New medications include dapagliflozin 10mg po daily, toresemide 40mg po BID, oxycodone 5mg po [id number] PRN, oxycontin 20mg po BID
Referrals:
Lakesha Hawley DO [Family Provider, General] - in less than 1 week
Prescriptions:
New
torsemide 20 mg Tablet
40 mg PO BID@0800,1600 Qty: 60 0RF
dapagliflozin propanediol 10 mg Tablet
10 mg PO DAILY Qty: 30 0RF
oxycodone [OxyContin] 20 mg Tablet,Oral Only,Ext.Rel.12 Hr
20 mg PO BID Qty: 30 0RF
oxycodone 5 mg Tablet
5 mg PO Q4HPRN PRN (Reason: severe pain) Qty: 10 0RF
prednisone 10 mg Tablet
See Rx Instructions .ROUTE .COMPLEX Qty: 30 0RF
Rx Instructions:
Take By Mouth:
40 mg daily x3 days, 30 mg daily x3 days,
20 mg daily x3 days, 10 mg daily x3 days.
prednisone 5 mg tablet
5 mg PO DAILY Qty: 20 0RF
Rx Instructions:
Start on 05/26/2025 after you finish the prednisone taper.
Continued
allopurinol 300 MG tablet
300 mg PO DAILY
omeprazole 20 MG tablet,delayed release (DR/EC)
20 mg PO DAILY
aspirin 81 mg Tablet,Delayed Release (Dr/Ec)
81 mg PO DAILY Qty: 0 0RF
multivitamin Tablet
1 tab PO DAILY
diltiazem HCl [Cardizem CD] 180 mg Capsule,Extended Release 24hr
180 mg PO DAILY
Patient Comments:
HOLD for SBP<110
rosuvastatin 20 mg Tablet
20 mg PO HS
umeclidinium-vilanterol [Anoro Ellipta] 62.5-25 mcg/actuation Blister With Device
1 inh INHALATION R DAILY
potassium chloride 20 mEq Tablet Extended Release
30 meq PO DAILY
spironolactone 25 mg tablet
12.5 mg PO DAILY
Patient Comments:
HOLD for SBP<110
levothyroxine [Synthroid] 100 mcg Tablet
100 mcg PO DAILY
cholecalciferol (vitamin D3) [Vitamin D3] 25 mcg (1,000 unit) Tablet
25 mcg PO DAILY
PreserVision AREDS 2,148 mcg-113 mg-45 mg-17.4mg Tablet
2 tab PO DAILY
lidocaine 4 % Adhesive Patch,Medicated
1 patch TOPICAL DAILY
Rx Instructions:
apply to L knee, L wrist, 2 patches to L shoulder, 2 patches to R hip. on in am off at HS.
bisacodyl [Dulcolax (bisacodyl)] 10 mg Suppository
10 mg RI DAILYPRN PRN (Reason: if MOM ineffective)
Rx Instructions:
give on day 5 of no BM
Fleet Enema 19-7 gram/118 mL Enema
118 ml RI DAILYPRN PRN (Reason: if dulcolax supp ineffective)
Rx Instructions:
give on day 6 of no BM
calcium carbonate 500 mg calcium (1,250 mg) Tablet,Chewable
500 mg PO BID
citalopram 20 mg tablet
20 mg PO DAILY
ropinirole 0.5 mg Tablet
0.5 mg PO BID@0800,1999
docusate sodium [Colace] 100 mg Capsule
200 mg PO HS
midodrine 2.5 mg tablet
5 mg PO BID
Patient Comments:
HOLD for SBP>130
diclofenac sodium 1 % Gel
1 ea TOPICAL TID
sennosides [senna] 8.6 mg Tablet
8.6 mg PO HS
tizanidine 4 mg Tablet
4 mg PO QID
dextran 70-hypromellose 0.1-0.3 % Drops
2 drp BOTH EYES BID
ipratropium-albuterol 0.5 mg-3 mg(2.5 mg base)/3 mL solution for nebulization
3 ml INHALATION TID@0800,1400,1999
metoprolol succinate 25 mg Tablet Extended Release 24 Hr
12.5 mg PO DAILY Qty: 30 0RF
Patient Comments:
HOLD for H.R. <60 and SBP <100
pregabalin 100 mg Capsule
100 mg PO Q8H Qty: 0 0RF
Discontinued
torsemide 20 MG tablet
30 mg PO DAILY
glucosamine-chondroitin 250-200 mg Tablet
2 tab PO DAILY
loperamide 2 mg Tablet
2 mg PO Q4HPRN PRN (Reason: loose stools)
magnesium hydroxide [Milk of Magnesia] 400 mg/5 mL Suspension
30 ml PO DAILYPRN PRN (Reason: if no BM x 3 days)
Rx Instructions:
give on day 4
melatonin 10 mg Tablet
10 mg PO HS
prednisone 5 mg Tablet
5 mg PO QPM
oxycodone [OxyContin] 15 mg Tablet,Oral Only,Ext.Rel.12 Hr
15 mg PO BID
morphine concentrate 100 mg/5 mL (20 mg/mL) solution
10 mg PO Q3HPRN PRN (Reason: severe pain)
[place] Saline Gel Clay,Non-Aerosol
1 spray INTRANASAL AMHS
dextran 70-hypromellose 0.1-0.3 % Drops
1 drp BOTH EYES Q4HPRN PRN (Reason: dry eyes)
acetaminophen [Tylenol Extra Strength] 500 mg tablet
1,000 mg PO TID
Saline Nasal 0.65 % aerosol,spray
2 spray intranasal QIDPRN PRN (Reason: nasal dryness)
Discharge Orders:
Discharge Patient (As Directed); Ordered 05/13/25
Ordered By: Laura Belle
Discharge Date and Time
Discharge Date/Time: 05/13/25 17:20
Print Language: INDIAN
== END 2025-05-13 17:20 | DRG 291 ==
LOC: 3 WEST ACU 19:05
PROVIDERS: Internal Medicine; Nurse Practitioner; ADMITTING PHYSICIAN Hospitalist; ATTENDING PHYSICIAN Family Medicine; CONSULT PHYSICIAN Student in an Organized Health Care Education/Training Program; EMERGENCY PHYSICIAN Emergency Medicine; FAMILY PHYSICIAN Family Medicine
DX: I13.0 Hypertensive heart and chronic kidney disease with heart failure and stage 1 through stage 4 chronic kidney disease, or unspecified chronic kidney disease (principal); I50.43 Acute on chronic combined systolic (congestive) and diastolic (congestive) heart failure; J96.11 Chronic respiratory failure with hypoxia; I48.19 Other persistent atrial fibrillation; K51.90 Ulcerative colitis, unspecified, without complications; G89.29 Other chronic pain; I25.10 Atherosclerotic heart disease of native coronary artery without angina pectoris; Z95.0 Presence of cardiac pacemaker; J44.9 Chronic obstructive pulmonary disease, unspecified; E03.9 Hypothyroidism, unspecified; Z95.2 Presence of prosthetic heart valve; M06.9 Rheumatoid arthritis, unspecified; I25.2 Old myocardial infarction; Z88.5 Allergy status to narcotic agent; Z79.82 Long term (current) use of aspirin; Z79.899 Other long term (current) drug therapy; Z79.890 Hormone replacement therapy; Z79.52 Long term (current) use of systemic steroids; Z87.891 Personal history of nicotine dependence; Z96.651 Presence of right artificial knee joint; Z99.81 Dependence on supplemental oxygen; E78.00 Pure hypercholesterolemia, unspecified; F32.A Depression, unspecified; F41.9 Anxiety disorder, unspecified; G25.81 Restless legs syndrome; K21.9 Gastro-esophageal reflux disease without esophagitis; L89.92 Pressure ulcer of unspecified site, stage 2; M54.12 Radiculopathy, cervical region; N18.30 Chronic kidney disease, stage 3 unspecified; Z86.73 Personal history of transient ischemic attack (TIA), and cerebral infarction without residual deficits; I49.5 Sick sinus syndrome; Z11.52 Encounter for screening for COVID-19
CPT/HCPCS: 51701; 71046; 80048; 80053; 81003; 83880; 84484; 85025; 85027; 87070; 87147; 87502; 87811; 93005; 94640; 96374; 97163; 97167; 99285

== ENCOUNTER → 2025-05-15 11:27 | Outpatient (REF) | payer BC, OTHER, SELFPAY ==
[2025-05-15 12:09] LABS: Hematocrit 38.9 % (37.0-47.0); Hemoglobin 12.1 g/dL (12.0-16.0); Mean Corp Hgb Conc. 31.1 g/dL (33.0-37.0); Mean Corpuscular Volume 91.5 fL (81.0-99.0); Nucleated Red Blood Cells % 0 %; Platelet Count 259 10^3/uL (130-400); Red Cell Dist. Width 13.8 % (11.5-14.5)
[2025-05-15 12:18] LABS: Blood Urea Nitrogen 60 mg/dl (7-17); Calcium 8.4 mg/dl (8.4-10.2); Chloride 89 mmol/L (98-107); Glucose 93 mg/dl (70-99); Potassium 3.5 mmol/L (3.5-5.1); Sodium 136 mmol/L (135-145); eGFR 50.48
[2025-05-15 13:46] LABS: Carbon Dioxide 38 mmol/L (22-30)
== END ==
LOC: OLABP 11:27
PROVIDERS: ATTENDING PHYSICIAN Family Medicine
DX: Z86.73 Personal history of transient ischemic attack (TIA), and cerebral infarction without residual deficits (principal); Z95.0 Presence of cardiac pacemaker; I48.91 Unspecified atrial fibrillation; F32.A Depression, unspecified; J96.11 Chronic respiratory failure with hypoxia; G62.9 Polyneuropathy, unspecified; G93.41 Metabolic encephalopathy; I35.0 Nonrheumatic aortic (valve) stenosis; I49.5 Sick sinus syndrome; I50.9 Heart failure, unspecified; J44.9 Chronic obstructive pulmonary disease, unspecified; R41.82 Altered mental status, unspecified; E03.9 Hypothyroidism, unspecified; K51.90 Ulcerative colitis, unspecified, without complications; I25.10 Atherosclerotic heart disease of native coronary artery without angina pectoris; M06.9 Rheumatoid arthritis, unspecified; M10.9 Gout, unspecified; M19.91 Primary osteoarthritis, unspecified site; R50.9 Fever, unspecified; R94.31 Abnormal electrocardiogram [ECG] [EKG]
CPT/HCPCS: 36415; 80048; 85025

== ENCOUNTER → 2025-05-19 11:40 | Outpatient (REF) | payer BC, OTHER, SELFPAY ==
[2025-05-19 12:17] LABS: Hematocrit 36.9 % (37.0-47.0); Hemoglobin 11.5 g/dL (12.0-16.0); Mean Corp Hgb Conc. 31.2 g/dL (33.0-37.0); Mean Corpuscular Volume 91.6 fL (81.0-99.0); Platelet Count 223 10^3/uL (130-400); Red Cell Dist. Width 13.9 % (11.5-14.5)
[2025-05-19 13:51] LABS: TSH 1.05 uIU/ml (0.47-4.68)
== END ==
LOC: OLABP 11:40
PROVIDERS: ATTENDING PHYSICIAN Family Medicine
DX: Z86.73 Personal history of transient ischemic attack (TIA), and cerebral infarction without residual deficits (principal); R94.31 Abnormal electrocardiogram [ECG] [EKG]; R50.9 Fever, unspecified; M19.91 Primary osteoarthritis, unspecified site; M10.9 Gout, unspecified; I25.10 Atherosclerotic heart disease of native coronary artery without angina pectoris; K51.90 Ulcerative colitis, unspecified, without complications; Z95.0 Presence of cardiac pacemaker; G62.9 Polyneuropathy, unspecified; F32.4 Major depressive disorder, single episode, in partial remission; I48.91 Unspecified atrial fibrillation
CPT/HCPCS: 36415; 84443; 85027

== ENCOUNTER → 2025-05-20 10:15 | Outpatient (REF) | payer BC, OTHER, SELFPAY ==
[2025-05-20 11:10] LABS: ALT (SGPT) 50 U/L (0-35); AST (SGOT) 40 U/L (14-36); Albumin 4.5 g/dl (3.5-5.0); Alkaline Phosphatase 82 U/L (38-126); Blood Urea Nitrogen 44 mg/dl (7-17); Calcium 8.4 mg/dl (8.4-10.2); Chloride 90 mmol/L (98-107); Glucose 80 mg/dl (70-99); Potassium 3.8 mmol/L (3.5-5.1); Sodium 139 mmol/L (135-145); Total Protein 7.1 g/dl (6.3-8.2); eGFR 50.48
[2025-05-20 13:07] LABS: Carbon Dioxide 36 mmol/L (22-30)
== END ==
LOC: OLABP 10:15
PROVIDERS: ATTENDING PHYSICIAN Family Medicine
DX: Z86.73 Personal history of transient ischemic attack (TIA), and cerebral infarction without residual deficits (principal); Z95.0 Presence of cardiac pacemaker; I48.91 Unspecified atrial fibrillation; F32.A Depression, unspecified; G62.9 Polyneuropathy, unspecified; G93.41 Metabolic encephalopathy; I35.0 Nonrheumatic aortic (valve) stenosis; I50.9 Heart failure, unspecified; I49.5 Sick sinus syndrome; R41.82 Altered mental status, unspecified; E03.9 Hypothyroidism, unspecified; I25.10 Atherosclerotic heart disease of native coronary artery without angina pectoris; J44.9 Chronic obstructive pulmonary disease, unspecified; K51.90 Ulcerative colitis, unspecified, without complications; M06.9 Rheumatoid arthritis, unspecified; M10.9 Gout, unspecified; M19.91 Primary osteoarthritis, unspecified site; R50.9 Fever, unspecified
CPT/HCPCS: 36415; 80053

== ENCOUNTER → 2025-06-01 09:43 | Outpatient (REF) | payer BC, OTHER, SELFPAY ==
[2025-06-01 11:33] LABS: Hematocrit 37.3 % (37.0-47.0); Hemoglobin 11.0 g/dL (12.0-16.0); Mean Corp Hgb Conc. 29.5 g/dL (33.0-37.0); Mean Corpuscular Volume 94.7 fL (81.0-99.0); Nucleated Red Blood Cells % 0 %; Platelet Count 121 10^3/uL (130-400); Red Cell Dist. Width 15.2 % (11.5-14.5)
[2025-06-01 11:39] LABS: AST (SGOT) 31 U/L (14-36); Albumin 3.8 g/dl (3.5-5.0); Alkaline Phosphatase 87 U/L (38-126); Blood Urea Nitrogen 36 mg/dl (7-17); Calcium 7.5 mg/dl (8.4-10.2); Carbon Dioxide 37 mmol/L (22-30); Chloride 94 mmol/L (98-107); Glucose 120 mg/dl (70-99); Potassium 3.2 mmol/L (3.5-5.1); Sodium 139 mmol/L (135-145); Total Protein 6.6 g/dl (6.3-8.2); eGFR 45.48
[2025-06-01 12:05] LABS: ALT (SGPT) 31 U/L (0-35)
== END ==
LOC: OLABP 09:43
PROVIDERS: ATTENDING PHYSICIAN Family Medicine
DX: Z86.73 Personal history of transient ischemic attack (TIA), and cerebral infarction without residual deficits (principal); Z95.0 Presence of cardiac pacemaker; I48.91 Unspecified atrial fibrillation; J96.11 Chronic respiratory failure with hypoxia; G62.9 Polyneuropathy, unspecified; G93.41 Metabolic encephalopathy; I35.0 Nonrheumatic aortic (valve) stenosis; I50.9 Heart failure, unspecified; I49.5 Sick sinus syndrome; I25.10 Atherosclerotic heart disease of native coronary artery without angina pectoris; R94.31 Abnormal electrocardiogram [ECG] [EKG]
CPT/HCPCS: 36415; 80053; 84443; 85025

== ENCOUNTER → 2025-06-05 11:30 | Outpatient (REF) | payer BC, OTHER, SELFPAY ==
[2025-06-05 12:25] LABS: Blood Urea Nitrogen 30 mg/dl (7-17); Calcium 8.3 mg/dl (8.4-10.2); Carbon Dioxide 38 mmol/L (22-30); Chloride 95 mmol/L (98-107); Glucose 93 mg/dl (70-99); Potassium 3.4 mmol/L (3.5-5.1); Sodium 139 mmol/L (135-145); eGFR 56.60
== END ==
LOC: OLABP 11:30
PROVIDERS: ATTENDING PHYSICIAN Family Medicine
DX: R94.31 Abnormal electrocardiogram [ECG] [EKG] (principal); Z86.73 Personal history of transient ischemic attack (TIA), and cerebral infarction without residual deficits; Z95.0 Presence of cardiac pacemaker; I48.91 Unspecified atrial fibrillation; F32.A Depression, unspecified; J96.11 Chronic respiratory failure with hypoxia; G62.9 Polyneuropathy, unspecified; G93.41 Metabolic encephalopathy; I35.0 Nonrheumatic aortic (valve) stenosis; I49.5 Sick sinus syndrome; J44.9 Chronic obstructive pulmonary disease, unspecified; K51.90 Ulcerative colitis, unspecified, without complications; M06.9 Rheumatoid arthritis, unspecified; M10.9 Gout, unspecified; M19.91 Primary osteoarthritis, unspecified site; R50.9 Fever, unspecified; I50.9 Heart failure, unspecified; R41.82 Altered mental status, unspecified; E03.9 Hypothyroidism, unspecified; I25.10 Atherosclerotic heart disease of native coronary artery without angina pectoris
CPT/HCPCS: 36415; 80048; 83880